=== PATIENT | female | born 1985 | race Caucasian/White ===

== ENCOUNTER 2016-11-14 14:45 | Emergency (ER) | payer BC, OTHER ==
--- NOTE | 2016-11-14 16:36 | RAD ---
HISTORY: Flank pain, right CVA tenderness COMPARISONS: December 05, 2014 TECHNIQUE: Multiple transverse and longitudinal ultrasound images were obtained of the kidneys using grayscale and color Doppler imaging. FINDINGS: RIGHT KIDNEY: The right kidney is normal in shape, size, contour, and echogenicity. There is no hydronephrosis or nephrolithiasis. The right kidney measures 10.1 x 4.3 x 4 cm. LEFT KIDNEY: The left kidney is normal in shape, size, contour, and echogenicity. There is no hydronephrosis or nephrolithiasis. The left kidney measures 10.5 x 5.2 x 4.3 cm. BLADDER: No images are submitted of the bladder. AORTA AND IVC: No images are submitted of the vasculature. RETROPERITONEUM: Unremarkable. OTHER: None. IMPRESSION: NO HYDRONEPHROSIS OR NEPHROLITHIASIS
--- NOTE | 2016-11-14 16:38 | RAD ---
HISTORY: Pelvic pain, history of cyst, left lower quadrant tenderness COMPARISONS: October 12, 2015 TECHNIQUE: Multiple transverse and longitudinal ultrasound images were obtained of the pelvis using grayscale, color Doppler, and spectral Doppler imaging using the endovaginal transducer. FINDINGS: UTERUS: The uterus measures 6.8 x 2.7 x 3.9 cm. The uterus is normal in shape, size, contour, and echotexture. ENDOMETRIUM: The endometrial stripe is smooth. The endometrium measures 0.5 cm in thickness. An IUD is noted within the endometrial cavity low lying from the lower uterine segment into the endocervical canal. CUL-DE-SAC: There is no free fluid within the cul-de-sac. RIGHT OVARY: The right ovary measures 3.1 x 1.8 x 1.9 cm. Multiple follicles are noted. Normal arterial and venous waveforms are identifiable within the ovary on spectral Doppler imaging. LEFT OVARY: The left ovary measures 3.1 x 1.4 x 1.5 cm. Multiple follicles are noted. Normal arterial and venous waveforms are identifiable within the ovary on spectral Doppler imaging. BLADDER: The bladder is not well visualized. IMPRESSION: THE IUD IS LOW LYING EXTENDING INTO THE ENDOCERVICAL CANAL.
[2016-11-14] MEDS ORDERED: NS 0.9% 1000 ML* 1,000 ML IV ONE (16:40)
[2016-11-14 16:45] LABS: Hematocrit 39 % (35-47); Hemoglobin 12.9 g/dl (12.0-16.0); Mean Corpuscular HGB Conc 33 g/dl (31-36); Mean Corpuscular Hemoglobin 29 pg (27-31); Mean Corpuscular Volume 88 fL (80-97); Mean Platelet Volume 9 um3 (7.4-10.4); Red Blood Count 4.44 10^6/ul (4.0-5.4); Red Cell Distribution Width 16 % (10.5-15); White Blood Count 9.3 10^3/ul (3.5-10.8)
[2016-11-14 17:03] LABS: ALT 14 U/L (7-52); AST 15 U/L (13-39); Albumin 4.4 g/dL (3.2-5.2); Alkaline Phosphatase 64 U/L (34-104); Anion Gap 7 mmol/L (2-11); BUN/Creatinine Ratio 15.6 (8-20); Blood Urea Nitrogen 12 mg/dL (6-24); C Reactive Protein 4.95 mg/L (< 5.00); CO2 Carbon Dioxide 26 mmol/L (22-32); Calcium 9.7 mg/dL (8.6-10.3); Chloride 105 mmol/L (101-111); EGFR Non-African American 88.6 (>60); Globulin 2.8 g/dL (2-4); Glucose 88 mg/dL (70-100); Lipase 22 U/L (11.0-82.0); Potassium 3.4 mmol/L (3.5-5.0); Sodium 138 mmol/L (133-145); Total Protein 7.2 g/dL (6.4-8.9)
[2016-11-14] MEDS ORDERED: Ketorolac INJ* 30 MG/ML 1 ML VIAL IV ONE (17:45)
[2016-11-14 17:55] LABS: Urine Bacteria Absent (Absent); Urine Bilirubin Negative (Negative); Urine Glucose Negative (Negative); Urine Nitrite Negative (Negative)
[2016-11-14] MEDS ORDERED: traMADol TAB* 50 MG PO ONE (17:55)
--- NOTE | 2016-11-14 20:16 | RAD ---
CLINICAL HISTORY: Right flank pain COMPARISON: October 12, 2015 TECHNIQUE: Multiple contiguous axial CT scans were obtained of the abdomen and pelvis, without intravenous contrast enhancement. Coronal and sagittal multiplanar reformations are submitted for review. Oral contrast was not administered. FINDINGS: The study is limited by the lack of intravenous contrast. This limits evaluation of the solid organs and vasculature. LUNG BASES: The lung bases are clear. LIVER: The liver is normal in shape, size, contour, and attenuation. BILE DUCTS: There is no intrahepatic or extrahepatic biliary dilatation. GALLBLADDER: The gallbladder is normal, without pericholecystic inflammatory change. PANCREAS: The pancreas is normal, without mass or ductal dilatation. SPLEEN: Normal in size and appearance. UPPER GI TRACT: Evaluation of the gastrointestinal tract is limited by incomplete gastric distention. The upper GI tract is unremarkable. SMALL BOWEL AND MESENTERY: The small bowel is normal in contour, course, and caliber. There is no obstruction or dilatation. COLON: The colon is normal in contour, course, caliber. There is no pericolonic inflammatory change. There is a tubular, vermiform, hollow viscus that is blind ending, and originates from the cecum, consistent with a normal appendix. There is no periappendiceal inflammatory change. This is best seen on images 1 through 2 through 145 ADRENALS: Normal bilaterally. KIDNEYS: The kidneys are normal in shape, size, contour, and axis. There is no hydronephrosis or nephrolithiasis. BLADDER: The bladder is incompletely distended but is grossly normal. PELVIC ORGANS: An IUD is noted AORTA: The aorta is normal. IVC: Unremarkable LYMPH NODES: There is no lymphadenopathy by size criteria. ABDOMINAL WALL: There is no evidence for abdominal wall hernia. BONES AND SOFT TISSUES: The bones and soft tissues are unremarkable. OTHER: None IMPRESSION: NO HYDRONEPHROSIS OR NEPHROLITHIASIS
[2016-11-14 21:08] VITALS: BP 132/68
--- NOTE | 2016-11-14 21:16 | ED ---
Rob Patterson Michael, scribed for Spencer Mcintosh MD on 11/14/16 at 1542 . Abdominal Pain/Female - HPI Summary HPI Summary: Old records reviewed, the pt had previous Urgent Care visit with abd pain and epigastric tenderness. She was dx with pancreatitis, and she has a hx of ovarian cyst and colitis. The pt had another Urgent Care visit in October 2015. She had hepatitis C and a hx of opioid abuse. The pt had a CT 2015 and dx with mild colitis . There were two other ER visits in Nov 2015 which were consistent with the Urgent Care visits, and she was dx with chronic abd pain. She was supposed to follow up with GI. The 30 y/o female was BIBA to the ED presenting with constant and sharp RLQ abd pain that started this morning. The pt was referred to the ED from her PCP. She states that the abd pain radiates to her right groin and her bilateral lower back. She also c/o vomiting, fever, chills, and decreased appetite. The pt denies hematuria, dysuria, and increased frequency of urination. The pt has a prior hx of UTI, and she is currently taking Flagyl and Cipro. She is sexual active with the same partner for 3 years. The pt also has a hx of upper and lower endoscopy which were all negative. - History of Current Complaint Chief Complaint: EDAbdPain Stated Complaint: ABD PAIN Time Seen by Provider: 11/14/16 15:12 Hx Obtained From: Patient, EMS, Medical Records Hx Last Menstrual Period: 11/06/14 Onset/Duration: Sudden Onset, Lasting Hours, Still Present Timing: Constant Severity Initially: Moderate Severity Currently: Moderate Pain Intensity: 7 Pain Scale Used: 0-10 Numeric Location: Discrete At: RLQ Radiates: Yes Radiates to: Back, Other - groin Character: Sharp Aggravating Factor(s): Nothing Alleviating Factor(s): Nothing Associated Signs and Symptoms: Positive: Fever, Back Pain, Decreased Appetite, Vomiting, Other: - chills. Negative: Urinary Symptoms Allergies/Adverse Reactions: Allergies Allergy/AdvReac Type Severity Reaction Status Date / Time Nitrofurantoin Allergy Intermediate Nausea And Verified 11/14/16 14:59 [From Macrobid] Vomiting Sulfa Drugs Allergy Intermediate Rash And Verified 11/14/16 14:59 Itching Sulfamethoxazole Allergy Unknown Verified 11/14/16 14:59 w/Trimethoprim Reaction [From Bactrim] Details Penicillins AdvReac Intermediate Vomiting Verified 11/14/16 14:59 Home Medications: Home Medications Albuterol HFA INHALER* [Ventolin HFA Inhaler*] 1 puff INH Q4H PRN 11/14/16 [ History Confirmed 11/14/16] Budesonide CAP(NF) 3 mg PO DAILY 11/14/16 [History Confirmed 11/14/16] Calcium 500 mg PO BID 11/14/16 [History Confirmed 11/14/16] Ciprofloxacin TAB* [Cipro Tab*] 500 mg PO BID 11/14/16 [History Confirmed ] metroNIDAZOLE TAB* [Flagyl 250 mg TAB*] 500 mg PO TID 11/14/16 [History Confirmed 11/14/16] PMH/Surg Hx/FS Hx/Imm Hx Previously Healthy: No - ovarian cyst Endocrine/Hematology History: Denies: Hx Diabetes Cardiovascular History: Denies: Hx Congestive Heart Failure, Hx Hypertension Respiratory History: Denies: Hx Asthma, Hx Chronic Obstructive Pulmonary Disease (COPD) GI History: Reports: Hx Ulcer - colitis, Other GI Disorders - Colitis History: Reports: Other Problems/Disorders - Frequent UTIs Denies: Hx Dialysis, Hx Renal Disease Psychiatric History: Reports: Hx Anxiety, Hx Depression, Hx Substance Abuse - HEROIN - Surgical History Surgery Procedure, Year, and Place: ovarian cyst Infectious Disease History: Yes Infectious Disease History: Reports: Hx Hepatitis - TESTS + FOR HEP C ANTIBODIES Denies: Hx Clostridium Difficile, Hx Human Immunodeficiency Virus (HIV), Hx of Known/Suspected MRSA, Hx Shingles, Hx Tuberculosis, Traveled Outside the [place] in Last 30 Days - Family History Known Family History: Positive: None Family History: pt denies FHx - Social History Occupation: Employed Full-time Lives: With Family Alcohol Use: Occasionally Alcohol Amount: 1/DAY Hx Substance Use: Yes Substance Use Type: Reports: Marijuana Substance Use Comment - Amount & Last Used: almost daily Hx Tobacco Use: Yes Smoking Status (MU): Heavy Every Day Tobacco Smoker Type: Cigarettes Amount Used/How Often: 3 PPD Length of Time of Smoking/Using Tobacco: 8 years Have You Smoked in the Last Year: Yes Review of Systems Positive: Fever, Chills Positive: Abdominal Pain, Vomiting, Other - decreased appetite Negative: dysuria, frequency, hematuria All Other Systems Reviewed And Are Negative: Yes Physical Exam Triage Information Reviewed: Yes Vital Signs On Initial Exam: Initial Vitals Temp Pulse Resp BP Pulse Ox 97.9 F 88 18 141/76 98 11/14/16 14:50 11/14/16 14:50 11/14/16 14:50 11/14/16 14:50 11/14/16 14:50 Vital Signs Reviewed: Yes Appearance: Positive: Well-Appearing, Pain Distress Head/Face: Positive: Normal Head/Face Inspection Eyes: Positive: ARACELY ENT: Positive: Other - dry oral mucosa Neck: Positive: Supple, Other: - no adenopathy. no edema. Respiratory/Lung Sounds: Positive: Clear to Auscultation, Other - breathing comfortable. Negative: Rales, Wheezes Cardiovascular: Positive: RRR, Other - negative gallops, S1, S2. Negative: Murmur, Rub Abdomen Description: Positive: Soft, CVA Tenderness (R), Other: - flat. Negative: Nontender - tender LLQ Musculoskeletal: Positive: Other - no calf tenderness. Negative: Edema Left, Edema Right Neurological: Positive: Alert, Oriented to Person Place, Time Psychiatric: Positive: Other - logical and coherent AVPU Assessment: Alert Diagnostics - Vital Signs Vital Signs Temp Pulse Resp BP Pulse Ox 11/14/16 14:50 97.9 F 88 18 141/76 98 - Laboratory Lab Results: Lab Results 11/14/16 11/14/16 11/14/16 Range/Units 16:30 16:30 17:36 WBC 9.3 (3.5-10.8) 10^3/ul RBC 4.44 (4.0-5.4) 10^6/ul Hgb 12.9 (12.0-16.0) g/dl Hct 39 (35-47) % MCV 88 (80-97) fL MCH 29 (27-31) pg MCHC 33 (31-36) g/dl RDW 16 H (10.5-15) % Plt Count 267 (150-450) 10^3/ul MPV 9 (7.4-10.4) um3 Neut % (Auto) 55.1 (38-83) % Lymph % (Auto) 35.8 (25-47) % Crowley % (Auto) 6.6 (1-9) % Eos % (Auto) 1.2 (0-6) % Baso % (Auto) 1.3 (0-2) % Absolute Neuts (auto) 5.1 (1.5-7.7) 10^3/ul Absolute Lymphs (auto) 3.3 (1.0-4.8) 10^3/ul Absolute Monos (auto) 0.6 (0-0.8) 10^3/ul Absolute Eos (auto) 0.1 (0-0.6) 10^3/ul Absolute Basos (auto) 0.1 (0-0.2) 10^3/ul Absolute Nucleated RBC 0.01 10^3/ul Nucleated RBC % 0.1 Sodium 138 (133-145) mmol/L Potassium 3.4 L (3.5-5.0) mmol/L Chloride 105 (101-111) mmol/L Carbon Dioxide 26 (22-32) mmol/L Anion Gap 7 (2-11) mmol/L BUN 12 (6-24) mg/dL Creatinine 0.77 (0.51-0.95) mg/dL Est GFR ( Amer) 114.0 (>60) Est GFR (Non-Af Amer) 88.6 (>60) BUN/Creatinine Ratio 15.6 (8-20) Glucose 88 (70-100) mg/dL Calcium 9.7 (8.6-10.3) mg/dL Total Bilirubin 0.40 (0.2-1.0) mg/dL AST 15 (13-39) U/L ALT 14 (7-52) U/L Alkaline Phosphatase 64 (34-104) U/L C-Reactive Protein 4.95 (< 5.00) mg/L Total Protein 7.2 (6.4-8.9) g/dL Albumin 4.4 (3.2-5.2) g/dL Globulin 2.8 (2-4) g/dL Albumin/Globulin Ratio 1.6 (1-3) Lipase 22 (11.0-82.0) U/L Beta HCG, Quant < 0.60 mIU/mL Urine Color Yellow Urine Appearance Cloudy Urine pH 6.0 (5-9) Ur Specific Elizabeth 1.027 (1.010-1.030) Urine Protein 1+(30 mg/dl) H (Negative) Urine Ketones 1+ H (Negative) Urine Blood Negative (Negative) Urine Nitrate Negative (Negative) Urine Bilirubin Negative (Negative) Urine Urobilinogen Negative (Negative) Ur Leukocyte Esterase Negative (Negative) Urine WBC (Auto) Trace(0-5/hpf) (Absent) Urine RBC (Auto) 1+(3-5/hpf) H (Absent) Ur Squamous Epith Cells Present H (Absent) Urine Bacteria Absent (Absent) Urine Glucose Negative (Negative) Result Diagrams: 11/14/16 16:30 11/14/16 16:30 Lab Statement: Any lab studies that have been ordered have been reviewed, and results considered in the medical decision making process. - CT CT ABD/PEL CT Interpretation: No Acute Changes CT Interpretation Completed By: Radiologist - Additional Comments Diagnostic Additional Comments: Renal US-Radiologist: No hydronephrosis or nephrolithiasis. Transvaginal US-Radiologist: The IUD is low lying extending into the endocervical canal. Abdominal Pain Fem Course/Dx - Course Course Of Treatment: she presents with abd pain and flank pain. On review of symptoms there is nothing more significant as she denies all sx besides pain and some anorexia. There was no diarrhea or vomiting. All of her exams were benign. Upon exam there was tenderness to the left lower abd although she says pain is on the right. She did have CVA tenderness. UA is pending. Pelvic US is completely nml with no signs of abscess, torsion, free fluid, enlarged follicles , or cysts. Despite pain medication of Toradol she did not feel any better so because of her not improving a CT was ordered to look for atypical appendicitis. CT scan was returned as nml as well. She agrees to follow up with GI doctor at [facility]. Before leaving, the patient was given her option for admission to consult with GI and Surgery. The patient denied and said she could follow up with her own GI doctor. She was disappointed she did not receive pain medication but we were not really sure what we would be treating. - Diagnoses Differential Diagnosis: Positive: Abdominal Aortic Aneurysm, Appendicitis, Bowel Obstruction, Constipation, Diverticulitis, Ectopic , Gall Bladder Disease, Irritable Bowel Syndrome, Ovarian Cyst, Pancreatitis, Pelvic Inflammatory Disease, Peptic Ulcer Disease, , Renal Colic, Urinary Tract Infection Provider Diagnoses: Abdominal pain, Flank pain Discharge - Discharge Plan Condition: Fair Disposition: HOME Prescriptions: Naproxen TAB* [Naprosyn TAB*] 500 mg PO Q8H PRN #12 tab PRN Reason: Pain traMADol TAB* [Ultram*] 50 mg PO Q6HR PRN #20 tab MDD 3 PRN Reason: Pain Patient Education Materials: Abdominal Pain (ED) Referrals: Adela Shultz MD [Primary Care Provider] - 1 Day The documentation as recorded by the Rob reich Michael accurately reflects the service I personally performed and the decisions made by Dayna hong Farzad, MD.
== END 2016-11-14 21:07 | disposition home or self-care (01) ==
LOC: ED 14:45
DX: R10.84 Generalized abdominal pain (principal); R11.0 Nausea; R11.10 Vomiting, unspecified; F17.210 Nicotine dependence, cigarettes, uncomplicated
CPT/HCPCS: 36415; 74176; 76775; 76830; 80053; 81003; 81015; 83690; 84702; 85025; 86140; 99283; A9270-GY; J1885

== ENCOUNTER 2016-11-22 07:46 | Emergency (ER) | payer BC ==
[2016-11-22 08:06] VITALS: BP 159/93
[2016-11-22] MEDS ORDERED: NS 0.9% 1000 ML* 1,000 ML IV ONE (08:17)
[2016-11-22] MEDS ORDERED: Ondansetron INJ* 2 MG/ML VIAL IV ONE (08:18)
[2016-11-22] MEDS ORDERED: Ketorolac INJ* 30 MG/ML 1 ML VIAL IV PUSH ONE (08:24)
--- NOTE | 2016-11-22 08:55 | UC ---
Makenzie Patterson Rebecca, scribed for Pura Melchor MD on 11/22/16 at 0815 . Abdominal Pain Female HPI - HPI Summary HPI Summary: Pt is a 30 y/o F who presents to [facility] unaccompanied c/o abd pain. Pain is acute on chronic, suddenly worsening this morning at 0400. Pain is in the epigastric region without radiation and characterized as cramping. Sx are severe , ranked 7/10. Sx aggravated and alleviated by nothing. 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. PMHx collagenous colitis. LNMP 3 weeks ago. - History of Current Complaint Chief Complaint: UCAbdominalPain Stated Complaint: VOMITING Time Seen by Provider: 11/22/16 08:08 Hx Obtained From: Patient Hx Last Menstrual Period: 3 WEEKS AGO Onset/Duration: Sudden Onset, Lasting Hours, Worse Since - this morning Severity Initially: Severe Severity Currently: Severe Pain Intensity: 7 Pain Scale Used: 0-10 Numeric Location: Discrete At: LLQ, Epigastric Radiates: No Character: Cramping Aggravating Factor(s): Nothing Alleviating Factor(s): Nothing Associated Signs and Symptoms: Positive: Diaphoresis, Vomiting Simlar Episode/Dx as:: collagenous colitis - Risk Factors Ectopic Risk Factor: Negative Ovarian Torsion Risk Factor: Ovarian Cysts/Tumors Allergies/Adverse Reactions: Allergies Allergy/AdvReac Type Severity Reaction Status Date / Time Nitrofurantoin Allergy Intermediate Nausea And Verified 11/22/16 07:58 [From Macrobid] Vomiting Sulfa Drugs Allergy Intermediate Rash And Verified 11/22/16 07:58 Itching Sulfamethoxazole Allergy Unknown Verified 11/22/16 07:58 w/Trimethoprim Reaction [From Bactrim] Details Penicillins AdvReac Intermediate Vomiting Verified 11/22/16 07:58 PMH/Surg Hx/FS Hx/Imm Hx GI/ History Of: Reports: Ulcer - colitis Denies: Renal Disease Psychological History Of: Reports: Anxiety, Depression - Surgical History Surgical History: Yes Surgery Procedure, Year, and Place: 2014 ovarian cyst REMOVAL - Family History Known Family History: Positive: Hypertension - mother - Social History Occupation: Employed Full-time Alcohol Use: Occasionally Alcohol Amount: 1/DAY Substance Use Type: Marijuana Substance Use Comment - Amount & Last Used: almost daily Smoking Status (MU): Heavy Every Day Tobacco Smoker Type: Cigarettes Amount Used/How Often: 3 PPD, 10+ YEARS Length of Time of Smoking/Using Tobacco: 8 years Have You Smoked in the Last Year: Yes Household Exposure Type: Cigarettes Review of Systems Constitutional: Negative Skin: Negative Eyes: Negative ENT: Negative Respiratory: Negative Cardiovascular: Negative Gastrointestinal: Abdominal Pain - epigastric 7/10, Vomiting Genitourinary: Negative Motor: Negative Neurovascular: Negative Musculoskeletal: Negative Neurological: Negative Psychological: Negative All Other Systems Reviewed And Are Negative: Yes Physical Exam Triage Information Reviewed: Yes Appearance: Well-Appearing, Well-Nourished, Pain Distress - Tearful with pain Vital Signs: Initial Vital Signs Temp 98.7 F 11/22/16 07:59 Pulse 90 11/22/16 07:59 Resp 24 11/22/16 07:59 BP 159/93 11/22/16 07:59 Pulse Ox 99 11/22/16 07:59 Vital Signs Reviewed: Yes Eyes: Positive: Conjunctiva Clear ENT: Positive: Normal ENT inspection Neck: Positive: Supple Respiratory: Positive: Lungs clear, Normal breath sounds, No respiratory distress Cardiovascular: Positive: RRR, No Murmur, Pulses Normal, Brisk Capillary Refill Abdomen Description: Positive: Soft. Negative: Nontender - LLQ tenderness Bowel Sounds: Positive: Hypoactive Musculoskeletal: Positive: Strength Intact, ROM Intact Neurological: Positive: Alert, Muscle Tone Normal Psychological Exam: Normal Skin: Positive: Other - Diaphoretic Abd Pain Female Course/Dx - Differential Dx/Diagnosis Differential Diagnosis: Diverticulitis, Ovarian Cyst, Other - colitis Provider Diagnoses: acute abdominal pain - Physician Notification/Consults Discussed Patient Care With: Dr. Johnson at [facility] ED. Accepts pt as transfer. Time Discussed With Above Provider: 08:19 Instructed by Provider To: MD Will See In ED - pt transferred by [facility] ambulance Discharge - Discharge Plan Condition: Stable Disposition: TRANS HIGHER LVL OF CARE FAC Discharge Disposition Comment: via [facility] to [facility] The documentation as recorded by the Makenzie reich Rebecca accurately reflects the service I personally performed and the decisions made by , Pura Melchor MD.
== END 2016-11-22 08:52 | disposition short-term general hospital (02) ==
LOC: UCEAST 07:46
DX: R10.13 Epigastric pain (principal); R10.32 Left lower quadrant pain; R11.10 Vomiting, unspecified; Z88.1 Allergy status to other antibiotic agents; Z88.0 Allergy status to penicillin; Z88.2 Allergy status to sulfonamides; F12.90 Cannabis use, unspecified, uncomplicated; F17.210 Nicotine dependence, cigarettes, uncomplicated
CPT/HCPCS: 99213; G0463; J2405

== ENCOUNTER 2016-11-22 08:53 | Emergency (ER) | payer BC ==
[2016-11-22] MEDS ORDERED: Ondansetron INJ* 2 MG/ML VIAL IV ONE ×2 (09:27→09:51)
[2016-11-22] MEDS ORDERED: Morphine INJ* 4 MG/ML 1 ML CARPUJECT IV ONE (09:51)
[2016-11-22] MEDS ORDERED: NS 0.9% 1000 ML* 1,000 ML IV ONE (09:53)
--- NOTE | 2016-11-22 10:11 | ED ---
Abdominal Pain/Female - HPI Summary HPI Summary: Pt here w/ acute on chronic ab pain - had colitis dx'd over the past year and follows w/ Dr. Ramos through [facility] - states pain feels like flair up up her condition. She has been taking entocort EC for "a while now" and recently tapering down. Still working on trying other meds to better control ab pain - hasn't tried anything other than entocort yet. She's also been able to eat whatever she wants although states some foods irritate her more than other. Has not been following any special diet to date. Has acute pain over the past week ( was seen in ED on 11/14/2016 - CT ab pelvis as well as TVUS then), nausea with vomiting today. Stools have been soft, small and frequent - denies diarrhea, watery stools, hematochezia, fever, URI sx, chest pain, SOB, cough, dysuria, flank pain, increased urination, vaginal d/c, general swelling or skin changes. LMP 2 weeks ago - typically normal - has an IUD. H/o ovarian cyst requiring surgical removal. Although she is sexually active, denies concern for STD as she 's had same partner for past 3 years. Here today for pain control. States toradol doesn't work for her. H/o heroine use and Hep C. When asked about narcotic abuse h/o, reports she hasn 't used in 3 years and feels comfortable receiving narcotic pain meds today as she can't take the pain anymore. - History of Current Complaint Chief Complaint: EDAbdPain Stated Complaint: ABD PAIN Time Seen by Provider: 11/22/16 09:01 Hx Obtained From: Patient Hx Last Menstrual Period: 3 WEEKS AGO Allergies/Adverse Reactions: Allergies Allergy/AdvReac Type Severity Reaction Status Date / Time Sulfa Drugs Allergy Intermediate Rash And Verified 11/22/16 07:58 Itching Sulfamethoxazole Allergy Unknown Verified 11/22/16 07:58 w/Trimethoprim Reaction [From Bactrim] Details Nitrofurantoin AdvReac Intermediate Nausea And Verified 11/22/16 11:22 [From Macrobid] Vomiting Penicillins AdvReac Intermediate Vomiting Verified 11/22/16 07:58 PMH/Surg Hx/FS Hx/Imm Hx Previously Healthy: Yes Endocrine/Hematology History: Reports: Autoimmune Disease - collagenous colitis Denies: Hx Anticoagulant Therapy, Hx Blood Disorders, Hx Diabetes, Hx Thyroid Disease Cardiovascular History: Denies: Hx Congestive Heart Failure, Hx Hypertension Respiratory History: Denies: Hx Asthma, Hx Chronic Obstructive Pulmonary Disease (COPD) GI History: Reports: Other GI Disorders - Collagenous colitis History: Reports: Other Problems/Disorders - Frequent UTIs Denies: Hx Dialysis, Hx Renal Disease Psychiatric History: Reports: Hx Anxiety, Hx Depression, Hx Substance Abuse - 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 - Surgical History Surgery Procedure, Year, and Place: 2014 ovarian cyst REMOVAL Infectious Disease History: No Infectious Disease History: Reports: Hx Hepatitis - TESTS + FOR HEP C ANTIBODIES Denies: Hx Clostridium Difficile, Hx Human Immunodeficiency Virus (HIV), Hx of Known/Suspected MRSA, Hx Shingles, Hx Tuberculosis, Hx Known/Suspected VRE, Hx Known/Suspected VRSA, History Other Infectious Disease, Traveled Outside the [place] in Last 30 Days - Family History Known Family History: Positive: None Family History: pt denies FHx - Social History Occupation: Employed Full-time Lives: With Family Alcohol Use: Occasionally Hx Substance Use: Yes Substance Use Type: Reports: Marijuana - helps ab pain Substance Use Comment - Amount & Last Used: almost daily Hx Tobacco Use: Yes Smoking Status (MU): Current Every Day Smoker Type: Cigarettes Amount Used/How Often: 3 PPD, 10+ YEARS Length of Time of Smoking/Using Tobacco: 8 years Have You Smoked in the Last Year: Yes Review of Systems Positive: Chills. Negative: Fever Eyes: Negative ENT: Negative Negative: Chest Pain Negative: Shortness Of Breath, Cough Gastrointestinal: Other - see HPI Positive: see HPI Musculoskeletal: Negative Skin: Negative Neurological: Negative Positive: Anxious All Other Systems Reviewed And Are Negative: Yes Physical Exam Triage Information Reviewed: Yes Vital Signs On Initial Exam: Initial Vitals Temp Pulse Resp BP Pulse Ox 97.6 F 84 16 129/74 100 11/22/16 09:00 11/22/16 09:00 11/22/16 09:00 11/22/16 09:00 11/22/16 09:00 Vital Signs Reviewed: Yes Appearance: Positive: Pain Distress - pt seated with legs bent underneath her - rocking and sweating - crying, Obese Skin: Positive: Warm - moist - sweat on face Head/Face: Positive: Normal Head/Face Inspection Eyes: Positive: Normal, EOMI, Conjunctiva Clear - anicteric ENT: Positive: Hearing grossly normal, Pharynx normal - mucosa moist Respiratory/Lung Sounds: Positive: Breath Sounds Present, Rhonchi - upper airways. Negative: Rales, Wheezes Cardiovascular: Positive: Normal, RRR, Pulses are Symmetrical in both Upper and Lower Extremities, S1, S2. Negative: Murmur, Rub, Leg Edema Left, Leg Edema Right Abdomen Description: Positive: Soft Bowel Sounds: Positive: Present Pelvic Exam: Positive: other - deferred to Dr. Redd (see notes) Musculoskeletal: Positive: Normal, Strength/ROM Intact Neurological: Positive: Normal, Sensory/Motor Intact, Alert, Oriented to Person Place, Time, CN Intact II-III Psychiatric: Positive: Anxious - discussed h/o narcotic abuse - pt reports she hasn't used in 3 years and feels she is capable of handling narcotic pain meds here today as she's in so much pain she can't take it anymore - appears to be more focused on conversation/better eye contact during discussions about pain control. - Maximiliaon Coma Scale Coma Scale Total: 15 Diagnostics - Vital Signs Vital Signs Temp Pulse Resp BP Pulse Ox 11/22/16 09:00 97.6 F 84 16 129/74 100 - Laboratory Result Diagrams: 11/22/16 09:35 11/22/16 11:45 Lab Statement: Any lab studies that have been ordered have been reviewed, and results considered in the medical decision making process. Re-Evaluation - Re-Evaluation First Eval Change: Unchanged - nausea still present s/p IV zofran 4mg - will repeat Second Eval Change: Unchanged - nausea + vomiting still present after another zofran 4mg ( 8mg total) - will try compazine Third Eval Change: Improved - s/p iv protonix, compazine Abdominal Pain Fem Course/Dx - Course Course Of Treatment: CT ab/pelvis from 11/14/2016 unremarkable for acute findings. Spoke w/ GI specialist at [facility] (Dr. Bauer) - states pt's pain does not correlate w/ her condition. Also reports she has a h/o gastritis upon endoscopy - he reports she takes PPI omeprazole at home - provided protonix IV today which pt reports helped. Upon review of TVUS from 11/14/2016, IUD appears to be lowered and into endocervical canal - Dr. Redd consulted w/ pt and removed IUD as she states this could be her source of pain. No other concerns on pelvic exam per Dr. Redd however cx's attained and pt aware. Provided pt w / short supply of protonix and advised f/u w/ gastro this week. Also advised f/ u w/ [employer]/PCP to follow her [employer] condition today. Explained she may have some vaginal bleeding but pain should improve - short course of low grade pain medications (tramadol) sent home w/ pt - she was upset she did not receive IV morphine before leaving but explained that after receiving 8mg of zofran, 10mg compazine and 4mg of morphine, her BP and pulse ox dropped and that it would not be safe to administer more medications through IV that would suppress her resp response. Reviewed danger s/sx of when to return to ED. Pt comments on appreciating her care here today despite her concerns about pain medication. - Diagnoses Provider Diagnoses: GERD, Malpositioned IUD - Provider Notifications Discussed Care Of Patient With: Dr. Redd - will perform pelvic exam and remove IUD - cx swabs to be taken - [facility] [employer] bed, ring forceps. Dr. August - states pt condition of collagenous colitis should not cause sx pt is having. Confirmed she is using entocort and no other meds have been tried yet. Suggested trying bentyl today - no steroids necessary. Also shared she has h/o gastritis upon upper endoscopy - provided protonix IV today which helped. Gave pt short course at d/c in place of omprazole w/ instructions to f/u w/ GI this week. He is aware there may be some element of drug seeking. Discharge - Discharge Plan Condition: Stable Disposition: HOME Prescriptions: Pantoprazole TAB (NF) [Protonix TAB (NF)] 40 mg PO BEDTIME #5 tab traMADol TAB* [Ultram*] 50 mg PO Q6HR PRN #20 tab MDD 4 PRN Reason: Pain Patient Education Materials: Gastroesophageal Reflux Disease (ED) Forms: *Work Release Referrals: Justin CORTÉS,Cullen Taveras [Medical Doctor] - Adela Shultz MD [Primary Care Provider] - Additional Instructions: Your abdominal pain today may be from multiple factors. You have a history of inflammation in your stomach (aka gastritis). You had some relief today with protonix. This medication will be continued for you to take at home for the next 5 days. Do not take your omeprazole with this. Make sure you follow-up with your luster repairer this week to further investigate this issue. You do not appear to have acute blood loss today. Continue your Entocort as directed. The following lifestyle tips may help with your symptoms and condition as well: 1. Keep a food and beverage journal. It can help you track and avoid triggers. Once identified, avoid these. Common items include: chocolate, mint, coffee, alcohol these relax the upper sphincter allowing acid to splash up and cause pain. Others include: acidic (ie citrus, etc), spicy foods, smoking and NSAIDs (advil, ibuprofen, aspirin, aleve, naproxyn) these directly irritate the lining of the stomach 2. Eat small, frequent meals. Overeating at one setting stretches your stomach and puts pressure on the upper sphincter and can push it open enough to allow acid to creep up and cause pain. 3. Wear loose clothing and maintain a healthy weight. Tight pants/shirt and/ or an enlarged abdomen push on your stomach, reducing the amount of space the stomach may stretch while eating. 4. Avoid lying down after eating 5. Stress can increase stomach acid as well as increase restriction of abdominal tension if youre always holding you muscles tight. Practice relaxation techniques such as breathing exercises, guided imagery, regular physical activity to burn off anxiety/stress. 6. Sip chamomile tea (with or without honey). It can help soothe inflamed tissue in the esophagus. 7. Try sleeping on your left side. This may help move acid away from the entrance of the esophagus. 8. Otis with DGL (deglycyrrhizinated licorice), latanya (eat it or drink it in tea form) - supplements which may help support digestive health 9. You may also try eating a yogurt a day or taking a probiotic supplement (ie , acidophilus, casei, bifidus, etc) if you have an overgrowth of bad bacteria from too many antibiotics over a lifetime - this may help replace good bacteria and reduce stomach dis-ease. Discuss with your luster repairer before starting. You also had a low sitting IUD. This was removed by Dr. Redd today. You may have some residual pelvic cramping as a result but this should improve over the next few days. You may experience some vaginal bleeding after this procedure - period-like flow is normal but if you are saturating a pad every hours for 12+ hours, return to the ED. Avoid using tampons and engaging in sexual intercourse until cleared by your provider. You may also discuss alternative control options with your PCP/insurance commissioner. Some vaginal cultures were taken today. The results will be back in a couple of days. If you have positive findings, an antibiotic will be called into your pharmacy for you. It is important that you have a follow-up pelvic exam with either your PCP or [facility]. Call Thursday to schedule. Some pain medication has been sent to your pharmacy. You may also benefit from warm bath soaks as well as castor oil packs with heat pack. Tichnor Oil Transdermal Packs 1. A wash cloth should be soaked in pure, cold-pressed castor oil that is obtained from a health food store. 2. The wash cloth should be placed on bare skin on the lower stomach. 3. Put a piece of plastic on top of the cloth, such as a plastic grocery bag. 4. Place a hot water bottle on top of that. The water should be made as hot as possible, so long as the patient can tolerate it. 5. Leave this in place for at least 30 minutes. The above procedure can also be done repeatedly over the course of many days to provide relief. However one treatment is usually enough to provide massive relief. Consuming Scott nuts is ideal, because they contain folate, selenium, and magnesium, which have all been shown to reduce menstrual cramps. *If you develop fever, chills, heavy vaginal bleeding, worsening abdominal pain , bloody diarrhea, vomiting, pain with urination, chest pain or shortness of breath, return to ED
[2016-11-22 10:19] LABS: Hematocrit 40 % (35-47); Mean Corpuscular HGB Conc 33 g/dl (31-36); Mean Corpuscular Hemoglobin 29 pg (27-31); Mean Corpuscular Volume 89 fL (80-97); Mean Platelet Volume 10 um3 (7.4-10.4); Red Cell Distribution Width 16 % (10.5-15); White Blood Count 10.9 10^3/ul (3.5-10.8)
[2016-11-22 10:32] LABS: ALT 16 U/L (7-52); Albumin 4.4 g/dL (3.2-5.2); Alkaline Phosphatase 72 U/L (34-104); Amylase 89 U/L (29-103); BUN/Creatinine Ratio 17.9 (8-20); Blood Urea Nitrogen 14 mg/dL (6-24); C Reactive Protein 6.35 mg/L (< 5.00); CO2 Carbon Dioxide 22 mmol/L (22-32); Calcium 9.5 mg/dL (8.6-10.3); Chloride 106 mmol/L (101-111); EGFR African American 112.3 (>60); EGFR Non-African American 87.3 (>60); Glucose 125 mg/dL (70-100); Lipase 91 U/L (11.0-82.0); Sodium 138 mmol/L (133-145); Total Protein 7.4 g/dL (6.4-8.9)
[2016-11-22] MEDS ORDERED: DICYCLOMINE HCL* 20 MG/2 ML VIAL IM ONE (10:32)
[2016-11-22 11:35] LABS: Erythrocyte Sed Rate 36 mm/Hr (0-14)
[2016-11-22] MEDS ORDERED: Pantoprazole IV* 40 MG IV ONE (11:55)
[2016-11-22] MEDS ORDERED: PROCHLORPERAZINE INJ 5 MG/ML 2 ML VIAL IV ONE (11:55)
[2016-11-22] MEDS ORDERED: Dicyclomine CAP* 10 MG PO ONE (11:56)
[2016-11-22] MEDS: NS 0.9% 1000 ML* 2,000 ML IV ONE (15:51)
[2016-11-22] MEDS ORDERED: HYDROcodone/ACETAMIN 5-325 MG* 1 TAB PO ONE (17:10)
[2016-11-22 17:25] VITALS: BP 116/63
== END 2016-11-22 17:37 | disposition home or self-care (01) ==
LOC: ED 08:53
DX: K21.9 Gastro-esophageal reflux disease without esophagitis (principal); T83.32XA Displacement of intrauterine contraceptive device, initial encounter; Y76.8 Miscellaneous obstetric and gynecological devices associated with adverse incidents, not elsewhere classified; Y92.9 Unspecified place or not applicable; F17.210 Nicotine dependence, cigarettes, uncomplicated; Z88.0 Allergy status to penicillin; Z88.2 Allergy status to sulfonamides
CPT/HCPCS: 36415; 80053; 82150; 83605; 83690; 84702; 85025; 85652; 86140; 87491; 87591; 99284; A9270-GY; J0500; J0780; J2270; J2405

== ENCOUNTER 2016-12-12 07:43 | Emergency (ER) | payer BC ==
[2016-12-12] MEDS ORDERED: NS 0.9% 1000 ML* 1,000 ML IV ONE (08:25)
[2016-12-12] MEDS ORDERED: Ondansetron INJ* 2 MG/ML VIAL IV ONE (08:25)
[2016-12-12] MEDS ORDERED: Pantoprazole IV* 40 MG IV ONE (08:25)
[2016-12-12] MEDS ORDERED: Ketorolac INJ* 30 MG/ML 1 ML VIAL IV ONE (08:25)
[2016-12-12] MEDS ORDERED: diPHENhydraMINE IV* 50 MG/ML 1 ml VIAL (BENADRYL) IV ONE (08:28)
[2016-12-12 09:26] LABS: Hematocrit 41 % (35-47); Hemoglobin 13.6 g/dl (12.0-16.0); Mean Corpuscular HGB Conc 33 g/dl (31-36); Mean Corpuscular Hemoglobin 29 pg (27-31); Mean Corpuscular Volume 88 fL (80-97); Mean Platelet Volume 9 um3 (7.4-10.4); Red Blood Count 4.69 10^6/ul (4.0-5.4); Red Cell Distribution Width 16 % (10.5-15); White Blood Count 10.1 10^3/ul (3.5-10.8)
[2016-12-12 09:41] LABS: Urine Bilirubin Negative (Negative); Urine Glucose Negative (Negative); Urine Nitrite Negative (Negative)
[2016-12-12 09:49] LABS: ALT 15 U/L (7-52); Albumin 4.4 g/dL (3.2-5.2); Alkaline Phosphatase 81 U/L (34-104); Amylase 72 U/L (29-103); BUN/Creatinine Ratio 16.9 (8-20); Blood Urea Nitrogen 13 mg/dL (6-24); C Reactive Protein 3.47 mg/L (< 5.00); CO2 Carbon Dioxide 23 mmol/L (22-32); Calcium 9.9 mg/dL (8.6-10.3); Chloride 106 mmol/L (101-111); EGFR African American 113.2 (>60); Glucose 96 mg/dL (70-100); Lipase 22 U/L (11.0-82.0); Sodium 137 mmol/L (133-145); Total Protein 7.4 g/dL (6.4-8.9)
[2016-12-12 09:55] LABS: AST 72 U/L (13-39); Anion Gap 8 mmol/L (2-11); Potassium 4.4 mmol/L (3.5-5.0)
[2016-12-12] MEDS ORDERED: Ketorolac INJ* 30 MG/ML 1 ML VIAL IV PUSH ONE (10:07)
--- NOTE | 2016-12-12 10:33 | RAD ---
HISTORY: Abdominal pain COMPARISONS: November 14, 2016 VIEWS: Frontal views of the abdomen. FINDINGS: BOWEL: There is a nonobstructive bowel gas pattern. There is a large amount of stool within the colon. CALCULI: There are no abnormal calculi. BONES AND SOFT TISSUES: There are no osseous abnormalities. OTHER FINDINGS: The lung bases are clear. There is no subphrenic gas. IMPRESSION: NONOBSTRUCTIVE BOWEL GAS PATTERN. LARGE AMOUNT OF STOOL WITHIN THE COLON
[2016-12-12] MEDS ORDERED: Morphine INJ* 4 MG/ML 1 ML CARPUJECT IV ONE (10:55)
[2016-12-12 11:20] VITALS: BP 113/67
--- NOTE | 2016-12-12 14:49 | ED ---
Carlos Patterson Billy, scribed for Rashad Funk MD on 12/12/16 at 0815 . Abdominal Pain/Female - HPI Summary HPI Summary: Patient is a 31 year-old female with a history of collagenous colitis coming to [facility] with [id number] LLQ abdominal pain. Patient reports non-radiating pain, severity 7/10. She states that hot showers will help her pain. She also reports N/V/D. Patient also reports chills and cold sweats. Patient has had numerous episodes of similar symptoms in the past. She sees Dr. Ramos ( gastroenterology) in [place]. [facility] 1 month ago. - History of Current Complaint Chief Complaint: EDAbdPain Stated Complaint: NAUSEA/VOMITING/DIARRHEA Time Seen by Provider: 12/12/16 08:07 Hx Obtained From: Patient Hx Last Menstrual Period: 3 WEEKS AGO Onset/Duration: Gradual Onset Timing: Constant Severity Initially: Moderate Severity Currently: Moderate Pain Intensity: 7 Pain Scale Used: 0-10 Numeric Location: Discrete At: LLQ Radiates: No Aggravating Factor(s): Nothing Alleviating Factor(s): Other: - hot showers Associated Signs and Symptoms: Positive: Nausea, Vomiting, Diarrhea, Other: - chills, sweats Allergies/Adverse Reactions: Allergies Allergy/AdvReac Type Severity Reaction Status Date / Time Sulfa Drugs Allergy Intermediate Rash And Verified 12/12/16 08:25 Itching Sulfamethoxazole Allergy Unknown Verified 12/12/16 08:25 w/Trimethoprim Reaction [From Bactrim] Details Nitrofurantoin AdvReac Intermediate Nausea And Verified 12/12/16 08:25 [From Macrobid] Vomiting Penicillins AdvReac Intermediate Vomiting Verified 12/12/16 08:25 PMH/Surg Hx/FS Hx/Imm Hx Endocrine/Hematology History: Denies: Hx Anticoagulant Therapy, Hx Blood Disorders, Hx Diabetes, Hx Thyroid Disease Cardiovascular History: Denies: Hx Congestive Heart Failure, Hx Hypertension Respiratory History: Denies: Hx Asthma, Hx Chronic Obstructive Pulmonary Disease (COPD) GI History: Reports: Hx Ulcer - colitis, Other GI Disorders - Collagenous colitis History: Reports: Other Problems/Disorders - Frequent UTIs Denies: Hx Dialysis, Hx Renal Disease Psychiatric History: Reports: Hx Anxiety, Hx Depression, Hx Substance Abuse - 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 - Surgical History Surgery Procedure, Year, and Place: 2014 ovarian cyst REMOVAL Infectious Disease History: No Infectious Disease History: Reports: Hx Hepatitis - TESTS + FOR HEP C ANTIBODIES Denies: Hx Clostridium Difficile, Hx Human Immunodeficiency Virus (HIV), Hx of Known/Suspected MRSA, Hx Shingles, Hx Tuberculosis, Hx Known/Suspected VRE, Hx Known/Suspected VRSA, History Other Infectious Disease, Traveled Outside the [place] in Last 30 Days - Family History Known Family History: Positive: Hypertension - mother - Social History Alcohol Use: Occasionally Alcohol Amount: 1/DAY Hx Substance Use: Yes Substance Use Type: Reports: Marijuana - helps ab pain Substance Use Comment - Amount & Last Used: almost daily Hx Tobacco Use: Yes Smoking Status (MU): Current Every Day Smoker Type: Cigarettes Amount Used/How Often: 3 PPD, 10+ YEARS Length of Time of Smoking/Using Tobacco: 8 years Have You Smoked in the Last Year: Yes Review of Systems Positive: Chills, Skin Diaphoresis Positive: Abdominal Pain, Vomiting, Diarrhea, Nausea All Other Systems Reviewed And Are Negative: Yes Physical Exam - Summary Physical Exam Summary: The patient is well-nourished in no acute distress and in no acute pain. The skin is warm and dry and skin color reflects adequate perfusion. HEENT: The head is normocephalic and atraumatic. The pupils are equal and reactive. The conjunctivae are clear and without drainage. Nares are patent and without drainage. Neck is supple with full range of motion and non-tender. There are no carotid bruits. There is no neck vein distension. Respiratory: Chest is non-tender. Lungs are clear to auscultation and breath sounds are symmetrical and equal. Cardiovascular: Heart is regular rate and rhythm. There is no murmur or rub auscultated. There is no peripheral edema and pulses are symmetrical and equal. Abdomen: The abdomen is soft. Mild tenderness to the epigastric and LLQ regions. There are normal bowel sounds heard in all four quadrants and there is no organomegaly palpated. Musculoskeletal: There is no back pain noted. Extremities are non-tender with full range of motion. There is good capillary refill. There is no peripheral edema or calf tenderness elicited. Neurological: Patient is alert and oriented to person, place and time. The patient has symmetrical motor strength in all four extremities. Psychiatric: The patient has an appropriate affect and does not exhibit any anxiety or depression. Triage Information Reviewed: Yes Vital Signs On Initial Exam: Initial Vitals Temp Pulse Resp BP Pulse Ox 97.3 F 78 20 138/99 98 12/12/16 07:44 12/12/16 07:44 12/12/16 07:44 12/12/16 07:44 12/12/16 07:44 Vital Signs Reviewed: Yes Diagnostics - Vital Signs Vital Signs Temp Pulse Resp BP Pulse Ox 12/12/16 07:44 97.3 F 78 20 138/99 98 - Laboratory Lab Results: Lab Results 12/12/16 12/12/16 12/12/16 Range/Units 09:10 09:10 09:10 WBC 10.1 (3.5-10.8) 10^3/ul RBC 4.69 (4.0-5.4) 10^6/ul Hgb 13.6 (12.0-16.0) g/dl Hct 41 (35-47) % MCV 88 (80-97) fL MCH 29 (27-31) pg MCHC 33 (31-36) g/dl RDW 16 H (10.5-15) % Plt Count 293 (150-450) 10^3/ul MPV 9 (7.4-10.4) um3 Neut % (Auto) 83.3 H (38-83) % Lymph % (Auto) 11.6 L (25-47) % [place] % (Auto) 4.0 (1-9) % Eos % (Auto) 0.5 (0-6) % Baso % (Auto) 0.6 (0-2) % Absolute Neuts (auto) 8.4 H (1.5-7.7) 10^3/ul Absolute Lymphs (auto) 1.2 (1.0-4.8) 10^3/ul Absolute Monos (auto) 0.4 (0-0.8) 10^3/ul Absolute Eos (auto) 0 (0-0.6) 10^3/ul Absolute Basos (auto) 0.1 (0-0.2) 10^3/ul Absolute Nucleated RBC 0 10^3/ul Nucleated RBC % 0 INR (Anticoag Therapy) (0.89-1.11) APTT (26.0-36.3) seconds Sodium 137 (133-145) mmol/L Potassium 4.4 (3.5-5.0) mmol/L Chloride 106 (101-111) mmol/L Carbon Dioxide 23 (22-32) mmol/L Anion Gap 8 (2-11) mmol/L BUN 13 (6-24) mg/dL Creatinine 0.77 (0.51-0.95) mg/dL Est GFR ( Amer) 113.2 (>60) Est GFR (Non-Af Amer) 88.0 (>60) BUN/Creatinine Ratio 16.9 (8-20) Glucose 96 (70-100) mg/dL Lactic Acid 1.1 (0.5-2.0) mmol/L Calcium 9.9 (8.6-10.3) mg/dL Total Bilirubin 0.40 (0.2-1.0) mg/dL AST 72 H (13-39) U/L ALT 15 (7-52) U/L Alkaline Phosphatase 81 (34-104) U/L C-Reactive Protein 3.47 (< 5.00) mg/L Total Protein 7.4 (6.4-8.9) g/dL Albumin 4.4 (3.2-5.2) g/dL Globulin 3.0 (2-4) g/dL Albumin/Globulin Ratio 1.5 (1-3) Amylase 72 (29-103) U/L Lipase 22 (11.0-82.0) U/L Beta HCG, Quant < 0.60 mIU/mL Urine Color Urine Appearance Urine pH (5-9) Ur Specific [place] (1.010-1.030) Urine Protein (Negative) Urine Ketones (Negative) Urine Blood (Negative) Urine Nitrate (Negative) Urine Bilirubin (Negative) Urine Urobilinogen (Negative) Ur Leukocyte Esterase (Negative) Urine Glucose (Negative) 12/12/16 12/12/16 Range/Units 09:10 09:26 WBC (3.5-10.8) 10^3/ul RBC (4.0-5.4) 10^6/ul Hgb (12.0-16.0) g/dl Hct (35-47) % MCV (80-97) fL MCH (27-31) pg MCHC (31-36) g/dl RDW (10.5-15) % Plt Count (150-450) 10^3/ul MPV (7.4-10.4) um3 Neut % (Auto) (38-83) % Lymph % (Auto) (25-47) % [place] % (Auto) (1-9) % Eos % (Auto) (0-6) % Baso % (Auto) (0-2) % Absolute Neuts (auto) (1.5-7.7) 10^3/ul Absolute Lymphs (auto) (1.0-4.8) 10^3/ul Absolute Monos (auto) (0-0.8) 10^3/ul Absolute Eos (auto) (0-0.6) 10^3/ul Absolute Basos (auto) (0-0.2) 10^3/ul Absolute Nucleated RBC 10^3/ul Nucleated RBC % INR (Anticoag Therapy) 0.96 (0.89-1.11) APTT 31.2 (26.0-36.3) seconds Sodium (133-145) mmol/L Potassium (3.5-5.0) mmol/L Chloride (101-111) mmol/L Carbon Dioxide (22-32) mmol/L Anion Gap (2-11) mmol/L BUN (6-24) mg/dL Creatinine (0.51-0.95) mg/dL Est GFR ( Amer) (>60) Est GFR (Non-Af Amer) (>60) BUN/Creatinine Ratio (8-20) Glucose (70-100) mg/dL Lactic Acid (0.5-2.0) mmol/L Calcium (8.6-10.3) mg/dL Total Bilirubin (0.2-1.0) mg/dL AST (13-39) U/L ALT (7-52) U/L Alkaline Phosphatase (34-104) U/L C-Reactive Protein (< 5.00) mg/L Total Protein (6.4-8.9) g/dL Albumin (3.2-5.2) g/dL Globulin (2-4) g/dL Albumin/Globulin Ratio (1-3) Amylase (29-103) U/L Lipase (11.0-82.0) U/L Beta HCG, Quant mIU/mL Urine Color Yellow Urine Appearance Cloudy Urine pH 5.0 (5-9) Ur Specific [place] 1.024 (1.010-1.030) Urine Protein Negative (Negative) Urine Ketones Negative (Negative) Urine Blood Negative (Negative) Urine Nitrate Negative (Negative) Urine Bilirubin Negative (Negative) Urine Urobilinogen Negative (Negative) Ur Leukocyte Esterase Negative (Negative) Urine Glucose Negative (Negative) Result Diagrams: 12/12/16 09:10 12/12/16 09:10 Lab Statement: Any lab studies that have been ordered have been reviewed, and results considered in the medical decision making process. - Radiology abd xray Radiology Interpretation Completed By: Radiologist - NONOBSTRUCTIVE BOWEL GAS PATTERN. LARGE AMOUNT OF STOOL WITHIN THE COLON Re-Evaluation - Re-Evaluation First Eval Re-Evaluation Time: 10:54 Comment: Labs and imaging reviewed. Plan for discharge reviewed. Abdominal Pain Fem Course/Dx - Course Course Of Treatment: Patient is a 31 year-old female with a history of collagenous colitis coming to [facility] with [id number] LLQ abdominal pain. Patient reports non-radiating pain, severity 7/10. She states that hot showers will help her pain. She also reports N/V/D. Patient also reports chills and cold sweats. Patient has had numerous episodes of similar symptoms in the past. She sees Dr. Ramos (gastroenterology) in [place]. LMP 1 month ago. Bloodwork WNL except for AST of 72. Beta HCG is negative. UA shows no UTI. Abdominal x-ray shows nonobstructive bowel gas pattern and a large amount of stool in the colon. In the ED course, pt was given IVF, protonix, Zofran, and one dose of morphine for pain. I believe that the patient has an exacerbation of the cyclic vomiting syndrome, therefore she will be discharged home to follow up with PCP and gastroenterology. Her symptoms have improved. She is hemodynamically stable , A&Ox3. I discussed all the findings and test results with the patient. Patient was instructed to return to the emergency room immediately if any of the symptoms return or worsens. Plan of care was discussed with the patient and understands and agrees. All questions were answered at patient satisfaction. There were no further complaints or concerns. Lung exam before discharge: CTA B /L. Good air exchange. No wheezing or crackles heard. CVS: S1 and S2 present. No murmurs appreciated. Patient is alert and oriented x 3. Patient is hemodynamically stable. Patient will be discharged home with follow up division chief in the next 2-3 days - Diagnoses Differential Diagnosis: Positive: Constipation, Irritable Bowel Syndrome, Pancreatitis Provider Diagnoses: Cyclic vomiting syndrome Discharge - Discharge Plan Condition: Stable Disposition: HOME Patient Education Materials: Acute Nausea and Vomiting (ED) Referrals: Adela Shultz MD [Primary Care Provider] - The documentation as recorded by the Carlos reich Billy accurately reflects the service I personally performed and the decisions made by Good hong Walter, MD.
== END 2016-12-12 11:19 | disposition home or self-care (01) ==
LOC: ED 07:43
DX: G43.A0 Cyclical vomiting, in migraine, not intractable (principal); R11.2 Nausea with vomiting, unspecified; R19.7 Diarrhea, unspecified; R10.32 Left lower quadrant pain; F17.210 Nicotine dependence, cigarettes, uncomplicated; R68.83 Chills (without fever)
CPT/HCPCS: 36415; 74020; 80053; 81003; 82150; 83605; 83690; 84702; 85025; 85610; 85730; 86140; 96374; 96375; 99284; J1200; J1885; J2270; J2405

== ENCOUNTER 2016-12-25 11:49 | Emergency (ER) | payer BC ==
[2016-12-25 12:14] VITALS: BP 127/73
--- NOTE | 2016-12-25 15:38 | UC ---
Leonardo, DoctorIdania, scribed for Pura Melchor MD on 12/25/16 at 1317 . Abdominal Pain Female HPI - HPI Summary HPI Summary: 31 year old female arrived to [facility] c/o increased abdominal pain beginning a few days ago. She reports diarrhea and bloody stools. She indicates that her pain is diffuse throughout the abdomen, but significantly worse on the left side (rated 7/10) than the right (4/10). She describes her pain as cramping, sharp, and constant since onset. She has a PMHx of Collagenous Colitis; her symptoms are significantly worse than usual today. She regularly sees Dr. Maldonado at [place]. - History of Current Complaint Chief Complaint: UCAbdominalPain Stated Complaint: ABD PAIN DIARRHEA BLOOD IN STOOL Time Seen by Provider: 12/25/16 12:52 Hx Obtained From: Patient Hx Last Menstrual Period: 5 days ago, ended yesterday ?: No Onset/Duration: Gradual Onset, Lasting Days, Still Present Severity Initially: Moderate Severity Currently: Moderate Pain Intensity: 7 Pain Scale Used: 0-10 Numeric Location: Diffuse - Pain throughout left side and RLQ Radiates: No Character: Cramping, Sharp Aggravating Factor(s): Nothing Alleviating Factor(s): Nothing Associated Signs and Symptoms: Positive: Blood in Stool, Nausea, Diarrhea. Negative: Fever Allergies/Adverse Reactions: Allergies Allergy/AdvReac Type Severity Reaction Status Date / Time Sulfa Drugs Allergy Intermediate Rash And Verified 12/12/16 08:25 Itching Sulfamethoxazole Allergy Unknown Verified 12/12/16 08:25 w/Trimethoprim Reaction [From Bactrim] Details Nitrofurantoin AdvReac Intermediate Nausea And Verified 12/12/16 08:25 [From Macrobid] Vomiting Penicillins AdvReac Intermediate Vomiting Verified 12/12/16 08:25 Home Medications: Home Medications Lorazepam [Ativan 1 MG TAB] 1 tab PO Q12HR 12/25/16 [History Confirmed 12/25/16] Metoclopramide HCl [Reglan] 1 tab PO DAILY 12/25/16 [History Confirmed 12/25/16] PMH/Surg Hx/FS Hx/Imm Hx Previously Healthy: No - Hep C Endocrine History Of: Denies: Diabetes, Thyroid Disease Cardiovascular History Of: Denies: Cardiac Disorders, Hypertension, Congestive Heart Failure Respiratory History Of: Denies: COPD, Asthma GI/ History Of: Reports: Ulcer - collagenous colitis Denies: Renal Disease Psychological History Of: Reports: Anxiety, Depression Other History Of: Negative For: Anticoagulant Therapy - Surgical History Surgical History: Yes Surgery Procedure, Year, and Place: 2015 ovarian cyst REMOVAL - Family History Known Family History: Positive: Hypertension - mother Family History: pt denies FHx - Social History Occupation: Employed Full-time Alcohol Use: Occasionally Alcohol Amount: 1/DAY Substance Use Type: None, Other - Recently stopped regular marijuana use ( within a week)of 12/25/16. Former Heroin user (clean for 3 years). Substance Use Comment - Amount & Last Used: almost daily Smoking Status (MU): Current Every Day Smoker Type: Cigarettes Amount Used/How Often: < 1 ppd Length of Time of Smoking/Using Tobacco: 8 years Have You Smoked in the Last Year: Yes Household Exposure Type: Cigarettes - Immunization History Most Recent Influenza Vaccination: season Review of Systems Constitutional: Other - no fever Gastrointestinal: Abdominal Pain, Diarrhea, Other - hematochezia All Other Systems Reviewed And Are Negative: Yes Physical Exam Triage Information Reviewed: Yes Appearance: Well-Nourished, Ill-Appearing, Pain Distress Vital Signs: Initial Vital Signs Temp 97.6 F 12/25/16 12:00 Pulse 81 12/25/16 12:00 Resp 18 12/25/16 12:00 BP 127/73 12/25/16 12:00 Pulse Ox 100 12/25/16 12:00 Vital Signs Reviewed: Yes Eyes: Positive: Conjunctiva Clear ENT: Positive: Normal ENT inspection Neck: Positive: Supple, Nontender Respiratory: Positive: Lungs clear, Normal breath sounds, No respiratory distress Cardiovascular: Positive: RRR, No Murmur, Pulses Normal, Brisk Capillary Refill Abdomen Description: Positive: Soft, Guarding - LLQ. Negative: Nontender - diffuse abdominal tenderness, CVA Tenderness (R), CVA Tenderness (L), Distended , Hepatomegaly, McBurney's Point Tenderness, Peritoneal Signs, Pulsatile Mass, Splenomegaly Bowel Sounds: Positive: Present Musculoskeletal: Positive: Strength Intact, ROM Intact Neurological: Positive: Alert, Muscle Tone Normal Psychological Exam: Normal Skin Exam: Normal Abd Pain Female Course/Dx - Course Course Of Treatment: Checked I-STOP. Pt has received 100 tramadol since . States she vomited her recent tramadol. Pt to go to ED by private car for further evaluation of her abdominal pain. - Differential Dx/Diagnosis Differential Diagnosis: Bowel Obstruction, Diverticulitis, Other - collagenous colitis Provider Diagnoses: 1) acute abdominal pain 2) Tobacco Abuse Disorder - Physician Notification/Consults Discussed Patient Care With: 13:40 - [facility] at [facility]; she is willing to accept her. Instructed by Provider To: Transfer Discharge - Discharge Plan Condition: Stable Disposition: AGAINST MEDICAL ADVICE Forms: *Work Release Referrals: Adela Shultz MD [Primary Care Provider] - Additional Instructions: Go to the ED now. The documentation as recorded by the Doctor reich Tahera accurately reflects the service I personally performed and the decisions made by , Pura Melchor MD.
== END 2016-12-25 13:48 | disposition left against medical advice (07) ==
LOC: UCEAST 11:49
DX: R10.9 Unspecified abdominal pain (principal); K51.80 Other ulcerative colitis without complications; F41.9 Anxiety disorder, unspecified; F32.9 Major depressive disorder, single episode, unspecified; F17.210 Nicotine dependence, cigarettes, uncomplicated; Z88.3 Allergy status to other anti-infective agents; Z88.2 Allergy status to sulfonamides; Z88.0 Allergy status to penicillin
CPT/HCPCS: 99212; G0463

== ENCOUNTER 2016-12-25 14:01 | Emergency (ER) | payer BC ==
[2016-12-25] MEDS ORDERED: Ondansetron INJ* 2 MG/ML VIAL IV ONE (15:12)
[2016-12-25] MEDS ORDERED: Morphine INJ* 4 MG/ML 1 ML SYRINGE IV ONE (15:12)
[2016-12-25] MEDS ORDERED: NS 0.9% 1000 ML* 1,000 ML IV ONE (15:12)
--- NOTE | 2016-12-25 15:28 | ED ---
Abdominal Pain/Female - HPI Summary HPI Summary: The patient is a 31 year old female presenting to ED with complaint of exacerbation of abdominal pain intermittent x3 years worse in past 2-3 days. Describes constant cramping with intermittent sharp pain non-radiating. Improved in position. Worse just prior to defecation. Admits to associated chills, diaphoresis, nausea, vomiting, diarrhea, and bloody stool with bright red blood. Reports mild occasional dry cough. Denies fever, nasal symptoms, sore throat, shortness of breath, chest pain, palpitations, lightheadedness, syncope, dysuria, hematuria, change in voiding, vaginal bleeding or discharge, spontaneous bruising. History of Collagenous Colitis treated with Entocort 3 mg QD, Omeprazole 40 mg BID, and tramadol for chronic abdominal pain. Reportedly ran out of tramadol for several days with refill due tomorrow. Additional history of asthma well controlled. FH father MS ; mother HTN. Under care of GI [facility]. SH: Current smoker 1 PPD x10 years. Quit marijuana 1 week ago. No additional recreational substance. Review of prior records indicate multiple CT images. 11/21 unremarkable 10/20 mild colitis descending and sigmoid colon 04/18 diffuse colitis transverse, descending, and sigmoid colon 12/17 fatty liver and right ovarian cyst - History of Current Complaint Chief Complaint: EDGIBleed Stated Complaint: ABD PAIN/ BLOOD STOOL Time Seen by Provider: 12/25/16 14:56 Hx Last Menstrual Period: 5 days ago, ended yesterday Allergies/Adverse Reactions: Allergies Allergy/AdvReac Type Severity Reaction Status Date / Time Sulfa Drugs Allergy Intermediate Rash And Verified 12/12/16 08:25 Itching Sulfamethoxazole Allergy Unknown Verified 12/12/16 08:25 w/Trimethoprim Reaction [From Bactrim] Details Nitrofurantoin AdvReac Intermediate Nausea And Verified 12/12/16 08:25 [From Macrobid] Vomiting Penicillins AdvReac Intermediate Vomiting Verified 12/12/16 08:25 Home Medications: Home Medications LORazepam TAB(*) [Ativan 1 MG TAB (*)] 1 mg PO Q12HR PRN 12/25/16 [History Confirmed 12/25/16] Metoclopramide TAB* [Reglan TAB*] 10 mg PO TID PRN 12/25/16 [History Confirmed 12/25/16] traMADol TAB* [Ultram*] 25 - 50 mg PO Q6HR PRN 12/25/16 [History Confirmed 12/25] PMH/Surg Hx/FS Hx/Imm Hx Endocrine/Hematology History: Denies: Hx Anticoagulant Therapy, Hx Blood Disorders, Hx Diabetes, Hx Thyroid Disease Cardiovascular History: Denies: Hx Congestive Heart Failure, Hx Hypertension Respiratory History: Denies: Hx Asthma, Hx Chronic Obstructive Pulmonary Disease (COPD) GI History: Reports: Hx Ulcer - colagenous colitis, Other GI Disorders - Collagenous colitis History: Reports: Other Problems/Disorders - Frequent UTIs Denies: Hx Dialysis, Hx Renal Disease Psychiatric History: Reports: Hx Anxiety, Hx Depression, Hx Substance Abuse - 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 - Surgical History Surgery Procedure, Year, and Place: 2014 ovarian cyst REMOVAL Infectious Disease History: No Infectious Disease History: Reports: Hx Clostridium Difficile, Hx Hepatitis - TESTS + FOR HEP C ANTIBODIES Denies: Hx Human Immunodeficiency Virus (HIV), Hx of Known/Suspected MRSA, Hx Shingles, Hx Tuberculosis, Hx Known/Suspected VRE, Hx Known/Suspected VRSA, History Other Infectious Disease, Traveled Outside the [place] in Last 30 Days - Family History Known Family History: Positive: None, Hypertension - mother Family History: pt denies FHx - Social History Alcohol Use: Occasionally Alcohol Amount: 1/DAY Hx Substance Use: Yes Substance Use Type: Reports: Marijuana Substance Use Comment - Amount & Last Used: quit 1 week ago Hx Tobacco Use: Yes Smoking Status (MU): Current Every Day Smoker Type: Cigarettes Amount Used/How Often: < 1 ppd Length of Time of Smoking/Using Tobacco: 8 years Have You Smoked in the Last Year: Yes Review of Systems Positive: Chills. Negative: Fever ENT: Negative Negative: Epistaxis, Sore Throat, Nasal Discharge Cardiovascular: Negative Positive: Cough. Negative: Shortness Of Breath Positive: Abdominal Pain, Vomiting, Diarrhea, Nausea, Other - bloody stool Genitourinary: Negative Negative: burning, dysuria, discharge, frequency, hematuria, pain, urgency Skin: Negative Negative: Bruising Neurological: Negative Negative: Headache Psychological: Normal All Other Systems Reviewed And Are Negative: Yes Physical Exam Triage Information Reviewed: Yes Vital Signs On Initial Exam: Initial Vitals Temp Pulse Resp BP Pulse Ox 97.6 F 90 18 147/76 100 12/25/16 14:02 12/25/16 14:02 12/25/16 14:02 12/25/16 14:02 12/25/16 14:02 Vital Signs Reviewed: Yes Appearance: Positive: Well-Appearing, Pain Distress - speaking calmly without grimace; mild pain, Obese Skin: Positive: Warm, Skin Color Reflects Adequate Perfusion, Dry. Negative: [place]pura Head/Face: Positive: Normal Head/Face Inspection Eyes: Positive: Normal - Anicteric ENT: Positive: Normal ENT inspection, Pharynx normal Neck: Positive: Supple Respiratory/Lung Sounds: Positive: Breath Sounds Present, Wheezes - mild expiratory bilaterally. Negative: Decreased Breath Sounds, Rales, Rhonchi, Unable to speak in full sentences, Fatigue Cardiovascular: Positive: Normal - radial pulse 2+, RRR, S1, S2. Negative: Murmur, Rub, Tachycardia, Leg Edema Left, Leg Edema Right Abdomen Description: Positive: No Organomegaly, Soft, Other: - mild tenderness LUQ/LLQ. Negative: CVA Tenderness (R), CVA Tenderness (L), Distended, Guarding , Hepatomegaly, Peritoneal Signs, Splenomegaly Bowel Sounds: Positive: Present, Other - EVANGELISTA: no fissure or fistula, anal sphincter tone intact, palpable hemorrhoid at 7 o'clock position, no gross blood Musculoskeletal: Positive: Normal - AROM all extremities Neurological: Positive: Normal - awake, alert Psychiatric: Positive: Normal AVPU Assessment: Alert - Maximiliano Coma Scale Coma Scale Total: 15 Diagnostics - Vital Signs Vital Signs Temp Pulse Resp BP Pulse Ox 12/25/16 14:02 97.6 F 90 18 147/76 100 - Laboratory Result Diagrams: 12/25/16 14:51 12/25/16 14:51 Lab Statement: Any lab studies that have been ordered have been reviewed, and results considered in the medical decision making process. Abdominal Pain Fem Course/Dx - Course Course Of Treatment: Patient presented for abdominal pain, vomiting, bright red blood per rectum. VS stable. Afebrile without leukocytosis no appearing septic. No acute abdomen on exam. Positive hemorroid. Remaining labs reviewed without gross abnormality not requiring any emergent intervention. UA without infectious process. Given history of multiple CT most recently Nov 2016, no fever, and no imflammatory marker elevation, abstained from repeat radiation exposure. No indication to initiate ABx. Rx tramadol x1 day, zofran, anusol. Discussed with patient need to follow-up with GI Dr. Ramos in 2-3 days. 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 Ramos, in the morning to schedule appointment within 2-3 days.
[2016-12-25 15:56] LABS: Hematocrit 38 % (35-47); Hemoglobin 12.7 g/dl (12.0-16.0); Mean Corpuscular HGB Conc 33 g/dl (31-36); Mean Corpuscular Hemoglobin 29 pg (27-31); Mean Corpuscular Volume 88 fL (80-97); Mean Platelet Volume 10 um3 (7.4-10.4); Red Blood Count 4.34 10^6/ul (4.0-5.4); Red Cell Distribution Width 16 % (10.5-15); White Blood Count 9.3 10^3/ul (3.5-10.8)
[2016-12-25 16:02] LABS: Urine Bacteria Absent (Absent); Urine Bilirubin Negative (Negative); Urine Glucose Negative (Negative); Urine Nitrite Negative (Negative)
[2016-12-25 16:14] LABS: ALT 17 U/L (7-52); AST 17 U/L (13-39); Albumin 4.5 g/dL (3.2-5.2); Alkaline Phosphatase 79 U/L (34-104); Anion Gap 8 mmol/L (2-11); BUN/Creatinine Ratio 20.8 (8-20); Blood Urea Nitrogen 16 mg/dL (6-24); CO2 Carbon Dioxide 24 mmol/L (22-32); Calcium 9.6 mg/dL (8.6-10.3); Chloride 107 mmol/L (101-111); EGFR African American 113.2 (>60); Globulin 2.9 g/dL (2-4); Glucose 83 mg/dL (70-100); Potassium 3.7 mmol/L (3.5-5.0); Sodium 139 mmol/L (133-145); Total Protein 7.4 g/dL (6.4-8.9)
[2016-12-25] MEDS ORDERED: traMADol TAB* 50 MG PO ONE (17:00)
[2016-12-25 17:19] VITALS: BP 110/68
== END 2016-12-25 17:17 | disposition home or self-care (01) ==
LOC: ED 14:01
DX: K64.9 Unspecified hemorrhoids (principal); R10.9 Unspecified abdominal pain; R11.2 Nausea with vomiting, unspecified; F17.210 Nicotine dependence, cigarettes, uncomplicated; R19.7 Diarrhea, unspecified
CPT/HCPCS: 36415; 80053; 81003; 81015; 82272; 84702; 85025; 96374; 96375; 99283; A9270-GY; J2270; J2405

== ENCOUNTER 2017-01-09 10:29 | Emergency (ER) | payer BC ==
[2017-01-09] MEDS ORDERED: Metoclopramide IV* 5 MG/ML 2 ML VIAL IV ONE (11:12)
[2017-01-09] MEDS ORDERED: Ketorolac INJ* 30 MG/ML 1 ML VIAL IV ONE (11:12)
[2017-01-09] MEDS ORDERED: Pantoprazole IV* 40 MG IV ONE (11:12)
[2017-01-09] MEDS ORDERED: diPHENhydraMINE IV* 50 MG in NS 0.9% 50 ML* 50 ML IVPB ONE (11:15)
[2017-01-09] MEDS ORDERED: diPHENhydraMINE IV* 50 MG/ML 1 ml VIAL (BENADRYL) ONE (11:47)
[2017-01-09] MEDS: NS 0.9% 1000 ML* 2,000 ML IV ONE ×2 (11:54→13:17)
--- NOTE | 2017-01-09 12:35 | RAD ---
INDICATION: Abdominal pain. COMPARISON: Comparison is made with a prior study from December 12, 2016. TECHNIQUE: Supine and upright views of the abdomen were obtained. FINDINGS: The small bowel and colon appear nondistended. There is a paucity of intra-abdominal gas. No free intraperitoneal air is seen. No abnormal calcifications are seen. IMPRESSION: NO EVIDENCE FOR ACUTE FINDING.
[2017-01-09 12:44] LABS: Hematocrit 38 % (35-47); Hemoglobin 12.8 g/dl (12.0-16.0); Mean Corpuscular HGB Conc 33 g/dl (31-36); Mean Corpuscular Hemoglobin 30 pg (27-31); Mean Corpuscular Volume 89 fL (80-97); Mean Platelet Volume 9 um3 (7.4-10.4); Red Blood Count 4.32 10^6/ul (4.0-5.4); Red Cell Distribution Width 16 % (10.5-15); White Blood Count 12.6 10^3/ul (3.5-10.8)
[2017-01-09] MEDS ORDERED: Ondansetron INJ* 2 MG/ML VIAL IV ONE (12:48)
[2017-01-09] MEDS ORDERED: Morphine INJ* 4 MG/ML 1 ML SYRINGE IV ONE (12:48)
[2017-01-09 12:57] LABS: ALT 16 U/L (7-52); AST 17 U/L (13-39); Albumin 4.5 g/dL (3.2-5.2); Alkaline Phosphatase 87 U/L (34-104); Amylase 103 U/L (29-103); Anion Gap 9 mmol/L (2-11); BUN/Creatinine Ratio 14.5 (8-20); Blood Urea Nitrogen 11 mg/dL (6-24); C Reactive Protein 3.75 mg/L (< 5.00); CO2 Carbon Dioxide 25 mmol/L (22-32); Calcium 9.4 mg/dL (8.6-10.3); Chloride 104 mmol/L (101-111); Creatine Kinase 59 U/L (10-223); EGFR African American 114.9 (>60); EGFR Non-African American 89.4 (>60); Globulin 2.8 g/dL (2-4); Glucose 103 mg/dL (70-100); Lipase 25 U/L (11.0-82.0); Potassium 3.5 mmol/L (3.5-5.0); Sodium 138 mmol/L (133-145); Total Protein 7.3 g/dL (6.4-8.9)
[2017-01-09] MEDS ORDERED: Morphine INJ* 2 MG/ML 1 ML SYRINGE IV ONE (13:45)
[2017-01-09 14:01] VITALS: BP 132/72
--- NOTE | 2017-01-11 21:42 | ED ---
Clementina Patterson Alok, scribed for Rashad Funk MD on 01/09/17 at 1115 . Abdominal Pain/Female - HPI Summary HPI Summary: 31 y/o female presents to the ED for epigastric pain for the past 3 days. Pt adds n/v and soft stool. Pt has been trying to quit smoking and has reduced amount. Pt last saw GI Dr. Ramos at [facility] who switched her medication from tramadol to ativan and ritalin. Her LMP was 2-3 weeks ago. - History of Current Complaint Chief Complaint: EDAbdPain Stated Complaint: ABD PAIN, NAUSEA, DIARRHEA,CHILLS Time Seen by Provider: 01/09/17 11:04 Hx Obtained From: Patient Hx Last Menstrual Period: 5 days ago, ended yesterday ?: No Onset/Duration: Gradual Onset, Lasting Days, Still Present Timing: Constant Severity Initially: Moderate Severity Currently: Moderate Pain Intensity: 8 Pain Scale Used: 0-10 Numeric Location: Epigastric Radiates: No Aggravating Factor(s): Nothing Alleviating Factor(s): Nothing Associated Signs and Symptoms: Positive: Nausea, Vomiting, Diarrhea - Soft stool Allergies/Adverse Reactions: Allergies Allergy/AdvReac Type Severity Reaction Status Date / Time Sulfa Drugs Allergy Intermediate Rash And Verified 12/12/16 08:25 Itching Sulfamethoxazole Allergy Unknown Verified 12/12/16 08:25 w/Trimethoprim Reaction [From Bactrim] Details Nitrofurantoin AdvReac Intermediate Nausea And Verified 12/12/16 08:25 [From Macrobid] Vomiting Penicillins AdvReac Intermediate Vomiting Verified 12/12/16 08:25 PMH/Surg Hx/FS Hx/Imm Hx Endocrine/Hematology History: Denies: Hx Anticoagulant Therapy, Hx Blood Disorders, Hx Diabetes, Hx Thyroid Disease Cardiovascular History: Denies: Hx Congestive Heart Failure, Hx Hypertension Respiratory History: Denies: Hx Asthma, Hx Chronic Obstructive Pulmonary Disease (COPD) GI History: Reports: Hx Ulcer - colagenous colitis, Other GI Disorders - Collagenous colitis History: Reports: Other Problems/Disorders - Frequent UTIs Denies: Hx Dialysis, Hx Renal Disease Psychiatric History: Reports: Hx Anxiety, Hx Depression, Hx Substance Abuse - 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 - Surgical History Surgery Procedure, Year, and Place: 2014 ovarian cyst REMOVAL Infectious Disease History: Reports: Hx Clostridium Difficile, Hx Hepatitis - TESTS + FOR HEP C ANTIBODIES Denies: Hx Human Immunodeficiency Virus (HIV), Hx of Known/Suspected MRSA, Hx Shingles, Hx Tuberculosis, Hx Known/Suspected VRE, Hx Known/Suspected VRSA, History Other Infectious Disease, Traveled Outside the [place] in Last 30 Days - Family History Known Family History: Positive: Hypertension - mother Family History: pt denies FHx - Social History Occupation: Employed Full-time Lives: With Family - Mother Alcohol Use: Occasionally Alcohol Amount: 1/DAY Hx Substance Use: Yes Substance Use Type: Reports: Marijuana Substance Use Comment - Amount & Last Used: quit 1 week ago Hx Tobacco Use: Yes Smoking Status (MU): Current Every Day Smoker Type: Cigarettes Amount Used/How Often: < 1 ppd Length of Time of Smoking/Using Tobacco: 8 years Have You Smoked in the Last Year: Yes Review of Systems Negative: Fever Positive: Abdominal Pain, Vomiting, Diarrhea, Nausea All Other Systems Reviewed And Are Negative: Yes Physical Exam - Summary Physical Exam Summary: VITAL SIGNS: Reviewed. GENERAL: ~Patient is a well developed and nourished female who is lying comfortable in the stretcher. ~Patient is not in any acute respiratory distress. HEAD AND FACE: Normocephalic EYES: PERRLA, EOMI x 2. EARS: Hearing grossly intact. MOUTH: Oropharynx within normal limits. NECK: Supple, trachea is midline, no adenopathy, no JVD, no carotid bruit. CHEST: Symmetric, no tenderness at palpation LUNGS: Clear to auscultation bilaterally. No wheezing or crackles. CVS: Regular rate and rhythm, S1 and S2 present, no murmurs or gallops appreciated. ABDOMEN: Soft. Epigastric tenderness. Bowel sounds are normal. No abdominal abnormal pulsations. EXTREMITIES: Full ROM in all major joints, no edema, no cyanosis or clubbing. NEURO: Alert and oriented x 3. No acute neurological deficits. Speech is normal and follows commands. SKIN: Dry and warm Triage Information Reviewed: Yes Vital Signs On Initial Exam: Initial Vitals Temp Pulse Resp BP Pulse Ox 95.8 F 106 20 148/81 100 01/09/17 10:35 01/09/17 10:35 01/09/17 10:35 01/09/17 10:35 01/09/17 10:35 Vital Signs Reviewed: Yes Diagnostics - Vital Signs Vital Signs Temp Pulse Resp BP Pulse Ox 04/07/17 10:35 95.8 F 106 20 148/81 100 - Laboratory Lab Results: Lab Results 01/09/17 01/09/17 01/09/17 Range/Units 12:25 12:25 12:25 WBC 12.6 H (3.5-10.8) 10^3/ul RBC 4.32 (4.0-5.4) 10^6/ul Hgb 12.8 (12.0-16.0) g/dl Hct 38 (35-47) % MCV 89 (80-97) fL MCH 30 (27-31) pg MCHC 33 (31-36) g/dl RDW 16 H (10.5-15) % Plt Count 301 (150-450) 10^3/ul MPV 9 (7.4-10.4) um3 Neut % (Auto) 89.8 H (38-83) % Lymph % (Auto) 7.7 L (25-47) % Lares % (Auto) 1.8 (1-9) % Eos % (Auto) 0.1 (0-6) % Baso % (Auto) 0.6 (0-2) % Absolute Neuts (auto) 11.3 H (1.5-7.7) 10^3/ul Absolute Lymphs (auto) 1.0 (1.0-4.8) 10^3/ul Absolute Monos (auto) 0.2 (0-0.8) 10^3/ul Absolute Eos (auto) 0 (0-0.6) 10^3/ul Absolute Basos (auto) 0.1 (0-0.2) 10^3/ul Absolute Nucleated RBC 0 10^3/ul Nucleated RBC % 0 Sodium 138 (133-145) mmol/L Potassium 3.5 (3.5-5.0) mmol/L Chloride 104 (101-111) mmol/L Carbon Dioxide 25 (22-32) mmol/L Anion Gap 9 (2-11) mmol/L BUN 11 (6-24) mg/dL Creatinine 0.76 (0.51-0.95) mg/dL Est GFR ( Amer) 114.9 (>60) Est GFR (Non-Af Amer) 89.4 (>60) BUN/Creatinine Ratio 14.5 (8-20) Glucose 103 H (70-100) mg/dL Lactic Acid 0.6 (0.5-2.0) mmol/L Calcium 9.4 (8.6-10.3) mg/dL Magnesium 2.0 (1.9-2.7) mg/dL Total Bilirubin 0.30 (0.2-1.0) mg/dL AST 17 (13-39) U/L ALT 16 (7-52) U/L Alkaline Phosphatase 87 (34-104) U/L Total Creatine Kinase 59 (10-223) U/L C-Reactive Protein 3.75 (< 5.00) mg/L Total Protein 7.3 (6.4-8.9) g/dL Albumin 4.5 (3.2-5.2) g/dL Globulin 2.8 (2-4) g/dL Albumin/Globulin Ratio 1.6 (1-3) Amylase 103 (29-103) U/L Lipase 25 (11.0-82.0) U/L Beta HCG, Quant < 0.60 mIU/mL Result Diagrams: 01/09/17 12:25 01/09/17 12:25 Lab Statement: Any lab studies that have been ordered have been reviewed, and results considered in the medical decision making process. Re-Evaluation - Re-Evaluation First Eval Re-Evaluation Time: 13:44 Abdominal Pain Fem Course/Dx - Course Course Of Treatment: 31 y/o female presents to the ED for epigastric pain for the past 3 days. Pt adds n/v and soft stool. Pt has been trying to quit smoking and has reduced amount. Pt last saw GI Dr. Ramos at [facility] who switched her medication from tramadol to ativan and ritalin. Her LMP was 2-3 weeks ago. Blood work wnl except for an slight increase in WBC. Abdominal X-ray shows no acute pathology. In the ED patient was given IVF, reglan, morphine, toradol, benadryl for what I think patient has cyclic vomiting syndrome. She did require an additional dose of Morphine and now she is feeling better. She is tolerating PO and she will f/u with her GI doctor. She reports she recently had an abdominal and pelvic CT at [place]. Therefore I will not repeat the CT. I discussed all the findings and test results with the patient. Patient was instructed to return to the emergency room immediately if any of the symptoms return or worsens. They were explained the possibility of an early abdominal pathology which was not detected at this time despite the physical exam and testing. They understand and agree. Abdominal exam before discharge: Soft, NT. No signs of distention. BS present. No rebound no guarding, and no masses palpated. Patient is alert and oriented and hemodynamically stable. Patient is to follow up with primary care physician in the next 2 to 3 days. Patient agree and understands. - Diagnoses Differential Diagnosis: Positive: Bowel Obstruction, Constipation, Other - Cyclic vomiting Syndrome Provider Diagnoses: Cyclic vomiting syndrome, Abdominal pain, Nausea and vomiting Discharge - Discharge Plan Condition: Stable Disposition: HOME Patient Education Materials: Abdominal Pain (ED), Acute Nausea and Vomiting (ED ) Referrals: Adela Shultz MD [Primary Care Provider] - The documentation as recorded by the Clementina reich Alok accurately reflects the service I personally performed and the decisions made by Good hong Walter, MD.
== END 2017-01-09 14:11 | disposition home or self-care (01) ==
LOC: ED 10:29
DX: R10.9 Unspecified abdominal pain (principal); R11.2 Nausea with vomiting, unspecified; R19.7 Diarrhea, unspecified; F17.210 Nicotine dependence, cigarettes, uncomplicated
CPT/HCPCS: 36415; 74020; 80053; 82150; 82550; 83605; 83690; 83735; 84702; 85025; 86140; 93005; 96374; 96375; 99285; J1200; J1885; J2270; J2405

== ENCOUNTER 2017-01-11 06:36 | Emergency (ER) | payer BC ==
[2017-01-11] MEDS ORDERED: NS 0.9% 1000 ML* 1,000 ML IV ONE (07:05)
[2017-01-11] MEDS ORDERED: Morphine INJ* 2 MG/ML 1 ML SYRINGE IV ONE (07:05)
[2017-01-11] MEDS ORDERED: diPHENhydraMINE IV* 50 MG/ML 1 ml VIAL (BENADRYL) IV ONE (07:05)
[2017-01-11] MEDS ORDERED: Metoclopramide IV* 5 MG/ML 2 ML VIAL IV ONE (07:05)
--- NOTE | 2017-01-11 07:13 | ED ---
GI/ HPI - HPI Summary HPI Summary: Patient has a history of cyclic vomiting and presents after 5 days of vomiting. She has tried ativan and protonix without relief. She sometimes uses marijuana, but is trying to stay away from it, "since she knows it can perpetuate the cycle ". She denies fever, chills, or new symptoms. No urinary discomfort, constipation or diarrhea. She has her typical mild, diffuse abdominal discomfort from vomiting. - History of Current Complaint Chief Complaint: EDNauseaVomitDiarrh Time Seen by Provider: 01/11/17 06:53 Stated Complaint: ABD PAIN/VOMITING/NAUSEA Hx Obtained From: Patient Onset/Duration: Started Days Ago, Atraumatic, Still Present Timing: Constant Severity: Severe Current Severity: Severe Location of Pain: Diffuse Pain Characteristics: Aching Associated Signs and Symptoms: Positive: Nausea, Vomiting Aggravating Factor(s): Nothing Alleviating Factor(s): Nothing - Allergy/Home Medications Allergies/Adverse Reactions: Allergies Allergy/AdvReac Type Severity Reaction Status Date / Time Sulfa Drugs Allergy Intermediate Rash And Verified 12/12/16 08:25 Itching Sulfamethoxazole Allergy Unknown Verified 12/12/16 08:25 w/Trimethoprim Reaction [From Bactrim] Details Nitrofurantoin AdvReac Intermediate Nausea And Verified 12/12/16 08:25 [From Macrobid] Vomiting Penicillins AdvReac Intermediate Vomiting Verified 12/12/16 08:25 PMH/Surg Hx/FS Hx/Imm Hx Endocrine/Hematology History: Denies: Hx Anticoagulant Therapy, Hx Blood Disorders, Hx Diabetes, Hx Thyroid Disease Cardiovascular History: Denies: Hx Congestive Heart Failure, Hx Hypertension Respiratory History: Denies: Hx Asthma, Hx Chronic Obstructive Pulmonary Disease (COPD) GI History: Reports: Hx Ulcer - colagenous colitis, Other GI Disorders - Collagenous colitis History: Reports: Other Problems/Disorders - Frequent UTIs Denies: Hx Dialysis, Hx Renal Disease Psychiatric History: Reports: Hx Anxiety, Hx Depression, Hx Substance Abuse - 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 - Surgical History Surgery Procedure, Year, and Place: 2014 ovarian cyst REMOVAL Infectious Disease History: Reports: Hx Clostridium Difficile, Hx Hepatitis - TESTS + FOR HEP C ANTIBODIES Denies: Hx Human Immunodeficiency Virus (HIV), Hx of Known/Suspected MRSA, Hx Shingles, Hx Tuberculosis, Hx Known/Suspected VRE, Hx Known/Suspected VRSA, History Other Infectious Disease, Traveled Outside the [place] in Last 30 Days - Family History Known Family History: Positive: None, Hypertension - mother Family History: pt denies FHx - Social History Occupation: Unemployed Lives: With Family Alcohol Use: Occasionally Alcohol Amount: 1/DAY Hx Substance Use: Yes Substance Use Type: Reports: Marijuana Substance Use Comment - Amount & Last Used: quit 1 week ago Hx Tobacco Use: Yes Smoking Status (MU): Current Every Day Smoker Type: Cigarettes Amount Used/How Often: < 1 ppd Length of Time of Smoking/Using Tobacco: 8 years Have You Smoked in the Last Year: Yes Cessation Counseling: Patient Advised to Stop Review of Systems Negative: Fever, Chills Negative: Chest Pain Negative: Shortness Of Breath Positive: Abdominal Pain, Vomiting, Nausea All Other Systems Reviewed And Are Negative: Yes Physical Exam - Summary Physical Exam Summary: Patient is unkempt, curled up on stretcher complaining of nausea. Triage Information Reviewed: Yes Vital Signs Reviewed: Yes Appearance: Positive: Well-Appearing, Pain Distress, Obese Skin: Positive: Warm, Skin Color Reflects Adequate Perfusion, Dry, Soft Head/Face: Positive: Normal Head/Face Inspection Eyes: Positive: EOMI, ARACELY, Conjunctiva Clear ENT: Positive: Hearing grossly normal, Pharynx normal Neck: Positive: Supple, Nontender, No Lymphadenopathy Respiratory/Lung Sounds: Positive: Clear to Auscultation, Breath Sounds Present Cardiovascular: Positive: RRR Abdomen Description: Positive: Soft. Negative: Nontender - diffuse TTP, CVA Tenderness (R), CVA Tenderness (L), Distended, Guarding Bowel Sounds: Positive: Present Musculoskeletal: Negative: Edema Left, Edema Right Neurological: Positive: Sensory/Motor Intact, Alert, Oriented to Person Place, Time, NV Bundle Intact Distally, Normal Gait Psychiatric: Positive: Affect/Mood Appropriate AVPU Assessment: Alert Diagnostics - Laboratory Result Diagrams: 01/11/17 07:10 01/11/17 07:10 Lab Statement: Any lab studies that have been ordered have been reviewed, and results considered in the medical decision making process. - Radiology No standard instances Xray Interpretation: No Acute Changes Radiology Interpretation Completed By: Radiologist Re-Evaluation - Re-Evaluation First Eval Change: Improved - patients symptoms have resolved GIGU Course/Dx - Diagnoses Differential Diagnoses - Female: Cystitis, Gastroenteritis (Viral), Gerd, Pyelonephritis, Sepsis, Urinary Tract Infection, Vomiting Provider Diagnoses: Cyclic vomiting syndrome Discharge - Discharge Plan Condition: Stable Disposition: HOME Referrals: Adela Shultz MD [Primary Care Provider] - Additional Instructions: It is imperative that you develop a plan for your known cyclic vomiting. Call your GI doctor for follow-up.
[2017-01-11 07:23] LABS: Hematocrit 37 % (35-47); Hemoglobin 12.4 g/dl (12.0-16.0); Mean Corpuscular HGB Conc 33 g/dl (31-36); Mean Corpuscular Hemoglobin 30 pg (27-31); Mean Corpuscular Volume 88 fL (80-97); Mean Platelet Volume 9 um3 (7.4-10.4); Red Blood Count 4.19 10^6/ul (4.0-5.4); Red Cell Distribution Width 16 % (10.5-15); White Blood Count 8.8 10^3/ul (3.5-10.8)
[2017-01-11 07:37] LABS: Albumin 4.4 g/dL (3.2-5.2); BUN/Creatinine Ratio 12.1 (8-20); C Reactive Protein 4.65 mg/L (< 5.00); Calcium 9.4 mg/dL (8.6-10.3); EGFR African American 93.3 (>60); EGFR Non-African American 72.6 (>60); Globulin 2.9 g/dL (2-4); Total Bilirubin 0.5 mg/dL (0.2-1.0); Total Protein 7.3 g/dL (6.4-8.9)
--- NOTE | 2017-01-11 08:03 | RAD ---
INDICATION: Abdominal pain COMPARISON: January 09, 2017 TECHNIQUE: Erect and supine views of the abdomen are submitted. FINDINGS: Bones: There are no acute bony findings. Soft tissues: The soft tissues appear normal. The psoas margins are sharp. Bowel gas pattern: Normal Calcifications: There are no abnormal calcifications. Other: None IMPRESSION: NORMAL STUDY.
[2017-01-11 09:01] VITALS: BP 134/82
== END 2017-01-11 08:43 | disposition home or self-care (01) ==
LOC: ED 06:36
DX: G43.A0 Cyclical vomiting, in migraine, not intractable (principal); R10.9 Unspecified abdominal pain; F17.210 Nicotine dependence, cigarettes, uncomplicated
CPT/HCPCS: 36415; 74000; 80053; 85025; 86140; 96374; 96375; 99283; J1200; J2270

== ENCOUNTER 2017-01-13 06:42 | Emergency (ER) | payer BC ==
[2017-01-13] MEDS ORDERED: Ondansetron INJ* 2 MG/ML VIAL IV ONE (07:42)
[2017-01-13] MEDS ORDERED: Metoclopramide IV* 5 MG/ML 2 ML VIAL IV ONE (07:42)
[2017-01-13] MEDS ORDERED: Ketorolac INJ* 30 MG/ML 1 ML VIAL IV ONE (07:42)
[2017-01-13] MEDS ORDERED: diPHENhydraMINE IV* 50 MG/ML 1 ml VIAL (BENADRYL) IV ONE (07:46)
[2017-01-13] MEDS: NS 0.9% 1000 ML* 2,000 ML IV ONE ×2 (08:23→08:24)
[2017-01-13 08:44] LABS: Hematocrit 36 % (35-47); Hemoglobin 12.1 g/dl (12.0-16.0); Mean Corpuscular HGB Conc 34 g/dl (31-36); Mean Corpuscular Hemoglobin 30 pg (27-31); Mean Corpuscular Volume 87 fL (80-97); Mean Platelet Volume 9 um3 (7.4-10.4); Red Blood Count 4.08 10^6/ul (4.0-5.4); Red Cell Distribution Width 16 % (10.5-15); White Blood Count 11.6 10^3/ul (3.5-10.8)
[2017-01-13 09:00] LABS: Albumin 4.2 g/dL (3.2-5.2); BUN/Creatinine Ratio 12.3 (8-20); C Reactive Protein 3.44 mg/L (< 5.00); Calcium 9.2 mg/dL (8.6-10.3); EGFR African American 120.4 (>60); EGFR Non-African American 93.6 (>60); Globulin 2.7 g/dL (2-4); Potassium 2.9 mmol/L (3.5-5.0); Total Bilirubin 0.3 mg/dL (0.2-1.0); Total Protein 6.9 g/dL (6.4-8.9)
--- NOTE | 2017-01-13 09:06 | RAD ---
HISTORY: Rule out obstruction, abdominal pain COMPARISONS: January 11, 2017 VIEWS: Frontal supine and upright views of the abdomen. FINDINGS: BOWEL: There is a nonobstructive bowel gas pattern. There is a moderate amount of stool within the colon. CALCULI: There are no abnormal calculi. BONES AND SOFT TISSUES: There are no osseous abnormalities. OTHER FINDINGS: The lung bases are clear. There is no subphrenic gas. IMPRESSION: NONOBSTRUCTIVE BOWEL GAS PATTERN.
[2017-01-13] MEDS ORDERED: Ketorolac INJ* 30 MG/ML 1 ML VIAL IV PUSH PRN (09:19)
[2017-01-13] MEDS ORDERED: Pantoprazole IV* 40 MG IV ONE (09:19)
[2017-01-13] MEDS ORDERED: KCL 10 MEQ/50 ML IVPREMIX* 10 MEQ/50 ML BAG IV ONE (09:21)
--- NOTE | 2017-01-13 09:24 | ED ---
Abdominal Pain/Female - HPI Summary HPI Summary: 31 female presents with complaints of nausea and profuse vomiting that has been ongoing for the past 6 days. She has been seen for the same symptoms in the ED twice thus far. She has a history of cyclic vomiting. She has tried zofran, reglan, and protonix without relief. She uses marijuana often, but is trying to stay away from it, "since she knows it can perpetuate the cycle". Last use was ~ 2 days ago. She denies fever, chills, or new symptoms. No urinary or genitalia symptoms, no constipation or diarrhea. She has her typical mild, diffuse abdominal discomfort from vomiting. Last she ate and drank was last night when she was feeling a little better. She denies any blood. - History of Current Complaint Chief Complaint: EDAbdDawit Stated Complaint: ABD PAIN X6 DAYS/N & V Time Seen by Provider: 01/13/17 06:51 Hx Obtained From: Patient Hx Last Menstrual Period: 5 days ago, ended yesterday ?: No Onset/Duration: Sudden Onset, Lasting Days, Still Present Timing: Intermittent Episode Lasting Severity Initially: Moderate Severity Currently: Moderate Pain Intensity: 8 Pain Scale Used: 0-10 Numeric Location: Diffuse, Epigastric Radiates: No Character: Cramping Aggravating Factor(s): Nothing Alleviating Factor(s): Nothing Associated Signs and Symptoms: Positive: Nausea, Vomiting Allergies/Adverse Reactions: Allergies Allergy/AdvReac Type Severity Reaction Status Date / Time Sulfa Drugs Allergy Intermediate Rash And Verified 12/12/16 08:25 Itching Sulfamethoxazole Allergy Unknown Verified 12/12/16 08:25 w/Trimethoprim Reaction [From Bactrim] Details Nitrofurantoin AdvReac Intermediate Nausea And Verified 12/12/16 08:25 [From Macrobid] Vomiting Penicillins AdvReac Intermediate Vomiting Verified 12/12/16 08:25 PMH/Surg Hx/FS Hx/Imm Hx Endocrine/Hematology History: Denies: Hx Anticoagulant Therapy, Hx Blood Disorders, Hx Diabetes, Hx Thyroid Disease Cardiovascular History: Denies: Hx Congestive Heart Failure, Hx Hypertension Respiratory History: Denies: Hx Asthma, Hx Chronic Obstructive Pulmonary Disease (COPD) GI History: Reports: Hx Ulcer - colagenous colitis, Other GI Disorders - Collagenous colitis, cyclic vomiting syndrome History: Reports: Other Problems/Disorders - Frequent UTIs Denies: Hx Dialysis, Hx Renal Disease Psychiatric History: Reports: Hx Anxiety, Hx Depression, Hx Substance Abuse - 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 - Surgical History Surgery Procedure, Year, and Place: 2014 ovarian cyst REMOVAL - Immunization History Immunizations Up to Date: Yes Infectious Disease History: No Infectious Disease History: Reports: Hx Clostridium Difficile, Hx Hepatitis - TESTS + FOR HEP C ANTIBODIES Denies: Hx Human Immunodeficiency Virus (HIV), Hx of Known/Suspected MRSA, Hx Shingles, Hx Tuberculosis, Hx Known/Suspected VRE, Hx Known/Suspected VRSA, History Other Infectious Disease, Traveled Outside the [place] in Last 30 Days - Family History Known Family History: Positive: None, Hypertension - mother Family History: pt denies FHx - Social History Alcohol Use: Occasionally Alcohol Amount: 1/DAY Hx Substance Use: Yes Substance Use Type: Reports: Marijuana Substance Use Comment - Amount & Last Used: quit 1 week ago Hx Tobacco Use: Yes Smoking Status (MU): Current Every Day Smoker Type: Cigarettes Amount Used/How Often: < 1 ppd Length of Time of Smoking/Using Tobacco: 8 years Have You Smoked in the Last Year: Yes Review of Systems Constitutional: Negative Eyes: Negative ENT: Negative Cardiovascular: Negative Respiratory: Negative Positive: Abdominal Pain, Vomiting, Nausea Genitourinary: Negative Musculoskeletal: Negative Skin: Negative Neurological: Negative Psychological: Normal All Other Systems Reviewed And Are Negative: Yes Physical Exam Triage Information Reviewed: Yes Vital Signs On Initial Exam: Initial Vitals Pulse Pulse Ox 43 96 01/13/17 06:50 01/13/17 06:50 BP 122/65 Resp 18 Temp 98.3 O2 08% Vital Signs Reviewed: Yes Appearance: Positive: Well-Nourished, Ill-Appearing - patient in position curled over on stretcher upon entry, crying with an emesis bag in hand, Pain Distress Skin: Positive: Warm, Skin Color Reflects Adequate Perfusion, Dry Head/Face: Positive: Normal Head/Face Inspection Eyes: Positive: Normal, EOMI, ARACELY, Conjunctiva Clear ENT: Positive: Normal ENT inspection, Hearing grossly normal, Pharynx normal Dental: Negative: Cervical Lymphadenopathy Neck: Positive: Supple, Nontender, No Lymphadenopathy Respiratory/Lung Sounds: Positive: Clear to Auscultation, Breath Sounds Present. Negative: Rales, Rhonchi, Wheezes Cardiovascular: Positive: Normal, RRR, Pulses are Symmetrical in both Upper and Lower Extremities Abdomen Description: Positive: No Organomegaly, Soft, Other: - diffuse tenderness throughout, patient uncooperative with exam. Negative: Bruit, CVA Tenderness (R), CVA Tenderness (L), Distended, Guarding Bowel Sounds: Positive: Present Musculoskeletal: Positive: Normal, Strength/ROM Intact Neurological: Positive: Normal, Sensory/Motor Intact, Alert, Oriented to Person Place, Time, Speech Normal Psychiatric: Positive: Normal, Affect/Mood Appropriate AVPU Assessment: Alert - [place] Coma Scale Best Eye Response: 4 - Spontaneous Best Motor Response: 6 - Obeys Commands Best Verbal Response: 5 - Oriented Coma Scale Total: 15 Diagnostics - Vital Signs Vital Signs Temp Pulse Resp BP Pulse Ox 01/13/17 08:00 50 34 112/77 98 01/13/17 07:30 84 20 98 01/13/17 07:00 85 95 01/13/17 06:53 96.7 F 80 20 149/104 98 01/13/17 06:51 96.7 F 80 20 149/104 98 01/13/17 06:50 43 96 - Laboratory Lab Results: Lab Results 01/13/17 01/13/17 01/13/17 Range/Units 08:17 08:17 08:17 WBC 11.6 H (3.5-10.8) 10^3/ul RBC 4.08 (4.0-5.4) 10^6/ul Hgb 12.1 (12.0-16.0) g/dl Hct 36 (35-47) % MCV 87 (80-97) fL MCH 30 (27-31) pg MCHC 34 (31-36) g/dl RDW 16 H (10.5-15) % Plt Count 356 (150-450) 10^3/ul MPV 9 (7.4-10.4) um3 Neut % (Auto) 79.3 (38-83) % Lymph % (Auto) 13.9 L (25-47) % Casey % (Auto) 5.7 (1-9) % Eos % (Auto) 0.6 (0-6) % Baso % (Auto) 0.5 (0-2) % Absolute Neuts (auto) 9.2 H (1.5-7.7) 10^3/ul Absolute Lymphs (auto) 1.6 (1.0-4.8) 10^3/ul Absolute Monos (auto) 0.7 (0-0.8) 10^3/ul Absolute Eos (auto) 0.1 (0-0.6) 10^3/ul Absolute Basos (auto) 0.1 (0-0.2) 10^3/ul Absolute Nucleated RBC 0 10^3/ul Nucleated RBC % 0 Sodium 139 (133-145) mmol/L Potassium 2.9 L (3.5-5.0) mmol/L Chloride 104 (101-111) mmol/L Carbon Dioxide 26 (22-32) mmol/L Anion Gap 9 (2-11) mmol/L BUN 9 (6-24) mg/dL Creatinine 0.73 (0.51-0.95) mg/dL Est GFR ( Amer) 120.4 (>60) Est GFR (Non-Af Amer) 93.6 (>60) BUN/Creatinine Ratio 12.3 (8-20) Glucose 108 H (70-100) mg/dL Lactic Acid 0.9 (0.5-2.0) mmol/L Calcium 9.2 (8.6-10.3) mg/dL Magnesium Pending Total Bilirubin 0.30 (0.2-1.0) mg/dL AST 18 (13-39) U/L ALT 20 (7-52) U/L Alkaline Phosphatase 76 (34-104) U/L C-Reactive Protein 3.44 (< 5.00) mg/L Total Protein 6.9 (6.4-8.9) g/dL Albumin 4.2 (3.2-5.2) g/dL Globulin 2.7 (2-4) g/dL Albumin/Globulin Ratio 1.6 (1-3) Lipase 28 (11.0-82.0) U/L Result Diagrams: 01/13/17 08:17 01/13/17 08:17 Lab Statement: Any lab studies that have been ordered have been reviewed, and results considered in the medical decision making process. - Radiology abdomen/kub Xray Interpretation: Positive (See Comments) - NONOBSTRUCTIVE BOWEL GAS PATTERN. Radiology Interpretation Completed By: Radiologist Re-Evaluation - Re-Evaluation First Eval Re-Evaluation Time: 09:30 Change: Unchanged - patient denies any relief Second Eval Re-Evaluation Time: 10:45 Change: Improved - patient had relief after administering medication and compazine, was sleeping upon entry Abdominal Pain Fem Course/Dx - Course Course Of Treatment: patient has known cyclic vomiting syndrome, however does not want to stop using marijuana which is posisbly the cause. she has a GI specialist she needs to make an appointment with to figure out a regimen to prevent her syndrome. Referred to an additional GI specialist. CT was not repeated due to PE, HPI, Labs and she has had several with her last being . Patient symptoms and PE findings are consistent with her chornic cyclic vomiting syndrome. Labs, X-ray and UA obtained. Given benedryl, zofran, protonix , toradol and reglan. Also give potassium to replish based on lab value. Spoke with Dr Cabrera at 9:30am due to patients frequent visits and no relief. Wsa told to try 10mg compazine. Administered and patient had relief, vomiting had stopped. Patient was feeling better and ready to be d/c. aware of worsening signs and symptoms and understands it is imperitive that she make an appointment with her GI doctor to figure out a plan for her syndrome. prescibred zofran and protonix to have at home. drink plenty of fluids rest and follow up. - Diagnoses Differential Diagnosis: Positive: Bowel Obstruction, Constipation, Urinary Tract Infection, Other Provider Diagnoses: Cyclic vomiting syndrome, Nausea and vomiting - Provider Notifications Discussed Care Of Patient With: Dr Cabrera Time Discussed With Above Provider: 09:30 Instructed by Provider To: Other - try compazine and if relief, discharge home for followup with GI speciaist Discharge - Discharge Plan Condition: Stable Disposition: HOME Prescriptions: Ondansetron ODT TAB* [Zofran 4 MG Odt TAB*] 4 mg PO Q6H PRN #25 tab.odt PRN Reason: Nausea Pantoprazole TAB (NF) [Protonix TAB (NF)] 20 mg PO DAILY #20 tab Patient Education Materials: Acute Nausea and Vomiting (ED) Forms: *Work Release Referrals: Tera Lopez MD [Medical Doctor] - Adela Shultz MD [Primary Care Provider] - Additional Instructions: Take prescribed zofran and protonix to help with nausea and vomiting. Stop using marijuana as this can be the cause of your symptoms. It is important to develop a plan for your known cyclic vomiting syndrome. Follow up with GI doctor.
[2017-01-13 09:26] LABS: Urine Bacteria Absent (Absent); Urine Bilirubin Negative (Negative); Urine Glucose Negative (Negative); Urine Nitrite Negative (Negative)
[2017-01-13] MEDS ORDERED: PROCHLORPERAZINE INJ 5 MG/ML 2 ML VIAL IV PRN ×2 (09:28→09:29)
[2017-01-13] MEDS ORDERED: PROCHLORPERAZINE INJ 5 MG/ML 2 ML VIAL ONE (09:58)
[2017-01-13 13:13] VITALS: BP 122/65
== END 2017-01-13 13:12 | disposition home or self-care (01) ==
LOC: ED 06:42
DX: G43.A0 Cyclical vomiting, in migraine, not intractable (principal); F17.210 Nicotine dependence, cigarettes, uncomplicated; Z88.0 Allergy status to penicillin; Z88.2 Allergy status to sulfonamides
CPT/HCPCS: 36415; 74000; 80053; 81003; 81015; 83605; 83690; 83735; 85025; 86140; 87086; 96360; 96374; 96375; 99283; J0780; J1200; J1885; J2405; J3480

== ENCOUNTER 2017-03-08 15:26 | Emergency (ER) | payer BC ==
[2017-03-08 16:34] VITALS: BP 124/71
[2017-03-08] MEDS ORDERED: Ibuprofen TAB* 600 MG PO ONE (16:48)
--- NOTE | 2017-03-08 16:48 | UC ---
Hand/Wrist HPI - HPI Summary HPI Summary: hit left hand on a metal rail 2 days ago pain swelling and bruising 4/5 finger and mc area - History Of Current Complaint Chief Complaint: UCUpperExtremity Stated Complaint: HAND INJURY Time Seen by Provider: 03/08/17 16:42 Hx Obtained From: Patient Hx Last Menstrual Period: 03/01/17 ?: No Mechanism Of Injury: hit hand on a metal railing Onset/Duration: Sudden Onset, Lasting Days - 2, Still Present Severity Initially: Moderate Severity Currently: Moderate Pain Intensity: 7 Pain Scale Used: 0-10 Numeric Character Of Pain: Aching, Throbbing Aggravating Factor(s): Movement Alleviating: Rest, Ice Associated Signs And Symptoms: Positive: Swelling, Bruising Related History: Dominant Hand Right - Allergies/Home Medications Allergies/Adverse Reactions: Allergies Allergy/AdvReac Type Severity Reaction Status Date / Time Sulfa Drugs Allergy Intermediate Rash And Verified 03/08/17 16:42 Itching Sulfamethoxazole Allergy Unknown Verified 03/08/17 16:42 w/Trimethoprim Reaction [From Bactrim] Details Nitrofurantoin AdvReac Intermediate Nausea And Verified 03/08/17 16:42 [From Macrobid] Vomiting Penicillins AdvReac Intermediate Vomiting Verified 03/08/17 16:42 Home Medications: Home Medications Ferrous Sulfate [Fe Tabs] 325 mg PO 03/08/17 [History] PMH/Surg Hx/FS Hx/Imm Hx Previously Healthy: No Respiratory History: Asthma GI/ History: Gastroesophageal Reflux Psychological History: Anxiety, Depression Other History Of: Negative For: Anticoagulant Therapy - Surgical History Surgical History: Yes Surgery Procedure, Year, and Place: 2014 ovarian cyst REMOVAL - Family History Known Family History: Positive: None, Hypertension - mother Family History: pt denies FHx - Social History Occupation: Employed Full-time Lives: With Family Alcohol Use: Occasionally Alcohol Amount: 1/DAY Substance Use Type: None Substance Use Comment - Amount & Last Used: quit 1 week ago Smoking Status (MU): Heavy Every Day Tobacco Smoker Type: Cigarettes Amount Used/How Often: 1 ppd Length of Time of Smoking/Using Tobacco: 8 years Have You Smoked in the Last Year: Yes Household Exposure Type: Cigarettes - Immunization History Most Recent Influenza Vaccination: 2015/2016 season Review of Systems Constitutional: Negative Skin: Bruising - left hand 4/5 mc and fingers Eyes: Negative ENT: Negative Respiratory: Negative Cardiovascular: Negative Gastrointestinal: Negative Genitourinary: Negative Motor: Negative Neurovascular: Negative Musculoskeletal: Arthralgia - left 4/5 fingers/mc Neurological: Negative Psychological: Negative All Other Systems Reviewed And Are Negative: Yes Physical Exam Triage Information Reviewed: Yes Appearance: Well-Appearing, No Pain Distress, Well-Nourished Vital Signs: Initial Vital Signs Temp 97.6 F 03/08/17 16:31 Pulse 85 03/08/17 16:31 Resp 18 03/08/17 16:31 BP 124/71 03/08/17 16:31 Pulse Ox 100 03/08/17 16:31 Vital Signs Reviewed: Yes Eye Exam: Normal Eyes: Positive: Conjunctiva Clear ENT Exam: Normal ENT: Positive: Normal ENT inspection, Hearing grossly normal. Negative: Nasal congestion, Nasal drainage, Trismus, Muffled/hoarse voice Dental Exam: Normal Neck exam: Normal Neck: Positive: Supple, Nontender, No Lymphadenopathy Respiratory Exam: Normal Respiratory: Positive: Chest non-tender, No respiratory distress, No accessory muscle use Cardiovascular Exam: Normal Cardiovascular: Positive: RRR, Pulses Normal, Brisk Capillary Refill Musculoskeletal Exam: Other Musculoskeletal: Positive: Strength Limited @ - left hand, ROM Limited @ - left hand, Edema @ - left hand Neurological Exam: Normal Neurological: Positive: Alert, Muscle Tone Normal Psychological Exam: Normal Skin Exam: Normal Diagnostics - Laboratory Diagnostic Studies Completed/Ordered: fracture left 5th finger Hand/Wrist Course/Dx - Course Course Of Treatment: rice, esther tape, pain med, follow with ortho - Differential Dx/Diagnosis Differential Diagnosis/HQI/PQRI: Contusion, Fracture, Sprain, Strain Provider Diagnoses: Fx 5th Finger left hand Discharge - Discharge Plan Condition: Stable Disposition: HOME Prescriptions: Ibuprofen TAB* [Motrin TAB* 600 MG] 600 mg PO Q6H PRN #30 tab PRN Reason: pain Patient Education Materials: Ibuprofen (By mouth), Finger Fracture (ED), RICE Therapy (ED) Forms: *Work Release Referrals: Mary Ellen Bucio MD [Medical Doctor] - 4 Days Adela Shultz MD [Primary Care Provider] -
[2017-03-08] MEDS ORDERED: HYDROcodone/ACETAMIN 5-325 MG* 1 TAB PO ONE (17:28)
--- NOTE | 2017-03-08 18:20 | RAD ---
Indication: Left hand injury. 4 views of the left hand demonstrates fracture of the proximal and of the radial aspect of the proximal phalanx of the fifth digit. No significant displacement is noted. The remainder of the hand bones are unremarkable. IMPRESSION: Fracture of the radial volar aspect of the proximal end of the proximal phalanx of the fifth digit. No significant displacement is noted.
== END 2017-03-08 17:47 | disposition home or self-care (01) ==
LOC: UCEAST 15:26
DX: S62.617A Displaced fracture of proximal phalanx of left little finger, initial encounter for closed fracture (principal); W22.8XXA Striking against or struck by other objects, initial encounter; Y93.9 Activity, unspecified; Y92.9 Unspecified place or not applicable; Y99.9 Unspecified external cause status; Z72.0 Tobacco use
CPT/HCPCS: 99212; A9270-GY; G0463

== ENCOUNTER 2017-03-23 00:43 | Emergency (ER) | payer BC ==
[2017-03-23] MEDS ORDERED: LORazepam INJ* 2 MG/ML 1 ML VIAL IV PUSH ONE (01:24)
[2017-03-23] MEDS ORDERED: Ondansetron INJ* 2 MG/ML VIAL IV ONE (01:24)
[2017-03-23 01:40] LABS: Hematocrit 41 % (35-47); Hemoglobin 13.5 g/dl (12.0-16.0); Mean Corpuscular HGB Conc 33 g/dl (31-36); Mean Corpuscular Hemoglobin 30 pg (27-31); Mean Corpuscular Volume 90 fL (80-97); Mean Platelet Volume 9 um3 (7.4-10.4); Red Blood Count 4.51 10^6/ul (4.0-5.4); Red Cell Distribution Width 18 % (10.5-15); White Blood Count 9.1 10^3/ul (3.5-10.8)
[2017-03-23] MEDS: NS 0.9% 1000 ML* 2,000 ML IV ONE ×2 (01:44→01:49)
[2017-03-23 01:56] LABS: Albumin 4.5 g/dL (3.2-5.2); BUN/Creatinine Ratio 17.4 (8-20); C Reactive Protein 8.08 mg/L (< 5.00); Calcium 9.5 mg/dL (8.6-10.3); EGFR African American 99.6 (>60); EGFR Non-African American 77.5 (>60); Globulin 2.9 g/dL (2-4); Total Bilirubin 0.5 mg/dL (0.2-1.0); Total Protein 7.4 g/dL (6.4-8.9)
[2017-03-23] MEDS ORDERED: Potassium Chlor TAB* 20 MEQ TAB.ER PO ONE (02:00)
[2017-03-23 02:21] LABS: Urine Bacteria Absent (Absent); Urine Bilirubin 1+ (Negative); Urine Glucose Negative (Negative); Urine Nitrite Negative (Negative)
[2017-03-23 02:35] LABS: Magnesium 2.1 mg/dL (1.9-2.7)
--- NOTE | 2017-03-23 02:42 | ED ---
Clementina Patterson Alok, scribed for Yaritza Han MD on 03/23/17 at 0125 . Abdominal Pain/Female - HPI Summary HPI Summary: 31F presents to the ED with diffuse abd pain accompanied by N/V since yesterday. Pt states that since yesterday she has vomited over 10 times. Pt denies h/o pregnancies. PMHx includes h/o ovarian cyst and cyclic vomiting syndrome. Pt LMP was 2.5-3 weeks ago. Pt smokes tobacco and marijuana. - History of Current Complaint Chief Complaint: EDNauseaVomitDiarrh Stated Complaint: NAUSEA/VOMITING/ABD PAIN Time Seen by Provider: 03/23/17 01:04 Hx Obtained From: Patient Hx Last Menstrual Period: 03/01/17 Onset/Duration: Lasting Days, Still Present Timing: Constant Severity Initially: Moderate Severity Currently: Moderate Pain Intensity: 7 Pain Scale Used: 0-10 Numeric Location: Diffuse Aggravating Factor(s): Nothing Alleviating Factor(s): Nothing Associated Signs and Symptoms: Positive: Nausea, Vomiting Allergies/Adverse Reactions: Allergies Allergy/AdvReac Type Severity Reaction Status Date / Time Sulfa Drugs Allergy Intermediate Rash And Verified 03/23/17 00:45 Itching Sulfamethoxazole Allergy Unknown Verified 03/23/17 00:45 w/Trimethoprim Reaction [From Bactrim] Details Nitrofurantoin AdvReac Intermediate Nausea And Verified 03/23/17 00:45 [From Macrobid] Vomiting Penicillins AdvReac Intermediate Vomiting Verified 03/23/17 00:45 PMH/Surg Hx/FS Hx/Imm Hx Endocrine/Hematology History: Denies: Hx Anticoagulant Therapy, Hx Blood Disorders, Hx Diabetes, Hx Thyroid Disease Cardiovascular History: Denies: Hx Congestive Heart Failure, Hx Hypertension Respiratory History: Denies: Hx Asthma, Hx Chronic Obstructive Pulmonary Disease (COPD) GI History: Reports: Hx Ulcer - colagenous colitis, cyclic vomiting syndrome, Other GI Disorders - Collagenous colitis, cyclic vomiting syndrome History: Reports: Other Problems/Disorders - Frequent UTIs Denies: Hx Dialysis, Hx Renal Disease Psychiatric History: Reports: Hx Anxiety, Hx Depression, Hx Substance Abuse - 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 - Surgical History Surgery Procedure, Year, and Place: 2014 ovarian cyst REMOVAL Infectious Disease History: Yes Infectious Disease History: Reports: Hx Clostridium Difficile, Hx Hepatitis - TESTS + FOR HEP C ANTIBODIES Denies: Hx Human Immunodeficiency Virus (HIV), Hx of Known/Suspected MRSA, Hx Shingles, Hx Tuberculosis, Hx Known/Suspected VRE, Hx Known/Suspected VRSA, History Other Infectious Disease, Traveled Outside the [place] in Last 30 Days - Family History Known Family History: Positive: Hypertension - mother - Social History Occupation: Employed Full-time Lives: With Family Alcohol Use: Occasionally Alcohol Amount: 1/DAY Hx Substance Use: Yes Substance Use Type: Reports: Marijuana Hx Tobacco Use: Yes Smoking Status (MU): Heavy Every Day Tobacco Smoker Type: Cigarettes Amount Used/How Often: 1 ppd Length of Time of Smoking/Using Tobacco: 8 years Have You Smoked in the Last Year: Yes Review of Systems Negative: Fever Positive: Abdominal Pain, Vomiting, Nausea All Other Systems Reviewed And Are Negative: Yes Physical Exam Triage Information Reviewed: Yes Vital Signs On Initial Exam: Initial Vitals Temp Pulse Resp BP Pulse Ox 97.2 F 104 18 132/71 97 03/23/17 00:45 03/23/17 00:45 03/23/17 00:45 03/23/17 00:45 03/23/17 00:45 Vital Signs Reviewed: Yes Appearance: Positive: Well-Appearing, No Pain Distress Skin: Positive: Warm, Skin Color Reflects Adequate Perfusion, Dry Eyes: Positive: EOMI, ARACELY ENT: Positive: Pharynx normal, TMs normal Neck: Positive: Supple, Nontender Respiratory/Lung Sounds: Positive: Clear to Auscultation, Breath Sounds Present , Wheezes. Negative: Rales, Rhonchi Cardiovascular: Positive: RRR, Other - no gallop. Negative: Murmur, Rub Abdomen Description: Positive: Soft, Other: - No rebound. Diffuse abd tenderness. Negative: Distended, Guarding Bowel Sounds: Positive: Present Musculoskeletal: Positive: Strength/ROM Intact. Negative: Edema Left, Edema Right Neurological: Positive: Sensory/Motor Intact, Alert, Oriented to Person Place, Time, CN Intact II-III Psychiatric: Positive: Affect/Mood Appropriate Diagnostics - Vital Signs Vital Signs Temp Pulse Resp BP Pulse Ox 03/23/17 00:45 97.2 F 104 18 132/71 97 - Laboratory Lab Results: Lab Results 03/23/17 03/23/17 03/23/17 Range/Units 01:30 01:30 01:30 WBC 9.1 (3.5-10.8) 10^3/ul RBC 4.51 (4.0-5.4) 10^6/ul Hgb 13.5 (12.0-16.0) g/dl Hct 41 (35-47) % MCV 90 (80-97) fL MCH 30 (27-31) pg MCHC 33 (31-36) g/dl RDW 18 H (10.5-15) % Plt Count 275 (150-450) 10^3/ul MPV 9 (7.4-10.4) um3 Neut % (Auto) 70.7 (38-83) % Lymph % (Auto) 18.8 L (25-47) % [place] % (Auto) 8.6 (1-9) % Eos % (Auto) 0.8 (0-6) % Baso % (Auto) 1.1 (0-2) % Absolute Neuts (auto) 6.5 (1.5-7.7) 10^3/ul Absolute Lymphs (auto) 1.7 (1.0-4.8) 10^3/ul Absolute Monos (auto) 0.8 (0-0.8) 10^3/ul Absolute Eos (auto) 0.1 (0-0.6) 10^3/ul Absolute Basos (auto) 0.1 (0-0.2) 10^3/ul Absolute Nucleated RBC 0 10^3/ul Nucleated RBC % 0 Sodium 134 (133-145) mmol/L Potassium 3.0 L (3.5-5.0) mmol/L Chloride 103 (101-111) mmol/L Carbon Dioxide 24 (22-32) mmol/L Anion Gap 7 (2-11) mmol/L BUN 15 (6-24) mg/dL Creatinine 0.86 (0.51-0.95) mg/dL Est GFR ( Amer) 99.6 (>60) Est GFR (Non-Af Amer) 77.5 (>60) BUN/Creatinine Ratio 17.4 (8-20) Glucose 120 H (70-100) mg/dL Calcium 9.5 (8.6-10.3) mg/dL Magnesium 2.1 (1.9-2.7) mg/dL Total Bilirubin 0.50 (0.2-1.0) mg/dL AST 18 (13-39) U/L ALT 13 (7-52) U/L Alkaline Phosphatase 86 (34-104) U/L C-Reactive Protein 8.08 H (< 5.00) mg/L Total Protein 7.4 (6.4-8.9) g/dL Albumin 4.5 (3.2-5.2) g/dL Globulin 2.9 (2-4) g/dL Albumin/Globulin Ratio 1.6 (1-3) Lipase 24 (11.0-82.0) U/L Urine Color Alize Urine Appearance Cloudy Urine pH 5.0 (5-9) Ur Specific [place] 1.033 H (1.010-1.030) Urine Protein 2+(100 mg/dl) H (Negative) Urine Ketones Trace H (Negative) Urine Blood 1+ H (Negative) Urine Nitrate Negative (Negative) Urine Bilirubin 1+ H (Negative) Urine Urobilinogen Negative (Negative) Ur Leukocyte Esterase Trace H (Negative) Urine WBC (Auto) Trace(0-5/hpf) (Absent) Urine RBC (Auto) Trace(0-2/hpf) (Absent) Ur Squamous Epith Cells Present H (Absent) Urine Bacteria Absent (Absent) Urine Glucose Negative (Negative) Result Diagrams: 03/23/17 01:30 03/23/17 01:30 Lab Statement: Any lab studies that have been ordered have been reviewed, and results considered in the medical decision making process. Abdominal Pain Fem Course/Dx - Course Course Of Treatment: 31 yo female with history of intractable vomiting here with same today, pt now sleeping comfortably after ativan, k was low repleted here ok to go home - Diagnoses Provider Diagnoses: Intractable vomiting Discharge - Discharge Plan Condition: Stable Disposition: HOME The documentation as recorded by the Clementina reich Alok accurately reflects the service I personally performed and the decisions made by me, Yaritza Han MD.
[2017-03-23 03:34] VITALS: BP 101/58
== END 2017-03-23 03:34 | disposition home or self-care (01) ==
LOC: ED 00:43
DX: R11.2 Nausea with vomiting, unspecified (principal); R10.9 Unspecified abdominal pain; F17.210 Nicotine dependence, cigarettes, uncomplicated
CPT/HCPCS: 36415; 80053; 81003; 81015; 83690; 83735; 84702; 85025; 86140; 87086; 96374; 96375; 99283; A9270-GY; J2060; J2405

== ENCOUNTER 2017-04-25 22:59 | Emergency (ER) | payer BC ==
[2017-04-26] MEDS ORDERED: PROCHLORPERAZINE INJ 5 MG/ML 2 ML VIAL IV ONE (01:24)
[2017-04-26] MEDS ORDERED: NS 0.9% 1000 ML* 2,000 ML IV ONE (01:24)
[2017-04-26] MEDS ORDERED: Ondansetron INJ* 2 MG/ML VIAL IV ONE (01:40)
[2017-04-26] MEDS ORDERED: LORazepam INJ* 2 MG/ML 1 ML VIAL IV PUSH ONE (01:40)
[2017-04-26] MEDS ORDERED: Morphine INJ* 4 MG/ML 1 ML SYRINGE IV ONE (01:40)
[2017-04-26] MEDS ORDERED: Pantoprazole IV* 40 MG IV ONE (01:48)
[2017-04-26 02:02] LABS: Hematocrit 44 % (35-47); Hemoglobin 14.3 g/dl (12.0-16.0); Mean Corpuscular HGB Conc 33 g/dl (31-36); Mean Corpuscular Hemoglobin 31 pg (27-31); Mean Corpuscular Volume 94 fL (80-97); Mean Platelet Volume 10 um3 (7.4-10.4); Red Blood Count 4.67 10^6/ul (4.0-5.4); Red Cell Distribution Width 17 % (10.5-15); White Blood Count 11.7 10^3/ul (3.5-10.8)
[2017-04-26 02:22] LABS: ALT 15 U/L (7-52); AST 15 U/L (13-39); Albumin 4.5 g/dL (3.2-5.2); Alkaline Phosphatase 80 U/L (34-104); Anion Gap 9 mmol/L (2-11); BUN/Creatinine Ratio 15.1 (8-20); Blood Urea Nitrogen 13 mg/dL (6-24); CO2 Carbon Dioxide 23 mmol/L (22-32); Calcium 9.7 mg/dL (8.6-10.3); Chloride 106 mmol/L (101-111); EGFR African American 99.6 (>60); EGFR Non-African American 77.5 (>60); Globulin 3.1 g/dL (2-4); Glucose 107 mg/dL (70-100); Potassium 3.3 mmol/L (3.5-5.0); Sodium 138 mmol/L (133-145); Total Protein 7.6 g/dL (6.4-8.9)
--- NOTE | 2017-04-26 02:52 | ED ---
GI/ HPI - HPI Summary HPI Summary: 31F presents with n/v. She states that is cyclic vomiting flare up. she states her symptoms started today. She is seeing a GI specialists on . She has tried zofran at home without relief. She denies any fever, d/c, dysuria, hematuria, vaginal discharge or flank pain. She states that morphine, zofran and ativan and protonix normal cure it. She states she has her chronic LLQ pain too that is unchanged. She has had multiple images in the past for this. She states she has a history of collagenous colitis. She denies any blood in her stool. - History of Current Complaint Chief Complaint: EDNauseaVomitDiarrh Time Seen by Provider: 04/26/17 01:24 Stated Complaint: GENERAL ILLNESS Pain Intensity: 5 - Allergy/Home Medications Allergies/Adverse Reactions: Allergies Allergy/AdvReac Type Severity Reaction Status Date / Time Sulfa Drugs Allergy Intermediate Rash And Verified 03/23/17 00:45 Itching Sulfamethoxazole Allergy Unknown Verified 03/23/17 00:45 w/Trimethoprim Reaction [From Bactrim] Details Nitrofurantoin AdvReac Intermediate Nausea And Verified 03/23/17 00:45 [From Macrobid] Vomiting Penicillins AdvReac Intermediate Vomiting Verified 03/23/17 00:45 PMH/Surg Hx/FS Hx/Imm Hx Endocrine/Hematology History: Denies: Hx Anticoagulant Therapy, Hx Blood Disorders, Hx Diabetes, Hx Thyroid Disease Cardiovascular History: Denies: Hx Congestive Heart Failure, Hx Hypertension Respiratory History: Denies: Hx Asthma, Hx Chronic Obstructive Pulmonary Disease (COPD) GI History: Reports: Hx Ulcer - colagenous colitis, cyclic vomiting syndrome, Other GI Disorders - Collagenous colitis, cyclic vomiting syndrome History: Reports: Other Problems/Disorders - Frequent UTIs Denies: Hx Dialysis, Hx Renal Disease Psychiatric History: Reports: Hx Anxiety, Hx Depression, Hx Substance Abuse - 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 - Surgical History Surgery Procedure, Year, and Place: 2014 ovarian cyst REMOVAL Infectious Disease History: No Infectious Disease History: Reports: Hx Clostridium Difficile, Hx Hepatitis - TESTS + FOR HEP C ANTIBODIES Denies: Hx Human Immunodeficiency Virus (HIV), Hx of Known/Suspected MRSA, Hx Shingles, Hx Tuberculosis, Hx Known/Suspected VRE, Hx Known/Suspected VRSA, History Other Infectious Disease, Traveled Outside the [place] in Last 30 Days - Family History Known Family History: Positive: None, Hypertension - mother Family History: pt denies FHx - Social History Alcohol Use: Occasionally Alcohol Amount: 1/DAY Hx Substance Use: Yes Substance Use Type: Reports: Marijuana Substance Use Comment - Amount & Last Used: quit 1 week ago Hx Tobacco Use: Yes Smoking Status (MU): Heavy Every Day Tobacco Smoker Type: Cigarettes Amount Used/How Often: 1 ppd Length of Time of Smoking/Using Tobacco: 8 years Have You Smoked in the Last Year: Yes Review of Systems Positive: Fever Negative: Chest Pain Negative: Shortness Of Breath Positive: Abdominal Pain, Vomiting, Nausea. Negative: Diarrhea All Other Systems Reviewed And Are Negative: Yes Physical Exam Triage Information Reviewed: Yes Vital Signs On Initial Exam: Initial Vitals Temp Pulse Resp BP Pulse Ox 96.7 F 90 22 132/82 97 04/25/17 23:01 04/25/17 23:01 04/25/17 23:01 04/25/17 23:01 04/25/17 23:01 Vital Signs Reviewed: Yes Appearance: Positive: Ill-Appearing Skin: Positive: Warm, Dry Head/Face: Positive: Normal Head/Face Inspection Eyes: Positive: Normal, Conjunctiva Clear ENT: Positive: Normal ENT inspection, Pharynx normal, TMs normal Respiratory/Lung Sounds: Positive: Clear to Auscultation, Breath Sounds Present Cardiovascular: Positive: Normal, RRR Abdomen Description: Positive: Soft, Other: - tender in LLQ Bowel Sounds: Positive: Present Diagnostics - Vital Signs Vital Signs Temp Pulse Resp BP Pulse Ox 04/26/17 02:07 97.9 F 75 16 107/56 98 04/26/17 01:56 22 04/26/17 01:55 22 04/25/17 23:01 96.7 F 90 22 132/82 97 - Laboratory Lab Results: Lab Results 04/26/17 04/26/17 04/26/17 Range/Units 01:40 01:40 01:40 WBC 11.7 H (3.5-10.8) 10^3/ul RBC 4.67 (4.0-5.4) 10^6/ul Hgb 14.3 (12.0-16.0) g/dl Hct 44 (35-47) % MCV 94 (80-97) fL MCH 31 (27-31) pg MCHC 33 (31-36) g/dl RDW 17 H (10.5-15) % Plt Count 274 (150-450) 10^3/ul MPV 10 (7.4-10.4) um3 Neut % (Auto) 72.6 (38-83) % Lymph % (Auto) 19.8 L (25-47) % [place] % (Auto) 6.2 (1-9) % Eos % (Auto) 0.6 (0-6) % Baso % (Auto) 0.8 (0-2) % Absolute Neuts (auto) 8.5 H (1.5-7.7) 10^3/ul Absolute Lymphs (auto) 2.3 (1.0-4.8) 10^3/ul Absolute Monos (auto) 0.7 (0-0.8) 10^3/ul Absolute Eos (auto) 0.1 (0-0.6) 10^3/ul Absolute Basos (auto) 0.1 (0-0.2) 10^3/ul Absolute Nucleated RBC 0.01 10^3/ul Nucleated RBC % 0.1 Sodium 138 (133-145) mmol/L Potassium 3.3 L (3.5-5.0) mmol/L Chloride 106 (101-111) mmol/L Carbon Dioxide 23 (22-32) mmol/L Anion Gap 9 (2-11) mmol/L BUN 13 (6-24) mg/dL Creatinine 0.86 (0.51-0.95) mg/dL Est GFR ( Amer) 99.6 (>60) Est GFR (Non-Af Amer) 77.5 (>60) BUN/Creatinine Ratio 15.1 (8-20) Glucose 107 H (70-100) mg/dL Lactic Acid 1.7 (0.5-2.0) mmol/L Calcium 9.7 (8.6-10.3) mg/dL Total Bilirubin 0.50 (0.2-1.0) mg/dL AST 15 (13-39) U/L ALT 15 (7-52) U/L Alkaline Phosphatase 80 (34-104) U/L C-React Prot High Sens 5.74 mg/L Total Protein 7.6 (6.4-8.9) g/dL Albumin 4.5 (3.2-5.2) g/dL Globulin 3.1 (2-4) g/dL Albumin/Globulin Ratio 1.5 (1-3) Beta HCG, Quant < 0.60 mIU/mL Result Diagrams: 04/26/17 01:40 04/26/17 01:40 Lab Statement: Any lab studies that have been ordered have been reviewed, and results considered in the medical decision making process. GIGU Course/Dx - Course Course Of Treatment: 31F presents with n/v. She states that is cyclic vomiting flare up. she states her symptoms started today. She is seeing a GI specialists on . She has tried zofran at home without relief. She denies any fever, d/c, dysuria, hematuria, vaginal discharge or flank pain. She states that morhpine, zofran and ativan and protonix normal cure it. She states she has her chronic LLQ pain too that is unchanged. She has had multiple images in the past for this. on exam tender in LLQ. labs same as previous times here. gave ativan, morphine, and zofran and fluids and feeling better. d/c home and told to follow up with GI. patient understands and agrees with plan - Diagnoses Differential Diagnoses - Female: Colitis, Gastroenteritis (Bacterial), Vomiting Provider Diagnoses: Cyclical vomiting Discharge - Discharge Plan Condition: Good Disposition: HOME Patient Education Materials: Acute Nausea and Vomiting (ED) Referrals: Adela Shultz MD [Primary Care Provider] - Additional Instructions: Take zofran every 6 hours as needed for nausea Keep follow up with GI this week Return to ED if develop any new or worsening symptoms
[2017-04-26 04:48] VITALS: BP 110/70
== END 2017-04-26 05:04 | disposition home or self-care (01) ==
LOC: ED 22:59
DX: G43.A0 Cyclical vomiting, in migraine, not intractable (principal); Z32.02 Encounter for pregnancy test, result negative; R10.32 Left lower quadrant pain; K52.831 Collagenous colitis; Z87.440 Personal history of urinary (tract) infections; F41.9 Anxiety disorder, unspecified; F32.9 Major depressive disorder, single episode, unspecified; Z88.1 Allergy status to other antibiotic agents; Z88.0 Allergy status to penicillin; Z88.2 Allergy status to sulfonamides; F17.210 Nicotine dependence, cigarettes, uncomplicated
CPT/HCPCS: 36415; 80053; 83605; 84702; 85025; 86141; 96361; 96374; 96375; 99282; J2060; J2270; J2405

== ENCOUNTER 2017-04-29 09:57 | Emergency (ER) | payer BC ==
[2017-04-29] MEDS ORDERED: NS 0.9% 1000 ML* 1,000 ML IV ONE (11:06)
[2017-04-29] MEDS ORDERED: Morphine INJ* 4 MG/ML 1 ML SYRINGE IV ONE (11:06)
[2017-04-29] MEDS ORDERED: Ondansetron INJ* 2 MG/ML VIAL IV ONE (11:06)
[2017-04-29] MEDS ORDERED: LORazepam INJ* 2 MG/ML 1 ML VIAL IV ONE (11:06)
[2017-04-29 12:15] LABS: Hematocrit 41 % (35-47); Hemoglobin 13.6 g/dl (12.0-16.0); Mean Corpuscular HGB Conc 33 g/dl (31-36); Mean Corpuscular Hemoglobin 31 pg (27-31); Mean Corpuscular Volume 94 fL (80-97); Mean Platelet Volume 9 um3 (7.4-10.4); Red Blood Count 4.33 10^6/ul (4.0-5.4); Red Cell Distribution Width 17 % (10.5-15); White Blood Count 10.1 10^3/ul (3.5-10.8)
[2017-04-29 12:30] LABS: C Reactive Protein 3.84 mg/L (< 5.00)
[2017-04-29 15:12] VITALS: BP 103/60
--- NOTE | 2017-04-29 16:09 | ED ---
Trung Patterson Benjamin, scribed for Ranjit Tee MD on 04/29/17 at 1101 . Abdominal Pain/Female - HPI Summary HPI Summary: 31yo female c/o LLQ abdominal pain with N/V for a week. Pt has hx of cyclic vomiting syndrome and gets abdominal pain in once a month frequency. Pt took Zofran for her symptoms without any relief. Pt has also followed up with Dr. Duncan and have done multiple scopes and imagings, but didnt get any clear diagnosis. Pt is scheduled to see a GI doctor in [place] tomorrow. Pt smokes marijuana and reported last use was yesterday. Also reports chills, diaphoresis , and occasional diarrhea. - History of Current Complaint Chief Complaint: EDHonorio Stated Complaint: VOMITING/ABD PAIN/DIARRHEA Time Seen by Provider: 04/29/17 10:26 Hx Obtained From: Patient Hx Last Menstrual Period: 03/01/17 ?: No Onset/Duration: Gradual Onset, Lasting Weeks, Still Present Timing: Frequency Of Episodes - x1/month Pain Intensity: 8 Pain Scale Used: 0-10 Numeric Location: Discrete At: LLQ Radiates: No Aggravating Factor(s): Nothing Alleviating Factor(s): Nothing Associated Signs and Symptoms: Positive: Nausea, Vomiting Allergies/Adverse Reactions: Allergies Allergy/AdvReac Type Severity Reaction Status Date / Time Sulfa Drugs Allergy Intermediate Rash And Verified 03/23/17 00:45 Itching Sulfamethoxazole Allergy Unknown Verified 03/23/17 00:45 w/Trimethoprim Reaction [From Bactrim] Details Nitrofurantoin AdvReac Intermediate Nausea And Verified 03/23/17 00:45 [From Macrobid] Vomiting Penicillins AdvReac Intermediate Vomiting Verified 03/23/17 00:45 PMH/Surg Hx/FS Hx/Imm Hx Endocrine/Hematology History: Denies: Hx Anticoagulant Therapy, Hx Blood Disorders, Hx Diabetes, Hx Thyroid Disease Cardiovascular History: Denies: Hx Congestive Heart Failure, Hx Hypertension Respiratory History: Denies: Hx Asthma, Hx Chronic Obstructive Pulmonary Disease (COPD) GI History: Reports: Hx Ulcer - colagenous colitis, cyclic vomiting syndrome, Other GI Disorders - Collagenous colitis, cyclic vomiting syndrome History: Reports: Other Problems/Disorders - Frequent UTIs Denies: Hx Dialysis, Hx Renal Disease Psychiatric History: Reports: Hx Anxiety, Hx Depression, Hx Substance Abuse - 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 - Surgical History Surgery Procedure, Year, and Place: 2014 ovarian cyst REMOVAL Infectious Disease History: Reports: Hx Clostridium Difficile, Hx Hepatitis - TESTS + FOR HEP C ANTIBODIES Denies: Hx Human Immunodeficiency Virus (HIV), Hx of Known/Suspected MRSA, Hx Shingles, Hx Tuberculosis, Hx Known/Suspected VRE, Hx Known/Suspected VRSA, History Other Infectious Disease, Traveled Outside the [place] in Last 30 Days - Family History Known Family History: Positive: Hypertension - mother Family History: pt denies FHx - Social History Occupation: Employed Full-time Lives: With Family Alcohol Use: Occasionally Alcohol Amount: 1/DAY Hx Substance Use: Yes Substance Use Type: Reports: Marijuana Substance Use Comment - Amount & Last Used: quit 1 week ago Hx Tobacco Use: Yes Smoking Status (MU): Heavy Every Day Tobacco Smoker Type: Cigarettes Amount Used/How Often: 1 ppd Length of Time of Smoking/Using Tobacco: 8 years Have You Smoked in the Last Year: Yes Review of Systems Positive: Chills, Skin Diaphoresis Eyes: Negative ENT: Negative Cardiovascular: Negative Respiratory: Negative Positive: Abdominal Pain - LLq, Vomiting, Diarrhea, Nausea Genitourinary: Negative Musculoskeletal: Negative Skin: Negative Neurological: Negative Psychological: Normal All Other Systems Reviewed And Are Negative: Yes Physical Exam Triage Information Reviewed: Yes Vital Signs On Initial Exam: Initial Vitals Temp Pulse Resp BP Pulse Ox 97.1 F 104 20 140/88 97 04/29/17 09:58 04/29/17 09:58 04/29/17 09:58 04/29/17 09:58 04/29/17 09:58 Vital Signs Reviewed: Yes Appearance: Positive: Well-Appearing, No Pain Distress, Well-Nourished Skin: Positive: Warm, Skin Color Reflects Adequate Perfusion, Dry Head/Face: Positive: Normal Head/Face Inspection Eyes: Positive: Normal ENT: Positive: Normal ENT inspection Neck: Positive: Supple, Nontender Respiratory/Lung Sounds: Positive: Clear to Auscultation, Breath Sounds Present Cardiovascular: Positive: RRR Abdomen Description: Positive: Nontender, Soft Bowel Sounds: Positive: Present Musculoskeletal: Positive: Normal, Strength/ROM Intact Neurological: Positive: Normal, Sensory/Motor Intact, Alert, Oriented to Person Place, Time Psychiatric: Positive: Affect/Mood Appropriate Diagnostics - Vital Signs Vital Signs Temp Pulse Resp BP Pulse Ox 04/29/17 09:58 97.1 F 104 20 140/88 97 - Laboratory Lab Results: Lab Results 04/29/17 04/29/17 Range/Units 12:09 12:09 WBC 10.1 (3.5-10.8) 10^3/ul RBC 4.33 (4.0-5.4) 10^6/ul Hgb 13.6 (12.0-16.0) g/dl Hct 41 (35-47) % MCV 94 (80-97) fL MCH 31 (27-31) pg MCHC 33 (31-36) g/dl RDW 17 H (10.5-15) % Plt Count 236 (150-450) 10^3/ul MPV 9 (7.4-10.4) um3 Neut % (Auto) 79.2 (38-83) % Lymph % (Auto) 15.0 L (25-47) % [place] % (Auto) 4.6 (1-9) % Eos % (Auto) 0.5 (0-6) % Baso % (Auto) 0.7 (0-2) % Absolute Neuts (auto) 8.0 H (1.5-7.7) 10^3/ul Absolute Lymphs (auto) 1.5 (1.0-4.8) 10^3/ul Absolute Monos (auto) 0.5 (0-0.8) 10^3/ul Absolute Eos (auto) 0 (0-0.6) 10^3/ul Absolute Basos (auto) 0.1 (0-0.2) 10^3/ul Absolute Nucleated RBC 0.01 10^3/ul Nucleated RBC % 0.1 C-Reactive Protein 3.84 (< 5.00) mg/L Beta HCG, Quant < 0.60 mIU/mL Result Diagrams: 04/29/17 12:09 Lab Statement: Any lab studies that have been ordered have been reviewed, and results considered in the medical decision making process. Abdominal Pain Fem Course/Dx - Course Course Of Treatment: Ms. Miranda presented C/O cyclic vomiting syndrome for which she has an appointment with a GI doc tomorrow. She was given medication with relief and her labs were normal. - Diagnoses Provider Diagnoses: Cyclic vomiting syndrome Discharge - Discharge Plan Condition: Stable Disposition: HOME Patient Education Materials: Acute Nausea and Vomiting (ED) Forms: *Work Release Referrals: Adela Shultz MD [Primary Care Provider] - The documentation as recorded by the Trung reich Benjamin accurately reflects the service I personally performed and the decisions made by me, Ranjit Tee MD.
== END 2017-04-29 15:18 | disposition home or self-care (01) ==
LOC: ED 09:57
DX: G43.A0 Cyclical vomiting, in migraine, not intractable (principal); F17.210 Nicotine dependence, cigarettes, uncomplicated; Z88.0 Allergy status to penicillin; Z88.2 Allergy status to sulfonamides
CPT/HCPCS: 36415; 84702; 85025; 86140; 96360; 96374; 96375; 99284; J2060; J2270; J2405

== ENCOUNTER 2017-06-03 08:33 | Emergency (ER) | payer BC ==
[2017-06-03] MEDS ORDERED: Ondansetron INJ* 2 MG/ML VIAL IV ONE (09:03)
[2017-06-03] MEDS ORDERED: NS 0.9% 1000 ML* 2,000 ML IV ONE (09:03)
[2017-06-03] MEDS ORDERED: Morphine INJ* 4 MG/ML 1 ML SYRINGE IV ONE (09:03)
[2017-06-03] MEDS ORDERED: LORazepam INJ* 2 MG/ML 1 ML VIAL IV PUSH ONE (09:04)
[2017-06-03 10:28] LABS: Hematocrit 39 % (35-47); Hemoglobin 13.4 g/dl (12.0-16.0); Mean Corpuscular HGB Conc 34 g/dl (31-36); Mean Corpuscular Hemoglobin 32 pg (27-31); Mean Corpuscular Volume 93 fL (80-97); Mean Platelet Volume 9 um3 (7.4-10.4); Red Blood Count 4.23 10^6/ul (4.0-5.4); Red Cell Distribution Width 15 % (10.5-15); White Blood Count 12.1 10^3/ul (3.5-10.8)
[2017-06-03 10:40] LABS: ALT 15 U/L (7-52); AST 16 U/L (13-39); Alkaline Phosphatase 72 U/L (34-104); Anion Gap 6 mmol/L (2-11); BUN/Creatinine Ratio 11.4 (8-20); Blood Urea Nitrogen 8 mg/dL (6-24); C Reactive Protein 4.82 mg/L (< 5.00); CO2 Carbon Dioxide 26 mmol/L (22-32); Chloride 103 mmol/L (101-111); EGFR African American 126.4 (>60); EGFR Non-African American 98.3 (>60); Globulin 2.5 g/dL (2-4); Glucose 92 mg/dL (70-100); Lipase 11 U/L (11.0-82.0); Potassium 3.6 mmol/L (3.5-5.0); Sodium 135 mmol/L (133-145); Total Protein 6.5 g/dL (6.4-8.9)
[2017-06-03 11:01] VITALS: BP 97/60
--- NOTE | 2017-06-03 18:16 | ED ---
Donaovn Patterson Angela, scribed for Sky Laboy MD on 06/03/17 at 0907 . Abdominal Pain/Female - HPI Summary HPI Summary: This pt is a 31 y/o female presenting to [facility] c/o abd pain and vomiting x3 years (cyclic vomiting syndrome), this cycle started 3 days ago. Pt reports a history of collagenous colitis and cyclic vomiting syndrome. Pt states her pain is constant in the lower left side of the abd, which is usual in every cyclic vomiting syndrome episode. She endorses chills and vomiting every 1 hour. Pt has taken Zofran with no relief, Ativan with minimal relief. She states this is a typical representation of her cyclic vomiting syndrome. Pt denies fever, diarrhea, pain over kidneys, back pain, bloody stools. She notes that some of the triggers for her symptoms are menstruation, spanish food, and stress. Pt is a current smoker. She was last seen in April for cyclic vomiting. - History of Current Complaint Chief Complaint: EDAbdPain Stated Complaint: VOMITING/3DAYS Time Seen by Provider: 06/03/17 08:46 Hx Obtained From: Patient Hx Last Menstrual Period: 03/01/17 Onset/Duration: Lasting Days Timing: Constant Pain Intensity: 7 Pain Scale Used: 0-10 Numeric Location: Discrete At: LLQ Radiates: No Character: Sharp, Cramping Aggravating Factor(s): Nothing Alleviating Factor(s): Nothing Associated Signs and Symptoms: Positive: Nausea, Vomiting. Negative: Fever, Chest Pain, Back Pain, Constipation, Blood in Stool, Urinary Symptoms, Diarrhea Allergies/Adverse Reactions: Allergies Allergy/AdvReac Type Severity Reaction Status Date / Time Sulfa Drugs Allergy Intermediate Rash And Verified 06/03/17 08:38 Itching Sulfamethoxazole Allergy Unknown Verified 06/03/17 08:38 w/Trimethoprim Reaction [From Bactrim] Details Nitrofurantoin AdvReac Intermediate Nausea And Verified 06/03/17 08:38 [From Macrobid] Vomiting Penicillins AdvReac Intermediate Vomiting Verified 06/03/17 08:38 PMH/Surg Hx/FS Hx/Imm Hx Endocrine/Hematology History: Denies: Hx Anticoagulant Therapy, Hx Blood Disorders, Hx Diabetes, Hx Thyroid Disease Cardiovascular History: Denies: Hx Congestive Heart Failure, Hx Hypertension Respiratory History: Denies: Hx Asthma, Hx Chronic Obstructive Pulmonary Disease (COPD) GI History: Reports: Hx Ulcer - colagenous colitis, cyclic vomiting syndrome, Other GI Disorders - Collagenous colitis, cyclic vomiting syndrome History: Reports: Other Problems/Disorders - Frequent UTIs Denies: Hx Dialysis, Hx Renal Disease Psychiatric History: Reports: Hx Anxiety, Hx Depression, Hx Substance Abuse - 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 - Surgical History Surgery Procedure, Year, and Place: 2014 ovarian cyst REMOVAL Infectious Disease History: Reports: Hx Clostridium Difficile, Hx Hepatitis - TESTS + FOR HEP C ANTIBODIES Denies: Hx Human Immunodeficiency Virus (HIV), Hx of Known/Suspected MRSA, Hx Shingles, Hx Tuberculosis, Hx Known/Suspected VRE, Hx Known/Suspected VRSA, History Other Infectious Disease, Traveled Outside the [place] in Last 30 Days - Family History Known Family History: Positive: None, Hypertension - mother Family History: pt denies FHx - Social History Alcohol Use: Occasionally Alcohol Amount: 1/DAY Hx Substance Use: Yes Substance Use Type: Reports: Marijuana Substance Use Comment - Amount & Last Used: quit 1 week ago Hx Tobacco Use: Yes Smoking Status (MU): Heavy Every Day Tobacco Smoker Type: Cigarettes Amount Used/How Often: 1 ppd Length of Time of Smoking/Using Tobacco: 8 years Have You Smoked in the Last Year: Yes Review of Systems Negative: Fever, Chills Negative: Drainage, Erythema Negative: Sore Throat Negative: Chest Pain Negative: Shortness Of Breath Positive: Abdominal Pain, Vomiting, Nausea. Negative: Diarrhea Negative: dysuria, flank pain, hematuria Negative: Myalgia, Edema Skin: Negative Neurological: Negative Negative: Anxious All Other Systems Reviewed And Are Negative: Yes Physical Exam - Summary Physical Exam Summary: The patient is well-nourished in mild distress. The skin is warm and dry and skin color reflects adequate perfusion. There is good skin turgor. HEENT: The head is normocephalic and atraumatic. The pupils are equal and reactive. The conjunctivae are clear and without drainage. Nares are patent and without drainage. Mouth reveals dry mucous membranes and the throat is without erythema and exudate. The external ears are intact. The ear canals are patent and without drainage. The tympanic membranes are intact. Neck is supple with full range of motion and non-tender. Respiratory: Chest is non-tender. Lungs are clear to auscultation and breath sounds are symmetrical and equal. Cardiovascular: Hear is regular rate and rhythm. There is no murmur or rub auscultated. There is no peripheral edema and pulses are symmetrical and equal. Abdomen: The abdomen is soft and tender in the left lower quadrant. There is no guarding or rebound. There are normal bowel sounds heard in all four quadrants and there is no organomegaly palpated. Musculoskeletal: There is no back pain noted. Extremities are non-tender with full range of motion. There is good capillary refill. There is no peripheral edema or calf tenderness elicited. There is no CVA tenderness. Neurological: Patient is alert and oriented to person, place and time. The patient has symmetrical motor strength in all four extremities. Psychiatric: The patient has an appropriate affect and does not exhibit any anxiety or depression. Triage Information Reviewed: Yes Vital Signs On Initial Exam: Initial Vitals Temp Pulse Resp BP Pulse Ox 98 F 112 20 134/71 100 06/03/17 08:38 06/03/17 08:38 06/03/17 08:38 06/03/17 08:38 06/03/17 08:38 Vital Signs Reviewed: Yes Diagnostics - Vital Signs Vital Signs Temp Pulse Resp BP Pulse Ox 06/03/17 08:38 98 F 112 20 134/71 100 - Laboratory Lab Results: Lab Results 06/03/17 06/03/17 06/03/17 Range/Units 10:00 10:00 10:00 WBC 12.1 H (3.5-10.8) 10^3/ul RBC 4.23 (4.0-5.4) 10^6/ul Hgb 13.4 (12.0-16.0) g/dl Hct 39 (35-47) % MCV 93 (80-97) fL MCH 32 H (27-31) pg MCHC 34 (31-36) g/dl RDW 15 (10.5-15) % Plt Count 263 (150-450) 10^3/ul MPV 9 (7.4-10.4) um3 Neut % (Auto) 75.8 (38-83) % Lymph % (Auto) 17.5 L (25-47) % [place] % (Auto) 5.7 (1-9) % Eos % (Auto) 0.5 (0-6) % Baso % (Auto) 0.5 (0-2) % Absolute Neuts (auto) 9.2 H (1.5-7.7) 10^3/ul Absolute Lymphs (auto) 2.1 (1.0-4.8) 10^3/ul Absolute Monos (auto) 0.7 (0-0.8) 10^3/ul Absolute Eos (auto) 0.1 (0-0.6) 10^3/ul Absolute Basos (auto) 0.1 (0-0.2) 10^3/ul Absolute Nucleated RBC 0 10^3/ul Nucleated RBC % 0 Sodium 135 (133-145) mmol/L Potassium 3.6 (3.5-5.0) mmol/L Chloride 103 (101-111) mmol/L Carbon Dioxide 26 (22-32) mmol/L Anion Gap 6 (2-11) mmol/L BUN 8 (6-24) mg/dL Creatinine 0.70 (0.51-0.95) mg/dL Est GFR ( Amer) 126.4 (>60) Est GFR (Non-Af Amer) 98.3 (>60) BUN/Creatinine Ratio 11.4 (8-20) Glucose 92 (70-100) mg/dL Lactic Acid 0.9 (0.5-2.0) mmol/L Calcium 9.0 (8.6-10.3) mg/dL Total Bilirubin 0.50 (0.2-1.0) mg/dL AST 16 (13-39) U/L ALT 15 (7-52) U/L Alkaline Phosphatase 72 (34-104) U/L C-Reactive Protein 4.82 (< 5.00) mg/L Total Protein 6.5 (6.4-8.9) g/dL Albumin 4.0 (3.2-5.2) g/dL Globulin 2.5 (2-4) g/dL Albumin/Globulin Ratio 1.6 (1-3) Lipase 11 (11.0-82.0) U/L Beta HCG, Quant < 0.60 mIU/mL Result Diagrams: 06/03/17 10:00 06/03/17 10:00 Lab Statement: Any lab studies that have been ordered have been reviewed, and results considered in the medical decision making process. Re-Evaluation - Re-Evaluation First Eval Re-Evaluation Time: 11:01 Comment: Pt is feeling better and is ready to be discharged. Abdominal Pain Fem Course/Dx - Course Course Of Treatment: This pt is a 31 y/o female with PMHx: cyclic vomiting syndrome x3 years presenting to [facility] c/o abd pain and vomiting that began 3 days ago. In ED course, pt was given IV fluids, morphine, Ativan, and Zofran. Pt reports feeling better and will be discharged. She will follow up with Dr. Duncan and continue to take her medications. - Diagnoses Differential Diagnosis: Positive: Bowel Obstruction, Peptic Ulcer Disease, Other - cyclic vomiting syndrome Provider Diagnoses: Abdominal pain, Cyclic vomiting syndrome Discharge - Discharge Plan Condition: Stable Disposition: HOME Patient Education Materials: Abdominal Pain (ED) Forms: *Work Release Referrals: Adela Shultz MD [Primary Care Provider] - Additional Instructions: Please follow up with Dr. Duncan to assure your symptoms are improving. Continue to take your usual medications. The documentation as recorded by the Donavon reich Angela accurately reflects the service I personally performed and the decisions made by me, Sky Laboy MD.
== END 2017-06-03 11:32 | disposition home or self-care (01) ==
LOC: ED 08:33
DX: R10.9 Unspecified abdominal pain (principal); G43.A0 Cyclical vomiting, in migraine, not intractable; Z88.2 Allergy status to sulfonamides; F17.210 Nicotine dependence, cigarettes, uncomplicated
CPT/HCPCS: 36415; 80053; 83605; 83690; 84702; 85025; 86140; 96360; 96374; 96375; 99284; J2060; J2270; J2405

== ENCOUNTER 2017-06-04 09:11 | Emergency (ER) | payer BC ==
[2017-06-04] MEDS ORDERED: Ondansetron INJ* 2 MG/ML VIAL IV ONE (11:09)
[2017-06-04] MEDS ORDERED: NS 0.9% 1000 ML* 1,000 ML IV ONE (11:09)
[2017-06-04] MEDS ORDERED: Pantoprazole IV* 40 MG IV ONE (11:09)
[2017-06-04] MEDS ORDERED: LORazepam INJ* 2 MG/ML 1 ML VIAL IV PUSH ONE (11:12)
--- NOTE | 2017-06-04 11:13 | ED ---
Abdominal Pain/Female - HPI Summary HPI Summary: Pt here w/ repeat episode of cyclical vomiting and LLQ pain. She has been seen multiple times over the past 6 years for N/V/D and/or ab pain. 2011 - 4x; 2012 - 1; 2014 - 3x; 2015 - 14x; 2016 - 6x; 2017 - 16x. She has been dx'd by PCP and GI with cyclical vomiting and collagenous collitis. She currently does not have any diarrhea sx and does not feel her collagenous collitis is acting up at this time. She reports N/V and LLQ for days now - was seen yesterday and provided with "what always works for me" - IV zofran, morphine, protonix and ativan. She' s tried PO zofran at home but states this doesn't work. She routinely takes omeprazole but has not been able to take this lately d/t vomiting. She also admits to anxiety/depression and is not on medications. In counseling. Still smoking -reports she was not aware this can exacerbate her collagenous collitis - not ready to quit but willing to talk to counselor about this with new awareness. Other triggers for pain she's having now are Maltese food and stress. Spoke w/ Dr. Duncan who agrees w/ both diagnoses as well as delayed gastric emptying. He did not feel comfortable placing her on senior living reglan d/t tardive dyskinesia SE. He also felt erythromycin was not a good choice. He did suggest domperidone however it can only be purchased in [place]. He states she's a difficult case because there is no clear known cause of cyclical vomiting and no definitive treatment. He reports he spoke with pt for an hour or longer about lifestyle change re: collagenous collitis (pt reports he "told me nothing "). She also admits she went to [place] and GI provider up there "did nothing " however in fact did suggest starting amitriptyline however he wasn't comfortable starting it d/t mental health issues. Pt discussed trying this with psychiatrist who has started her on a dose - she's been taking it for 1 month now w/o improvement of GI sx. Dr. Duncan felt that if she was going to have improvement of sx she should have had them by now re: GI issues. Other difficult piece of pt's case is she has a h/o opioid dependence in her chart. Last time I saw pt, her IUD was malpositioned. This was removed by [employer] that day. Pt reports no improvement in sx since removal. This was ID'd on [facility] - no other abnormal findings that day and no change in sx. - History of Current Complaint Chief Complaint: EDAbdPain Stated Complaint: VOMITING/ABD PAIN Time Seen by Provider: 06/04/17 10:34 Hx Obtained From: Patient Hx Last Menstrual Period: 03/01/17 Pain Intensity: 8 Allergies/Adverse Reactions: Allergies Allergy/AdvReac Type Severity Reaction Status Date / Time Sulfa Drugs Allergy Intermediate Rash And Verified 06/04/17 09:15 Itching Sulfamethoxazole Allergy Unknown Verified 06/04/17 09:15 w/Trimethoprim Reaction [From Bactrim] Details Nitrofurantoin AdvReac Intermediate Nausea And Verified 06/04/17 09:15 [From Macrobid] Vomiting Penicillins AdvReac Intermediate Vomiting Verified 06/04/17 09:15 Home Medications: Home Medications Amitriptyline TAB* [Elavil TAB*] 25 mg PO BEDTIME 06/04/17 [History Confirmed ] BuPROPion XL* [Bupropion XL*] 300 mg PO DAILY 06/04/17 [History Confirmed ] Ferrous Sulfate TAB* 325 mg PO DAILY 06/04/17 [History Confirmed 06/04/17] PMH/Surg Hx/FS Hx/Imm Hx Previously Healthy: No - cyclical vomiting, delayed gastric emptying Endocrine/Hematology History: Denies: Hx Anticoagulant Therapy, Hx Blood Disorders, Hx Diabetes, Hx Thyroid Disease Cardiovascular History: Denies: Hx Congestive Heart Failure, Hx Hypertension Respiratory History: Denies: Hx Asthma, Hx Chronic Obstructive Pulmonary Disease (COPD) GI History: Reports: Hx Ulcer - colagenous colitis, cyclic vomiting syndrome, Other GI Disorders - Collagenous colitis, cyclic vomiting syndrome, delayed gastric emptying History: Reports: Other Problems/Disorders - Frequent UTIs Denies: Hx Dialysis, Hx Renal Disease Psychiatric History: Reports: Hx Anxiety, Hx Depression, Hx Substance Abuse - 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 - Surgical History Surgery Procedure, Year, and Place: 2014 ovarian cyst REMOVAL Infectious Disease History: Reports: Hx Clostridium Difficile, Hx Hepatitis - TESTS + FOR HEP C ANTIBODIES Denies: Hx Human Immunodeficiency Virus (HIV), Hx of Known/Suspected MRSA, Hx Shingles, Hx Tuberculosis, Hx Known/Suspected VRE, Hx Known/Suspected VRSA, History Other Infectious Disease, Traveled Outside the [place] in Last 30 Days - Family History Known Family History: Positive: Hypertension - mother - Social History Occupation: Unemployed Lives: With Family Alcohol Use: Occasionally Alcohol Amount: 1/DAY Hx Substance Use: Yes Substance Use Type: Reports: Marijuana Substance Use Comment - Amount & Last Used: large quantities Hx Tobacco Use: Yes Smoking Status (MU): Heavy Every Day Tobacco Smoker Type: Cigarettes Amount Used/How Often: 1 ppd Length of Time of Smoking/Using Tobacco: 8 years Have You Smoked in the Last Year: Yes Review of Systems Constitutional: Negative Positive: Fatigue. Negative: Fever, Chills Cardiovascular: Negative Negative: Chest Pain Respiratory: Negative Negative: Shortness Of Breath Gastrointestinal: Other - see HPI Positive: no symptoms reported Musculoskeletal: Negative Skin: Negative Positive: Headache Positive: Anxious All Other Systems Reviewed And Are Negative: Yes Physical Exam Triage Information Reviewed: Yes Vital Signs On Initial Exam: Initial Vitals Temp Pulse Resp BP Pulse Ox 96.9 F 88 17 146/82 100 06/04/17 09:12 06/04/17 09:12 06/04/17 09:12 06/04/17 09:12 06/04/17 09:12 Vital Signs Reviewed: Yes Appearance: Positive: Pain Distress - pt sitting in bed on her knees, tearful at times Skin: Positive: Warm, Dry - purpuric ecchymosis over UE's - pt reports these are from previous IV attempts yesterday - states she's a tough stick Head/Face: Positive: Normal Head/Face Inspection Eyes: Positive: Normal, EOMI, Conjunctiva Clear - anicteric sclera ENT: Positive: Other - dry oral mucousa membranes Respiratory/Lung Sounds: Positive: Breath Sounds Present Cardiovascular: Positive: Normal Abdomen Description: Positive: No Organomegaly, Soft, Other: - LLQ TTP (mild) - no rebounding Bowel Sounds: Positive: Present Pelvic Exam: Positive: other - deferred d/t previous investigation fo same sx Musculoskeletal: Positive: Normal, Strength/ROM Intact Neurological: Positive: Normal, Sensory/Motor Intact, Alert, Oriented to Person Place, Time, CN Intact II-III Psychiatric: Positive: Anxious Diagnostics - Vital Signs Vital Signs Temp Pulse Resp BP Pulse Ox 06/04/17 11:00 99 121/64 97 06/04/17 10:30 110 122/85 97 06/04/17 10:00 87 133/76 96 06/04/17 09:55 95 97 06/04/17 09:54 136/94 06/04/17 09:25 96.9 F 88 17 146/82 100 06/04/17 09:12 96.9 F 88 17 146/82 100 - Laboratory Result Diagrams: 06/04/17 11:50 06/04/17 11:50 Lab Statement: Any lab studies that have been ordered have been reviewed, and results considered in the medical decision making process. Re-Evaluation - Re-Evaluation First Eval Change: Improved Abdominal Pain Fem Course/Dx - Course Course Of Treatment: Pt here for 16th time this month and 2nd time in 2 days for cyclical vomiting w/ LLQ pain. She does have confirmed diagnoses per Dr. Duncan who reports she's a difficult case. Recommended smoking cessation, avoiding Maltese food and stress reduction to reduce flairs of collagenous collitis - explained she could discuss w/ her MH for support. For cyclical vomiting, offered trying domperidone if she can find it as it may greatly reduce her need for continued visits to ED. Furthermore, suggested a better plan through PCP's office to avoid ED visits. Pt voices understanding. NOTE: to avoid araujo of medications producing potential euphoria, injected pt w/ ativan and morphine IM. Also hoping this provides a longer release of medication to reduce need to return. This or subcutaneous injections may be better options for future visits as she's also damaged her vessels over time. Discussed initiating a formal treatment plan for her future visits w/ Dr. Conner. - Diagnoses Provider Diagnoses: Cyclical vomiting syndrome, Delayed gastric emptying Discharge - Discharge Plan Condition: Stable Disposition: HOME Referrals: Adela Shultz MD [Primary Care Provider] - Additional Instructions: You appear to have cyclical vomiting syndrome. After speaking with your plc controls engineer Dr. Duncan, we would like to put a treatment plan in place for you. Since your effective treatments involve injection medications and your vessels are difficult to access, it is suggested that you discuss port placement with your PCP. If this is not conducive to therapy, perhaps an intramuscular injectable medication regimen for zofran to reduce your nausea enough to orally take the remaining medications that reduce your acute symptoms during an attack. Furthermore, if this plan is not feasible either, a prokinetic medication that may be helpful to reduce nausea is domperidone. Unfortunately this is not prescribed in the [place] but can be purchased in [place]. We also discussed avoiding triggers such as eating Maltese food and stress. For your collagenous colitis, avoiding NSAID's (ie. ibuprofen, advi, naproxen, aleve , aspirin, etc) and avoiding smoking may greatly reduce risk of occurrence. Please work with your mental health counseling team to reduce engagement with these triggers. Trying exercises such as associating your symptoms of illness that bring you to the ED (nausea, vomiting, ab pain) with the act of smoking, eating Maltese food, and not addressing stress may be beneficial in behavior change. *If you develop fever, chills, inability to urinate, vomiting blood, hematochezia, shortness of breath or chest pain, return to ED.
[2017-06-04] MEDS ORDERED: Morphine INJ* 4 MG/ML 1 ML SYRINGE IM ONE (11:36)
[2017-06-04] MEDS ORDERED: LORazepam INJ* 2 MG/ML 1 ML VIAL IM ONE (11:37)
[2017-06-04 11:55] LABS: Urine Bilirubin Negative (Negative); Urine Glucose Negative (Negative); Urine Nitrite Negative (Negative)
[2017-06-04 12:05] LABS: Hematocrit 42 % (35-47); Hemoglobin 14.2 g/dl (12.0-16.0); Mean Corpuscular HGB Conc 34 g/dl (31-36); Mean Corpuscular Hemoglobin 32 pg (27-31); Mean Corpuscular Volume 93 fL (80-97); Mean Platelet Volume 9 um3 (7.4-10.4); Red Blood Count 4.51 10^6/ul (4.0-5.4); Red Cell Distribution Width 15 % (10.5-15); White Blood Count 11.3 10^3/ul (3.5-10.8)
[2017-06-04 12:21] LABS: Albumin 4.4 g/dL (3.2-5.2); BUN/Creatinine Ratio 8.6 (8-20); C Reactive Protein 7.66 mg/L (< 5.00); Calcium 9.6 mg/dL (8.6-10.3); EGFR African American 126.4 (>60); EGFR Non-African American 98.3 (>60); Globulin 2.9 g/dL (2-4); Potassium 3.8 mmol/L (3.5-5.0); Total Bilirubin 0.4 mg/dL (0.2-1.0); Total Protein 7.3 g/dL (6.4-8.9)
[2017-06-04 12:46] LABS: TSH (Thyroid Stimulating Horm) 0.69 mcIU/mL (0.34-5.60)
[2017-06-04 13:33] VITALS: BP 103/56
== END 2017-06-04 13:33 | disposition home or self-care (01) ==
LOC: ED 09:11
DX: G43.A0 Cyclical vomiting, in migraine, not intractable (principal); K30 Functional dyspepsia; F17.210 Nicotine dependence, cigarettes, uncomplicated
CPT/HCPCS: 36415; 80053; 81003; 82150; 83605; 83690; 83735; 84443; 85025; 86140; 96360; 96372; 96374; 96375; 99283; J2060; J2270; J2405

== ENCOUNTER 2017-06-06 07:10 | Emergency (ER) | payer BC ==
[2017-06-06] MEDS ORDERED: Morphine INJ* 4 MG/ML 1 ML SYRINGE IV ONE ×2 (07:33→10:28)
[2017-06-06] MEDS ORDERED: Ondansetron INJ* 2 MG/ML VIAL IV ONE ×2 (07:33→09:27)
[2017-06-06] MEDS ORDERED: NS 0.9% 1000 ML* 2,000 ML IV ONE (07:33)
[2017-06-06] MEDS ORDERED: Pantoprazole IV* 40 MG IV ONE (07:33)
[2017-06-06] MEDS ORDERED: LORazepam INJ* 2 MG/ML 1 ML VIAL IV PUSH ONE (07:35)
[2017-06-06 09:09] LABS: Albumin 4.8 g/dL (3.2-5.2); BUN/Creatinine Ratio 15.9 (8-20); C Reactive Protein 9.58 mg/L (< 5.00); EGFR African American 105.3 (>60); EGFR Non-African American 81.9 (>60); Globulin 2.9 g/dL (2-4); Potassium 3.8 mmol/L (3.5-5.0); Total Bilirubin 0.4 mg/dL (0.2-1.0); Total Protein 7.7 g/dL (6.4-8.9)
[2017-06-06] MEDS ORDERED: Metoclopramide IV* 5 MG/ML 2 ML VIAL IV ONE (09:27)
[2017-06-06 10:23] LABS: Hematocrit 40 % (35-47); Hemoglobin 13.5 g/dl (12.0-16.0); Mean Corpuscular HGB Conc 33 g/dl (31-36); Mean Corpuscular Hemoglobin 31 pg (27-31); Mean Corpuscular Volume 93 fL (80-97); Mean Platelet Volume 10 um3 (7.4-10.4); Red Blood Count 4.33 10^6/ul (4.0-5.4); Red Cell Distribution Width 15 % (10.5-15); White Blood Count 11.8 10^3/ul (3.5-10.8)
[2017-06-06 11:30] VITALS: BP 101/60
--- NOTE | 2017-06-06 14:53 | ED ---
Joan Patterson Edward, scribed for Sky Laboy MD on 06/06/17 at 0713 . Complex/Multi-Sys Presentation - HPI Summary HPI Summary: 31 y/o female presents to the ED c/o another episode of L side and upper middle ABD pain. Pt was seen in the ED 2 days ago for the same symptoms. The pain is not aggravated or alleviated by anything. The pain woke up at 01:00 this morning and has been vomiting since then. Her last bowel movement was last night. Associated sx: chills. SHx laproscopic ovarian cyst removal, ulcer. Occasional EtOH, smoker, marijuana use. Pt states these symptoms come in waves. - History Of Current Complaint Hx Obtained From: Patient Onset/Duration: Lasting Days, Still Present Location: Pain At: - L side and upper middle ABD Associated Signs And Symptoms: Positive: Nausea, Vomiting, Other - Chills - Allergies/Home Medications Allergies/Adverse Reactions: Allergies Allergy/AdvReac Type Severity Reaction Status Date / Time Sulfa Drugs Allergy Intermediate Rash And Verified 06/04/17 09:15 Itching Sulfamethoxazole Allergy Unknown Verified 06/04/17 09:15 w/Trimethoprim Reaction [From Bactrim] Details Nitrofurantoin AdvReac Intermediate Nausea And Verified 06/04/17 09:15 [From Macrobid] Vomiting Penicillins AdvReac Intermediate Vomiting Verified 06/04/17 09:15 PMH/Surg Hx/FS Hx/Imm Hx Previously Healthy: No Endocrine/Hematology History: Denies: Hx Anticoagulant Therapy, Hx Blood Disorders, Hx Diabetes, Hx Thyroid Disease Cardiovascular History: Denies: Hx Congestive Heart Failure, Hx Hypertension Respiratory History: Denies: Hx Asthma, Hx Chronic Obstructive Pulmonary Disease (COPD) GI History: Reports: Hx Ulcer - colagenous colitis, cyclic vomiting syndrome, Other GI Disorders - Collagenous colitis, cyclic vomiting syndrome History: Reports: Other Problems/Disorders - Frequent UTIs Denies: Hx Dialysis, Hx Renal Disease Psychiatric History: Reports: Hx Anxiety, Hx Depression, Hx Substance Abuse - 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 - Surgical History Surgery Procedure, Year, and Place: 2014 ovarian cyst REMOVAL Infectious Disease History: Reports: Hx Clostridium Difficile, Hx Hepatitis - TESTS + FOR HEP C ANTIBODIES Denies: Hx Human Immunodeficiency Virus (HIV), Hx of Known/Suspected MRSA, Hx Shingles, Hx Tuberculosis, Hx Known/Suspected VRE, Hx Known/Suspected VRSA, History Other Infectious Disease - Family History Known Family History: Positive: Hypertension - mother Family History: pt denies FHx - Social History Alcohol Use: Occasionally Alcohol Amount: 1/DAY Hx Substance Use: Yes Substance Use Type: Reports: Marijuana Substance Use Comment - Amount & Last Used: Pt smokes frequently. Hx Tobacco Use: Yes Smoking Status (MU): Heavy Every Day Tobacco Smoker Type: Cigarettes Amount Used/How Often: 1 ppd Length of Time of Smoking/Using Tobacco: 8 years Have You Smoked in the Last Year: Yes Review of Systems Positive: Chills Eyes: Negative ENT: Negative Cardiovascular: Negative Respiratory: Negative Positive: Abdominal Pain, Vomiting, Nausea Genitourinary: Negative Musculoskeletal: Negative Skin: Negative Neurological: Negative Psychological: Normal All Other Systems Reviewed And Are Negative: Yes Physical Exam - Summary Physical Exam Summary: The patient is well-nourished in mild distress and in no acute pain. The skin is warm and dry and skin color reflects adequate perfusion. The patient is diaphoretic. HEENT: The head is normocephalic and atraumatic. The pupils are equal and reactive. The conjunctivae are clear and without drainage. Nares are patent and without drainage. The throat is without erythema and exudate. The external ears are intact. The ear canals are patent and without drainage. The tympanic membranes are intact. Her oral mucosa is dry. Neck is supple with full range of motion and non-tender. There are no carotid bruits. There is no neck vein distension. Respiratory: Chest is non-tender. Lungs are clear to auscultation and breath sounds are symmetrical and equal. Cardiovascular: Hear is regular rate and rhythm. There is no murmur or rub auscultated. There is no peripheral edema and pulses are symmetrical and equal. Capillary refill 2 seconds. Abdomen: The abdomen is soft and non-tender. There are normal bowel sounds heard in all four quadrants and there is no organomegaly palpated. There is no CVA tenderness. There is no guarding or rebound. There is minimal LLQ pain. Musculoskeletal: There is no back pain noted. Extremities are non-tender with full range of motion. There is good capillary refill. There is no peripheral edema or calf tenderness elicited. Neurological: Patient is alert and oriented to person, place and time. The patient has symmetrical motor strength in all four extremities. Cranial nerves are grossly intact. Deep tendon reflexes are symmetrical and equal in all four extremities. Psychiatric: The patient has an appropriate affect and does not exhibit any anxiety or depression. Triage Information Reviewed: Yes Vital Signs On Initial Exam: Initial Vitals Temp Pulse Resp BP Pulse Ox 98.6 F 90 20 145/96 99 06/06/17 07:12 06/06/17 07:12 06/06/17 07:12 06/06/17 07:12 06/06/17 07:12 Vital Signs Reviewed: Yes Diagnostics - Vital Signs Vital Signs Temp Pulse Resp BP Pulse Ox 06/06/17 11:00 95 101/60 89 06/06/17 10:32 20 06/06/17 10:30 95 109/68 93 06/06/17 10:00 91 138/82 98 06/06/17 09:30 83 124/73 99 06/06/17 09:00 92 132/75 97 06/06/17 08:34 20 06/06/17 08:32 22 06/06/17 08:30 74 132/89 99 06/06/17 08:00 68 142/93 96 06/06/17 07:30 98 122/95 100 06/06/17 07:26 92 89 06/06/17 07:19 96.0 F 119 18 141/101 100 06/06/17 07:12 98.6 F 90 20 145/96 99 - Laboratory Lab Results: Lab Results 06/06/17 06/06/17 06/06/17 Range/Units 08:15 08:15 09:34 WBC 11.8 H (3.5-10.8) 10^3/ul RBC 4.33 (4.0-5.4) 10^6/ul Hgb 13.5 (12.0-16.0) g/dl Hct 40 (35-47) % MCV 93 (80-97) fL MCH 31 (27-31) pg MCHC 33 (31-36) g/dl RDW 15 (10.5-15) % Plt Count 235 (150-450) 10^3/ul MPV 10 (7.4-10.4) um3 Neut % (Auto) 83.7 H (38-83) % Lymph % (Auto) 10.0 L (25-47) % [place] % (Auto) 5.0 (1-9) % Eos % (Auto) 0.6 (0-6) % Baso % (Auto) 0.7 (0-2) % Absolute Neuts (auto) 9.9 H (1.5-7.7) 10^3/ul Absolute Lymphs (auto) 1.2 (1.0-4.8) 10^3/ul Absolute Monos (auto) 0.6 (0-0.8) 10^3/ul Absolute Eos (auto) 0.1 (0-0.6) 10^3/ul Absolute Basos (auto) 0.1 (0-0.2) 10^3/ul Absolute Nucleated RBC 0 10^3/ul Nucleated RBC % 0 Sodium 138 (133-145) mmol/L Potassium 3.8 (3.5-5.0) mmol/L Chloride 103 (101-111) mmol/L Carbon Dioxide 29 (22-32) mmol/L Anion Gap 6 (2-11) mmol/L BUN 13 (6-24) mg/dL Creatinine 0.82 (0.51-0.95) mg/dL Est GFR ( Amer) 105.3 (>60) Est GFR (Non-Af Amer) 81.9 (>60) BUN/Creatinine Ratio 15.9 (8-20) Glucose 108 H (70-100) mg/dL Lactic Acid 1.1 (0.5-2.0) mmol/L Calcium 10.0 (8.6-10.3) mg/dL Total Bilirubin 0.40 (0.2-1.0) mg/dL AST 30 (13-39) U/L ALT 31 (7-52) U/L Alkaline Phosphatase 77 (34-104) U/L C-Reactive Protein 9.58 H (< 5.00) mg/L Total Protein 7.7 (6.4-8.9) g/dL Albumin 4.8 (3.2-5.2) g/dL Globulin 2.9 (2-4) g/dL Albumin/Globulin Ratio 1.7 (1-3) Lipase 19 (11.0-82.0) U/L Beta HCG, Quant 0.78 mIU/mL Result Diagrams: 06/06/17 09:34 06/06/17 08:15 Lab Statement: Any lab studies that have been ordered have been reviewed, and results considered in the medical decision making process. Re-Evaluation - Re-Evaluation 1 Re-Evaluation Time: 10:23 Change: Improved - Pain and nausea slightly improved, not 100% 2 Re-Evaluation Time: 11:58 Comment: Pt will be d/c home Complex Multi-Symp Course/Dx Assessment/Plan: 31 y/o female presents to the ED c/o another episode of L side and upper middle ABD pain. Pt was seen in the ED 2 days ago for the same symptoms. The pain is not aggravated or alleviated by anything. The pain woke up at 01:00 this morning and has been vomiting since then. Her last bowel movement was last night. Associated sx: chills. SHx laproscopic ovarian cyst removal, ulcer. Occasional EtOH, smoker, marijuana use. Pt states these symptoms come in waves. Pt given Zofran, Protonix, Ativan and Morphine in the ED course. Pt will be d/c home. - Diagnoses Provider Diagnoses: Cyclical vomiting, Abdominal pain Discharge - Discharge Plan Condition: Stable Disposition: HOME Prescriptions: oxyCODONE/Acetamin 5/325 MG* [Percocet 5/325 TAB*] 1 tab PO Q6H PRN #20 tab MDD 4 PRN Reason: pain Patient Education Materials: Abdominal Pain (ED), Acute Nausea and Vomiting (ED ) Referrals: Adela Shultz MD [Primary Care Provider] - 3 Days (PLEASE F/U IN 2-3 DAYS ) The documentation as recorded by the Joan reich Edward accurately reflects the service I personally performed and the decisions made by me, Sky Laboy MD.
== END 2017-06-06 13:04 | disposition home or self-care (01) ==
LOC: ED 07:10
DX: R10.9 Unspecified abdominal pain (principal); R11.2 Nausea with vomiting, unspecified; F17.210 Nicotine dependence, cigarettes, uncomplicated
CPT/HCPCS: 36415; 80053; 83605; 83690; 84702; 85025; 86140; 96374; 96375; 99284; J2060; J2270; J2405; J2765

== ENCOUNTER → 2017-06-19 06:22 | Emergency (ER) | payer BC ==
[~2017-06-19 06:22] MED LIST: LORazepam INJ* 2 MG/ML 1 ML VIAL IV ONE; Metoclopramide IV* 5 MG/ML 2 ML VIAL IV ONE; Morphine INJ* 4 MG/ML 1 ML CARPUJECT IV ONE; NS 0.9% 1000 ML* 1,000 ML IV ONE; Ondansetron INJ* 2 MG/ML VIAL IV ONE
[2017-06-19 09:48] VITALS: BP 142/120
--- NOTE | 2017-06-19 13:25 | ED ---
Donavon Patterson Angela, scribed for Ranjit Tee MD on 06/19/17 at 0647 . Abdominal Pain/Female - HPI Summary HPI Summary: This pt is a 31 y/o female presenting to [facility] c/o LLQ and mid abd pain x2 days , associated with nausea and vomiting. Pt has a cyclic vomiting syndrome and gets these symptoms often. She has been seen in the ED multiple times for this complaint. She notes she saw Dr. Duncan 2 days ago and states "he didn't say much." Pt still smokes marijuana and is aware it makes her symptoms worse, but doesn't know what to do to make her feel better. She denies a chance of . - History of Current Complaint Chief Complaint: EDNauseaVomitDiarrh Stated Complaint: VOMITING X24 HRS/N & D Time Seen by Provider: 06/19/17 06:38 Hx Obtained From: Patient Hx Last Menstrual Period: 03/01/17 ?: No Onset/Duration: Lasting Days Timing: Days Pain Intensity: 7 Pain Scale Used: 0-10 Numeric Location: Discrete At: LLQ - and mid abdomen Radiates: No Associated Signs and Symptoms: Positive: Nausea, Vomiting. Negative: Cough, Chest Pain, Constipation, Blood in Stool, Urinary Symptoms, Decreased Appetite Allergies/Adverse Reactions: Allergies Allergy/AdvReac Type Severity Reaction Status Date / Time Sulfa Drugs Allergy Intermediate Rash And Verified 06/19/17 06:45 Itching Sulfamethoxazole Allergy Unknown Verified 06/19/17 06:45 w/Trimethoprim Reaction [From Bactrim] Details Nitrofurantoin AdvReac Intermediate Nausea And Verified 06/19/17 06:45 [From Macrobid] Vomiting Penicillins AdvReac Intermediate Vomiting Verified 06/19/17 06:45 PMH/Surg Hx/FS Hx/Imm Hx Endocrine/Hematology History: Denies: Hx Anticoagulant Therapy, Hx Blood Disorders, Hx Diabetes, Hx Thyroid Disease Cardiovascular History: Denies: Hx Congestive Heart Failure, Hx Hypertension Respiratory History: Denies: Hx Asthma, Hx Chronic Obstructive Pulmonary Disease (COPD) GI History: Reports: Hx Ulcer - colagenous colitis, cyclic vomiting syndrome, Other GI Disorders - Collagenous colitis, cyclic vomiting syndrome History: Reports: Other Problems/Disorders - Frequent UTIs Denies: Hx Dialysis, Hx Renal Disease Psychiatric History: Reports: Hx Anxiety, Hx Depression, Hx Substance Abuse - 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 - Surgical History Surgery Procedure, Year, and Place: 2014 ovarian cyst REMOVAL Infectious Disease History: Reports: Hx Clostridium Difficile, Hx Hepatitis - TESTS + FOR HEP C ANTIBODIES Denies: Hx Human Immunodeficiency Virus (HIV), Hx of Known/Suspected MRSA, Hx Shingles, Hx Tuberculosis, Hx Known/Suspected VRE, Hx Known/Suspected VRSA, History Other Infectious Disease, Traveled Outside the [place] in Last 30 Days - Family History Known Family History: Positive: Hypertension - mother Family History: pt denies FHx - Social History Alcohol Use: Occasionally Alcohol Amount: 1/DAY Hx Substance Use: Yes Substance Use Type: Reports: Marijuana Substance Use Comment - Amount & Last Used: Pt smokes frequently. Hx Tobacco Use: Yes Smoking Status (MU): Heavy Every Day Tobacco Smoker Type: Cigarettes Amount Used/How Often: 1 ppd Length of Time of Smoking/Using Tobacco: 8 years Have You Smoked in the Last Year: Yes Review of Systems Negative: Fever, Chills Eyes: Negative ENT: Negative Negative: Palpitations, Chest Pain Negative: Shortness Of Breath, Cough Positive: Abdominal Pain, Vomiting, Nausea Genitourinary: Negative Musculoskeletal: Negative Skin: Negative Negative: Headache, Weakness All Other Systems Reviewed And Are Negative: Yes Physical Exam Triage Information Reviewed: Yes Vital Signs On Initial Exam: Initial Vitals Temp Pulse Resp BP Pulse Ox 96.3 F 103 18 124/79 99 06/19/17 06:26 06/19/17 06:26 06/19/17 06:26 06/19/17 06:26 06/19/17 06:26 Vital Signs Reviewed: Yes Appearance: Positive: Well-Appearing, No Pain Distress Skin: Positive: Warm, Skin Color Reflects Adequate Perfusion, Dry Head/Face: Positive: Normal Head/Face Inspection Eyes: Positive: Normal ENT: Positive: Normal ENT inspection Neck: Positive: Supple, Nontender Respiratory/Lung Sounds: Positive: Clear to Auscultation, Breath Sounds Present Cardiovascular: Positive: RRR Abdomen Description: Positive: Nontender, Soft Bowel Sounds: Positive: Present Musculoskeletal: Positive: Normal Neurological: Positive: Normal Psychiatric: Positive: Normal, Affect/Mood Appropriate Diagnostics - Vital Signs Vital Signs Temp Pulse Resp BP Pulse Ox 06/19/17 06:26 96.3 F 103 18 124/79 99 - Laboratory Lab Statement: Any lab studies that have been ordered have been reviewed, and results considered in the medical decision making process. Abdominal Pain Fem Course/Dx - Course Course Of Treatment: Ms. Miranda presented with another episode of CVS. She has an appt. coming up with Dr. Duncan. She was given medications here and fell asleep. She was improved on awakening. - Diagnoses Provider Diagnoses: Cyclic vomiting syndrome Discharge - Discharge Plan Condition: Stable Disposition: HOME Patient Education Materials: Acute Nausea and Vomiting (ED) Forms: *Work Release Referrals: Jason Duncan MD [Medical Doctor] - 3 Days Adela Shultz MD [Primary Care Provider] - If Needed Additional Instructions: Follow up with Dr. Duncan in 3-4 days. Return to the emergency department for any new or worsening symptoms. The documentation as recorded by the Donavon reich Angela accurately reflects the service I personally performed and the decisions made by , Ranjit Tee MD.
== END | disposition home or self-care (01) ==
LOC: ED 06:22
DX: G43.A0 Cyclical vomiting, in migraine, not intractable (principal); F17.210 Nicotine dependence, cigarettes, uncomplicated
CPT/HCPCS: 96360; 96374; 96375; 96376; 99282; J2060; J2270; J2405; J2765

== ENCOUNTER 2017-08-29 06:03 | Emergency (ER) | payer BC ==
[2017-08-29] MEDS ORDERED: NS 0.9% 1000 ML* 1,000 ML IV ONE (06:16)
[2017-08-29] MEDS ORDERED: Ondansetron INJ* 2 MG/ML VIAL IV ONE (06:16)
[2017-08-29] MEDS ORDERED: Pantoprazole IV* 40 MG IV ONE (06:16)
[2017-08-29] MEDS ORDERED: Morphine INJ* 4 MG/ML 1 ML CARPUJECT IV ONE (06:16)
[2017-08-29] MEDS ORDERED: LORazepam INJ* 2 MG/ML 1 ML VIAL IV PUSH ONE (06:18)
[2017-08-29 07:16] LABS: Hematocrit 41 % (35-47); Hemoglobin 13.9 g/dl (12.0-16.0); Mean Corpuscular HGB Conc 34 g/dl (31-36); Mean Corpuscular Hemoglobin 33 pg (27-31); Mean Corpuscular Volume 97 fL (80-97); Mean Platelet Volume 9 um3 (7.4-10.4); Red Cell Distribution Width 14 % (10.5-15); White Blood Count 11.1 10^3/ul (3.5-10.8)
[2017-08-29 07:33] LABS: ALT 11 U/L (7-52); AST 13 U/L (13-39); Albumin 4.4 g/dL (3.2-5.2); Alkaline Phosphatase 80 U/L (34-104); Amylase 44 U/L (29-103); Anion Gap 8 mmol/L (2-11); BUN/Creatinine Ratio 14.9 (8-20); Blood Urea Nitrogen 14 mg/dL (6-24); CO2 Carbon Dioxide 26 mmol/L (22-32); Chloride 103 mmol/L (101-111); EGFR African American 89.9 (>60); EGFR Non-African American 69.9 (>60); Globulin 2.9 g/dL (2-4); Glucose 106 mg/dL (70-100); Lipase 21 U/L (11.0-82.0); Potassium 3.8 mmol/L (3.5-5.0); Sodium 137 mmol/L (133-145); Total Protein 7.3 g/dL (6.4-8.9)
[2017-08-29 08:42] VITALS: BP 139/69
--- NOTE | 2017-08-30 14:58 | ED ---
Yesy Patterson Nilda, scribed for Rashad Funk MD on 08/29/17 at 0710 . Progress - Progress Note Progress Note: This patient was signed out from Dr. Giron, pending disposition, awaiting re- evaluation. [0807] Re-eval: Pt feels better. Discussed lab results and course of treatment options as well as plan to D/C. Pt is agreeable with this plan. Physical: VITAL SIGNS: Reviewed. GENERAL: Patient is a well-developed, mildly obese female who is lying comfortable in the stretcher. Patient is not in any acute respiratory distress. HEAD AND FACE: Normocephalic and atraumatic. EYES: PERRLA, EOMI x 2, No injected conjunctiva. EARS: Hearing grossly intact. Ear canals and tympanic membranes are WNL. MOUTH: Oropharynx within normal limits. NECK: Supple, trachea is midline, no adenopathy, no JVD. CHEST: Symmetric, no tenderness at palpation LUNGS: Clear to auscultation bilaterally. No wheezing or crackles. CVS: RRR, S1 and S2 present, no murmurs or gallops appreciated. ABDOMEN: Soft, non-tender. No signs of distention. Positive bowel sounds. No rebound no guarding, and no masses palpated. No abdominal bruit or pulsations. EXTREMITIES: FROM in all major joints, no edema, no cyanosis or clubbing. NEURO: Alert and oriented x 3. No acute neurological deficits. Speech is normal. SKIN: Dry and warm The patients condition is stable and will be discharged to home with prescription for compazine and Dx of Nausea, Vomiting, and Abdominal Pain. A/P: This is a pt signed out by Dr. Giron. He requested that I follow up the lab tests and re-assessment of the nausea and vomiting. The pt was hydrated. She was given Ativan, morphine, Zofran, and protonix. After these medications, pt reports that she's feeling better. She's no longer nauseous or has abd pain. Since the pt is feeling better and has no complaints, I dont believe pt will benefit from Abd/Pel CT. I discussed findings and test results with patient and she will be D/C home with a prescription for rectal Compazine as requested by the pt. She is hemodynamically stable and Alert and Oriented 3x. Course/Dx - Diagnoses Provider Diagnoses: Cyclical vomiting The documentation as recorded by the Yesy reich Nilda accurately reflects the service I personally performed and the decisions made by , Rashad Funk MD.
== END 2017-08-29 08:40 | disposition home or self-care (01) ==
LOC: ED 06:03
DX: G43.A0 Cyclical vomiting, in migraine, not intractable (principal); E66.9 Obesity, unspecified
CPT/HCPCS: 36415; 80053; 82150; 83690; 84702; 85025; 86140; 96374; 96375; 96376; 99285; J2060; J2270; J2405

== ENCOUNTER 2017-09-02 00:46 | Emergency (ER) | payer BC ==
[2017-09-02] MEDS ORDERED: Ondansetron INJ* 2 MG/ML VIAL IV ONE (02:28)
[2017-09-02] MEDS ORDERED: NS 0.9% 1000 ML* 2,000 ML IV ONE (02:28)
[2017-09-02] MEDS ORDERED: Metoclopramide IV* 5 MG/ML 2 ML VIAL IV ONE (02:46)
[2017-09-02 03:52] LABS: Hematocrit 41 % (35-47); Hemoglobin 13.9 g/dl (12.0-16.0); Mean Corpuscular HGB Conc 34 g/dl (31-36); Mean Corpuscular Hemoglobin 33 pg (27-31); Mean Corpuscular Volume 97 fL (80-97); Mean Platelet Volume 9 um3 (7.4-10.4); Red Blood Count 4.19 10^6/ul (4.0-5.4); Red Cell Distribution Width 13 % (10.5-15)
[2017-09-02 04:07] LABS: ALT 13 U/L (7-52); AST 13 U/L (13-39); Albumin 4.1 g/dL (3.2-5.2); Alkaline Phosphatase 74 U/L (34-104); Anion Gap 9 mmol/L (2-11); BUN/Creatinine Ratio 12.2 (8-20); Blood Urea Nitrogen 10 mg/dL (6-24); CO2 Carbon Dioxide 24 mmol/L (22-32); Calcium 9.7 mg/dL (8.6-10.3); Chloride 105 mmol/L (101-111); EGFR African American 105.3 (>60); EGFR Non-African American 81.9 (>60); Globulin 2.9 g/dL (2-4); Glucose 113 mg/dL (70-100); Lipase 21 U/L (11.0-82.0); Potassium 3.4 mmol/L (3.5-5.0); Sodium 138 mmol/L (133-145)
[2017-09-02] MEDS ORDERED: Iohexol 300* (CONTRAST) 10 ML SDV IV ONE (04:11)
--- NOTE | 2017-09-02 06:38 | ED ---
Madeline Patterson Gabriel, scribed for Ramone Hall on 09/02/17 at 0246 . Abdominal Pain/Female - HPI Summary HPI Summary: This patient is a 31 year old F presenting to [facility] with a chief complaint of ABD pain since 5 days. Patient has history of cyclical vomiting and colitis that she states are acting up. The patient rates the pain 9/10 in severity. Patient reports vomiting and diarrhea. Patient is insisting on receiving narcotics, specifically morphine. - History of Current Complaint Chief Complaint: EDNauseaVomitDiarrh Stated Complaint: VOMITING/ ABD PAIN Time Seen by Provider: 09/02/17 02:15 Hx Obtained From: Patient Hx Last Menstrual Period: 03/01/17 Onset/Duration: Lasting Days - 5, Still Present Timing: Constant Severity Currently: Severe Pain Intensity: 9 Pain Scale Used: 0-10 Numeric Associated Signs and Symptoms: Positive: Vomiting, Diarrhea Allergies/Adverse Reactions: Allergies Allergy/AdvReac Type Severity Reaction Status Date / Time Sulfa Drugs Allergy Intermediate Rash And Verified 09/02/17 01:10 Itching Sulfamethoxazole Allergy Unknown Verified 09/02/17 01:10 w/Trimethoprim Reaction [From Bactrim] Details Nitrofurantoin AdvReac Intermediate Nausea And Verified 09/02/17 01:10 [From Macrobid] Vomiting Penicillins AdvReac Intermediate Vomiting Verified 09/02/17 01:10 PMH/Surg Hx/FS Hx/Imm Hx Previously Healthy: No Endocrine/Hematology History: Denies: Hx Anticoagulant Therapy, Hx Blood Disorders, Hx Diabetes, Hx Thyroid Disease Cardiovascular History: Denies: Hx Congestive Heart Failure, Hx Hypertension Respiratory History: Denies: Hx Asthma, Hx Chronic Obstructive Pulmonary Disease (COPD) GI History: Reports: Hx Ulcer - colagenous colitis, cyclic vomiting syndrome, Other GI Disorders - Collagenous colitis, cyclic vomiting syndrome History: Reports: Other Problems/Disorders - Frequent UTIs Denies: Hx Dialysis, Hx Renal Disease Psychiatric History: Reports: Hx Anxiety, Hx Depression, Hx Substance Abuse - 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 - Surgical History Surgery Procedure, Year, and Place: 2014 ovarian cyst REMOVAL - Immunization History Date of Influenza Vaccine: 06/2017 Infectious Disease History: No Infectious Disease History: Reports: Hx Clostridium Difficile, Hx Hepatitis - TESTS + FOR HEP C ANTIBODIES Denies: Hx Human Immunodeficiency Virus (HIV), Hx of Known/Suspected MRSA, Hx Shingles, Hx Tuberculosis, Hx Known/Suspected VRE, Hx Known/Suspected VRSA, History Other Infectious Disease, Traveled Outside the US in Last 30 Days - Family History Known Family History: Positive: Hypertension - mother Family History: pt denies FHx - Social History Alcohol Use: Weekly Alcohol Amount: 1/DAY Hx Substance Use: Yes Substance Use Type: Reports: Marijuana Substance Use Comment - Amount & Last Used: Pt smokes frequently. Hx Tobacco Use: Yes Smoking Status (MU): Heavy Every Day Tobacco Smoker Type: Cigarettes Amount Used/How Often: 1 ppd Length of Time of Smoking/Using Tobacco: 8 years Have You Smoked in the Last Year: Yes Review of Systems Negative: Fever Positive: Abdominal Pain, Vomiting, Diarrhea All Other Systems Reviewed And Are Negative: Yes Physical Exam - Summary Physical Exam Summary: Appearance: Well appearing, no pain distress Skin: warm, dry, reflects adequate perfusion Head/face: normal Eyes: EOMI, ARACELY ENT: normal Neck: supple, non-tender Respiratory: CTA, breath sounds present Cardiovascular: RRR, pulses symmetrical Abdomen: soft, Tenderness in LLQ Bowel: present Musculoskeletal: normal, strength/ROM intact Neuro: normal, sensory motor intact, A&Ox3 Triage Information Reviewed: Yes Vital Signs On Initial Exam: Initial Vitals Temp Pulse Resp BP Pulse Ox 96.8 F 102 16 126/88 98 09/02/17 01:05 09/02/17 01:05 09/02/17 01:05 09/02/17 01:05 09/02/17 01:05 Vital Signs Reviewed: Yes Diagnostics - Vital Signs Vital Signs Temp Pulse Resp BP Pulse Ox 09/02/17 01:05 96.8 F 102 16 126/88 98 - Laboratory Lab Results: Lab Results 09/02/17 09/02/17 09/02/17 Range/Units 03:47 03:47 03:47 WBC 10.0 (3.5-10.8) 10^3/ul RBC 4.19 (4.0-5.4) 10^6/ul Hgb 13.9 (12.0-16.0) g/dl Hct 41 (35-47) % MCV 97 (80-97) fL MCH 33 H (27-31) pg MCHC 34 (31-36) g/dl RDW 13 (10.5-15) % Plt Count 258 (150-450) 10^3/ul MPV 9 (7.4-10.4) um3 Neut % (Auto) 71.3 (38-83) % Lymph % (Auto) 22.3 L (25-47) % Pickett % (Auto) 4.9 (1-9) % Eos % (Auto) 0.8 (0-6) % Baso % (Auto) 0.7 (0-2) % Absolute Neuts (auto) 7.1 (1.5-7.7) 10^3/ul Absolute Lymphs (auto) 2.2 (1.0-4.8) 10^3/ul Absolute Monos (auto) 0.5 (0-0.8) 10^3/ul Absolute Eos (auto) 0.1 (0-0.6) 10^3/ul Absolute Basos (auto) 0.1 (0-0.2) 10^3/ul Absolute Nucleated RBC 0.01 10^3/ul Nucleated RBC % 0.1 INR (Anticoag Therapy) 0.92 (0.89-1.11) APTT 32.1 (26.0-36.3) seconds Sodium 138 (133-145) mmol/L Potassium 3.4 L (3.5-5.0) mmol/L Chloride 105 (101-111) mmol/L Carbon Dioxide 24 (22-32) mmol/L Anion Gap 9 (2-11) mmol/L BUN 10 (6-24) mg/dL Creatinine 0.82 (0.51-0.95) mg/dL Est GFR ( Amer) 105.3 (>60) Est GFR (Non-Af Amer) 81.9 (>60) BUN/Creatinine Ratio 12.2 (8-20) Glucose 113 H (70-100) mg/dL Lactic Acid (0.5-2.0) mmol/L Calcium 9.7 (8.6-10.3) mg/dL Total Bilirubin 0.30 (0.2-1.0) mg/dL AST 13 (13-39) U/L ALT 13 (7-52) U/L Alkaline Phosphatase 74 (34-104) U/L Total Protein 7.0 (6.4-8.9) g/dL Albumin 4.1 (3.2-5.2) g/dL Globulin 2.9 (2-4) g/dL Albumin/Globulin Ratio 1.4 (1-3) Lipase 21 (11.0-82.0) U/L Beta HCG, Quant < 0.60 mIU/mL 09/02/17 Range/Units 03:47 WBC (3.5-10.8) 10^3/ul RBC (4.0-5.4) 10^6/ul Hgb (12.0-16.0) g/dl Hct (35-47) % MCV (80-97) fL MCH (27-31) pg MCHC (31-36) g/dl RDW (10.5-15) % Plt Count (150-450) 10^3/ul MPV (7.4-10.4) um3 Neut % (Auto) (38-83) % Lymph % (Auto) (25-47) % Pickett % (Auto) (1-9) % Eos % (Auto) (0-6) % Baso % (Auto) (0-2) % Absolute Neuts (auto) (1.5-7.7) 10^3/ul Absolute Lymphs (auto) (1.0-4.8) 10^3/ul Absolute Monos (auto) (0-0.8) 10^3/ul Absolute Eos (auto) (0-0.6) 10^3/ul Absolute Basos (auto) (0-0.2) 10^3/ul Absolute Nucleated RBC 10^3/ul Nucleated RBC % INR (Anticoag Therapy) (0.89-1.11) APTT (26.0-36.3) seconds Sodium (133-145) mmol/L Potassium (3.5-5.0) mmol/L Chloride (101-111) mmol/L Carbon Dioxide (22-32) mmol/L Anion Gap (2-11) mmol/L BUN (6-24) mg/dL Creatinine (0.51-0.95) mg/dL Est GFR ( Amer) (>60) Est GFR (Non-Af Amer) (>60) BUN/Creatinine Ratio (8-20) Glucose (70-100) mg/dL Lactic Acid 1.5 (0.5-2.0) mmol/L Calcium (8.6-10.3) mg/dL Total Bilirubin (0.2-1.0) mg/dL AST (13-39) U/L ALT (7-52) U/L Alkaline Phosphatase (34-104) U/L Total Protein (6.4-8.9) g/dL Albumin (3.2-5.2) g/dL Globulin (2-4) g/dL Albumin/Globulin Ratio (1-3) Lipase (11.0-82.0) U/L Beta HCG, Quant mIU/mL Result Diagrams: 09/02/17 03:47 09/02/17 03:47 Lab Statement: Any lab studies that have been ordered have been reviewed, and results considered in the medical decision making process. - CT CT ABD/Pelvis CT Interpretation Completed By: Radiologist - no evidence for acute disease. ED physician has reviewed this radiology report and agrees. Abdominal Pain Fem Course/Dx - Course Course Of Treatment: This patient is a 31 year old F presenting to [facility] with a chief complaint of ABD pain since 5 days. Patient is insisting on receiving narcotics, specifically morphine. CT ABD/Pelvis reveals, per radiologist, no evidence for acute disease. Blood was drawn with no significant abnormalities. In the ED course the patient was given Iohexol and Ondansetron. Patient will be discharged with prescription for Ondansetron and will follow up from Dr. Shultz in 3 days. The patient is agreeable with this plan. - Diagnoses Differential Diagnosis: Positive: Appendicitis, Diverticulitis, Renal Colic Provider Diagnoses: Cyclical vomiting, Nonspecific abdominal pain, Nausea Discharge - Discharge Plan Condition: Stable Disposition: HOME Prescriptions: Ondansetron ODT TAB* [Zofran 4 MG Odt TAB*] 4 mg PO Q8H PRN #20 tab.odt MDD 3 PRN Reason: Vomiting Patient Education Materials: Ondansetron (By mouth), Abdominal Pain (ED) Referrals: Adela Shultz MD [Primary Care Provider] - 3 Days Additional Instructions: RETURN TO THE EMERGENCY DEPARTMENT FOR CHANGING OR WORSENING SYMPTOMS. The documentation as recorded by the Madeline reich Gabriel accurately reflects the service I personally performed and the decisions made by , Ramone Hall.
[2017-09-02 06:51] VITALS: BP 126/62
--- NOTE | 2017-09-02 08:17 | RAD ---
INDICATION: Abdominal pain. COMPARISON: Comparison is made with a prior study from October 12, 2015. TECHNIQUE: A CT scan of the abdomen and pelvis was performed with intravenous and without oral contrast following intravenous injection of 117 ml of Omnipaque 300 nonionic contrast. Contiguous axial sections were obtained from the lung bases through the symphysis pubis. Images were reconstructed in the coronal and sagittal planes. FINDINGS: There is a small groundglass infiltrate present dependently in the left lower lobe possibly representing atelectasis. No pleural effusion is present. The liver and spleen are normal in size without significant focal abnormality. The liver is decreased in attenuation consistent with fatty infiltration. No calcific gallstones are seen. The pancreas appears to be within normal limits. The kidneys and adrenal glands are normal in size. No hydronephrosis is seen. There is a small subcentimeter hypodense area in the midportion of the left kidney too small to characterize by CT although likely representing a cyst. The aorta is normal in caliber and demonstrates homogeneous contrast opacification. No significant enlarged retroperitoneal lymph nodes are seen. The stomach, small and large bowel appear nondistended. The appendix is within normal limits. There are a few scattered diverticuli within the colon. There is no evidence for diverticulitis or colitis. The uterus is anteverted and normal in size. No free intraperitoneal air or fluid is seen. No significant focal osseous abnormality is seen. IMPRESSION: 1. NO EVIDENCE FOR ACUTE FINDING OR CAUSE FOR THE PATIENT'S ABDOMINAL PAIN IS SEEN. 2. HEPATIC STEATOSIS. 3. SMALL GROUNDGLASS LEFT LOWER LOBE INFILTRATE SUGGESTIVE OF ATELECTASIS.
== END 2017-09-02 06:49 | disposition home or self-care (01) ==
LOC: ED 00:46
DX: G43.A0 Cyclical vomiting, in migraine, not intractable (principal); R10.9 Unspecified abdominal pain; F17.210 Nicotine dependence, cigarettes, uncomplicated
CPT/HCPCS: 36415; 74177; 80053; 83605; 83690; 84702; 85025; 85610; 85730; 96374; 96375; 99283; J2765; Q9967

== ENCOUNTER 2017-09-17 07:52 | Emergency (ER) | payer BC ==
[2017-09-17] MEDS ORDERED: Ondansetron INJ* 2 MG/ML VIAL IV ONE (09:35)
[2017-09-17] MEDS ORDERED: NS 0.9% 1000 ML* 1,000 ML IV SCH (09:45)
[2017-09-17 10:12] LABS: ABS Basophils 0 10^3/ul (0-0.2); ABS Eosinophils 0 10^3/ul (0-0.6); ABS Lymphocytes 0.8 10^3/ul (1.0-4.8); ABS Monocytes 0.2 10^3/ul (0-0.8); ABS Neutrophils 8.1 10^3/ul (1.5-7.7); ABS Nucleated RBC 0.01 10^3/ul; Eosinophil % 0 % (0-6); Hematocrit 42 % (35-47); Hemoglobin 14.4 g/dl (12.0-16.0); Lymphocyte % 8.9 % (25-47); Mean Corpuscular HGB Conc 34 g/dl (31-36); Mean Corpuscular Hemoglobin 33 pg (27-31); Mean Corpuscular Volume 97 fL (80-97); Mean Platelet Volume 10 um3 (7.4-10.4); Nucleated Red Blood Cells % 0.1; Platelet Count 289 10^3/ul (150-450); Red Blood Count 4.37 10^6/ul (4.0-5.4); Red Cell Distribution Width 13 % (10.5-15); White Blood Count 9.2 10^3/ul (3.5-10.8)
[2017-09-17 10:29] LABS: EGFR Non-African American 79.6 (>60)
[2017-09-17 12:12] VITALS: BP 129/60
--- NOTE | 2017-10-08 19:12 | ED ---
Joan Patterson Edward, scribed for Tee Dickens MD on 09/17/17 at 0935 . Complex/Multi-Sys Presentation - HPI Summary HPI Summary: 31 y/o female presents to the ED c/o intermittent N/V for 2 days. PT noticed small amount of blood in vomit earlier today. Associated sx: ABD pain associated with vomiting. Pt also states her bowel movements have been soft these past two days. PMHx cyclic vomiting. Sx ovarian cyst removal ( laparoscopically). - History Of Current Complaint Chief Complaint: EDNauseaVomitDiarrh Hx Obtained From: Patient Onset/Duration: Lasting Days Timing: Intermittent, Lasting: Associated Signs And Symptoms: Positive: Nausea, Vomiting, Abdominal Pain, Other - blood in vomit - Allergies/Home Medications Allergies/Adverse Reactions: Allergies Allergy/AdvReac Type Severity Reaction Status Date / Time Sulfa Drugs Allergy Intermediate Rash And Verified 09/02/17 01:10 Itching Sulfamethoxazole Allergy Unknown Verified 09/02/17 01:10 w/Trimethoprim Reaction [From Bactrim] Details Nitrofurantoin AdvReac Intermediate Nausea And Verified 09/02/17 01:10 [From Macrobid] Vomiting Penicillins AdvReac Intermediate Vomiting Verified 09/02/17 01:10 PMH/Surg Hx/FS Hx/Imm Hx Previously Healthy: No Endocrine/Hematology History: Denies: Hx Anticoagulant Therapy, Hx Blood Disorders, Hx Diabetes, Hx Thyroid Disease Cardiovascular History: Denies: Hx Congestive Heart Failure, Hx Hypertension Respiratory History: Denies: Hx Asthma, Hx Chronic Obstructive Pulmonary Disease (COPD) GI History: Reports: Hx Ulcer - colagenous colitis, cyclic vomiting syndrome, Other GI Disorders - Collagenous colitis, cyclic vomiting syndrome History: Reports: Other Problems/Disorders - Frequent UTIs Denies: Hx Dialysis, Hx Renal Disease Psychiatric History: Reports: Hx Anxiety, Hx Depression, Hx Substance Abuse - 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 - Surgical History Surgery Procedure, Year, and Place: 2014 ovarian cyst REMOVAL - Immunization History Date of Tetanus Vaccine: UTD Date of Influenza Vaccine: 07/2017 Infectious Disease History: No Infectious Disease History: Reports: Hx Clostridium Difficile, Hx Hepatitis - TESTS + FOR HEP C ANTIBODIES Denies: Hx Human Immunodeficiency Virus (HIV), Hx of Known/Suspected MRSA, Hx Shingles, Hx Tuberculosis, Hx Known/Suspected VRE, Hx Known/Suspected VRSA, History Other Infectious Disease, Traveled Outside the [place] in Last 30 Days - Family History Known Family History: Positive: Hypertension - mother Family History: pt denies FHx - Social History Alcohol Use: Occasionally Alcohol Amount: 1/DAY Hx Substance Use: Yes Substance Use Type: Reports: Marijuana Substance Use Comment - Amount & Last Used: states quit 09/04/17 Hx Tobacco Use: Yes Smoking Status (MU): Heavy Every Day Tobacco Smoker Type: Cigarettes Amount Used/How Often: 1 ppd Length of Time of Smoking/Using Tobacco: 8 years Have You Smoked in the Last Year: Yes Review of Systems Constitutional: Negative Eyes: Negative ENT: Negative Cardiovascular: Negative Respiratory: Negative Positive: Abdominal Pain, Vomiting, Nausea, Other - blood in vomit Genitourinary: Negative Musculoskeletal: Negative Skin: Negative Neurological: Negative Psychological: Normal All Other Systems Reviewed And Are Negative: Yes Physical Exam - Summary Physical Exam Summary: Appearance: Well-appearing, Well-nourished Skin: Warm, Dry, No rash Eyes: Normal, PERRL, EOMI, sclera anicteric ENT: Normal Neck: Supple, nontender Respiratory: Clear to auscultation Cardiovascular: S1, S2, no murmur, no rub, no gallop Abdomen: Soft, nontender, no organomegaly Bowel sounds: Present Musculoskeletal: Normal, Strength/ROM Intact, no edema, pulses symmetrical Neurological: Normal, A&Ox3, cranial nerves II-XII WNL, follows commands, gait not tested, sensation intact to pin and light touch Psychiatric: affect normal, behavior appropriate, dressed appropriately, judgment intact Triage Information Reviewed: Yes Vital Signs On Initial Exam: Initial Vitals Temp Pulse Resp BP Pulse Ox 97.9 F 86 20 147/105 97 09/17/17 07:57 09/17/17 07:57 09/17/17 07:57 09/17/17 07:57 09/17/17 07:57 Vital Signs Reviewed: Yes - [place] Coma Scale Coma Scale Total: 15 Diagnostics - Vital Signs Vital Signs Temp Pulse Resp BP Pulse Ox 09/17/17 07:57 97.9 F 86 20 147/105 97 - Laboratory Result Diagrams: 09/17/17 08:50 09/17/17 08:50 Lab Statement: Any lab studies that have been ordered have been reviewed, and results considered in the medical decision making process. Re-Evaluation - Re-Evaluation 1 Re-Evaluation Time: 11:26 Change: Improved Comment: Reassess pt, discuss lab results. Pt is feeling better Complex Multi-Symp Course/Dx Assessment/Plan: INFLUENZA A & B are negative. Pt feeling better on re-eval. Pt will be d/c home. Pt is understandable. - Diagnoses Provider Diagnoses: Cyclic vomiting syndrome Discharge - Discharge Plan Condition: Good Disposition: HOME Referrals: [facility] [Outside] Additional Instructions: discharge to home, stop iron as worsens nausea The documentation as recorded by the Joan reich Edward accurately reflects the service I personally performed and the decisions made by me, Tee Dickens MD.
== END 2017-09-17 12:11 | disposition home or self-care (01) ==
LOC: ED 07:52
DX: G43.A0 Cyclical vomiting, in migraine, not intractable (principal); R11.2 Nausea with vomiting, unspecified; R10.9 Unspecified abdominal pain; F17.210 Nicotine dependence, cigarettes, uncomplicated
CPT/HCPCS: 36415; 80053; 83690; 85025; 96361; 96374; 99282; J2405

== ENCOUNTER 2017-11-01 05:42 | Emergency (ER) | payer BC ==
[2017-11-01] MEDS ORDERED: Famotidine IV* 10 MG/ML 2 ML (20 mg) IV SLOW PU ONE (06:30)
[2017-11-01] MEDS ORDERED: diPHENhydraMINE IV* 50 MG/ML 1 ml VIAL (BENADRYL) IV ONE (06:30)
[2017-11-01] MEDS ORDERED: NS 0.9% 1000 ML* 1,000 ML IV ONE (06:30)
[2017-11-01] MEDS ORDERED: Haloperidol INJ IV/IM* 5 MG/ML AMP IV SLOW PU ONE (06:30)
--- OUTSIDE RECORDS SUMMARY | 2017-11-01 06:43 | XMS REPORT ---
:1985 External Reference #:[id number] Author Organization [facility] Address [address] [place] [address] Phone [phone] Care Team Providers Name Role Phone HCP given Primary Care Physician Unavailable Payers Type Date Identification Numbers Payment Provider Subscriber Commercial Effective: Policy Number: Mariann Miranda 2016 [id number] Ind/Ppo/Hmo/Pos PayID: [id number] [address] [address] [place] [address] Problems Date Description Provider Status Onset: 10/07/2017 Tobacco user Minal Drake PA Active Onset: 10/07/2017 Adjustment disorder with mixed emotional Minal Drake PA Active features Onset: 10/07/2017 Collagenous colitis Minal Drake PA Active Onset: 10/07/2017 Cyclical vomiting syndrome Minal Drake PA Active Family History Date Family Member(s) Problem(s) Comments Mother Hypertension Mother Hypercholesterolemia Children None Siblings 1 Social History Type Date Description Comments Education Highest Level Completed Some College Education Highest Level Completed Trade School Marital Status Single 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 @[employer] Work Status Currently Working Abuse No history of abuse Cigarette Use 10/07/2017 Heavy tobacco smoker 1 ppd smoked for 11 years (more than 10 (as of 10/07/17) cigarettes/day) ETOH Use Occassional Alcohol Recreational Drug Use Marijuana "quitting" as of 10/07/17 Smoking Heavy tobacco smoker (more than 10 cigarettes/day) Daily Caffeine Consumes Caffeine occasionally Exercise Type/Frequency Exercises rarely Sun Exposure Uses sunscreen Seat Belt/Car Seat Seat Belt Use - Yes Guns in Home No Smoke Alarms Yes smoke alarm Currently Active Patient is currently sexually active Contraceptive Methods BCP Age 1st [place] 17 Years Old Additional Info Sexual preference is men and women Allergies, Adverse Reactions, Alerts Date Description Reaction Status Severity Comments 10/07/2017 Penicillins active nausea/vomiting 10/07/2017 Sulfa active hives 10/07/2017 Nitrofurantoin active nausea/vomiting Medications Medication Date Status Form Strength Qnty SIG Indications Ordering Provider Co Q-10 10/07/ Active Capsules 100mg 1 cap po G43.A0 José, 2017 daily Amada Ulrich Bupropion HCL / Active Tablets ER 300mg 1 tab po F43.23 Unknown ER (XL) 0000 24HR daily Mirtazapine / Active Tablets 15mg 1 tab po F43.23 Unknown 0000 daily Aripiprazole / Active Tablets 5mg 1 tab po F43.23 Lopez, 0000 daily MD Madelyn Berks-Linyah / Active Tablets 0.25-35mg- 1 tab po Mittie, 0000 mcg daily MD Ramakrishna Omeprazole / Active Capsules 40mg 1 cap po G43.A0 Lemberg, 0000 DR willie Gomez MD Oxycodone-Aceta / Active Tablets 7.5-325mg 60tabs take 2 G43.A0 José, minophen 0000 tablets Serg by mouth M.DJoseph daily if needed for pain K52.831 Lorazepam Active Tablets 0.5mg 1 tab po 3 times a day as F43.23 Unknown needed Vital Signs Date Vital Result Comment 10/07/2017 BP Systolic 120 mmHg BP Diastolic 82 mmHg Height 67 inches 5'7" Weight 216.00 lb BMI (Body Mass Index) 33.8 kg/m2 Results Description No Information Procedures Date CPT Code Description Status 11/05/2015 Colonoscopy Completed Encounters Type Date Location Provider CPT E/M Dx Office Visit 10/07/2017 8:00a [place] [address] G43.A0 K52.831 F43.23 F17.210 Plan of Care Future Appointment(s):11/18/2017 9:00 am - Minal Drake PA at [facility] [place]0112/2017 - Minal Drake PAG43.A0 Cyclical vomiting, not intractableNew Medication:Co Q-10 100 mgComments:cyclic vomiting syndrome and collagenous colitis (x4 years). Pt sees Dr. Duncan and was recently referred to neurology ( Dr. Milligan) and [facility] pain clinic. Initial neuro appt re cyclic vomiting syndromeis scheduled for November. Pt still waiting for appt with pain clinic. Discussed covering percocet prescription only until she gets in to pain clinic. Also discussed possibility of referral to [facility] if neuro does not have any other treatment options.Follow up:f/u 1 [id number] Collagenous colitisComments :Seeing Dr. Duncan.F43.23 Adjustment disorder with mixed anxiety and depressed moodComments:Seeing mental health, sx well controlled w current meds per patient.F17.210 Nicotine dependence, cigarettes, uncomplicatedComments:Smoking cessation counseling <10 minutes done today.
--- NOTE | 2017-11-01 07:01 | ED ---
Yan Patterson Tecjoon, scribed for Ronen Corea MD on 11/01/17 at 0633 . GI/ HPI - HPI Summary HPI Summary: This patient is a 31 year old female presenting to [facility] with a chief complaint of nausea and vomiting since 3 days ago. The pain is rated 8/10 in severity. Symptoms aggravated by nothing. Symptoms alleviated by nothing. The patient treated the pain with morphine, Ativan, and zofran. Patient states that she has heard this pain may be a result of marijuana use and has recently quit smoking. Patient additionally reports abd pain. Patient states these symptoms are common and usually occurs once a month or so. - History of Current Complaint Chief Complaint: EDNauseaVomitDiarrh Time Seen by Provider: 11/01/17 06:00 Stated Complaint: VOMITING Hx Obtained From: Patient Hx Last Menstrual Period: 03/01/17 Onset/Duration: Started Days Ago - 3, Still Present Timing: Constant Severity: Severe Current Severity: Severe Pain Intensity: 8 - /10 Associated Signs and Symptoms: Positive: Other: - abd pain - Allergy/Home Medications Allergies/Adverse Reactions: Allergies Allergy/AdvReac Type Severity Reaction Status Date / Time Sulfa Drugs Allergy Intermediate Rash And Verified 11/01/17 07:00 Itching Sulfamethoxazole Allergy Unknown Verified 11/01/17 07:00 w/Trimethoprim Reaction [From Bactrim] Details Nitrofurantoin AdvReac Intermediate Nausea And Verified 11/01/17 07:00 [From Macrobid] Vomiting Penicillins AdvReac Intermediate Vomiting Verified 11/01/17 07:00 PMH/Surg Hx/FS Hx/Imm Hx Previously Healthy: No Endocrine/Hematology History: Denies: Hx Anticoagulant Therapy, Hx Blood Disorders, Hx Diabetes, Hx Thyroid Disease Cardiovascular History: Denies: Hx Congestive Heart Failure, Hx Hypertension Respiratory History: Denies: Hx Asthma, Hx Chronic Obstructive Pulmonary Disease (COPD) GI History: Reports: Hx Ulcer - colagenous colitis, cyclic vomiting syndrome, Other GI Disorders - Collagenous colitis, cyclic vomiting syndrome History: Reports: Other Problems/Disorders - Frequent UTIs Denies: Hx Dialysis, Hx Renal Disease Psychiatric History: Reports: Hx Anxiety, Hx Depression, Hx Substance Abuse - 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 - Surgical History Surgery Procedure, Year, and Place: 2014 ovarian cyst REMOVAL - Immunization History Date of Tetanus Vaccine: UTD Date of Influenza Vaccine: 07/2017 Infectious Disease History: No Infectious Disease History: Reports: Hx Clostridium Difficile, Hx Hepatitis - TESTS + FOR HEP C ANTIBODIES Denies: Hx Human Immunodeficiency Virus (HIV), Hx of Known/Suspected MRSA, Hx Shingles, Hx Tuberculosis, Hx Known/Suspected VRE, Hx Known/Suspected VRSA, History Other Infectious Disease, Traveled Outside the [place] in Last 30 Days - Family History Known Family History: Positive: Hypertension - mother Family History: pt denies FHx - Social History Alcohol Use: Occasionally Alcohol Amount: 1/DAY Hx Substance Use: Yes Substance Use Type: Reports: Marijuana Substance Use Comment - Amount & Last Used: states quit 09/04/17 Hx Tobacco Use: Yes Smoking Status (MU): Heavy Every Day Tobacco Smoker Type: Cigarettes Amount Used/How Often: 1 ppd Length of Time of Smoking/Using Tobacco: 8 years Have You Smoked in the Last Year: Yes Review of Systems Negative: Fever Positive: Abdominal Pain, Vomiting, Nausea All Other Systems Reviewed And Are Negative: Yes Physical Exam - Summary Physical Exam Summary: Appearance: Well appearing, distressed Skin: warm, dry, reflects adequate perfusion Head/face: normal Eyes: EOMI, ARACELY ENT: normal Neck: supple, non-tender Respiratory: CTA, breath sounds present Cardiovascular: tachycardic but regular, pulses symmetrical Abdomen: non-tender, soft Bowel: mildly tender on left abd Musculoskeletal: normal, strength/ROM intact Neuro: normal, sensory motor intact, A&Ox3 Triage Information Reviewed: Yes Vital Signs On Initial Exam: Initial Vitals Temp Pulse Resp BP Pulse Ox 97.0 F 90 16 141/93 99 11/01/17 05:44 11/01/17 05:44 11/01/17 05:44 11/01/17 05:44 11/01/17 05:44 Vital Signs Reviewed: Yes Diagnostics - Vital Signs Vital Signs Temp Pulse Resp BP Pulse Ox 11/01/17 05:44 97.0 F 90 16 141/93 99 - Laboratory Lab Statement: Any lab studies that have been ordered have been reviewed, and results considered in the medical decision making process. GIGU Course/Dx - Course Course Of Treatment: Pt with CVS associated with cannabis use. Recently discontinued. Tx here. Signed over to oncoming physician Dr Fnuk at 7am. - Diagnoses Provider Diagnoses: Cyclic vomiting syndrome Discharge - Discharge Plan Condition: Fair Disposition: OTHER Discharge Disposition Comment: signed over to Dr Cm Funk Referrals: No Primary Care Phys,NOPCP [Primary Care Provider] - The documentation as recorded by the Yan reich Tecjoon accurately reflects the service I personally performed and the decisions made by me, Ronen Corea MD.
[2017-11-01 07:26] LABS: ABS Basophils 0.1 10^3/ul (0-0.2); ABS Eosinophils 0.1 10^3/ul (0-0.6); ABS Lymphocytes 1.8 10^3/ul (1.0-4.8); ABS Monocytes 0.5 10^3/ul (0-0.8); ABS Neutrophils 9.4 10^3/ul (1.5-7.7); ABS Nucleated RBC 0 10^3/ul; Eosinophil % 0.4 % (0-6); Hematocrit 41 % (35-47); Hemoglobin 13.9 g/dl (12.0-16.0); Lymphocyte % 14.9 % (25-47); Mean Corpuscular HGB Conc 34 g/dl (31-36); Mean Corpuscular Hemoglobin 32 pg (27-31); Mean Corpuscular Volume 94 fL (80-97); Mean Platelet Volume 9 um3 (7.4-10.4); Nucleated Red Blood Cells % 0.1; Platelet Count 292 10^3/ul (150-450); Red Blood Count 4.29 10^6/ul (4.0-5.4); Red Cell Distribution Width 13 % (10.5-15); White Blood Count 11.9 10^3/ul (3.5-10.8)
[2017-11-01 07:44] LABS: EGFR Non-African American 73.5 (>60)
[2017-11-01] MEDS ORDERED: Al Hydrox/Mg Hydrox/Simet LIQ* 30 ML UDC PO ONE (08:01)
[2017-11-01] MEDS ORDERED: Lidocaine 2% VISCOUS* 15 ML UDC PO ONE (08:01)
[2017-11-01] MEDS ORDERED: Ondansetron INJ* 2 MG/ML VIAL IV ONE (08:01)
--- NOTE | 2017-11-01 08:37 | RAD ---
INDICATION: Abdominal pain COMPARISON: January 13, 2017 TECHNIQUE: Erect and supine views of the abdomen are submitted. FINDINGS: Bones: There are no acute bony findings. Soft tissues: The soft tissues appear normal. The psoas margins are sharp. Bowel gas pattern: Normal Calcifications: There are no abnormal calcifications. Other: None IMPRESSION: NO ACUTE DIAGNOSTIC FINDINGS.
[2017-11-01] MEDS ORDERED: Ketorolac INJ* 30 MG/ML 1 ML VIAL IV PUSH ONE (08:45)
[2017-11-01 09:34] VITALS: BP 106/52
--- NOTE | 2017-11-02 09:26 | PN ---
Joan Patterson Edward, scribed for Rashad Funk MD on 11/01/17 at 0709 . Progress Note - Progress Note Date of Service: 11/01/17 Note: 31 y/o presents to the ED c/o N/V for 3 days. Denies recent travel. Associated sx: diarrhea, ABD pain in the LLQ. The pain is rated 7/10 in severity currently. Pt states the pain and the nausea arose at about the same time. GENERAL NORMAL EXAM: VITAL SIGNS: Reviewed. GENERAL: Patient is a well-developed and nourished female who is lying comfortable in the stretcher. Patient is not in any acute respiratory distress. Patient looks ill. HEAD AND FACE: No signs of trauma. No ecchymosis, hematomas or skull depressions. No sinus tenderness. EYES: PERRLA, EOMI x 2, No injected conjunctiva, no nystagmus. EARS: Hearing grossly intact. Ear canals and tympanic membranes are within normal limits. MOUTH: Oropharynx within normal limits. NECK: Supple, trachea is midline, no adenopathy, no JVD, no carotid bruit, no c- spine tenderness, neck with full ROM. CHEST: Symmetric, no tenderness at palpation LUNGS: Clear to auscultation bilaterally. No wheezing or crackles. CVS: Regular rate and rhythm, S1 and S2 present, no murmurs or gallops appreciated. ABDOMEN: Soft, tenderness @ LUQ and LLQ. No signs of distention. No rebound no guarding, and no masses palpated. Bowel sounds are normal. EXTREMITIES: FROM in all major joints, no edema, no cyanosis or clubbing. NEURO: Alert and oriented x 3. No acute neurological deficits. Speech is normal and follows commands. SKIN: Dry and warm ABD XR SHOWS NO ACUTE FINDINGS. 09:00 - Re-eval 1. Review ABD XR results, discuss plan of care. Dx - Cyclic vomiting syndrome Assessment - Sign out by Dr. Corea, who reports the epigastric pain and N/V is typical to her cyclic vomiting syndrome. Blood work WNL. In ED course, the pt was given IV fluids, Maalox, benadryl , pepcid, lidocaine, Zofran and fluids. The pt was given Toradol and Haldol by Dr. corea. After the meds the pts sx improved, with no n/v any longer. The pt had an abd/pel ct 1.5 month ago with no abnormatlies. Therefore I decided not to do a ct since the sx same. Since the pt is feeling better she will be d/c home with f/u with pcp. The pt is hemodynamically stable, A&Ox3. Disposition: Discharged home with f/u of PCP The documentation as recorded by the Joan reich Edward accurately reflects the service I personally performed and the decisions made by me, Rashad Funk MD.
== END 2017-11-01 09:37 ==
LOC: ED 05:42
DX: K31.89 Other diseases of stomach and duodenum (principal); R11.2 Nausea with vomiting, unspecified; F41.9 Anxiety disorder, unspecified; F32.9 Major depressive disorder, single episode, unspecified; Z88.1 Allergy status to other antibiotic agents; Z88.0 Allergy status to penicillin; Z88.2 Allergy status to sulfonamides; F17.210 Nicotine dependence, cigarettes, uncomplicated
CPT/HCPCS: 36415; 74019; 80053; 83690; 85025; 86140; 99283; A9270-GY; J1200; J1630; J1885; J2405

== ENCOUNTER 2018-03-15 00:29 | Observation (INO) | payer BC ==
[2018-03-15] MEDS ORDERED: Ondansetron INJ* 2 MG/ML VIAL IV ONE (00:56)
[2018-03-15] MEDS ORDERED: NS 0.9% 1000 ML* 1,000 ML IV ONE ×2 (00:56→05:08)
[2018-03-15] MEDS ORDERED: diPHENhydraMINE IV* 50 MG/ML 1 ml VIAL (BENADRYL) IV ONE (00:58)
[2018-03-15] MEDS ORDERED: Metoclopramide IV* 5 MG/ML 2 ML VIAL IV SLOW PU ONE (01:11)
[2018-03-15] MEDS ORDERED: Metoclopramide IV* 5 MG/ML 2 ML VIAL ONE (01:12)
[2018-03-15] MEDS ORDERED: Ketorolac INJ* 30 MG/ML 1 ML VIAL IV PUSH ONE (01:13)
--- NOTE | 2018-03-15 01:13 | ED ---
GI/ HPI - HPI Summary HPI Summary: 32-year-old female presents with vomiting since . She states that her cyclic vomiting is acting up. She smoked marijuana over the weekend. This is nothing different about this episode. She admits to upper abdominal pain. She states this is typical of her cyclic vomiting pain. She tried Zofran at home without relief. She states she has an episode couple months because she has not been smoking marijuana. - History of Current Complaint Chief Complaint: EDNauseaVomitDiarrh Time Seen by Provider: 03/15/18 00:56 Stated Complaint: VOMITING/NAUSEA Hx Last Menstrual Period: 03/01/17 Pain Intensity: 7 - Allergy/Home Medications Allergies/Adverse Reactions: Allergies Allergy/AdvReac Type Severity Reaction Status Date / Time nitrofurantoin AdvReac Vomiting Verified 03/15/18 00:39 [From Macrobid] Penicillins AdvReac Vomiting Verified 03/15/18 00:39 Sulfa (Sulfonamide AdvReac Rash And Verified 03/15/18 00:39 Antibiotics) Itching sulfamethoxazole AdvReac Nausea And Verified 03/15/18 00:39 [From Bactrim] Vomiting trimethoprim [From Bactrim] AdvReac Nausea And Verified 03/15/18 00:39 Vomiting PMH/Surg Hx/FS Hx/Imm Hx Endocrine/Hematology History: Denies: Hx Anticoagulant Therapy, Hx Blood Disorders, Hx Diabetes, Hx Thyroid Disease Cardiovascular History: Denies: Hx Congestive Heart Failure, Hx Hypertension Respiratory History: Denies: Hx Asthma, Hx Chronic Obstructive Pulmonary Disease (COPD) GI History: Reports: Hx Ulcer - colagenous colitis, cyclic vomiting syndrome, Other GI Disorders - Collagenous colitis, cyclic vomiting syndrome History: Reports: Other Problems/Disorders - Frequent UTIs Denies: Hx Dialysis, Hx Renal Disease Psychiatric History: Reports: Hx Anxiety, Hx Depression, Hx Substance Abuse - 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 - Surgical History Surgery Procedure, Year, and Place: 2014 ovarian cyst REMOVAL - Immunization History Date of Tetanus Vaccine: UTD Date of Influenza Vaccine: 07/2017 Infectious Disease History: No Infectious Disease History: Reports: Hx Clostridium Difficile, Hx Hepatitis - TESTS + FOR HEP C ANTIBODIES Denies: Hx Human Immunodeficiency Virus (HIV), Hx of Known/Suspected MRSA, Hx Shingles, Hx Tuberculosis, Hx Known/Suspected VRE, Hx Known/Suspected VRSA, History Other Infectious Disease, Traveled Outside the [place] in Last 30 Days - Family History Known Family History: Positive: None, Hypertension - mother Family History: pt denies FHx - Social History Alcohol Use: Occasionally Alcohol Amount: 1/DAY Hx Substance Use: Yes Substance Use Type: Reports: Marijuana Substance Use Comment - Amount & Last Used: states quit 09/04/17 Hx Tobacco Use: Yes Smoking Status (MU): Heavy Every Day Tobacco Smoker Type: Cigarettes Amount Used/How Often: 1 ppd Length of Time of Smoking/Using Tobacco: 8 years Have You Smoked in the Last Year: Yes Review of Systems Negative: Fever Negative: Chest Pain Negative: Shortness Of Breath Positive: Abdominal Pain, Vomiting, Diarrhea, Nausea All Other Systems Reviewed And Are Negative: Yes Physical Exam Triage Information Reviewed: Yes Vital Signs On Initial Exam: Initial Vitals Temp Pulse Resp BP Pulse Ox 98.3 F 102 20 150/90 97 03/15/18 00:34 03/15/18 00:34 03/15/18 00:34 03/15/18 00:34 03/15/18 00:34 Vital Signs Reviewed: Yes Appearance: Positive: Well-Appearing Skin: Positive: Warm, Dry Head/Face: Positive: Normal Head/Face Inspection Eyes: Positive: Normal, Conjunctiva Clear ENT: Positive: Pharynx normal Respiratory/Lung Sounds: Positive: Clear to Auscultation, Breath Sounds Present Cardiovascular: Positive: Normal, RRR Abdomen Description: Positive: Soft, Other: - mild tenderness LUQ and RUQ Bowel Sounds: Positive: Present Musculoskeletal: Positive: Normal Neurological: Positive: Normal Psychiatric: Positive: Normal Diagnostics - Vital Signs Vital Signs Temp Pulse Resp BP Pulse Ox 03/15/18 01:00 91 97 03/15/18 00:54 99 144/94 97 03/15/18 00:34 98.3 F 102 20 150/90 97 - Laboratory Result Diagrams: 03/15/18 01:08 03/15/18 01:08 Lab Statement: Any lab studies that have been ordered have been reviewed, and results considered in the medical decision making process. Re-Evaluation - Re-Evaluation First Eval Re-Evaluation Time: 02:01 Change: Unchanged - no improvement with reglan, benadryl GIGU Course/Dx - Course Course Of Treatment: 32-year-old female presents with vomiting since . She states that her cyclic vomiting is acting up. She smoked marijuana over the weekend. This is nothing different about this episode. She admits to upper abdominal pain. She states this is typical of her cyclic vomiting pain. She tried Zofran at home without relief. She states she has an episode couple months because she has not been smoking marijuana. On exam is mild tenderness upper quadrant. wbc normal. gave reglan, fluids, benadryl, famotidine and patient states that no improvement. states ativan and morphine only things that work. will try ativan. signed out to dr giron pending Gi cocktail and ativan. - Diagnoses Differential Diagnoses - Female: Gastroenteritis (Viral), Gastroenteritis ( Bacterial), Vomiting Provider Diagnoses: Cyclic vomiting syndrome Discharge - Sign-Out/Discharge Documenting (check all that apply): Sign-Out Patient Signing out patient TO: Robert Giron - Discharge Plan Patient Education Materials: Cyclic Vomiting Syndrome (ED) Referrals: Noelle RODARTE,Minal Chavez [Primary Care Provider] - Additional Instructions: stop smoking marijuana take hot showers take zofran every 6 hours as need for nausea Follow up with primary within 5 days Return to ED if develop any new or worsening symptoms
[2018-03-15] MEDS ORDERED: Famotidine IV* 10 MG/ML 2 ML (20 mg) IV SLOW PU ONE (01:16)
[2018-03-15 01:23] LABS: ABS Basophils 0 10^3/ul (0-0.2); ABS Eosinophils 0.1 10^3/ul (0-0.6); ABS Lymphocytes 1.2 10^3/ul (1.0-4.8); ABS Monocytes 0.9 10^3/ul (0-0.8); ABS Neutrophils 8.4 10^3/ul (1.5-7.7); ABS Nucleated RBC 0 10^3/ul; Eosinophil % 0.6 % (0-6); Hematocrit 41 % (35-47); Hemoglobin 13.6 g/dl (12.0-16.0); Lymphocyte % 11.5 % (25-47); Mean Corpuscular HGB Conc 34 g/dl (31-36); Mean Corpuscular Hemoglobin 32 pg (27-31); Mean Corpuscular Volume 95 fL (80-97); Mean Platelet Volume 9.1 um3 (7.4-10.4); Nucleated Red Blood Cells % 0.1; Platelet Count 238 10^3/ul (150-450); Red Blood Count 4.25 10^6/ul (4.0-5.4); Red Cell Distribution Width 14 % (10.5-15); White Blood Count 10.6 10^3/ul (3.5-10.8)
[2018-03-15 01:34] LABS: EGFR Non-African American 79.1 (>60)
[2018-03-15] MEDS ORDERED: LORazepam INJ* 2 MG/ML 1 ML VIAL IV PUSH ONE (02:01)
[2018-03-15] MEDS ORDERED: Al Hydrox/Mg Hydrox/Simet LIQ* 30 ML UDC PO ONE (02:14)
[2018-03-15] MEDS ORDERED: Lidocaine 2% VISCOUS* 15 ML UDC PO ONE (02:14)
[2018-03-15] MEDS ORDERED: Potassium Chloride LIQUID* 20 MEQ PACKET PO ONE (04:42)
[2018-03-15] MEDS ORDERED: PROCHLORPERAZINE INJ 5 MG/ML 2 ML VIAL IV ONE (05:06)
[2018-03-15] MEDS ORDERED: Morphine VIAL* 4 MG/ML VIAL (1 ml vial) IV ONE (05:07)
[2018-03-15] MEDS ORDERED: Ondansetron ODT TAB* 4 MG SL PRN (05:07)
[2018-03-15] MEDS ORDERED: Iohexol 300* (CONTRAST) 10 ML SDV IV ONE (05:16)
[2018-03-15 05:50] LABS: Urine Appearance Cloudy; Urine Blood Negative (Negative); Urine Color Yellow; Urine Ketones Negative (Negative); Urine Protein Negative (Negative); Urine Specific Gravity 1.017 (1.010-1.030); Urine Urobilinogen Negative (Negative)
[2018-03-15] MEDS ORDERED: KCL 10 MEQ/50 ML IVPREMIX* 10 MEQ/50 ML BAG IV ONE (06:33)
[2018-03-15] MEDS ORDERED: Diazepam SYRINGE* 5 MG/ML 2 ML SYRINGE (10 MG total) IV ONE (06:34)
--- NOTE | 2018-03-15 06:40 | ED ---
Makenzie Patterson Rebecca, scribed for oRbert Giron MD on 03/15/18 at 0444 . Progress - Progress Note Progress Note: Pt was signed out by AMBER Mistry, awaiting reevaluation after GI cocktail and Ativan. Initially, pt was going to be discharged. When the nurse when in to discharge her and wake her up, the pt began complaining of abdominal pain and vomiting. On reevaluation, she has LLQ tenderness. Will order a CT Abd/Pel. - Results/Orders Results/Orders: CT Abd/Pel: As read by radiologist: No acute findings. ED physician reviewed this report. Pending official report. Re-Evaluation - Re-Evaluation First Eval Re-Evaluation Time: 05:00 Comment: Reevaluated the pt, she has LLQ tenderness. Explained that she will be admitted without improvement of symptoms and will order a CT Abd/Pel. Second Eval Re-Evaluation Time: 06:17 Comment: Discussed CT Abd/Pel results with the pt and discussed option of admission, of which she has not decided on her preference. Third Eval Re-Evaluation Time: 06:30 Comment: Pt agrees to admission. Course/Dx - Course Course Of Treatment: Pt was signed out by AMBER Mistry, awaiting reevaluation after GI cocktail and Ativan. Initially, pt was going to be discharged. When the nurse when in to discharge her and wake her up, the pt began complaining of abdominal pain and vomiting. On reevaluation, she has LLQ tenderness. Will order a CT Abd/Pel. In the ED course since receiving sign out, pt received Valium, Morphine, Zofran, Compazine, fluids, and potassium chloride. UA is negative for UTI. CT Abd/Pel reveals no acute findings. Discussed care of pt with Dr. Howard who accepts pt for admission. Pt will be admitted with Dx of cyclic vomiting. She understands and agrees. - Diagnoses Provider Diagnoses: Cyclic vomiting syndrome - Provider Notifications Discussed Care Of Patient With: Gilma Howard Time Discussed With Above Provider: 06:31 Instructed by Provider To: Other - Accepts pt for admission. Discharge - Sign-Out/Discharge Documenting (check all that apply): Discharge/Admit/Transfer - Admit, Receiving Sign-Out Receiving patient FROM: Valery Leonard - Discharge Plan Condition: Stable Disposition: ADMITTED TO [facility] Patient Education Materials: Cyclic Vomiting Syndrome (ED) Referrals: Noelle RODARTE,Minal Chavez [Primary Care Provider] - Additional Instructions: stop smoking marijuana take hot showers take zofran every 6 hours as need for nausea Follow up with primary within 5 days Return to ED if develop any new or worsening symptoms The documentation as recorded by the Makenzie reich Rebecca accurately reflects the service I personally performed and the decisions made by , Robert Giron MD.
[2018-03-15] MEDS ORDERED: Al Hydrox/Mg Hydrox/Simet LIQ* 30 ML UDC PO PRN (07:29)
[2018-03-15] MEDS ORDERED: Prochlorperazine SUPP* 25 MG SUPP PR PRN (07:31)
[2018-03-15] MEDS ORDERED: LORazepam TAB(*) 1 MG PO PRN (07:31)
[2018-03-15] MEDS ORDERED: Albuterol HFA INHALER* 8 gm MDI INH PRN (07:31)
[2018-03-15] MEDS ORDERED: Diazepam SYRINGE* 5 MG/ML 2 ML SYRINGE (10 MG total) IV PRN (07:34)
[2018-03-15] MEDS ORDERED: Diazepam INJ (NF) 5 MG/ML 10 ML VIAL (50 MG TOTAL) IV ONE (07:40)
--- NOTE | 2018-03-15 08:25 | RAD ---
CLINICAL HISTORY: Vomiting and nausea COMPARISON: Multiple prior CTs of the abdomen and pelvis, most recently dated September 02, 2017 TECHNIQUE: Contrast enhanced CT examination of the abdomen and pelvis from the lung bases through the initial tuberosities. The patient received 136 mL Omnipaque 300 intravenously prior to imaging.The patient received oral contrast as well prior to imaging. FINDINGS: VISUALIZED LUNG BASES: At the left lower lobe there is a cluster of ground glass nodules measuring up to 1.8 cm in greatest axial dimension (image 9). The lung bases are otherwise clear. ABDOMEN AND PELVIS: The liver, spleen, pancreas and adrenal glands are grossly normal in appearance. The gallbladder is normal. At the right kidney there is a stable 8 mm hypoattenuating focus that is too small to characterize further. Otherwise the kidneys are normal in appearance without focal mass, calcification or signs of hydronephrosis. Evaluation of the gastrointestinal tract is limited without oral contrast. The small and large bowel are not distended. The patient's normal appendix is identified in the right lower quadrant measuring 6 mm in diameter (axial image 67).. There is no gross retroperitoneal or mesenteric lymphadenopathy. The pelvic viscera is normal in appearance. The abdominal aorta and iliac arteries are normal in course and diameter. A hemangioma is incidentally noted at the L1 vertebral body.There are no sinister bone lesions. IMPRESSION: 1. There is a cluster of subcentimeter groundglass nodules of the left lower lobe measuring up to 1.8 cm in greatest axial dimension. Considering the patient's age, an infectious or inflammatory etiology is favored. 2. Otherwise no acute abnormalities.
[2018-03-15] MEDS: Omeprazole CAP* 20 MG PO SCH ×2 (08:29→16:16)
[2018-03-15] MEDS: Famotidine TAB* 20 MG PO SCH ×2 (09:32→20:04)
[2018-03-15] MEDS: Morphine VIAL* 4 MG/ML VIAL (1 ml vial) IV PRN ×3 (09:46→18:19)
[2018-03-15] MEDS: Ondansetron 40 MG VIAL* 2 MG/ML 20 ML VIAL IV PRN ×3 (09:49→18:20)
[2018-03-15] MEDS: BuPROPion XL* 300 MG TAB.XL PO SCH (09:49)
[2018-03-15] MEDS ORDERED: LORazepam INJ* 2 MG/ML 1 ML VIAL IV PUSH PRN (09:50)
--- NOTE | 2018-03-15 10:16 | HP ---
HISTORY AND PHYSICAL: DATE OF ADMISSION: 03/15/18 TIME OF ADMISSION: 7:30 a.m. PRIMARY CARE PHYSICIAN: AMBER Wu CUTTING MACHINE FIXER: Dr. Duncan. ENERGY CONSERVATION SPECIALIST: Dr. Coffey. CHIEF COMPLAINT: Nausea and vomiting. HISTORY OF PRESENT ILLNESS: This is a 32-year-old female with diagnosis of cyclic vomiting syndrome, who presents with nausea, vomiting, and abdominal pain for 3 days. She has been decreasing her marijuana intake; however, she smoked on and Thursday and on Thursday she developed nausea, vomiting, and epigastric pain. She last had a cyclic vomiting syndrome flare a few months ago but has continued to smoke marijuana every few days without any trouble. She states she cannot even count the number of times she has been vomiting the past few days. The pain is localized to the epigastric area in the left lower quadrant. She has been unable to keep any food down except for a little bit of rice yesterday. She has noticed a scant amount of diarrhea. No constipation. No fevers. She has p.o. Zofran, Reglan, and Phenergan at home, which she tried but nothing relieved her symptoms. The only thing that has helped is hot showers and morphine that she received in the emergency department. She has had an extensive workup for cyclic vomiting syndrome including a gastric emptying study, upper and lower endoscopies, and multiple CT scans. She follows with Dr. Duncan and has also been evaluated by Dr. Milligan of Neurology. PAST MEDICAL HISTORY: Chronic pain syndrome, depression, anxiety, cyclic vomiting syndrome, pancreatitis, collagenous colitis, sleep disorder. PAST SURGICAL HISTORY: Laparoscopic ovarian cystectomy in 2014. HOME MEDICATIONS: 1. Oxycodone 10 mg t.i.d. 2. Abilify 5 mg daily. 3. Wellbutrin 300 mg daily. 4. Omeprazole 40 mg b.i.d. 5. Seroquel unspecified dose. 6. Oral contraceptive pills, of which she does not know the brand name. 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 She smokes a pack of cigarettes per day. She smokes marijuana every few days. She denies alcohol use. REVIEW OF SYSTEMS: Positive for chills and weight gain since starting mirtazapine several months ago, which she has since discontinued. She denies fevers, headache, blurry vision, weakness, constipation, dysuria. PHYSICAL EXAMINATION GENERAL: Alert, well-nourished female who is uncomfortable appearing but in no distress. VITAL SIGNS: Blood pressure 121/82, pulse ox 95% on room air, heart rate 85, respiratory rate 18, temperature 98.3. HEENT: Pupils are 3 mm bilaterally and reactive to light. She has no nystagmus. Oral mucosa is dry. No pharyngeal exudates or erythema. NECK: No cervical or supraclavicular lymphadenopathy. No JVP. LUNGS: Clear bilaterally with some upper airway wheezing. CHEST: Regular rate and rhythm. No murmurs. PMI is nondisplaced. ABDOMEN: Obese, soft. Mildly tender to deep palpation in the epigastric area with no guarding or rebound. Negative CVA tenderness. Negative Oliveros sign. EXTREMITIES: Tattoos noted. No edema. No ulcers. No rashes. ASSESSMENT AND PLAN: This is a 32-year-old female with history of cyclic vomiting syndrome, who presents to the emergency department with 3 days of nausea, vomiting, and abdominal pain which are consistent with her flares of cyclic vomiting syndrome. 1. Cyclic vomiting syndrome flare. This was closely related to smoking marijuana, which it has always been in the past for her so I suspect that is the etiology of this episode. I am treating her with supportive care with IV morphine, sublingual Zofran, and IV Valium. She will start on full liquid and then attempt to advance as able. She had a CT in the emergency department, which the [facility] read reports as unremarkable. She has had an extensive workup as an outpatient including a gastric emptying study and endoscopies, which have otherwise been unrevealing. If she does not improve with supportive care, I will consult Dr. Duncan. Ultimately, she needs to abstain from marijuana use. 2. Depression. Continue Wellbutrin. She also says that Abilify is for depressive syndrome. 3. Sleep disorder syndrome. Continue Seroquel. 4. Chronic pain syndrome. Continue oxycodone 10 mg t.i.d. as prescribed by her pain specialist. 5. DVT prophylaxis. Lovenox subcutaneously. 6. Full code. [id number]/CPS #: [id number] MTDD
[2018-03-15] MEDS: Enoxaparin(*) 40 MG/0.4 ML SYR SUBCUT SCH (10:27)
[2018-03-15] MEDS: NORGESTIMATE ETHINYL ESTRADIOL PO SCH (10:28)
[2018-03-15] MEDS: ARIPiprazole TAB* 5 MG PO SCH (10:46)
[2018-03-15] MEDS: Nicotine PATCH 14 MG/24 HR* PATCH TRANSDERM SCH (12:09)
[2018-03-15] MEDS: NS 0.9% 1000 ML* 1,000 ML IV SCH ×2 (14:11→20:04)
[2018-03-15] MEDS ORDERED: Amitriptyline TAB* 25 MG PO SCH (21:00)
[2018-03-16] MEDS: NS 0.9% 1000 ML* 1,000 ML IV SCH ×3 (00:58→13:21)
[2018-03-16] MEDS: Ondansetron 40 MG VIAL* 2 MG/ML 20 ML VIAL IV PRN ×3 (02:36→11:50)
[2018-03-16] MEDS: Morphine VIAL* 4 MG/ML VIAL (1 ml vial) IV PRN ×3 (02:36→11:53)
[2018-03-16 06:19] LABS: ABS Basophils 0.1 10^3/ul (0-0.2); ABS Eosinophils 0.1 10^3/ul (0-0.6); ABS Lymphocytes 1.7 10^3/ul (1.0-4.8); ABS Monocytes 0.6 10^3/ul (0-0.8); ABS Neutrophils 4.1 10^3/ul (1.5-7.7); ABS Nucleated RBC 0 10^3/ul; Eosinophil % 0.8 % (0-6); Hematocrit 38 % (35-47); Hemoglobin 12.8 g/dl (12.0-16.0); Lymphocyte % 25.6 % (25-47); Mean Corpuscular HGB Conc 34 g/dl (31-36); Mean Corpuscular Hemoglobin 32 pg (27-31); Mean Corpuscular Volume 94 fL (80-97); Nucleated Red Blood Cells % 0; Platelet Count 215 10^3/ul (150-450); Red Blood Count 4.05 10^6/ul (4.00-5.40); Red Cell Distribution Width 14 % (10.5-15); White Blood Count 6.5 10^3/ul (3.5-10.8)
[2018-03-16 06:32] LABS: EGFR Non-African American 97.6 (>60)
[2018-03-16] MEDS: Omeprazole CAP* 20 MG PO SCH (07:40)
[2018-03-16] MEDS: NORGESTIMATE ETHINYL ESTRADIOL PO SCH (08:54)
[2018-03-16] MEDS: Enoxaparin(*) 40 MG/0.4 ML SYR SUBCUT SCH (09:15)
[2018-03-16] MEDS: Famotidine TAB* 20 MG PO SCH (09:51)
[2018-03-16] MEDS: ARIPiprazole TAB* 5 MG PO SCH (09:51)
[2018-03-16] MEDS: Nicotine PATCH 14 MG/24 HR* PATCH TRANSDERM SCH (09:51)
[2018-03-16] MEDS: BuPROPion XL* 300 MG TAB.XL PO SCH (09:51)
[2018-03-16 12:23] VITALS: BP 154/93
--- NOTE | 2018-03-16 14:09 | PN ---
Subjective Date of Service: 03/16/18 Interval History: Ms. Miranda reports that she is feeling much better today and is eager for discharge to home. Objective Active Medications: Al Hydrox/Mg Hydrox/Simethicone (Maalox Plus*) 30 ml PO Q6H PRN Albuterol (Ventolin Hfa Inhaler*) 1 puff INH Q4H PRN Aripiprazole (Abilify Tab*) 5 mg PO DAILY GARRY Bupropion HCl (Bupropion Xl*) 300 mg PO DAILY GARRY Enoxaparin Sodium (Lovenox(*)) 40 mg SUBCUT Q24H GARRY Famotidine (Pepcid Tab*) 20 mg PO BID GARRY Sodium Chloride (Ns 0.9% 1000 Ml*) 1,000 mls @ 175 mls/hr IV PER RATE GARRY Lorazepam (Ativan Tab(*)) 1 mg PO BEDTIME PRN Lorazepam (Ativan Inj*) 1 mg IV PUSH Q6H PRN Morphine Sulfate (Morphine Vial*) 2 mg IV Q4H PRN Nicotine (Nicotine Patch 14 Mg/24 Hr*) 1 patch TRANSDERM DAILY GARRY Norgestimate-Ethinyl Estradiol [ Estarylla 0.25-0.035 Mg Tablet] 1 Tab 1 tab PO DAILY GARRY Omeprazole (Prilosec Cap*) 40 mg PO BID AC GARRY Ondansetron HCl (Zofran Odt Tab*) 8 mg SL Q6H PRN Ondansetron HCl (Zofran 40 Mg Vial*) 4 mg IV Q4H PRN Prochlorperazine (Compazine Supp*) 25 mg OR Q12H PRN Vital Signs: Temp Pulse Resp BP Pulse Ox 97.9 F 89 18 154/93 100 03/16/18 11:17 03/16/18 11:17 03/16/18 13:19 03/16/18 11:17 03/16/18 11:17 Oxygen Devices in Use Now: None Appearance: Female sitting up in chair in NAD Eyes: No Scleral Icterus Ears/Nose/Mouth/Throat: Mucous Membranes Moist Neck: Trachea Midline Respiratory: Symmetrical Chest Expansion and Respiratory Effort, Clear to Auscultation Cardiovascular: NL Sounds; No Murmurs; No JVD, No Edema Abdominal: NL Sounds; No Tenderness; No Distention Extremities: No Edema Skin: No Rash or Ulcers Neurological: Alert and Oriented x 3, NL Muscle Strength and Tone Nutrition: Taking PO's Result Diagrams: 03/16/18 05:53 03/16/18 05:53 Assess/Plan/Problems-Billing Assessment: Ms. Miranda is a 32 yo F with a PMH of cyclical vomiting syndrome related to marijuana usage who was admitted on 03/15/18 with cyclical vomiting thought to be related to marijuana usage. - Patient Problems (1) Cyclical vomiting Comment: - Resolved. - Patient counseled to avoid marijuana. (2) Depression Comment: - Continue bupropion and abilify. (3) DVT prophylaxis Comment: - Lovenox. (4) Full code status Status and Disposition: OBV. Discharge to home.
--- NOTE | 2018-03-17 09:09 | DS ---
AMENDED REPORT NOW INCLUDES COSIGNER DESIGNATION - ESIGNED BEFORE ADJUSTMENT CC: AMBER Wu * HOSPITAL MEDICINE DISCHARGE SUMMARY: DATE OF ADMISSION: 03/15/18 DATE OF DISCHARGE: 03/16/18 PRIMARY CARE PROVIDER: AMBER Wu ATTENDING PHYSICIAN: Dr. Merlyn Rodriguez * (dictation provided by Jenn Chambers NP ) PRIMARY DIAGNOSIS: Cyclic vomiting syndrome secondary to marijuana use. SECONDARY DIAGNOSES: 1. Depression. 2. Chronic pain syndrome. 3. Anxiety. 4. History of cyclic vomiting syndrome. 5. History of pancreatitis. 6. Collagenous colitis. 7. Sleep disorder. PAST SURGICAL HISTORY: Laparoscopic ovarian cystectomy in 2015. MEDICATIONS: As outpatient are: 1. Oxycodone 10 mg as needed for pain. 2. Abilify 5 mg daily. 3. Bupropion XL 300 mg p.o. daily. 4. Ondansetron p.r.n. 5. Amitriptyline 25 mg p.o. at bedtime. 6. Famotidine 20 mg p.o. b.i.d. 7. Lorazepam 1 mg p.r.n. 8. control pill daily. 9. Omeprazole 40 mg p.o. b.i.d. 10. Compazine p.r.n. HOSPITAL COURSE: Ms. Miranda is a 32-year-old female with a past medical history of anxiety, depression, and episode of cyclic vomiting syndrome related to marijuana, who presented to the hospital on 03/15/18 with concern for uncontrolled vomiting. Please see the dictated H and P from Sofiya Avendaño DO, for complete details. In brief, the patient stated that she had continued to smoke marijuana with no problem. However, the days leading up to this admission , she had increased frequency of marijuana intake and with this, she developed uncontrolled nausea and vomiting. In the past, she has had extensive workup including gastric emptying study, upper and lower endoscopies, and multiple CT scans. She follows outpatient with Dr. Duncan and Dr. Milligan. In the emergency room, she had a repeat abdomen and pelvis CT, which showed the following: "There is a cluster of subcentimeter ground glass nodules of the left lower lobe measuring up to 1.8 cm in the greatest axial dimension. Considering the patient's age, an infectious or inflammatory etiology is favored ; otherwise, no acute abnormalities." The patient's labs were unremarkable. Ms. Miranda was treated with morphine, Valium, and Zofran intravenously as well as IV fluids. With this, she has had good resolution of her symptoms and is eager for discharge to home. I have spoken at length with Ms. Miranda about her use of marijuana and suggested that the risks of using this likely outweigh the benefits at this point and that she consider using alternate agents for control of anxiety. Ms. Miranda is medically stable for discharge to home. DISPOSITION: To home. DIET: Regular. ACTIVITY: As tolerated. FOLLOWUP PLANS: Please follow up with your primary care provider, AMBER Wu, for continued management of your chronic medical condition. TIME SPENT: Approximately 60 minutes was spent on the discharge of this patient , more than half the time was spent with the patient at the bedside reviewing the events leading up to and during this hospitalization, performing the physical examination, and reviewing my plan of care. JENN CHAMBERS NP [id number]/CPS #: [id number] DIDI
== END 2018-03-16 15:00 | disposition home or self-care (01) ==
LOC: ED 00:29 → MED 07:29
PROVIDERS: ADMIT Internal Medicine; ATTEND Hospitalist
DX: G43.A0 Cyclical vomiting, in migraine, not intractable (principal); F32.9 Major depressive disorder, single episode, unspecified; G47.9 Sleep disorder, unspecified; G89.4 Chronic pain syndrome; E66.9 Obesity, unspecified; F17.210 Nicotine dependence, cigarettes, uncomplicated
CPT/HCPCS: 36415; 74177; 80053; 81003; 83690; 84702; 85025; 86140; 93005; 99284; A9270-GY; G0378; J0780; J1200; J1650; J1885; J2060; J2270; J2765; J3360; J3480; Q9967

== ENCOUNTER 2018-03-18 04:08 | Emergency (ER) | payer BC ==
[2018-03-18] MEDS ORDERED: Ondansetron INJ* 2 MG/ML VIAL IV ONE (04:30)
[2018-03-18] MEDS ORDERED: NS 0.9% 1000 ML* 2,000 ML IV ONE (04:30)
[2018-03-18] MEDS ORDERED: Ketorolac INJ* 30 MG/ML 1 ML VIAL IV ONE (04:30)
[2018-03-18] MEDS ORDERED: Morphine INJ* 4 MG/ML 1 ML CARPUJECT IV ONE (04:30)
[2018-03-18] MEDS ORDERED: diPHENhydraMINE IV* 50 MG/ML 1 ml VIAL (BENADRYL) IV ONE (04:32)
[2018-03-18] MEDS ORDERED: Morphine VIAL* 4 MG/ML VIAL (1 ml vial) IV ONE (04:40)
[2018-03-18 05:28] LABS: ABS Basophils 0 10^3/ul (0-0.2); ABS Eosinophils 0.1 10^3/ul (0-0.6); ABS Lymphocytes 1.3 10^3/ul (1.0-4.8); ABS Monocytes 0.5 10^3/ul (0-0.8); ABS Neutrophils 7.8 10^3/ul (1.5-7.7); ABS Nucleated RBC 0 10^3/ul; Eosinophil % 0.6 % (0-6); Hematocrit 40 % (35-47); Hemoglobin 13.5 g/dl (12.0-16.0); Lymphocyte % 13.4 % (25-47); Mean Corpuscular HGB Conc 34 g/dl (31-36); Mean Corpuscular Hemoglobin 32 pg (27-31); Mean Corpuscular Volume 94 fL (80-97); Mean Platelet Volume 8.8 um3 (7.4-10.4); Nucleated Red Blood Cells % 0; Platelet Count 239 10^3/ul (150-450); Red Blood Count 4.22 10^6/ul (4.00-5.40); Red Cell Distribution Width 14 % (10.5-15); White Blood Count 9.7 10^3/ul (3.5-10.8)
[2018-03-18] MEDS ORDERED: Potassium Chloride LIQUID* 20 MEQ PACKET PO ONE (05:49)
--- NOTE | 2018-03-18 06:27 | ED ---
Koko Patterson Elizabeth, scribed for Robert Giron MD on 03/18/18 at 0434 . Abdominal Pain/Female - HPI Summary HPI Summary: This patient is a 32 year old F presenting to [facility] with a chief complaint of abd pain since 21:00 last night. The patient was discharged from [facility] 2 days ago after being admitted for the same symptoms. The patient rates the pain 9/10 in severity. Symptoms aggravated by nothing. Symptoms alleviated by nothing. Patient reports N/V/D. The patient has been taking oral Zofran at home with no relief. Patient has hx of cyclic vomiting. - History of Current Complaint Chief Complaint: EDNauseaVomitDiarrh Stated Complaint: NAUSEA/VOMITNG Time Seen by Provider: 03/18/18 04:24 Hx Obtained From: Patient Hx Last Menstrual Period: 03/01/17 Onset/Duration: Gradual Onset, Lasting Hours, Still Present Timing: Constant Severity Initially: Moderate Severity Currently: Moderate Pain Intensity: 9 Pain Scale Used: 0-10 Numeric Location: Diffuse Aggravating Factor(s): Nothing Alleviating Factor(s): Nothing Associated Signs and Symptoms: Positive: Nausea, Vomiting, Diarrhea Allergies/Adverse Reactions: Allergies Allergy/AdvReac Type Severity Reaction Status Date / Time nitrofurantoin AdvReac Vomiting Verified 03/18/18 04:13 [From Macrobid] Penicillins AdvReac Vomiting Verified 03/18/18 04:13 Sulfa (Sulfonamide AdvReac Rash And Verified 03/18/18 04:13 Antibiotics) Itching sulfamethoxazole AdvReac Nausea And Verified 03/18/18 04:13 [From Bactrim] Vomiting trimethoprim [From Bactrim] AdvReac Nausea And Verified 03/18/18 04:13 Vomiting PMH/Surg Hx/FS Hx/Imm Hx Endocrine/Hematology History: Denies: Hx Anticoagulant Therapy, Hx Blood Disorders, Hx Diabetes, Hx Thyroid Disease Cardiovascular History: Denies: Hx Congestive Heart Failure, Hx Hypertension Respiratory History: Denies: Hx Asthma, Hx Chronic Obstructive Pulmonary Disease (COPD) GI History: Reports: Hx Ulcer - colagenous colitis, cyclic vomiting syndrome, Other GI Disorders - Collagenous colitis, cyclic vomiting syndrome History: Reports: Other Problems/Disorders - Frequent UTIs Denies: Hx Dialysis, Hx Renal Disease Sensory History: Reports: Hx Contacts or Glasses Denies: Hx Hearing Aid Opthamlomology History: Reports: Hx Contacts or Glasses Psychiatric History: Reports: Hx Anxiety, Hx Depression, Hx Substance Abuse - 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 - Surgical History Surgery Procedure, Year, and Place: 2014 ovarian cyst REMOVAL - Immunization History Date of Tetanus Vaccine: UTD Date of Influenza Vaccine: 07/2017 Infectious Disease History: No Infectious Disease History: Reports: Hx Clostridium Difficile, Hx Hepatitis - TESTS + FOR HEP C ANTIBODIES Denies: Hx Human Immunodeficiency Virus (HIV), Hx of Known/Suspected MRSA, Hx Shingles, Hx Tuberculosis, Hx Known/Suspected VRE, Hx Known/Suspected VRSA, History Other Infectious Disease, Traveled Outside the [place] in Last 30 Days - Family History Known Family History: Positive: None, Hypertension - mother Family History: pt denies FHx - Social History Alcohol Use: Occasionally Alcohol Amount: 1/DAY Hx Substance Use: Yes Substance Use Type: Reports: Marijuana Substance Use Comment - Amount & Last Used: states quit 09/04/17 Hx Tobacco Use: Yes Smoking Status (MU): Heavy Every Day Tobacco Smoker Type: Cigarettes Amount Used/How Often: 1 ppd Length of Time of Smoking/Using Tobacco: 8 years Have You Smoked in the Last Year: Yes Review of Systems Negative: Fever Negative: Epistaxis Positive: Abdominal Pain, Vomiting, Diarrhea, Nausea Negative: Headache All Other Systems Reviewed And Are Negative: Yes Physical Exam - Summary Physical Exam Summary: VITAL SIGNS: Reviewed. GENERAL: Patient is a well-developed and nourished FEMALE who is lying comfortable in the stretcher. Patient is not in any acute respiratory distress. HEAD AND FACE: No signs of trauma. No ecchymosis, hematomas or skull depressions. No sinus tenderness. EYES: PERRLA, EOMI x 2, No injected conjunctiva, no nystagmus. EARS: Hearing grossly intact. Ear canals and tympanic membranes are within normal limits. MOUTH: Oropharynx within normal limits. NECK: Supple, trachea is midline, no adenopathy, no JVD, no carotid bruit, no c- spine tenderness, neck with full ROM. CHEST: Symmetric, no tenderness at palpation LUNGS: Clear to auscultation bilaterally. No wheezing or crackles. CVS: Regular rate and rhythm, S1 and S2 present, no murmurs or gallops appreciated. ABDOMEN: Soft, epigastric tenderness. No signs of distention. No rebound no guarding, and no masses palpated. Bowel sounds are normal. EXTREMITIES: FROM in all major joints, no edema, no cyanosis or clubbing. NEURO: Alert and oriented x 3. No acute neurological deficits. Speech is normal and follows commands. SKIN: Dry and warm Triage Information Reviewed: Yes Vital Signs On Initial Exam: Initial Vitals Temp Pulse Resp BP Pulse Ox 96.8 F 108 18 136/99 96 03/18/18 04:10 03/18/18 04:10 03/18/18 04:10 03/18/18 04:10 03/18/18 04:10 Vital Signs Reviewed: Yes Diagnostics - Vital Signs Vital Signs Temp Pulse Resp BP Pulse Ox 03/18/18 04:10 96.8 F 108 18 136/99 96 - Laboratory Result Diagrams: 03/18/18 05:21 03/18/18 05:21 Lab Statement: Any lab studies that have been ordered have been reviewed, and results considered in the medical decision making process. Re-Evaluation - Re-Evaluation first re-eval Re-Evaluation Time: 05:50 Change: Improved Comment: The patient is feeling better. The patient will be given something to drink to see if she can keep it down Abdominal Pain Fem Course/Dx - Course Course Of Treatment: Patient is a 32 y/o F with hx of cyclic vomiting reporting abd pain and N/V/D since 21:00 last night. The patient was discharged from [facility] 2 days ago after being admitted for the same symptoms. The patient has been taking oral Zofran at home with no relief. Physical exam reveals epigastric tenderness. Lab results reviewed with patient. In the ED course the patient was given Zofran, Reglan, Benadryl, IV fluids, and Morphine. The patient reports feeling better after receiving medications. Patient will be discharged home with dx of cyclic vomiting and follow up from primary care physician. The patient is agreeable with this plan. - Diagnoses Provider Diagnoses: Cyclical vomiting Discharge - Sign-Out/Discharge Documenting (check all that apply): Discharge/Admit/Transfer - Discharge Plan Condition: Stable Disposition: HOME Discharge Disposition Comment: discharge home Patient Education Materials: Cyclic Vomiting Syndrome (ED) Forms: *Work Release Referrals: Noelle RODARTE,Minal Chavez [Primary Care Provider] - 2 Days Additional Instructions: follow up with primary care physician in 1-2 days. Return to the emergency department with any new or worsening symptoms. The documentation as recorded by the Kook reich Elizabeth accurately reflects the service I personally performed and the decisions made by , Robert Giron MD.
[2018-03-18 06:35] VITALS: BP 132/86
== END 2018-03-18 06:34 | disposition home or self-care (01) ==
LOC: ED 04:08
DX: G43.A0 Cyclical vomiting, in migraine, not intractable (principal); F17.210 Nicotine dependence, cigarettes, uncomplicated; Z87.19 Personal history of other diseases of the digestive system; Z88.0 Allergy status to penicillin; Z88.2 Allergy status to sulfonamides; Z88.8 Allergy status to other drugs, medicaments and biological substances
CPT/HCPCS: 36415; 80053; 82150; 83605; 83690; 83735; 84702; 85025; 86140; 96361; 96374; 96375; 99283; A9270-GY; J1200; J1885; J2270; J2405

== ENCOUNTER 2018-04-22 05:21 | Emergency (ER) | payer BC ==
[2018-04-22] MEDS ORDERED: NS 0.9% 1000 ML* 2,000 ML IV SCH (05:45)
[2018-04-22 06:18] LABS: ABS Basophils 0 10^3/ul (0-0.2); ABS Eosinophils 0.1 10^3/ul (0-0.6); ABS Lymphocytes 1.9 10^3/ul (1.0-4.8); ABS Monocytes 0.5 10^3/ul (0-0.8); ABS Neutrophils 9.1 10^3/ul (1.5-7.7); ABS Nucleated RBC 0 10^3/ul; Eosinophil % 0.6 % (0-6); Hematocrit 43 % (35-47); Hemoglobin 14.7 g/dl (12.0-16.0); Lymphocyte % 16.4 % (25-47); Mean Corpuscular HGB Conc 34 g/dl (31-36); Mean Corpuscular Hemoglobin 32 pg (27-31); Mean Corpuscular Volume 92 fL (80-97); Nucleated Red Blood Cells % 0; Platelet Count 285 10^3/ul (150-450); Red Blood Count 4.64 10^6/ul (4.00-5.40); Red Cell Distribution Width 14 % (10.5-15); White Blood Count 11.6 10^3/ul (3.5-10.8)
[2018-04-22 06:32] LABS: INR 0.89 (0.77-1.02)
[2018-04-22 06:37] LABS: EGFR Non-African American 80.2 (>60)
[2018-04-22] MEDS ORDERED: PROCHLORPERAZINE INJ 5 MG/ML 2 ML VIAL IV ONE (07:02)
[2018-04-22] MEDS ORDERED: Morphine VIAL* 10 MG/ML 1 ML VIAL IM ONE ×2 (07:09→07:26)
[2018-04-22] MEDS ORDERED: diPHENhydraMINE IV* 50 MG/ML 1 ml VIAL (BENADRYL) IV ONE (07:15)
--- NOTE | 2018-04-22 07:15 | ED ---
GI/ HPI - HPI Summary HPI Summary: Patient here with acute on chronic cyclical vomiting syndrome. She reports she' s had vomiting on and off over the past 3 days minutes at its worst today. Developed epigastric and left upper quadrant pain as result of her excessive vomiting. She is able to hold liquids down in between mostly Gatorade. Denies diarrhea. She's tried Zofran ODT at home without success - additionally she's tried a sumatriptan and that did not help and she is Pandya on control.. She has had Compazine in the past which has helped. She admits her symptoms are worse and she smokes marijuana and she has been smoking marijuana lately. In the past which she quit for a few week she still had some vomiting but it was much less intense and infrequent. Reports feeling chills at the moment, better with a warm blanket. She also admits sx are worse around her period - has not seen an marketing planner but is interested in consulting. - History of Current Complaint Chief Complaint: EDAbdPain Time Seen by Provider: 04/22/18 05:35 Stated Complaint: N/V, ABD PAIN Hx Obtained From: Patient Hx Last Menstrual Period: 03/01/17 Pain Intensity: 8 - Allergy/Home Medications Allergies/Adverse Reactions: Allergies Allergy/AdvReac Type Severity Reaction Status Date / Time nitrofurantoin AdvReac Vomiting Verified 04/22/18 07:59 [From Macrobid] Penicillins AdvReac Vomiting Verified 04/22/18 07:59 Sulfa (Sulfonamide AdvReac Rash And Verified 04/22/18 07:59 Antibiotics) Itching sulfamethoxazole AdvReac Nausea And Verified 04/22/18 07:59 [From Bactrim] Vomiting trimethoprim [From Bactrim] AdvReac Nausea And Verified 04/22/18 07:59 Vomiting PMH/Surg Hx/FS Hx/Imm Hx Previously Healthy: Yes Endocrine/Hematology History: Denies: Hx Anticoagulant Therapy, Hx Blood Disorders, Hx Diabetes, Hx Thyroid Disease Cardiovascular History: Denies: Hx Congestive Heart Failure, Hx Hypertension Respiratory History: Denies: Hx Asthma, Hx Chronic Obstructive Pulmonary Disease (COPD) GI History: Reports: Hx Ulcer - colagenous colitis, cyclic vomiting syndrome, Other GI Disorders - Collagenous colitis, cyclic vomiting syndrome History: Reports: Other Problems/Disorders - Frequent UTIs Denies: Hx Dialysis, Hx Renal Disease Sensory History: Reports: Hx Contacts or Glasses Denies: Hx Hearing Aid Opthamlomology History: Reports: Hx Contacts or Glasses Psychiatric History: Reports: Hx Anxiety, Hx Depression, Hx Substance Abuse - 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 - Surgical History Surgery Procedure, Year, and Place: 2014 ovarian cyst REMOVAL - Immunization History Date of Tetanus Vaccine: utd Date of Influenza Vaccine: utd Infectious Disease History: No Infectious Disease History: Reports: Hx Clostridium Difficile, Hx Hepatitis - TESTS + FOR HEP C ANTIBODIES Denies: Hx Human Immunodeficiency Virus (HIV), Hx of Known/Suspected MRSA, Hx Shingles, Hx Tuberculosis, Hx Known/Suspected VRE, Hx Known/Suspected VRSA, History Other Infectious Disease, Traveled Outside the [place] in Last 30 Days - Family History Known Family History: Positive: Hypertension - mother Family History: pt denies FHx - Social History Alcohol Use: Occasionally Alcohol Amount: 1/DAY Hx Substance Use: Yes Substance Use Type: Reports: Heroin - last used 2012 - currently takes norco PRN ab pain w/ cyclical vomiting syndrome, Marijuana - makes cyclical vomiting worse Substance Use Comment - Amount & Last Used: 04/21/18 unknown amount Hx Tobacco Use: Yes Smoking Status (MU): Current Every Day Smoker Type: Cigarettes Amount Used/How Often: 1 ppd Length of Time of Smoking/Using Tobacco: 8 years Have You Smoked in the Last Year: Yes Review of Systems Positive: Chills. Negative: Fever, Fatigue Eyes: Negative ENT: Negative Cardiovascular: Negative Respiratory: Negative Positive: Abdominal Pain, Vomiting, Nausea. Negative: Diarrhea Positive: no symptoms reported Musculoskeletal: Negative Skin: Negative Neurological: Negative Positive: Anxious All Other Systems Reviewed And Are Negative: Yes Physical Exam Triage Information Reviewed: Yes Vital Signs On Initial Exam: Initial Vitals Temp Pulse Resp BP Pulse Ox 96.5 F 90 24 133/93 99 04/22/18 05:24 04/22/18 05:24 04/22/18 05:24 04/22/18 05:24 04/22/18 05:24 Vital Signs Reviewed: Yes Appearance: Positive: Well-Appearing, Pain Distress - difficult to discern pain between anxiety but pt is sitting on knees and leaning forward on bed - tearful but consolable Skin: Positive: Warm - moist, Skin Color Reflects Adequate Perfusion Head/Face: Positive: Normal Head/Face Inspection Eyes: Positive: Normal, EOMI, Conjunctiva Clear ENT: Positive: Normal ENT inspection, Hearing grossly normal, Pharynx normal - mucosa moist Dental: Positive: Gross Decay/Caries @ Neck: Positive: Supple, Nontender Respiratory/Lung Sounds: Positive: Clear to Auscultation, Breath Sounds Present Cardiovascular: Positive: Normal, RRR Abdomen Description: Positive: Soft - TTP over epigastrum and LUQ Bowel Sounds: Positive: Present Musculoskeletal: Positive: Normal, Strength/ROM Intact Neurological: Positive: Normal, Sensory/Motor Intact, Alert, Oriented to Person Place, Time, CN Intact II-III Psychiatric: Positive: Anxious Diagnostics - Vital Signs Vital Signs Temp Pulse Resp BP Pulse Ox 04/22/18 06:00 88 97 04/22/18 05:35 72 97 04/22/18 05:24 96.5 F 90 24 133/93 99 - Laboratory Lab Results: Lab Results 04/22/18 04/22/18 04/22/18 Range/Units 06:07 06:07 06:07 WBC 11.6 H (3.5-10.8) 10^3/ul RBC 4.64 (4.00-5.40) 10^6/ul Hgb 14.7 (12.0-16.0) g/dl Hct 43 (35-47) % MCV 92 (80-97) fL MCH 32 H (27-31) pg MCHC 34 (31-36) g/dl RDW 14 (10.5-15) % Plt Count 285 (150-450) 10^3/ul MPV 9.0 (7.4-10.4) um3 Neut % (Auto) 78.3 (38-83) % Lymph % (Auto) 16.4 L (25-47) % Pitkin % (Auto) 4.3 (0-7) % Eos % (Auto) 0.6 (0-6) % Baso % (Auto) 0.4 (0-2) % Absolute Neuts (auto) 9.1 H (1.5-7.7) 10^3/ul Absolute Lymphs (auto) 1.9 (1.0-4.8) 10^3/ul Absolute Monos (auto) 0.5 (0-0.8) 10^3/ul Absolute Eos (auto) 0.1 (0-0.6) 10^3/ul Absolute Basos (auto) 0 (0-0.2) 10^3/ul Absolute Nucleated RBC 0 10^3/ul Nucleated RBC % 0 INR (Anticoag Therapy) (0.77-1.02) APTT (26.0-36.3) seconds Sodium 140 (135-145) mmol/L Potassium 3.8 (3.5-5.0) mmol/L Chloride 107 (101-111) mmol/L Carbon Dioxide 24 (22-32) mmol/L Anion Gap 9 (2-11) mmol/L BUN 14 (6-24) mg/dL Creatinine 0.83 (0.51-0.95) mg/dL Est GFR ( Amer) 97.0 (>60) Est GFR (Non-Af Amer) 80.2 (>60) BUN/Creatinine Ratio 16.9 (8-20) Glucose 106 H (70-100) mg/dL Lactic Acid 1.7 (0.5-2.0) mmol/L Calcium 9.6 (8.6-10.3) mg/dL Magnesium 2.0 (1.9-2.7) mg/dL Total Bilirubin 0.40 (0.2-1.0) mg/dL AST 15 (13-39) U/L ALT 14 (7-52) U/L Alkaline Phosphatase 104 (34-104) U/L Total Creatine Kinase 83 (10-223) U/L C-Reactive Protein 9.21 H (<8.01) mg/L Total Protein 7.5 (6.4-8.9) g/dL Albumin 4.3 (3.2-5.2) g/dL Globulin 3.2 (2-4) g/dL Albumin/Globulin Ratio 1.3 (1-3) Amylase 66 (29-103) U/L Lipase 30 (11.0-82.0) U/L Beta HCG, Quant < 0.60 mIU/mL 04/22/18 Range/Units 06:07 WBC (3.5-10.8) 10^3/ul RBC (4.00-5.40) 10^6/ul Hgb (12.0-16.0) g/dl Hct (35-47) % MCV (80-97) fL MCH (27-31) pg MCHC (31-36) g/dl RDW (10.5-15) % Plt Count (150-450) 10^3/ul MPV (7.4-10.4) um3 Neut % (Auto) (38-83) % Lymph % (Auto) (25-47) % Pitkin % (Auto) (0-7) % Eos % (Auto) (0-6) % Baso % (Auto) (0-2) % Absolute Neuts (auto) (1.5-7.7) 10^3/ul Absolute Lymphs (auto) (1.0-4.8) 10^3/ul Absolute Monos (auto) (0-0.8) 10^3/ul Absolute Eos (auto) (0-0.6) 10^3/ul Absolute Basos (auto) (0-0.2) 10^3/ul Absolute Nucleated RBC 10^3/ul Nucleated RBC % INR (Anticoag Therapy) 0.89 (0.77-1.02) APTT 30.9 (26.0-36.3) seconds Sodium (135-145) mmol/L Potassium (3.5-5.0) mmol/L Chloride (101-111) mmol/L Carbon Dioxide (22-32) mmol/L Anion Gap (2-11) mmol/L BUN (6-24) mg/dL Creatinine (0.51-0.95) mg/dL Est GFR ( Amer) (>60) Est GFR (Non-Af Amer) (>60) BUN/Creatinine Ratio (8-20) Glucose (70-100) mg/dL Lactic Acid (0.5-2.0) mmol/L Calcium (8.6-10.3) mg/dL Magnesium (1.9-2.7) mg/dL Total Bilirubin (0.2-1.0) mg/dL AST (13-39) U/L ALT (7-52) U/L Alkaline Phosphatase (34-104) U/L Total Creatine Kinase (10-223) U/L C-Reactive Protein (<8.01) mg/L Total Protein (6.4-8.9) g/dL Albumin (3.2-5.2) g/dL Globulin (2-4) g/dL Albumin/Globulin Ratio (1-3) Amylase (29-103) U/L Lipase (11.0-82.0) U/L Beta HCG, Quant mIU/mL Result Diagrams: 04/22/18 06:07 04/22/18 06:07 Lab Statement: Any lab studies that have been ordered have been reviewed, and results considered in the medical decision making process. Re-Evaluation - Re-Evaluation First Eval Change: Improved - pt resting comfortably - no sweating, no shaking, no vomiting and not curled in position - sx improved GIGU Course/Dx - Course Course Of Treatment: Discussed importance of marijuana cessation as she's had relief with this method in the past. Also discussed possibly consulting with an marketing planner. In the meantime, will provide her with compazine for home. She has all other medications she needs. Will f/u w/ PCP as well and return to ED for danger s/sx. - Diagnoses Provider Diagnoses: Cyclical vomiting syndrome Discharge - Sign-Out/Discharge Documenting (check all that apply): Patient Departure - Discharge Plan Condition: Stable Disposition: HOME Prescriptions: Prochlorperazine SUPP* [Compazine Supp*] 25 mg [place] Q12H PRN #12 supp PRN Reason: Vomiting Patient Education Materials: Cyclic Vomiting Syndrome (ED) Referrals: Noelle RODARTE,Minal Chavez [Primary Care Provider] - Additional Instructions: Stop smoking marijuana as this makes symptoms worse If you have return of vomiting, you have been given a trial of compazine suppositories to try in the event zofran ODT does not work in the future. Additionally you may also try liquid benadryl 50mg for nausea and liquid ibuprofen 800mg for abdominal pain in addition to your current regimen of medications at home. It was discussed that you may benefit from consult with an marketing planner - call today to schedule an appointment. *If you develop intractable vomiting (> 24 hours), return to ED for hydration - Billing Disposition and Condition Condition: STABLE Disposition: Home
[2018-04-22] MEDS ORDERED: Ketorolac INJ* 30 MG/ML 1 ML VIAL IV PUSH ONE (07:16)
[2018-04-22] MEDS ORDERED: Morphine VIAL* 4 MG/ML VIAL (1 ml vial) IV ONE (07:31)
[2018-04-22 09:06] VITALS: BP 110/69
== END 2018-04-22 09:07 | disposition home or self-care (01) ==
LOC: ED 05:21
DX: G43.A0 Cyclical vomiting, in migraine, not intractable (principal); F12.10 Cannabis abuse, uncomplicated; F17.210 Nicotine dependence, cigarettes, uncomplicated; Z88.2 Allergy status to sulfonamides; Z88.0 Allergy status to penicillin; Z88.8 Allergy status to other drugs, medicaments and biological substances
CPT/HCPCS: 36415; 80053; 82150; 82550; 83605; 83690; 83735; 84443; 84702; 85025; 85610; 85730; 86140; 96372; 96374; 96375; 99282; J0780; J1200; J1885; J2270

== ENCOUNTER 2018-04-23 06:55 | Emergency (ER) | payer BC ==
[2018-04-23] MEDS ORDERED: diPHENhydraMINE IV* 50 MG/ML 1 ml VIAL (BENADRYL) IV ONE (07:27)
[2018-04-23] MEDS ORDERED: PROCHLORPERAZINE INJ 5 MG/ML 2 ML VIAL IV ONE ×2 (07:27→13:19)
--- NOTE | 2018-04-23 07:31 | ED ---
Nausea/Vomiting/Diarrhea HPI - HPI Summary HPI Summary: Patient is a 32-year-old female presenting to the ED with nausea vomiting and epigastric tenderness. She has a history of cyclic vomiting syndrome and states this feels the same. She was seen here yesterday for the same thing. She was given Benadryl, Compazine, Toradol and morphine with good relief. She was discharged home with Compazin suppositories however she has not been able to use these as she has been having diarrhea. She states the diarrhea is common for her during cyclic vomitin. She does admit to smoking marijuana more frequently and endorses that she improves when she does not smoke as much. Labs obtained yesterday and was all WNL. She arrives today with a request just for medications at this time. - History of Current Complaint Chief Complaint: EDAbdPain Stated Complaint: VOMITTING/GENERAL ILLNESS Time Seen by Provider: 04/23/18 07:00 Hx Obtained From: Patient Hx Last Menstrual Period: 03/01/17 ?: No Onset/Duration: Sudden Onset Timing: Constant Severity Initially: Moderate Severity Currently: Moderate Pain Intensity: 8 Pain Scale Used: 0-10 Numeric Location: Epigastric Character: Burning, Cramping Aggravating Factor(s): Food, Deep Breaths Alleviating Factor(s): Nothing Vomiting Frequency: Every 1-2 hours Nausea/Vomiting Duration: 0-12 hours Diarrhea Presence: No Diarrhea Frequency: Every 3-4 hours Diarrhea Duration: 0-12 hours - Risk Factors Influenza Risk Factors: Negative - Allergies/Home Medications Allergies/Adverse Reactions: Allergies Allergy/AdvReac Type Severity Reaction Status Date / Time nitrofurantoin AdvReac Vomiting Verified 04/22/18 07:59 [From Macrobid] Penicillins AdvReac Vomiting Verified 04/22/18 07:59 Sulfa (Sulfonamide AdvReac Rash And Verified 04/22/18 07:59 Antibiotics) Itching sulfamethoxazole AdvReac Nausea And Verified 04/22/18 07:59 [From Bactrim] Vomiting trimethoprim [From Bactrim] AdvReac Nausea And Verified 04/22/18 07:59 Vomiting PMH/Surg Hx/FS Hx/Imm Hx Previously Healthy: Yes Endocrine/Hematology History: Denies: Hx Anticoagulant Therapy, Hx Blood Disorders, Hx Diabetes, Hx Thyroid Disease Cardiovascular History: Denies: Hx Congestive Heart Failure, Hx Hypertension Respiratory History: Denies: Hx Asthma, Hx Chronic Obstructive Pulmonary Disease (COPD) GI History: Reports: Hx Ulcer - colagenous colitis, cyclic vomiting syndrome, Other GI Disorders - Collagenous colitis, cyclic vomiting syndrome History: Reports: Other Problems/Disorders - Frequent UTIs Denies: Hx Dialysis, Hx Renal Disease Sensory History: Reports: Hx Contacts or Glasses Denies: Hx Hearing Aid Opthamlomology History: Reports: Hx Contacts or Glasses Psychiatric History: Reports: Hx Anxiety, Hx Depression, Hx Substance Abuse - 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 - Surgical History Surgery Procedure, Year, and Place: 2014 ovarian cyst REMOVAL - Immunization History Date of Tetanus Vaccine: utd Date of Influenza Vaccine: utd Hx Pertussis Vaccination: No Immunizations Up to Date: Unable to Obtain/Confirm Infectious Disease History: No Infectious Disease History: Reports: Hx Clostridium Difficile, Hx Hepatitis - TESTS + FOR HEP C ANTIBODIES Denies: Hx Human Immunodeficiency Virus (HIV), Hx of Known/Suspected MRSA, Hx Shingles, Hx Tuberculosis, Hx Known/Suspected VRE, Hx Known/Suspected VRSA, History Other Infectious Disease, Traveled Outside the [place] in Last 30 Days - Family History Known Family History: Positive: None, Hypertension - mother Family History: pt denies FHx - Social History Occupation: Employed Part-time Lives: With Family Alcohol Use: Occasionally Alcohol Amount: 1/DAY Hx Substance Use: Yes Substance Use Type: Reports: Heroin - last used 2012 - currently takes norco PRN ab pain w/ cyclical vomiting syndrome, Marijuana - makes cyclical vomiting worse Substance Use Comment - Amount & Last Used: 04/21/18 unknown amount Hx Tobacco Use: Yes Smoking Status (MU): Current Every Day Smoker Type: Cigarettes Amount Used/How Often: 1 ppd Length of Time of Smoking/Using Tobacco: 8 years Have You Smoked in the Last Year: Yes Review of Systems Constitutional: Negative Negative: Fever, Chills, Fatigue, Skin Diaphoresis Negative: Palpitations, Chest Pain Negative: Shortness Of Breath, Cough Positive: Abdominal Pain - epigastric tenderness, Vomiting, Diarrhea, Nausea Genitourinary: Negative Positive: no symptoms reported, see HPI Skin: Negative Neurological: Negative All Other Systems Reviewed And Are Negative: Yes Physical Exam Triage Information Reviewed: Yes Vital Signs On Initial Exam: Initial Vitals Temp Pulse Resp BP Pulse Ox 96.8 F 98 18 152/80 97 04/23/18 06:58 04/23/18 06:58 04/23/18 06:58 04/23/18 06:58 04/23/18 06:58 Vital Signs Reviewed: Yes Appearance: Positive: Well-Appearing, Well-Nourished Skin: Positive: Warm, Skin Color Reflects Adequate Perfusion Head/Face: Positive: Normal Head/Face Inspection Neck: Positive: Supple, No Lymphadenopathy Respiratory/Lung Sounds: Positive: Clear to Auscultation, Breath Sounds Present Cardiovascular: Positive: RRR, Pulses are Symmetrical in both Upper and Lower Extremities Abdomen Description: Positive: Other: - tenderness to the epigastric region Musculoskeletal: Positive: Normal, Strength/ROM Intact Neurological: Positive: Speech Normal Psychiatric: Positive: Normal, Affect/Mood Appropriate AVPU Assessment: Alert Diagnostics - Vital Signs Vital Signs Temp Pulse Resp BP Pulse Ox 04/23/18 06:58 96.8 F 98 18 152/80 97 - Laboratory Lab Statement: Any lab studies that have been ordered have been reviewed, and results considered in the medical decision making process. Naus/Vom/Diarrhea Course/Dx - Course Course Of Treatment: During the course of treatment, the patient's evaluated for cyclic vomiting syndrome. She has epigastric tenderness on physical exam, she is pale, however not diaphoretic. She is &O 3. Lungs CTA. RRR. She is given IV Compazine, IV Toradol and IV Benadryl with good relief. However upon recheck 1 hour later she begins to feel nauseated again and given 1 mg IV Ativan at this time. Again she begins to improve and just prior to discharge she begins to feel nauseous again. She is then given Tigan and tramadol due to worsening pain to the epigastric region. She is also given sucralfate and famotidine IV. Continues to not find relief and has another episode of emesis. Discussed with the patient trying another medication vs. admission into the hospital. Patient states she would like to try another medication in attempts to be discharged home. She is given Toradol and Compazine again with good effect. She is requesting discharge at this time. I have given her a prescription for Ativan as she has Compazine at home. She will return for any worsening symptoms and understands her return precautions. She understands marijuana cessation. - Differential Dx/Diagnosis Provider Diagnoses: Cyclic vomiting syndrome Condition At Discharge: Stable Discharge - Sign-Out/Discharge Documenting (check all that apply): Patient Departure - Discharge Plan Condition: Stable Disposition: HOME Prescriptions: LORazepam TAB(*) [Ativan 1 MG TAB (*)] 1 mg PO Q8H PRN #10 tab MDD 3 PRN Reason: Nausea Forms: *Work Release Referrals: Noelle RODARTE,Minal Chavez [Primary Care Provider] - Additional Instructions: Try ativan or compazine if not having any nausea If you are having nausea, always start with zofran Drink gingerale do not smoke Return if needed - Billing Disposition and Condition Condition: STABLE Disposition: Home
[2018-04-23] MEDS ORDERED: Ketorolac INJ* 30 MG/ML 1 ML VIAL IV PUSH ONE ×2 (07:59→13:19)
[2018-04-23] MEDS ORDERED: Sucralfate SUSP 1 GM/10 ml 10 ML UDC PO ONE ×2 (08:42→13:20)
[2018-04-23] MEDS ORDERED: Famotidine IV* 10 MG/ML 2 ML (20 mg) IV SLOW PU ONE (08:43)
[2018-04-23] MEDS ORDERED: LORazepam INJ* 2 MG/ML 1 ML VIAL IV PUSH ONE (10:47)
[2018-04-23] MEDS ORDERED: Trimethobenzamide CAP* 300 MG PO ONE (11:41)
[2018-04-23] MEDS ORDERED: traMADol TAB* 50 MG PO ONE (11:42)
[2018-04-23 15:06] VITALS: BP 125/93
== END 2018-04-23 15:08 | disposition home or self-care (01) ==
LOC: ED 06:55
DX: K31.89 Other diseases of stomach and duodenum (principal); R11.2 Nausea with vomiting, unspecified; R10.816 Epigastric abdominal tenderness; Z87.440 Personal history of urinary (tract) infections; Z88.1 Allergy status to other antibiotic agents; Z88.0 Allergy status to penicillin; Z88.2 Allergy status to sulfonamides; Z82.49 Family history of ischemic heart disease and other diseases of the circulatory system; F17.210 Nicotine dependence, cigarettes, uncomplicated
CPT/HCPCS: 96374; 96375; 96376; 99284; A9270-GY; J0780; J1200; J1885; J2060

== ENCOUNTER 2018-04-24 16:57 | Emergency (ER) | payer BC ==
[2018-04-24] MEDS ORDERED: NS 0.9% 1000 ML* 1,000 ML IV ONE (18:24)
[2018-04-24] MEDS ORDERED: Metoclopramide IV* 5 MG/ML 2 ML VIAL IV ONE (18:25)
[2018-04-24] MEDS ORDERED: PROCHLORPERAZINE INJ 5 MG/ML 2 ML VIAL IV ONE (18:49)
[2018-04-24] MEDS ORDERED: Ketorolac INJ* 30 MG/ML 1 ML VIAL IV PUSH ONE (18:50)
[2018-04-24] MEDS ORDERED: LORazepam INJ* 2 MG/ML 1 ML VIAL IV ONE (18:51)
[2018-04-24 19:04] LABS: ABS Basophils 0 10^3/ul (0-0.2); ABS Eosinophils 0 10^3/ul (0-0.6); ABS Lymphocytes 1.5 10^3/ul (1.0-4.8); ABS Monocytes 0.7 10^3/ul (0-0.8); ABS Neutrophils 8.6 10^3/ul (1.5-7.7); ABS Nucleated RBC 0 10^3/ul; Eosinophil % 0.2 % (0-6); Hematocrit 43 % (35-47); Hemoglobin 14.5 g/dl (12.0-16.0); Lymphocyte % 13.5 % (25-47); Mean Corpuscular HGB Conc 34 g/dl (31-36); Mean Corpuscular Hemoglobin 32 pg (27-31); Mean Corpuscular Volume 94 fL (80-97); Mean Platelet Volume 8.4 um3 (7.4-10.4); Nucleated Red Blood Cells % 0; Platelet Count 278 10^3/ul (150-450); Red Blood Count 4.55 10^6/ul (4.00-5.40); Red Cell Distribution Width 14 % (10.5-15); White Blood Count 10.9 10^3/ul (3.5-10.8)
[2018-04-24 19:20] LABS: EGFR Non-African American 64.7 (>60)
[2018-04-24] MEDS ORDERED: KCL 10 MEQ/50 ML IVPREMIX* 10 MEQ/50 ML BAG IV ONE (20:47)
--- NOTE | 2018-04-24 22:04 | ED ---
Nausea/Vomiting/Diarrhea HPI - HPI Summary HPI Summary: Patient complains of persistent N/V, intermittent bilateral lower abdominal cramping 1 week. History of multiple evaluations for same at this ED. Has been seen here twice already for same on 04/22, 04/23. Patient states Rx for Zofran not working. States Compazine's suppositories not working because she has diarrhea. States Rx for Ativan not working. Denies fever, cough, sore throat, CP, SOB, change in urine, vaginal symptoms. Medical history is cyclical nausea and vomiting. - History of Current Complaint Chief Complaint: EDNauseaVomitDiarrh Stated Complaint: VOMITING/ABD PAIN Time Seen by Provider: 04/24/18 18:15 Hx Obtained From: Patient Hx Last Menstrual Period: 03/01/17 Onset/Duration: Gradual Onset Severity Initially: Moderate Severity Currently: Moderate Pain Intensity: 5 Pain Scale Used: 0-10 Numeric Location: Diffuse Character: Cramping Aggravating Factor(s): Nothing Alleviating Factor(s): Nothing Vomiting Characteristics: Nonbilious - Allergies/Home Medications Allergies/Adverse Reactions: Allergies Allergy/AdvReac Type Severity Reaction Status Date / Time nitrofurantoin AdvReac Vomiting Verified 04/24/18 19:00 [From Macrobid] Penicillins AdvReac Vomiting Verified 04/24/18 19:00 Sulfa (Sulfonamide AdvReac Rash And Verified 04/24/18 19:00 Antibiotics) Itching sulfamethoxazole AdvReac Nausea And Verified 04/24/18 19:00 [From Bactrim] Vomiting trimethoprim [From Bactrim] AdvReac Nausea And Verified 04/24/18 19:00 Vomiting PMH/Surg Hx/FS Hx/Imm Hx Endocrine/Hematology History: Denies: Hx Anticoagulant Therapy, Hx Blood Disorders, Hx Diabetes, Hx Thyroid Disease Cardiovascular History: Denies: Hx Congestive Heart Failure, Hx Hypertension Respiratory History: Denies: Hx Asthma, Hx Chronic Obstructive Pulmonary Disease (COPD) GI History: Reports: Hx Ulcer - colagenous colitis, cyclic vomiting syndrome, Other GI Disorders - Collagenous colitis, cyclic vomiting syndrome History: Reports: Other Problems/Disorders - Frequent UTIs Denies: Hx Dialysis, Hx Renal Disease Sensory History: Reports: Hx Contacts or Glasses Denies: Hx Hearing Aid Opthamlomology History: Reports: Hx Contacts or Glasses Psychiatric History: Reports: Hx Anxiety, Hx Depression, Hx Substance Abuse - 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 - Surgical History Surgery Procedure, Year, and Place: 2014 ovarian cyst REMOVAL - Immunization History Date of Tetanus Vaccine: utd Date of Influenza Vaccine: utd Infectious Disease History: No Infectious Disease History: Reports: Hx Clostridium Difficile, Hx Hepatitis - TESTS + FOR HEP C ANTIBODIES Denies: Hx Human Immunodeficiency Virus (HIV), Hx of Known/Suspected MRSA, Hx Shingles, Hx Tuberculosis, Hx Known/Suspected VRE, Hx Known/Suspected VRSA, History Other Infectious Disease, Traveled Outside the [place] in Last 30 Days - Family History Known Family History: Positive: None, Hypertension - mother Family History: pt denies FHx - Social History Alcohol Use: Occasionally Alcohol Amount: 1/DAY Hx Substance Use: Yes Substance Use Type: Reports: Marijuana Substance Use Comment - Amount & Last Used: 04/21/18 unknown amount Hx Tobacco Use: Yes Smoking Status (MU): Heavy Every Day Tobacco Smoker Type: Cigarettes Amount Used/How Often: 1 ppd Length of Time of Smoking/Using Tobacco: 8 years Have You Smoked in the Last Year: Yes Review of Systems Constitutional: Negative Eyes: Negative ENT: Negative Cardiovascular: Negative Respiratory: Negative Positive: Abdominal Pain, Vomiting, Nausea Genitourinary: Negative Musculoskeletal: Negative Skin: Negative Neurological: Negative Psychological: Normal All Other Systems Reviewed And Are Negative: Yes Physical Exam - Summary Physical Exam Summary: Abdomen mildly tender diffusely Triage Information Reviewed: Yes Vital Signs On Initial Exam: Initial Vitals Temp Pulse Resp BP Pulse Ox 98.9 F 95 16 137/100 99 04/24/18 17:04 04/24/18 17:04 04/24/18 17:04 04/24/18 17:04 04/24/18 17:04 Vital Signs Reviewed: Yes Appearance: Positive: Well-Appearing Skin: Positive: Warm Head/Face: Positive: Normal Head/Face Inspection Eyes: Positive: Normal Neck: Positive: Supple Respiratory/Lung Sounds: Positive: Clear to Auscultation Cardiovascular: Positive: Normal Abdomen Description: Positive: Other: Musculoskeletal: Positive: Normal Neurological: Positive: Normal Psychiatric: Positive: Normal AVPU Assessment: Alert - Maximiliano Coma Scale Best Eye Response: 4 - Spontaneous Best Motor Response: 6 - Obeys Commands Best Verbal Response: 5 - Oriented Coma Scale Total: 15 Diagnostics - Vital Signs Vital Signs Temp Pulse Resp BP Pulse Ox 07/21/18 19:34 121/96 04/24/18 19:31 20 04/24/18 19:00 100 95 04/24/18 18:14 100 129/97 97 04/24/18 17:04 98.9 F 95 16 137/100 99 - Laboratory Lab Results: Lab Results 04/24/18 04/24/18 Range/Units 18:42 18:42 WBC 10.9 H (3.5-10.8) 10^3/ul RBC 4.55 (4.00-5.40) 10^6/ul Hgb 14.5 (12.0-16.0) g/dl Hct 43 (35-47) % MCV 94 (80-97) fL MCH 32 H (27-31) pg MCHC 34 (31-36) g/dl RDW 14 (10.5-15) % Plt Count 278 (150-450) 10^3/ul MPV 8.4 (7.4-10.4) um3 Neut % (Auto) 79.2 (38-83) % Lymph % (Auto) 13.5 L (25-47) % [place] % (Auto) 6.7 (0-7) % Eos % (Auto) 0.2 (0-6) % Baso % (Auto) 0.4 (0-2) % Absolute Neuts (auto) 8.6 H (1.5-7.7) 10^3/ul Absolute Lymphs (auto) 1.5 (1.0-4.8) 10^3/ul Absolute Monos (auto) 0.7 (0-0.8) 10^3/ul Absolute Eos (auto) 0 (0-0.6) 10^3/ul Absolute Basos (auto) 0 (0-0.2) 10^3/ul Absolute Nucleated RBC 0 10^3/ul Nucleated RBC % 0 Sodium 140 (135-145) mmol/L Potassium 3.1 L (3.5-5.0) mmol/L Chloride 106 (101-111) mmol/L Carbon Dioxide 21 L (22-32) mmol/L Anion Gap 13 H (2-11) mmol/L BUN 11 (6-24) mg/dL Creatinine 1.00 H (0.51-0.95) mg/dL Est GFR ( Amer) 78.2 (>60) Est GFR (Non-Af Amer) 64.7 (>60) BUN/Creatinine Ratio 11.0 (8-20) Glucose 107 H (70-100) mg/dL Calcium 9.6 (8.6-10.3) mg/dL Total Bilirubin 0.50 (0.2-1.0) mg/dL AST 16 (13-39) U/L ALT 18 (7-52) U/L Alkaline Phosphatase 79 (34-104) U/L C-Reactive Protein 11.64 H (<8.01) mg/L Total Protein 7.3 (6.4-8.9) g/dL Albumin 4.4 (3.2-5.2) g/dL Globulin 2.9 (2-4) g/dL Albumin/Globulin Ratio 1.5 (1-3) Lipase 23 (11.0-82.0) U/L Beta HCG, Quant < 0.60 mIU/mL Result Diagrams: 04/24/18 18:42 04/24/18 18:42 Lab Statement: Any lab studies that have been ordered have been reviewed, and results considered in the medical decision making process. Naus/Vom/Diarrhea Course/Dx - Course Course Of Treatment: Patient complains of persistent N/V, intermittent bilateral lower abdominal cramping 1 week. History of multiple evaluations for same at this ED. Has been seen here twice already for same on 04/22, 04/23. Patient states Rx for Zofran not working. States Compazine's suppositories not working because she has diarrhea. States Rx for Ativan not working. Denies fever, cough, sore throat, CP, SOB, change in urine, vaginal symptoms. Medical history is cyclical nausea and vomiting.History of recurrent cyclical nausea and vomiting. Abdomen mildly tender diffusely. Potassium 3.1. Patient refused potassium supplementation here in ED. N/V 1 early during stay in exam room.. Triage states patient was in waiting room for 1 hour without any observed N/V. Vital signs within normal limits and stable. N/V appears controlled with Ativan, Compazine. Discussed patient with Dr. Lopez hospitalist who recommended by mouth challenge 4 ounces of water. If patient could keep water down for an hour she could be safely discharged home. Patient has not vomited since by mouth challenge 1 hour ago. Rx for Compazine. Follow- up with primary care. Patient understands and approves plan. - Differential Dx/Diagnosis Provider Diagnoses: Nausea vomiting Condition At Discharge: Stable Discharge - Sign-Out/Discharge Documenting (check all that apply): Patient Departure - Discharge Plan Condition: Stable Disposition: HOME Prescriptions: Prochlorperazine TAB* [Compazine Tab*] 10 mg PO Q8H PRN #20 tab PRN Reason: Nausea Patient Education Materials: Acute Nausea and Vomiting (ED), Medicinal Use of Cannabis (ED) Referrals: Minal Lafleur [Primary Care Provider] - Additional Instructions: Follow-up with primary care. Return to the ED for any new or worsening symptoms - Billing Disposition and Condition Condition: STABLE Disposition: Home
[2018-04-24 22:28] VITALS: BP 142/82
== END 2018-04-24 22:30 | disposition home or self-care (01) ==
LOC: ED 16:57
DX: R11.2 Nausea with vomiting, unspecified (principal); R10.30 Lower abdominal pain, unspecified; Z88.1 Allergy status to other antibiotic agents; Z88.0 Allergy status to penicillin; Z88.2 Allergy status to sulfonamides; F17.210 Nicotine dependence, cigarettes, uncomplicated
CPT/HCPCS: 36415; 80053; 83690; 84702; 85025; 86140; 96374; 96375; 99283; J0780; J1885; J2060

== ENCOUNTER 2018-04-25 09:54 | Observation (INO) | payer BC ==
[2018-04-25] MEDS ORDERED: Ketorolac INJ* 30 MG/ML 1 ML VIAL IV ONE (10:46)
[2018-04-25] MEDS ORDERED: diPHENhydraMINE IV* 50 MG/ML 1 ml VIAL (BENADRYL) IV ONE (10:47)
[2018-04-25] MEDS ORDERED: Pantoprazole IV* 40 MG IV ONE (10:48)
[2018-04-25 11:05] LABS: ABS Basophils 0.1 10^3/ul (0-0.2); ABS Eosinophils 0 10^3/ul (0-0.6); ABS Lymphocytes 1.9 10^3/ul (1.0-4.8); ABS Monocytes 0.6 10^3/ul (0-0.8); ABS Neutrophils 6.6 10^3/ul (1.5-7.7); ABS Nucleated RBC 0 10^3/ul; Eosinophil % 0.4 % (0-6); Hematocrit 41 % (35-47); Hemoglobin 14.2 g/dl (12.0-16.0); Lymphocyte % 20.6 % (25-47); Mean Corpuscular HGB Conc 35 g/dl (31-36); Mean Corpuscular Hemoglobin 32 pg (27-31); Mean Corpuscular Volume 93 fL (80-97); Mean Platelet Volume 8.5 um3 (7.4-10.4); Nucleated Red Blood Cells % 0; Platelet Count 266 10^3/ul (150-450); Red Blood Count 4.44 10^6/ul (4.00-5.40); Red Cell Distribution Width 14 % (10.5-15); White Blood Count 9.1 10^3/ul (3.5-10.8)
[2018-04-25] MEDS: NS 0.9% 1000 ML* 2,000 ML IV ONE (11:12)
[2018-04-25 11:22] LABS: EGFR Non-African American 64.7 (>60)
[2018-04-25] MEDS ORDERED: Potassium Chlor TAB* 20 MEQ TAB.ER PO ONE ×3 (11:28→18:00)
[2018-04-25] MEDS: PROCHLORPERAZINE INJ 5 MG/ML 2 ML VIAL IV PRN (11:38)
--- NOTE | 2018-04-25 11:51 | ED ---
Complex/Multi-Sys Presentation - HPI Summary HPI Summary: Pt is a 32 y/o F who presents to ED c/o cyclic vomiting. 5 days ago she woke up with abdominal pain and had to immediately go to bathroom and vomit. Has felt this nausea on/off since then. In the last 8 hours she has vomited at least 10 times. Rates her pain as an 8/10 in severity. Notes diarrhea and chills. Denies fever, constipation, and chest pain. Has been seen by doctors multiple times this week for same problem. Visited a GI doctor who put her on medication for heart burn. Smokes marijuana and is in the process of cutting back. - History Of Current Complaint Chief Complaint: EDNauseaVomitDiarrh Time Seen by Provider: 04/25/18 10:44 Hx Obtained From: Patient Onset/Duration: Lasting Days, Still Present Timing: Intermittent, Lasting: Severity Currently: Severe - 8/10 Associated Signs And Symptoms: Positive: Nausea, Vomiting, Diarrhea, Abdominal Pain - Allergies/Home Medications Allergies/Adverse Reactions: Allergies Allergy/AdvReac Type Severity Reaction Status Date / Time nitrofurantoin AdvReac Vomiting Verified 04/24/18 19:00 [From Macrobid] Penicillins AdvReac Vomiting Verified 04/24/18 19:00 Sulfa (Sulfonamide AdvReac Rash And Verified 04/24/18 19:00 Antibiotics) Itching sulfamethoxazole AdvReac Nausea And Verified 04/24/18 19:00 [From Bactrim] Vomiting trimethoprim [From Bactrim] AdvReac Nausea And Verified 04/24/18 19:00 Vomiting PMH/Surg Hx/FS Hx/Imm Hx Endocrine/Hematology History: Denies: Hx Anticoagulant Therapy, Hx Blood Disorders, Hx Diabetes, Hx Thyroid Disease Cardiovascular History: Denies: Hx Congestive Heart Failure, Hx Hypertension Respiratory History: Denies: Hx Asthma, Hx Chronic Obstructive Pulmonary Disease (COPD) GI History: Reports: Hx Ulcer - colagenous colitis, cyclic vomiting syndrome, Other GI Disorders - Collagenous colitis, cyclic vomiting syndrome History: Reports: Other Problems/Disorders - Frequent UTIs Denies: Hx Dialysis, Hx Renal Disease Sensory History: Reports: Hx Contacts or Glasses Denies: Hx Hearing Aid Opthamlomology History: Reports: Hx Contacts or Glasses Psychiatric History: Reports: Hx Anxiety, Hx Depression, Hx Substance Abuse - 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 - Surgical History Surgery Procedure, Year, and Place: 2014 ovarian cyst REMOVAL - Immunization History Date of Tetanus Vaccine: utd Date of Influenza Vaccine: utd Infectious Disease History: No Infectious Disease History: Reports: Hx Clostridium Difficile, Hx Hepatitis - TESTS + FOR HEP C ANTIBODIES Denies: Hx Human Immunodeficiency Virus (HIV), Hx of Known/Suspected MRSA, Hx Shingles, Hx Tuberculosis, Hx Known/Suspected VRE, Hx Known/Suspected VRSA, History Other Infectious Disease, Traveled Outside the [place] in Last 30 Days - Family History Known Family History: Positive: None, Hypertension - mother Family History: pt denies FHx - Social History Alcohol Use: Occasionally Alcohol Amount: 1/DAY Hx Substance Use: Yes Substance Use Type: Reports: Marijuana Substance Use Comment - Amount & Last Used: 04/21/18 unknown amount Hx Tobacco Use: Yes Smoking Status (MU): Heavy Every Day Tobacco Smoker Type: Cigarettes Amount Used/How Often: 1 ppd Length of Time of Smoking/Using Tobacco: 8 years Have You Smoked in the Last Year: Yes Review of Systems Positive: Chills. Negative: Fever Negative: Chest Pain Positive: Abdominal Pain, Vomiting, Diarrhea, Nausea, Other - DENIES: constipation All Other Systems Reviewed And Are Negative: Yes Physical Exam - Summary Physical Exam Summary: VITAL SIGNS: Reviewed. GENERAL: Patient is a well-developed and nourished female who is lying comfortable in the stretcher. Patient is not in any acute respiratory distress. HEAD AND FACE: Normocephalic and atraumatic. EYES: PERRLA, EOMI x 2, No injected conjunctiva. EARS: Hearing grossly intact. Ear canals and tympanic membranes are WNL. MOUTH: Oropharynx within normal limits. NECK: Supple, trachea is midline, no adenopathy, no JVD. CHEST: Symmetric, no tenderness at palpation LUNGS: Clear to auscultation bilaterally. No wheezing or crackles. CVS: RRR, S1 and S2 present, no murmurs or gallops appreciated. ABDOMEN: Soft, epigastric tenderness. No signs of distention. Positive bowel sounds. No rebound no guarding, and no masses palpated. No abdominal bruit or pulsations. EXTREMITIES: FROM in all major joints, no edema, no cyanosis or clubbing. NEURO: Alert and oriented x 3. No acute neurological deficits. Speech is normal. SKIN: Dry and warm Triage Information Reviewed: Yes Vital Signs On Initial Exam: Initial Vitals Temp Pulse Resp BP Pulse Ox 98.1 F 103 18 154/85 100 04/25/18 10:14 04/25/18 10:14 04/25/18 10:14 04/25/18 10:14 04/25/18 10:14 Vital Signs Reviewed: Yes Diagnostics - Vital Signs Vital Signs Temp Pulse Resp BP Pulse Ox 04/25/18 11:01 94 98 04/25/18 10:34 102 98 04/25/18 10:33 98 146/100 97 04/25/18 10:14 98.1 F 103 18 154/85 100 - Laboratory Lab Results: Lab Results 04/25/18 04/25/18 Range/Units 10:59 10:59 WBC 9.1 (3.5-10.8) 10^3/ul RBC 4.44 (4.00-5.40) 10^6/ul Hgb 14.2 (12.0-16.0) g/dl Hct 41 (35-47) % MCV 93 (80-97) fL MCH 32 H (27-31) pg MCHC 35 (31-36) g/dl RDW 14 (10.5-15) % Plt Count 266 (150-450) 10^3/ul MPV 8.5 (7.4-10.4) um3 Neut % (Auto) 72.0 (38-83) % Lymph % (Auto) 20.6 L (25-47) % Mcdonough % (Auto) 6.2 (0-7) % Eos % (Auto) 0.4 (0-6) % Baso % (Auto) 0.8 (0-2) % Absolute Neuts (auto) 6.6 (1.5-7.7) 10^3/ul Absolute Lymphs (auto) 1.9 (1.0-4.8) 10^3/ul Absolute Monos (auto) 0.6 (0-0.8) 10^3/ul Absolute Eos (auto) 0 (0-0.6) 10^3/ul Absolute Basos (auto) 0.1 (0-0.2) 10^3/ul Absolute Nucleated RBC 0 10^3/ul Nucleated RBC % 0 Sodium 141 (135-145) mmol/L Potassium 3.2 L (3.5-5.0) mmol/L Chloride 107 (101-111) mmol/L Carbon Dioxide 24 (22-32) mmol/L Anion Gap 10 (2-11) mmol/L BUN 13 (6-24) mg/dL Creatinine 1.00 H (0.51-0.95) mg/dL Est GFR ( Amer) 78.2 (>60) Est GFR (Non-Af Amer) 64.7 (>60) BUN/Creatinine Ratio 13.0 (8-20) Glucose 102 H (70-100) mg/dL Calcium 9.2 (8.6-10.3) mg/dL Magnesium 2.0 (1.9-2.7) mg/dL Total Bilirubin 0.50 (0.2-1.0) mg/dL AST 20 (13-39) U/L ALT 21 (7-52) U/L Alkaline Phosphatase 90 (34-104) U/L C-Reactive Protein 11.99 H (<8.01) mg/L Total Protein 7.2 (6.4-8.9) g/dL Albumin 4.3 (3.2-5.2) g/dL Globulin 2.9 (2-4) g/dL Albumin/Globulin Ratio 1.5 (1-3) Lipase 20 (11.0-82.0) U/L Result Diagrams: 04/25/18 10:59 04/25/18 10:59 Lab Statement: Any lab studies that have been ordered have been reviewed, and results considered in the medical decision making process. Re-Evaluation - Re-Evaluation First Eval Re-Evaluation Time: 12:22 Change: Worse - Pt was vomiting and doesn't feel good Complex Multi-Symp Course/Dx Assessment/Plan: This patient is a 32-year-old female who presents to the emergency department with a chief complaint of having epigastric pain, nausea and vomiting similar to her cyclic vomiting syndrome. She has been present in the last 5 days with same symptoms she was given multiple medications, she was offered to be admitted however the patient declined sheet want to get some medications to go home. Today she continues to have more pain with nausea vomiting and she reports that she has vomited for a times in the last 8 hours. She reports the pain is similar as her cyclic vomiting syndrome. She denies any chest pain or shortness of breath. And physical exam she has mild epigastric pain but no rebound or guarding. The rest of the physical exam is normal. In the ED course the patient was given IV fluids for rehydration, she was given Benadryl, Compazine, Toradol for the pain and Protonix. The patient continues to have nausea and vomiting therefore she was given Ativan, IV fluids for hydration, and Zofran for the nausea and vomiting. This is half forfeited presented to the emergency department for the same symptoms therefore at this point I discussed the findings and test results with Dr. Hawk from the hospitalist services was accepted the patient for admission. The patient is hemodynamically stable alert and oriented 3. - Diagnoses Provider Diagnoses: Intractable vomiting, Cyclic vomiting syndrome - Physician Notifications Discussed Care Of Patient With: Miguel Hawk Time Discussed With Above Provider: 12:30 Instructed by Provider To: Admit As Inpatient Discharge - Sign-Out/Discharge Documenting (check all that apply): Patient Departure - Admit - Discharge Plan Condition: Fair Disposition: ADMITTED TO [facility] - Billing Disposition and Condition Condition: FAIR Disposition: Admitted to [facility]
[2018-04-25] MEDS ORDERED: Ondansetron INJ* 2 MG/ML VIAL IV ONE (12:25)
[2018-04-25] MEDS ORDERED: LORazepam INJ* 2 MG/ML 1 ML VIAL IV PUSH ONE (12:25)
[2018-04-25] MEDS ORDERED: NS 0.9% 1000 ML* 1,000 ML IV ONE (12:25)
[2018-04-25] MEDS ORDERED: Albuterol 2.5 MG/3 ML NEB.SOL* (0.083%) INH PRN (13:00)
[2018-04-25] MEDS ORDERED: oxyCODONE/Acetamin 5/325 MG* TAB PO PRN (13:00)
[2018-04-25] MEDS ORDERED: Acetaminophen TAB* 325 MG PO PRN (13:00)
[2018-04-25] MEDS ORDERED: Al Hydrox/Mg Hydrox/Simet LIQ* 30 ML UDC PO PRN (13:00)
[2018-04-25] MEDS ORDERED: Albuterol HFA INHALER* 8 gm MDI INH PRN (13:04)
[2018-04-25] MEDS ORDERED: Prochlorperazine SUPP* 25 MG SUPP PR PRN (13:04)
[2018-04-25] MEDS ORDERED: LORazepam TAB(*) 1 MG PO PRN (13:04)
[2018-04-25] MEDS ORDERED: traMADol TAB* 50 MG PO PRN (13:07)
[2018-04-25] MEDS ORDERED: Metoclopramide IV* 5 MG/ML 2 ML VIAL IV PRN ×2 (13:07→15:26)
[2018-04-25] MEDS ORDERED: Mouth Piece, Nicotine* 1 EACH CARTRIDGE INH PRN (13:08)
[2018-04-25] MEDS: NS 0.9% 1000 ML* 1,000 ML IV SCH ×2 (14:59→22:01)
[2018-04-25] MEDS: Morphine VIAL* 10 MG/ML 1 ML VIAL IV PRN ×2 (14:59→20:00)
[2018-04-25] MEDS: Ondansetron INJ* 2 MG/ML VIAL IV PRN ×2 (14:59→20:00)
[2018-04-25] MEDS: Nicotine Inhaler* 10 MG AMP INH PRN (15:14)
--- NOTE | 2018-04-25 17:20 | HP ---
CC: Dr. Duncan; Dr. Coffey; AMBER Wu * ADMISSION HISTORY AND PHYSICAL: DATE OF ADMISSION: 04/25/18 PATIENT OF: Miguel Hawk MD as attending hospitalist. PRIMARY CARE PHYSICIAN: AMBER Wu DELTA SYSTEM FREIGHT CAR CLEANER: Jason Duncan MD SKIDDER: Dr. Coffey in [place]. ATTENDING HOSPITALIST WHILE THE PATIENT IS IN THE HOSPITAL: Miguel Hawk MD * ( DICTATED BY AMBER GARCIA) CHIEF COMPLAINT: Nausea and vomiting. HISTORY OF PRESENT ILLNESS: Mrs. Miranda is a 32-year-old female with a known history of cyclic vomiting syndrome who presented to the emergency room for the fourth time today over the past four days with complaints of intractable nausea and vomiting. The patient has been seen by Dr. Duncan, but notes that she has not seen him in quite a while. She has been using medicinal marijuana to decrease her chronic pain syndrome and she thinks that may have aggravated her cyclic vomiting syndrome as well. She presented to the emergency room for the past three days with similar symptoms; however, used to be managed with taking Zofran or Compazine and tolerated p.o. challenge and was discharged home on every single occasion. The patient reports going home every time and trying to eat and drink and was unable to keep any p.o. intake down for which she returned to the ED today for further evaluation. She denies any associated fever or chills, but notes worsening epigastric pain on occasion, especially when she vomits. She does have chronic pain syndrome for which she sees Dr. Coffey in the pain clinic for management of the issue. Her last EGD was over a year ago and she denies any history of PUD or GI bleed. She also had a colonoscopy about two years ago due to her history of colitis as well. Given her ongoing symptoms for the past few days and decreased her p.o. intake and concern for dehydration, the ED provider asked the hospitalists services to evaluate the patient for possible admission. PAST MEDICAL HISTORY: Significant for: 1. Chronic pain syndrome. 2. Anxiety and depression. 3. Cyclic vomiting syndrome. 4. History of pancreatitis. 5. History of collagenous colitis. 6. Sleep disorder. PAST SURGICAL HISTORY: Significant for laparoscopic ovarian cystectomy in 2015. HOME MEDICATIONS: Her home medications at this time include: 1. Albuterol 1 puff inhaled I q.4 hours needed for shortness of breath. 2. Abilify 5 mg p.o. daily. 3. Bupropion XL 300 mg p.o. daily. 4. control pills 1 tablet p.o. daily. 5. Omeprazole 40 mg p.o. b.i.d. 6. Ativan 1 mg p.o. q.8 hours as needed for an anxiety. 7. Zofran 4 mg p.o. q.6 hours as needed for nausea. 8. Compazine 25 mg suppositories every 12 hours as needed for nausea as well as 10 mg p.o. q.8 hours as needed for nausea. ALLERGIES: Multiple include NITROFURANTOIN, PENICILLIN, SULFA ANTIBIOTICS. SOCIAL HISTORY: The patient lives with a boyfriend. She does not have any kids. She is a smoker of half a pack to 1 pack of cigarettes a day. She Smokes marijuana occasionally for her chronic pain syndrome. She denies alcohol use and her mother, Sada, is the healthcare proxy carrier. FAMILY HISTORY: Reviewed and noncontributory. REVIEW OF SYSTEMS: See HPI, otherwise 14 points of review of systems were examined and were essentially negative. PHYSICAL EXAMINATION GENERAL: She is a young, healthy-appearing female, obese, appears at a little anxious, but in no acute distress or discomfort at the time of admission. VITAL SIGNS: Most recent set of vitals, temperature of 98.1, pulse of 98, blood pressure of 146/100, respirations of 18 with O2 sat of 98% on room air. HEENT: Head is normocephalic, atraumatic. Sclerae are anicteric. PERRLA. EOMs intact. Oropharynx is dry. NECK: Supple. Trachea midline. No cervical adenopathy or thyromegaly. LUNGS: Clear to auscultation bilaterally. HEART: Regular rate and rhythm. Normal S1 and S2 without rubs, murmurs, or gallops. BACK: With normal curvature. No CVA tenderness. BREASTS: Exam deferred at this time. ABDOMEN: Soft and nondistended. There are moderate epigastric tenderness noted on deep palpation. There is no guarding, rigidity, or rebound tenderness. No hernias, masses, or hepatosplenomegaly. RECTAL: Exam deferred at this time. EXTREMITIES: Without cyanosis, clubbing or edema. NEUROLOGIC: She is awake, alert, and oriented. Sensory and motor exam grossly normal. LABORATORY WORKUP: Multiple blood draws were done over the past four days. CBC today showed white count of 9000, hemoglobin 14.2, hematocrit 41, and platelets of 266. Her chemistry panel with sodium of 141, potassium is low at 3.2, chloride 107, CO2 of 24, BUN of 13, and creatinine of 1. Her glucose 102. LFTs and lipase within normal limits. C-reactive protein slightly elevated at 11.9. ACCESSORY DIAGNOSTIC DATA: None taken today; however, CT scan has been done in the prior week and showed no acute disease process. IMPRESSION: A 32-year-old female with known history of cyclic vomiting syndrome in addition to chronic pain syndrome and morbid obesity who presented to the emergency room multiple times in the past week with complaints of recurrent nausea and vomiting, intractable at times with inability to keep any p.o. intake. ASSESSMENT AND PLAN: 1. Cyclic vomiting syndrome flare-ups. The patient reports that she has been trying to cut down on smoking marijuana, which she thinks has been aggravating her flare-ups. She has failed conservative management as an outpatient and will be admitted for IV hydration and symptomatic management of her nausea and vomiting as well. We will provide Zofran, Ativan, and Reglan as needed for control of her nausea. I will keep her clear liquid diet for the time being and if she tolerated, I will advance this slowly as tolerated. She does not have any suggestion of acute abdomen for repeat any diagnostic imaging. I will contact Dr. Duncan tomorrow to see if he needs to follow up with her or he would like to see her as an outpatient instead. 2. Chronic pain syndrome. We will continue her Percocet and morphine as needed and I will add to it Ultram due to less risk for tolerance. 3. Depression and anxiety. We will continue her Wellbutrin and Seroquel as well as Abilify. 4. DVT prophylaxis. The patient is low risk and we will encourage early ambulation. 5. Code status. She is a full code. 6. Disposition. Admit to medical floor for IV fluid hydration and symptomatic management of cyclic vomiting syndrome. TIME SPENT: Approximately 60 minutes were spent admitting this patient, with greater than 50% in taking history and performing physical exam. I have discussed the plan of care with my attending, Dr. Hawk, who agreed and will follow up accordingly. AMBER GARCIA [id number]/[facility] #: [id number] DIDI
[2018-04-25] MEDS: ARIPiprazole TAB* 5 MG PO SCH (17:31)
[2018-04-25] MEDS: BuPROPion XL* 300 MG TAB.XL PO SCH (17:31)
[2018-04-25 20:09] LABS: Urine Appearance Clear; Urine Blood Negative (Negative); Urine Color Straw; Urine Ketones Negative (Negative); Urine Protein Negative (Negative); Urine Specific Gravity 1.008 (1.010-1.030); Urine Urobilinogen Negative (Negative)
[2018-04-25] MEDS: Omeprazole CAP* 20 MG PO SCH (21:23)
[2018-04-26] MEDS: Nicotine Inhaler* 10 MG AMP INH PRN (02:12)
[2018-04-26] MEDS: Morphine VIAL* 10 MG/ML 1 ML VIAL IV PRN ×2 (02:36→06:37)
[2018-04-26] MEDS: Ondansetron INJ* 2 MG/ML VIAL IV PRN ×2 (02:36→06:37)
[2018-04-26] MEDS: NS 0.9% 1000 ML* 1,000 ML IV SCH (05:01)
[2018-04-26] MEDS: PROCHLORPERAZINE INJ 5 MG/ML 2 ML VIAL IV PRN (05:13)
[2018-04-26] MEDS ORDERED: Nicotine PATCH 21 MG/24 HR* PATCH TRANSDERM SCH (08:00)
[2018-04-26 08:29] LABS: ABS Basophils 0 10^3/ul (0-0.2); ABS Eosinophils 0.1 10^3/ul (0-0.6); ABS Lymphocytes 1.5 10^3/ul (1.0-4.8); ABS Monocytes 0.5 10^3/ul (0-0.8); ABS Neutrophils 5.8 10^3/ul (1.5-7.7); ABS Nucleated RBC 0 10^3/ul; Eosinophil % 0.8 % (0-6); Hematocrit 40 % (35-47); Lymphocyte % 18.7 % (25-47); Mean Corpuscular HGB Conc 35 g/dl (31-36); Mean Corpuscular Hemoglobin 32 pg (27-31); Mean Corpuscular Volume 93 fL (80-97); Mean Platelet Volume 8.9 um3 (7.4-10.4); Nucleated Red Blood Cells % 0.1; Platelet Count 252 10^3/ul (150-450); Red Blood Count 4.34 10^6/ul (4.00-5.40); Red Cell Distribution Width 13 % (10.5-15); White Blood Count 7.8 10^3/ul (3.5-10.8)
[2018-04-26 08:39] LABS: EGFR Non-African American 99.2 (>60)
[2018-04-26] MEDS: BuPROPion XL* 300 MG TAB.XL PO SCH (08:45)
[2018-04-26] MEDS: Omeprazole CAP* 20 MG PO SCH (08:45)
[2018-04-26] MEDS: ARIPiprazole TAB* 5 MG PO SCH (08:45)
[2018-04-26 11:44] VITALS: BP 124/79
--- NOTE | 2018-04-26 15:22 | DS ---
AMENDED REPORT NOW INCLUDES COSIGNER DESIGNATION - ESIGNED BEFORE ADJUSTMENT CC: AMBER Wu; Dr. Isra Coffey from Pain Management * DISCHARGE SUMMARY: DATE OF ADMISSION: 04/25/18 DATE OF DISCHARGE: 04/26/18 ATTENDING FOR THIS ADMISSION: Dr. Miguel Hawk. MY ATTENDING FOR TODAY: Dr. Mayur Cabrera.* (DICTATED BY OCTAVIANO LOTT, BEULAH) PRIMARY CARE PHYSICIAN: AMBER Wu. HOSPITAL COURSE: The patient is a pleasant 32-year-old female patient who has had longstanding history of cyclic vomiting syndrome, who presented to emergency department 4 days in a row and had been discharged each day with intractable nausea and vomiting. Her medications that she normally takes at home that she was prescribed for by Dr. Duncan from GI was not working. She had been using some marijuana to decrease her chronic pain that she has; however , it is increased to cyclic vomiting and she was just stuck in the cycle of not being able to tolerate anything p.o. She was not able to hold down water or have anything to eat for almost 4 days. The patient returned to the emergency department for further evaluation, had IV fluids and antiemetics, to which she responded favorably. This morning, the patient is feeling much better. She had a small bout of vomiting this morning; however, she states that it is resolved. She is no longer feeling as nauseous and she is feeling ready to go home. We discussed at length her pain management regimen, the patient had been taking herself off oxycodone, tapering herself off in anticipation of seeing Dr. Coffey on Thursday. So, the patient last time she had oxycodone was Thursday of this past week. I do feel that she may have had maybe some withdrawal symptoms as well, which could have been contributing to her vomiting ; however, the patient states that it is her intention to come off oxycodone completely and that was the discussion that she wanted to have with Dr. Coffey this week. Overall, the patient did well overnight. She has no complaints this morning. Denies any fever, fatigue, or chills. No headache. No chest pain. No shortness of breath. Vomiting this morning. No nausea at this time. No further GI complaints. No complaints. No arthralgias or myalgias and no further constitutional issues. PHYSICAL EXAMINATION: Today, she is alert, well-appearing, no acute distress. Vital signs for today are blood pressure 121/78, heart rate 81, respiratory rate 16, O2 saturation 98% on room air with the temperature of 98.3. HEENT: The patient is atraumatic, normocephalic. PERRLA with nonicteric sclerae. Oral mucosa is moist. Tongue is midline. Neck is supple, nontender. No JVD noted. No thyromegaly noted. Cardiovascular: S1, S2 present. Rate and rhythm are regular. No murmurs, gallops, or rubs. She does have a bilateral expiratory wheeze, however no rhonchi or rales noted. Abdomen is soft, nontender, nondistended. Positive bowel sounds in all 4 quadrants. No hepatomegaly noted. is deferred. Musculoskeletal: There is no clubbing, no cyanosis, and no edema. She has +2 distal pulses palpable. She has full range of motion and a steady gait. Neurologic: She is grossly intact with no focal deficits. Psychiatric: She is cooperative and appropriate. LABORATORY DATA: This morning, WBC is 7.8, RBC is 4.34, hemoglobin 14, hematocrit 40, platelets 252. Sodium 138, potassium 3.5 up from 3.2 at admission, chloride 107, CO2 of 22, BUN 3, creatinine 0.69 down from 1.00, GFR is 99.2, glucose 110, calcium 9.0, magnesium 2.0. Bilirubin 0.50, AST 20, ALT 21, alk phos 90. CRP 11.99, total protein 7.2, albumin 4.3, globulin 2.9, and lipase is 20. Urinalysis is negative for any acute infective process. DISCHARGE DIAGNOSES: 1. Cyclic vomiting, acute on chronic, likely secondary to marijuana use. 2. Acute dehydration, now resolved. 3. Chronic pain, which is well controlled. 4. History of depression and anxiety, on Wellbutrin, Abilify, and Seroquel. 5. History of marijuana use, for which she was counseled. MEDICATIONS AT DISCHARGE: 1. Albuterol 1 puff q.4 hours as needed for shortness of breath. 2. Abilify 5 mg p.o. daily. 3. Bupropion XL 300 mg daily. 4. control pills 1 tablet daily. 5. Omeprazole 40 mg 2 times a day. 6. Ativan 1 mg q.8 hours as needed. 7. Zofran 4 mg q.6 hours as needed. 8. Compazine 25 mg suppositories q.12 hours as needed and 10 mg p.o. q.8 hours as needed for nausea and vomiting. 9. Oxycodone 5 mg, which she takes 3 times a day 10 mg, 5 mg, and 5 mg; however , she states she currently has not taken that since last Thursday. DIET: She is currently tolerating clears. She was instructed to advance to bland diet at home. She has been given printed out instructions for bland GI diet. DISPOSITION: The patient will be discharged to home. She is stable. Her electrolytes have been corrected and as is her dehydration. The patient already has a followup appointment with Dr. Coffey on Thursday at 9:30 to discuss her pain management going forward. The only new medication that is being added to her regimen right now is 2 days worth of tramadol as the patient is currently not taking and does not have any Percocet at home, so she has a 2-day prescription for tramadol 50 mg q.6 hours as needed. She was also instructed to follow up with Dr. Drake who is her primary care provider in the next 1 to 2 weeks to follow up on any further lab work or if she needs referral back to GI. She was also counseled very extensively on the use of marijuana and cyclic vomiting syndrome. I explained to the patient in detail that for some people with marijuana does help with nausea and vomiting and helps to meet with appetite, however in her case she does seem to have the opposite effect, which increases abdominal symptoms and causes vomiting. She was counseled extensively on stopping the use of marijuana. I suggested CBD oil as an alternative and this is something again she can explore either with Dr. Coffey or her primary care provider, but again, she will be followed up with us as an outpatient. The patient was discharged in stable condition. All questions were answered. The patient states her understanding of her followup. No medications at the time of discharge. OCTAVIANO LOTT, STRINGED INSTRUMENT REPAIRER [id number]/[facility] #: [id number] DIDI
== END 2018-04-26 12:15 | disposition home or self-care (01) ==
LOC: ED 09:54 → MED 13:00
PROVIDERS: ADMIT Internal Medicine; ATTEND Internal Medicine
DX: G43.A0 Cyclical vomiting, in migraine, not intractable (principal); E86.0 Dehydration; G89.29 Other chronic pain; F12.90 Cannabis use, unspecified, uncomplicated; F41.8 Other specified anxiety disorders; Z88.0 Allergy status to penicillin; F17.210 Nicotine dependence, cigarettes, uncomplicated
CPT/HCPCS: 36415; 80048; 80053; 81003; 83690; 83735; 85025; 86140; 96374; 96375; 99284; A9270-GY; G0378; J0780; J1200; J1885; J2060; J2270; J2405; J2765

== ENCOUNTER 2018-07-24 06:57 | Emergency (ER) | payer BC ==
[2018-07-24] MEDS ORDERED: Ondansetron INJ* 2 MG/ML VIAL IV ONE (07:37)
[2018-07-24] MEDS ORDERED: Pantoprazole IV* 40 MG IV ONE (07:49)
[2018-07-24] MEDS ORDERED: LORazepam INJ* 2 MG/ML 1 ML VIAL IV PUSH ONE (07:49)
[2018-07-24] MEDS ORDERED: NS 0.9% 1000 ML* 1,000 ML IV ONE (07:49)
--- NOTE | 2018-07-24 08:15 | ED ---
Abdominal Pain/Female - HPI Summary HPI Summary: Pt here w/ return of cyclical vomiting past 2-3 days. She's here as she is having difficulty holding down foods/liquids and has now developed ab pain/ cramping. Denies fever, chills, chest pain, back pain. H/o cyclical vomiting - continues to smoke marijuana for her anxiety as she reports her psychiatrist won 't give her the "good anxiety medications w/ a h/o heroine abuse". She uses marijuana as currently it's the "only thing that helps". She was recently started on gabapentin - does not feel it's helping anxiety or CVS. She does find some relief w/ warmth. She is aware that marijuana is most likely causing her CVS as she's been better in the past when she's stopped using it for a few weeks. Other dx of interest include: IBS - she admits her anxiety was better on paxil in the past and so it was stopped. She is not sure if she still had CVS during this tx or not. She is currently not on an SSRI Migraines collagenous colitis - follows w/ Dr. Duncan -no change in tx - has tried bentyl w/o relief - History of Current Complaint Chief Complaint: EDNauseaVomitDiarrh Stated Complaint: NAUSEA/VOMITNG Time Seen by Provider: 07/24/18 07:14 Hx Obtained From: Patient Hx Last Menstrual Period: 03/01/17 Pain Intensity: 4 Allergies/Adverse Reactions: Allergies Allergy/AdvReac Type Severity Reaction Status Date / Time nitrofurantoin AdvReac Vomiting Verified 04/24/18 19:00 [From Macrobid] Penicillins AdvReac Vomiting Verified 04/24/18 19:00 Sulfa (Sulfonamide AdvReac Rash And Verified 04/24/18 19:00 Antibiotics) Itching sulfamethoxazole AdvReac Nausea And Verified 04/24/18 19:00 [From Bactrim] Vomiting trimethoprim [From Bactrim] AdvReac Nausea And Verified 04/24/18 19:00 Vomiting PMH/Surg Hx/FS Hx/Imm Hx Previously Healthy: No - ongoing CVS - has not stopped using marijuana Endocrine/Hematology History: Denies: Hx Anticoagulant Therapy, Hx Blood Disorders, Hx Diabetes, Hx Thyroid Disease Cardiovascular History: Denies: Hx Congestive Heart Failure, Hx Hypertension Respiratory History: Denies: Hx Asthma, Hx Chronic Obstructive Pulmonary Disease (COPD) GI History: Reports: Hx Ulcer - colagenous colitis, cyclic vomiting syndrome, Other GI Disorders - Collagenous colitis, cyclic vomiting syndrome History: Reports: Other Problems/Disorders - Frequent UTIs Denies: Hx Dialysis, Hx Renal Disease Sensory History: Reports: Hx Contacts or Glasses Denies: Hx Hearing Aid Opthamlomology History: Reports: Hx Contacts or Glasses Psychiatric History: Reports: Hx Anxiety, Hx Depression, Hx Substance Abuse - 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; marijuana - triggers CVS (ongoing use) - Surgical History Surgery Procedure, Year, and Place: 2014 ovarian cyst REMOVAL - Immunization History Date of Tetanus Vaccine: utd Date of Influenza Vaccine: utd Infectious Disease History: No Infectious Disease History: Reports: Hx Clostridium Difficile, Hx Hepatitis - TESTS + FOR HEP C ANTIBODIES Denies: Hx Human Immunodeficiency Virus (HIV), Hx of Known/Suspected MRSA, Hx Shingles, Hx Tuberculosis, Hx Known/Suspected VRE, Hx Known/Suspected VRSA, History Other Infectious Disease, Traveled Outside the [place] in Last 30 Days - Family History Known Family History: Positive: Hypertension - mother - Social History Alcohol Use: Occasionally Alcohol Amount: 1/DAY Hx Substance Use: Yes Substance Use Type: Reports: Heroin - h/o - does not currently use, Marijuana - triggers CVS Substance Use Comment - Amount & Last Used: 04/21/18 unknown amount Hx Tobacco Use: Yes Smoking Status (MU): Current Every Day Smoker Type: Cigarettes Amount Used/How Often: 1 ppd Length of Time of Smoking/Using Tobacco: 8 years Have You Smoked in the Last Year: Yes Review of Systems Constitutional: Negative Negative: Fever, Chills, Fatigue Negative: Chest Pain Negative: Shortness Of Breath Positive: Abdominal Pain, Vomiting, Nausea. Negative: Diarrhea Genitourinary: Negative Musculoskeletal: Negative Skin: Negative Neurological: Negative Positive: Anxious All Other Systems Reviewed And Are Negative: Yes Physical Exam Triage Information Reviewed: Yes Vital Signs On Initial Exam: Initial Vitals Temp Pulse Resp BP Pulse Ox 97.1 F 105 18 152/103 97 07/24/18 07:17 07/24/18 07:17 07/24/18 07:17 07/24/18 07:17 07/24/18 07:17 Vital Signs Reviewed: Yes Appearance: Positive: Well-Appearing, Well-Nourished, Pain Distress - pt sitting on knees on stretcher, leaning forward - appears mildy fatigued but plesant, alert, good historian Skin: Positive: Warm, Skin Color Reflects Adequate Perfusion, Dry - no sweating Head/Face: Positive: Normal Head/Face Inspection Eyes: Positive: Normal, EOMI, Conjunctiva Clear - anicteric sclera ENT: Positive: Hearing grossly normal, Pharynx normal - mucosa moist Respiratory/Lung Sounds: Positive: Breath Sounds Present Cardiovascular: Positive: Tachycardia - mild Musculoskeletal: Positive: Normal, Strength/ROM Intact Neurological: Positive: Normal, Sensory/Motor Intact, Alert, Oriented to Person Place, Time, CN Intact II-III Psychiatric: Positive: Anxious - but cooperative and consolable Diagnostics - Vital Signs Vital Signs Temp Pulse Resp BP Pulse Ox 07/24/18 07:17 97.1 F 105 18 152/103 97 - Laboratory Result Diagrams: 07/24/18 08:32 Lab Statement: Any lab studies that have been ordered have been reviewed, and results considered in the medical decision making process. Re-Evaluation - Re-Evaluation First Eval Change: Improved - pt sleeping on stretcher s/p meds - no episodes of vomiting witnessed during course of stay here - appears comfortable. Upon waking, reports she still has some nausea and pain - ordered IV compazine and will provide PO tramadol as she has not been able to take this at home d/t vomiting. Abdominal Pain Fem Course/Dx - Course Course Of Treatment: CVS - continues to smoke marijuana for her anxiety. Discussed alternative for anxiety as marijuana continues to trigger her CVS. She is aware she can prevent her CVS by avoiding marijuana. She reports she just started gabapentin and it's not helping anxiety - explained this may need to be tapered up for effects to be noticable. She also reports improved anxiety while on paxil in the past - strongly urge her to have this conversation w/ her psychiatrist as this may not only help her anxiety but also her IBS. Her routine cocktail was given except IV morphine for pain as she appears to have great relief w/ IV ativan, zofran and NS. Explained yet again she has the power to break this cycle. Referred to [facility] for change in medical care given her hx. Also offered 2nd opinion for GI for her collangenous colitis as she feels she's getting no where w/ Dr. Duncan. She is aware of danger s/sx of when to return to ED. - Diagnoses Provider Diagnoses: Cyclical vomiting syndrome Discharge - Sign-Out/Discharge Documenting (check all that apply): Patient Departure - Discharge Plan Condition: Stable Disposition: HOME Patient Education Materials: Cyclic Vomiting Syndrome (ED) Referrals: Noelle RODARTE,Minal Chavez [Primary Care Provider] - Additional Instructions: Continue to work on alternative treatments for your anxiety instead of marijuana as marijuana continues to trigger your cyclical vomiting syndrome (CVS ). You can prevent your CVS by avoiding marijuana. You have shared that gabapentin was recently started for anxiety and hasn't been helping but it sometimes takes a course of time to increase the dose for effects to be noticed so try to stay the course with your prescriber but make sure you provide good communication so he/she may adjust medication as needed. You also mentioned that paxil has helped your anxiety in the past - I strongly urge you to share this information with your PCP and psychiatrist as getting your anxiety under better control should help you reduce/quit marijuana - it may also help your IBS. You may also check with your insurance to see if you qualify for a 2nd opinion for your collagenous colitis. Call Thursday to inquire. *If you develop bloody diarrhea, bloody emesis, intractable vomiting despite recommendations and medications at home, return to the ED - Billing Disposition and Condition Condition: STABLE Disposition: Home
[2018-07-24] MEDS ORDERED: PROCHLORPERAZINE INJ 5 MG/ML 2 ML VIAL IV ONE (10:08)
[2018-07-24] MEDS ORDERED: traMADol TAB* 50 MG PO ONE (10:09)
[2018-07-24 11:30] VITALS: BP 131/82
--- NOTE | 2018-07-24 17:54 | ED ---
Progress - Progress Note Progress Note: I supervised the care of the physician assistant warehouse manager and I performed a history and physical on this patient. I also performed procedure listed below. History: Repetitive nausea, vomiting with history of cyclic vomiting. Symptoms improved with hot shower. Daily marijuana smoker. Physical exam: No distress or active nausea. Abdomen soft. Plan: Hydrate, antiemetics, etc. Discontinue marijuana. IV placement I placed a 20-gauge right external jugular IV catheter given the lack of standard peripheral IV access. This was placed with the patient in Trendelenburg position. A single attempt was successful. She tolerated this well without complication. Re-Evaluation - Re-Evaluation First Eval Change: Improved - pt sleeping on stretcher s/p meds - no episodes of vomiting witnessed during course of stay here - appears comfortable. Upon waking, reports she still has some nausea and pain - ordered IV compazine and will provide PO tramadol as she has not been able to take this at home d/t vomiting. Course/Dx - Course Course Of Treatment: CVS - continues to smoke marijuana for her anxiety. Discussed alternative for anxiety as marijuana continues to trigger her CVS. She is aware she can prevent her CVS by avoiding marijuana. She reports she just started gabapentin and it's not helping anxiety - explained this may need to be tapered up for effects to be noticable. She also reports improved anxiety while on paxil in the past - strongly urge her to have this conversation w/ her psychiatrist as this may not only help her anxiety but also her IBS. Her routine cocktail was given except IV morphine for pain as she appears to have great relief w/ IV ativan, zofran and NS. Explained yet again she has the power to break this cycle. Referred to [facility] for change in medical care given her hx. Also offered 2nd opinion for GI for her collangenous colitis as she feels she's getting no where w/ Dr. Duncan. She is aware of danger s/sx of when to return to ED. - Diagnoses Provider Diagnoses: Cyclical vomiting syndrome, Cannabis abuse with other cannabis-induced disorder Discharge - Sign-Out/Discharge Documenting (check all that apply): Patient Departure - Discharge Plan Condition: Stable Disposition: HOME Patient Education Materials: Cyclic Vomiting Syndrome (ED) Referrals: Noelle RODARTE,Minal Chavez [Primary Care Provider] - Additional Instructions: Continue to work on alternative treatments for your anxiety instead of marijuana as marijuana continues to trigger your cyclical vomiting syndrome (CVS ). You can prevent your CVS by avoiding marijuana. You have shared that gabapentin was recently started for anxiety and hasn't been helping but it sometimes takes a course of time to increase the dose for effects to be noticed so try to stay the course with your prescriber but make sure you provide good communication so he/she may adjust medication as needed. You also mentioned that paxil has helped your anxiety in the past - I strongly urge you to share this information with your PCP and psychiatrist as getting your anxiety under better control should help you reduce/quit marijuana - it may also help your IBS. You may also check with your insurance to see if you qualify for a 2nd opinion for your collagenous colitis. Call Thursday to inquire. *If you develop bloody diarrhea, bloody emesis, intractable vomiting despite recommendations and medications at home, return to the ED - Billing Disposition and Condition Condition: STABLE Disposition: Home - Attestation Statements Document Initiated by Everardo: No
== END 2018-07-24 11:48 | disposition home or self-care (01) ==
LOC: ED 06:57
DX: G43.A0 Cyclical vomiting, in migraine, not intractable (principal); Z88.1 Allergy status to other antibiotic agents; Z88.0 Allergy status to penicillin; Z88.2 Allergy status to sulfonamides; F17.210 Nicotine dependence, cigarettes, uncomplicated
CPT/HCPCS: 36415; 80053; 83690; 83735; 84443; 84702; 86140; 96374; 96375; 99284; A9270-GY; J0780; J2060; J2405

== ENCOUNTER → 2018-07-25 05:22 | Emergency (ER) | payer BC ==
[~2018-07-25 05:22] MED LIST changes: +Famotidine IV* 10 MG/ML 2 ML (20 mg) IV SLOW PU ONE; +Famotidine IV* 10 MG/ML 2 ML (20 mg) ONE; +Ketorolac INJ* 30 MG/ML 1 ML VIAL IV PUSH ONE; -LORazepam INJ* 2 MG/ML 1 ML VIAL IV ONE; +LORazepam INJ* 2 MG/ML 1 ML VIAL IV PUSH ONE; -Metoclopramide IV* 5 MG/ML 2 ML VIAL IV ONE; -Morphine INJ* 4 MG/ML 1 ML CARPUJECT IV ONE; +PROCHLORPERAZINE INJ 5 MG/ML 2 ML VIAL IV ONE
--- NOTE | 2018-07-25 06:24 | ED ---
Nausea/Vomiting/Diarrhea HPI - HPI Summary HPI Summary: Patient is a 32-year-old female presenting to the ED for the second time in 2 days with cyclical vomiting. She has been diagnosed with CVS in the past and has been seen here several times for such. She has at home Zofran which has not been helping her. She states after discharge yesterday, she began to vomit approximately one hour later and it has continued ever since. She states she feels dehydrated, she is also having pain to her epigastric region from vomiting. She does admit to marijuana use recently. Denies any fevers, sweats , chills. Denies any diarrhea, constipation. She states she has not eaten or had anything to drink since yesterday. Denies chance of . Labs were obtained yesterday and were WNL. - History of Current Complaint Chief Complaint: EDNauseaVomitDiarrh Stated Complaint: NAUSEA/VOMITING Time Seen by Provider: 07/25/18 05:59 Hx Obtained From: Patient Hx Last Menstrual Period: 03/01/17 ?: No Onset/Duration: Sudden Onset Timing: Constant Severity Initially: Moderate Severity Currently: Moderate Pain Intensity: 8 Pain Scale Used: 0-10 Numeric Aggravating Factor(s): Nothing Alleviating Factor(s): Nothing Vomiting Frequency: Every 15-60 minutes Nausea/Vomiting Duration: 24-36 hours Vomiting Characteristics: Retching Diarrhea Presence: No - Risk Factors Influenza Risk Factors: Negative Surgical Obstruction Risk Factor(s): Negative - Allergies/Home Medications Allergies/Adverse Reactions: Allergies Allergy/AdvReac Type Severity Reaction Status Date / Time nitrofurantoin AdvReac Vomiting Verified 07/25/18 05:27 [From Macrobid] Penicillins AdvReac Vomiting Verified 07/25/18 05:27 Sulfa (Sulfonamide AdvReac Rash And Verified 07/25/18 05:27 Antibiotics) Itching sulfamethoxazole AdvReac Nausea And Verified 07/25/18 05:27 [From Bactrim] Vomiting trimethoprim [From Bactrim] AdvReac Nausea And Verified 07/25/18 05:27 Vomiting Home Medications: Home Medications Mononessa 28 Tablet 1 tab PO DAILY 07/25/18 [History Confirmed 07/25/18] Quetiapine Fumarate 25 mg PO DAILY 07/25/18 [History Confirmed 07/25/18] PMH/Surg Hx/FS Hx/Imm Hx Previously Healthy: Yes Endocrine/Hematology History: Denies: Hx Anticoagulant Therapy, Hx Blood Disorders, Hx Diabetes, Hx Thyroid Disease Cardiovascular History: Denies: Hx Congestive Heart Failure, Hx Hypertension Respiratory History: Denies: Hx Asthma, Hx Chronic Obstructive Pulmonary Disease (COPD) GI History: Reports: Hx Ulcer - colagenous colitis, cyclic vomiting syndrome, Other GI Disorders - Collagenous colitis, cyclic vomiting syndrome History: Reports: Other Problems/Disorders - Frequent UTIs Denies: Hx Dialysis, Hx Renal Disease Sensory History: Reports: Hx Contacts or Glasses Denies: Hx Hearing Aid Opthamlomology History: Reports: Hx Contacts or Glasses Psychiatric History: Reports: Hx Anxiety, Hx Depression, Hx Substance Abuse - 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; marijuana - triggers CVS (ongoing use) - Surgical History Surgery Procedure, Year, and Place: 2014 ovarian cyst REMOVAL - Immunization History Date of Tetanus Vaccine: utd Date of Influenza Vaccine: utd Hx Pertussis Vaccination: No Immunizations Up to Date: Yes Infectious Disease History: No Infectious Disease History: Reports: Hx Clostridium Difficile, Hx Hepatitis - TESTS + FOR HEP C ANTIBODIES Denies: Hx Human Immunodeficiency Virus (HIV), Hx of Known/Suspected MRSA, Hx Shingles, Hx Tuberculosis, Hx Known/Suspected VRE, Hx Known/Suspected VRSA, History Other Infectious Disease, Traveled Outside the [place] in Last 30 Days - Family History Known Family History: Positive: None, Hypertension - mother Family History: pt denies FHx - Social History Occupation: Employed Part-time Lives: Alone Alcohol Use: Occasionally Alcohol Amount: 1/DAY Hx Substance Use: Yes Substance Use Type: Reports: Heroin, Marijuana Substance Use Comment - Amount & Last Used: 04/21/18 unknown amount Hx Tobacco Use: Yes Smoking Status (MU): Current Every Day Smoker Type: Cigarettes Amount Used/How Often: 1 ppd Length of Time of Smoking/Using Tobacco: 8 years Have You Smoked in the Last Year: Yes Review of Systems Positive: Skin Diaphoresis. Negative: Fever, Chills, Fatigue Negative: Palpitations, Chest Pain Negative: Shortness Of Breath, Cough Positive: Abdominal Pain, Vomiting, Nausea. Negative: Diarrhea Genitourinary: Negative Positive: no symptoms reported, see HPI Negative: Arthralgia, Myalgia Skin: Negative Neurological: Negative All Other Systems Reviewed And Are Negative: Yes Physical Exam Triage Information Reviewed: Yes Vital Signs On Initial Exam: Initial Vitals Temp Pulse Resp BP Pulse Ox 97.1 F 98 20 169/98 97 07/25/18 05:25 07/25/18 05:25 07/25/18 05:25 07/25/18 05:25 07/25/18 05:25 Vital Signs Reviewed: Yes Appearance: Positive: Well-Appearing, Well-Nourished Skin: Positive: Warm, Skin Color Reflects Adequate Perfusion Head/Face: Positive: Normal Head/Face Inspection Eyes: Positive: EOMI, ARACELY, Conjunctiva Clear Neck: Positive: Supple Respiratory/Lung Sounds: Positive: Clear to Auscultation Cardiovascular: Positive: RRR, Pulses are Symmetrical in both Upper and Lower Extremities Abdomen Description: Positive: Other: - tenderness to the epigastic region Musculoskeletal: Positive: Strength/ROM Intact Neurological: Positive: Sensory/Motor Intact, Alert, Oriented to Person Place, Time, Speech Normal Psychiatric: Positive: Normal, Affect/Mood Appropriate AVPU Assessment: Alert Diagnostics - Vital Signs Vital Signs Temp Pulse Resp BP Pulse Ox 07/25/18 05:25 97.1 F 98 20 169/98 97 - Laboratory Lab Statement: Any lab studies that have been ordered have been reviewed, and results considered in the medical decision making process. Naus/Vom/Diarrhea Course/Dx - Course Course Of Treatment: Labs obtained on this visit as labs were obtained yesterday while she was seen here for same, CVS symptoms. On arrival, IV is placed and she is given 8 mg Zofran, 40 mg famotidine and 1 L fluids. Lungs CTA , RRR. Patient appears diaphoretic and is actively wretching on arrival. Symptoms improved, however returned and compazine as well as ativan IV given. These with improvement. Patient states she is OK for discharge home at this time. Another 8mg IV zofran given and patient is discharged home. She continues to have antiemetics at home. - Differential Dx/Diagnosis Provider Diagnoses: cycylical vomiting syndrome Condition At Discharge: Stable Discharge - Sign-Out/Discharge Documenting (check all that apply): Patient Departure - Discharge Plan Condition: Stable Disposition: HOME Referrals: Noelle RODARTE,Minal Chavez [Primary Care Provider] - Additional Instructions: Zofran: 4mg every 6 hours regardless of nausea/vomiting x 24 hours You may also take your other medications at home intermittently for nausea - Billing Disposition and Condition Condition: STABLE Disposition: Home
[2018-07-25 09:27] VITALS: BP 110/73
--- NOTE | 2018-07-26 10:32 | ED ---
Nausea/Vomiting/Diarrhea HPI - HPI Summary HPI Summary: Patient is a 32-year-old female presenting to the ED for the third time in 3 days with nausea and vomiting. She's been diagnosed with cyclical vomiting. On discharge yesterday she states she continued to have nausea and vomiting presently every 30 minutes to 1 hour. She is also endorsing some epigastric tenderness. Denies any tenderness otherwise. She denies any fevers, sweats, chills. She states she was able to get some chicken broth in her yesterday, but denies eating anything else. She states every time she drinks fluids, she vomits. Denies any diarrhea or constipation. - History of Current Complaint Chief Complaint: EDNauseaVomitDiarrh Stated Complaint: NAUSEA/VOMITING Time Seen by Provider: 07/25/18 05:59 Hx Obtained From: Patient Hx Last Menstrual Period: 03/01/17 ?: No Onset/Duration: Sudden Onset Timing: Constant Severity Initially: Moderate Severity Currently: Moderate Pain Intensity: 8 Pain Scale Used: 0-10 Numeric Aggravating Factor(s): Nothing Alleviating Factor(s): Nothing Vomiting Frequency: Every 15-60 minutes Nausea/Vomiting Duration: 24-36 hours Vomiting Characteristics: Retching Diarrhea Presence: No - Risk Factors Influenza Risk Factors: Negative Surgical Obstruction Risk Factor(s): Negative - Allergies/Home Medications Allergies/Adverse Reactions: Allergies Allergy/AdvReac Type Severity Reaction Status Date / Time nitrofurantoin AdvReac Vomiting Verified 07/26/18 06:56 [From Macrobid] Penicillins AdvReac Vomiting Verified 07/26/18 06:56 Sulfa (Sulfonamide AdvReac Rash And Verified 07/26/18 06:56 Antibiotics) Itching sulfamethoxazole AdvReac Nausea And Verified 07/26/18 06:56 [From Bactrim] Vomiting trimethoprim [From Bactrim] AdvReac Nausea And Verified 07/26/18 06:56 Vomiting Home Medications: Home Medications Mononessa 28 Tablet 1 tab PO DAILY 07/25/18 [History Confirmed 07/25/18] Quetiapine Fumarate 25 mg PO DAILY 07/25/18 [History Confirmed 07/25/18] PMH/Surg Hx/FS Hx/Imm Hx Endocrine/Hematology History: Denies: Hx Anticoagulant Therapy, Hx Blood Disorders, Hx Diabetes, Hx Thyroid Disease Cardiovascular History: Denies: Hx Congestive Heart Failure, Hx Hypertension Respiratory History: Denies: Hx Asthma, Hx Chronic Obstructive Pulmonary Disease (COPD) GI History: Reports: Hx Ulcer - colagenous colitis, cyclic vomiting syndrome, Other GI Disorders - Collagenous colitis, cyclic vomiting syndrome History: Reports: Other Problems/Disorders - Frequent UTIs Denies: Hx Dialysis, Hx Renal Disease Sensory History: Reports: Hx Contacts or Glasses Denies: Hx Hearing Aid Opthamlomology History: Reports: Hx Contacts or Glasses Psychiatric History: Reports: Hx Anxiety, Hx Depression, Hx Substance Abuse - 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; marijuana - triggers CVS (ongoing use) - Surgical History Surgery Procedure, Year, and Place: 2014 ovarian cyst REMOVAL - Immunization History Date of Tetanus Vaccine: utd Date of Influenza Vaccine: utd Immunizations Up to Date: Yes Infectious Disease History: No Infectious Disease History: Reports: Hx Clostridium Difficile, Hx Hepatitis - TESTS + FOR HEP C ANTIBODIES Denies: Hx Human Immunodeficiency Virus (HIV), Hx of Known/Suspected MRSA, Hx Shingles, Hx Tuberculosis, Hx Known/Suspected VRE, Hx Known/Suspected VRSA, History Other Infectious Disease, Traveled Outside the [place] in Last 30 Days - Family History Known Family History: Positive: None, Hypertension - mother Family History: pt denies FHx - Social History Occupation: Employed Part-time Lives: Alone Alcohol Use: Occasionally Alcohol Amount: 1/DAY Hx Substance Use: Yes Substance Use Type: Reports: Heroin, Marijuana Substance Use Comment - Amount & Last Used: 04/21/18 unknown amount Hx Tobacco Use: Yes Smoking Status (MU): Current Every Day Smoker Type: Cigarettes Amount Used/How Often: 1 ppd Length of Time of Smoking/Using Tobacco: 8 years Have You Smoked in the Last Year: Yes Review of Systems Positive: Skin Diaphoresis. Negative: Fever, Chills, Fatigue Negative: Palpitations, Chest Pain Negative: Shortness Of Breath, Cough Positive: Abdominal Pain, Vomiting, Nausea. Negative: Diarrhea Genitourinary: Negative Positive: no symptoms reported, see HPI Negative: Arthralgia, Myalgia Skin: Negative Neurological: Negative All Other Systems Reviewed And Are Negative: Yes Physical Exam Triage Information Reviewed: Yes Vital Signs On Initial Exam: Initial Vitals Temp Pulse Resp BP Pulse Ox 97.1 F 98 20 169/98 97 07/25/18 05:25 07/25/18 05:25 07/25/18 05:25 07/25/18 05:25 07/25/18 05:25 Vital Signs Reviewed: Yes Appearance: Positive: Well-Appearing, Well-Nourished Skin: Positive: Warm, Skin Color Reflects Adequate Perfusion Head/Face: Positive: Normal Head/Face Inspection Eyes: Positive: EOMI, ARACELY, Conjunctiva Clear Neck: Positive: Supple Respiratory/Lung Sounds: Positive: Clear to Auscultation Cardiovascular: Positive: RRR, Pulses are Symmetrical in both Upper and Lower Extremities Abdomen Description: Positive: Other: - tenderness to the epigastic region Musculoskeletal: Positive: Strength/ROM Intact Neurological: Positive: Sensory/Motor Intact, Alert, Oriented to Person Place, Time, Speech Normal Psychiatric: Positive: Normal, Affect/Mood Appropriate AVPU Assessment: Alert Diagnostics - Vital Signs Vital Signs Temp Pulse Resp BP Pulse Ox 07/25/18 09:16 83 110/73 97 07/25/18 09:00 79 95 07/25/18 08:46 80 117/64 96 07/25/18 08:16 81 109/68 96 07/25/18 08:04 20 07/25/18 08:00 103 99 07/25/18 07:46 92 137/70 98 07/25/18 07:16 101 138/105 98 07/25/18 07:00 113 97 07/25/18 06:46 102 150/107 96 07/25/18 06:45 100 96 07/25/18 05:25 97.1 F 98 20 169/98 97 - Laboratory Lab Statement: Any lab studies that have been ordered have been reviewed, and results considered in the medical decision making process. Naus/Vom/Diarrhea Course/Dx - Course Course Of Treatment: Labs obtained on this visit as labs were obtained yesterday while she was seen here for same, CVS symptoms. On arrival, IV is placed and she is given 8 mg Zofran, 40 mg famotidine and 1 L fluids. She is also given ativan 1mg IV on arrival. Lungs CTA, RRR. Symptoms improved, however returned and compazine as well as ativan IV given. These with improvement. Patient states she does not feel comfortable being discharged at this time. Discussed case with hospitalist. - Differential Dx/Diagnosis Provider Diagnoses: Cyclical vomiting Condition At Discharge: Fair Discharge - Sign-Out/Discharge Documenting (check all that apply): Patient Departure - Discharge Plan Condition: Fair Disposition: ADMITTED TO [facility] Referrals: Noelle RODARTE,Minal Chavez [Primary Care Provider] - Additional Instructions: Zofran: 4mg every 6 hours regardless of nausea/vomiting x 24 hours You may also take your other medications at home intermittently for nausea - Billing Disposition and Condition Condition: FAIR Disposition: Admitted to [facility]
== END | disposition short-term general hospital (02) ==
LOC: ED 05:22
DX: G43.A0 Cyclical vomiting, in migraine, not intractable (principal); K52.831 Collagenous colitis; Z88.1 Allergy status to other antibiotic agents; Z88.0 Allergy status to penicillin; Z88.2 Allergy status to sulfonamides; F17.210 Nicotine dependence, cigarettes, uncomplicated
CPT/HCPCS: 96361; 96374; 96375; 96376; 99283; J0780; J1885; J2060; J2405

== ENCOUNTER 2018-07-26 06:52 | Observation (INO) | payer BC ==
[2018-07-26] MEDS ORDERED: Ondansetron INJ* 2 MG/ML VIAL IV ONE (07:16)
[2018-07-26] MEDS ORDERED: LORazepam INJ* 2 MG/ML 1 ML VIAL IV PUSH ONE (07:16)
[2018-07-26] MEDS ORDERED: NS 0.9% 1000 ML* 1,000 ML IV ONE (07:16)
[2018-07-26] MEDS ORDERED: Ketorolac INJ* 30 MG/ML 1 ML VIAL IV PUSH ONE (07:49)
[2018-07-26] MEDS ORDERED: Famotidine IV* 10 MG/ML 2 ML (20 mg) IV SLOW PU ONE (08:40)
[2018-07-26 09:26] LABS: ABS Basophils 0.1 10^3/ul (0-0.2); ABS Eosinophils 0 10^3/ul (0-0.6); ABS Lymphocytes 1.4 10^3/ul (1.0-4.8); ABS Monocytes 0.5 10^3/ul (0-0.8); ABS Nucleated RBC 0 10^3/ul; Eosinophil % 0.3 % (0-6); Hematocrit 38 % (35-47); Lymphocyte % 11.7 % (25-47); Mean Corpuscular HGB Conc 34 g/dl (31-36); Mean Corpuscular Hemoglobin 32 pg (27-31); Mean Corpuscular Volume 94 fL (80-97); Mean Platelet Volume 8.8 um3 (7.4-10.4); Nucleated Red Blood Cells % 0; Platelet Count 240 10^3/ul (150-450); Red Blood Count 4.06 10^6/ul (4.00-5.40); Red Cell Distribution Width 14 % (10.5-15); White Blood Count 12.1 10^3/ul (3.5-10.8)
[2018-07-26] MEDS ORDERED: PROCHLORPERAZINE INJ 5 MG/ML 2 ML VIAL IV ONE (09:43)
[2018-07-26] MEDS ORDERED: Al Hydrox/Mg Hydrox/Simet LIQ* 30 ML UDC PO PRN (10:25)
[2018-07-26] MEDS ORDERED: Acetaminophen TAB* 325 MG PO PRN (10:25)
[2018-07-26] MEDS ORDERED: PROCHLORPERAZINE INJ 5 MG/ML 2 ML VIAL IM PRN (10:30)
[2018-07-26] MEDS ORDERED: Albuterol HFA INHALER* 8 gm MDI INH PRN (10:31)
[2018-07-26] MEDS ORDERED: hydrOXYzine HCL TAB* 25 MG PO PRN (10:39)
[2018-07-26] MEDS: NS 0.9% 1000 ML* 1,000 ML IV SCH ×2 (11:45→20:46)
[2018-07-26] MEDS: Gabapentin CAP(*) 400 MG PO SCH ×2 (12:22→17:42)
[2018-07-26] MEDS: Ondansetron INJ* 2 MG/ML VIAL IV PRN ×3 (12:23→23:22)
[2018-07-26] MEDS: Nicotine PATCH 14 MG/24 HR* PATCH TRANSDERM SCH (12:23)
--- NOTE | 2018-07-26 15:11 | HP ---
HISTORY AND PHYSICAL: DATE OF ADMISSION: 07/26/18 PROVIDER: Mary Ellen Stinson NP. PRIMARY CARE PHYSICIAN: AMBER Wu. ATTENDING PHYSICIAN: Dr. Valle, (dictated by Mary Ellen Stinson NP). CHIEF COMPLAINT: Nausea and vomiting for 5 days. HISTORY OF PRESENT ILLNESS: This is a 32-year-old female with a past medical history of anxiety, depression, substance abuse, cyclic vomiting associated with marijuana smoking, collagenous colitis, hepatitis C; who presented to the ED after experiencing nausea and vomiting for the past 5 days. This is her third visit to the ED in the past few days, however she has had many previous ED visits and hospitalizations for cyclic vomiting associated with marijuana use over approximately 4 years. The episodes usually start in the morning with nausea followed by vomiting. She does endorse smoking marijuana on Thursday and she reports attempting to take oral medications for nausea relief at home, but they did not help. On exam today she was not vomiting, but does continued to endorse nausea and epigastric tenderness, as well as some left sided tenderness and diaphoresis. She does endorse some diarrhea, which is consistent with her history of colitis. I have reviewed her record in [facility] as well as [facility], and this episode is described similarly to her previous episodes. She does not appear clinically dehydrated: her vital signs have been stable, she is afebrile and she is not tachycardic or hypertensive. Her labs were within normal limits. In the ED she was given Zofran, famotidine, 1 L of fluids, Compazine, and Ativan. However, she continues to endorse nausea. The hospitalist team was asked to consider her for admission due to her repeated visits to the ED and she will be admitted for observation and given additional fluids and IV antinausea medications. PAST MEDICAL HISTORY: Collagenous colitis, frequent UTIs, hepatitis C, anxiety , depression, and substance abuse. PAST SURGICAL HISTORY: Ovarian cyst removal in 2014. MEDICATIONS: Home Medications: 1. Gabapentin 400 mg 4 times a day p.o. 2. Quetiapine 50 mg p.o. nightly. 3. Omeprazole 40 mg p.o. daily. 4. Mononessa 28 tablets 1 tab p.o. daily. 5. Bupropion XL 300 mg p.o. daily. 6. Albuterol 1 puff INH q.4 hours p.r.n. for shortness of breath and wheezing. 7. Abilify 5 mg p.o. daily. ALLERGIES: The patient has many allergies including: MACROBID, PENICILLINS, SULFA DRUGS. FAMILY HISTORY: Heart disease, hypertension in her mother. Family history of diabetes in her aunt and no history of cancer. SOCIAL HISTORY: The patient endorses smoking one-half to one pack of cigarettes a day for the past 12 years. She endorses smoking marijuana every few days. The patient endorses occasional alcohol use with 1 to 2 drinks per week. The patient does not endorse any current illicit drug use. She does admit to using heroin with her last use 5 years ago. The patient's medical decision maker will be her mother Sada Miranda. REVIEW OF SYSTEMS: I performed a 14-point review of systems. All pertinent positive and negatives are mentioned in the history of present illness. The remaining review of systems are negative. PHYSICAL EXAMINATION GENERAL APPEARANCE: The patient is sitting up in bed and appears nauseated. She is hovering next to the garbage can. VITAL SIGNS: Temperature 97, heart rate 87, blood pressure 143/81, respiratory rate 20, oxygen saturation 96% on room air. HEENT: Normocephalic, atraumatic. Pupils are equal, round, and reactive to light and accommodation. EOMs are intact. NECK: Supple. No lymphadenopathy noted. RESPIRATORY: No accessory muscle use. Lungs are clear to auscultation. Normal work of breathing. CARDIAC: Regular, rate, and rhythm. S1 and S2 present. No murmurs, rubs, or gallops. ABDOMEN: Soft, nondistended, diffusely tender particularly in the epigastric region and left side. There are bowel sounds x4. EXTREMITIES: No lower extremity edema. DP pulses were 2+ and symmetric. MUSCULOSKELETAL: No clubbing or cyanosis noted. The patient exhibited 5/5 strength in all 4 extremities. NEUROLOGIC: The patient is alert and oriented x3. SKIN: There are no rashes or abnormalities seen. PSYCH: The patient appears anxious. LABORATORY DATA: White blood cell count 12.1, hemoglobin 13, hematocrit 38, platelets 240. Sodium 140, potassium 3.4, chloride 110, carbon-dioxide 22, BUN 10, creatinine 0.90, glucose 98, lactic acid 0.8. ASSESSMENT: The patient is a 32-year-old female with a past medical history significant for cyclic vomiting related to marijuana use, anxiety, depression, substance abuse, who will be to observation for management of nausea and vomiting. PLAN/RECOMMENDATIONS: 1. Cyclic vomiting. The patient has been experiencing nausea and vomiting for the past 5 days. This is her third ED visit in the past few days. The etiology is likely due to marijuana use as the patient has had a history of similar episodes. The patient does endorse smoking marijuana as recently as Thursday. She was counselled that she should discontinue this practice as it is likely causing her symptoms and she does acknowledge this. However, she feels that it helps in the short-term. The patient has seen a GI doctor, Dr. Duncan in the past, but has not been for 1 year and she has been counselled to return. The patient's vital signs are stable. She is not tachycardic or hypertensive. Labs are within normal limits and do not reflect dehydration. LFTs and lipase from yesterday were within normal limits. We will continue her maintenance fluids and p.r.n. Zofran and Compazine. We will start her on a clear liquid diet and encouraged a hot shower as she said this improved her symptoms. Tylenol has been ordered for her epigastric pain. 2. Anxiety and depression. We will continue her home medications of gabapentin , Abilify, bupropion, and quetiapine. We have also ordered Atarax. 3. Fluids, electrolytes, and nutrition. The patient is on a clear diet. 4. DVT prophylaxis. The patient is low risk for DVT and will be able to ambulate freely. 5. Code status. Full. 6. Disposition. Observation. TIME SPENT: Time spent for this admission was 60 minutes and 35 minutes was spent with the patient discussing medication, past medical history, and the events leading up to their arrival today, and performing a physical exam. The case has been reviewed with the attending Dr. Valle who agrees with the plan of care. MARY ELLEN STINSON, BEULAH [id number]/[facility] #: [id number] [facility] CENTERLian
--- NOTE | 2018-07-26 15:57 | RAD ---
Indication: Abdominal pain. Flat and upright views of the abdomen demonstrates no free air. Bowel gas pattern is unremarkable. No dilated loops of bowel are noted. Psoas margins and orbits are unremarkable. IMPRESSION: Unremarkable abdominal series with no free air or obstruction. No significant change is noted since November 01, 2017.
[2018-07-26] MEDS: Omeprazole CAP* 20 MG PO SCH (16:49)
[2018-07-26] MEDS ORDERED: Morphine VIAL* 4 MG/ML VIAL (1 ml vial) IV ONE (17:16)
[2018-07-26] MEDS: LORazepam INJ* 2 MG/ML 1 ML VIAL IV PUSH PRN ×2 (17:42→23:40)
[2018-07-26] MEDS ORDERED: Nicotine Patch Removal NOTE PATCH OFF SCH (21:00)
[2018-07-26] MEDS ORDERED: PROCHLORPERAZINE INJ 5 MG/ML 2 ML VIAL INJ PRN (23:55)
[2018-07-27] MEDS: PROCHLORPERAZINE INJ 5 MG/ML 2 ML VIAL IV PRN ×3 (00:18→15:00)
[2018-07-27] MEDS ORDERED: HYDROmorphone INJ1* 1 MG/ML SYRINGE IV SLOW PU ONE (02:06)
[2018-07-27] MEDS: Gabapentin CAP(*) 400 MG PO SCH ×3 (02:17→13:59)
[2018-07-27] MEDS: Capsaicin 0.025% CREAM* 60 GM TOPICAL SCH ×2 (02:42→10:23)
[2018-07-27 02:54] LABS: ABS Basophils 0 10^3/ul (0-0.2); ABS Eosinophils 0.1 10^3/ul (0-0.6); ABS Lymphocytes 1.7 10^3/ul (1.0-4.8); ABS Monocytes 0.5 10^3/ul (0-0.8); ABS Neutrophils 10.1 10^3/ul (1.5-7.7); ABS Nucleated RBC 0 10^3/ul; Eosinophil % 0.5 % (0-6); Hematocrit 44 % (35-47); Hemoglobin 14.3 g/dl (12.0-16.0); Lymphocyte % 13.8 % (25-47); Mean Corpuscular HGB Conc 33 g/dl (31-36); Mean Corpuscular Hemoglobin 32 pg (27-31); Mean Corpuscular Volume 98 fL (80-97); Mean Platelet Volume 8.8 um3 (7.4-10.4); Nucleated Red Blood Cells % 0; Platelet Count 289 10^3/ul (150-450); Red Blood Count 4.48 10^6/ul (4.00-5.40); Red Cell Distribution Width 14 % (10.5-15); White Blood Count 12.4 10^3/ul (3.5-10.8)
[2018-07-27] MEDS: Ondansetron INJ* 2 MG/ML VIAL IV PRN (03:15)
--- NOTE | 2018-07-27 04:47 | RAD ---
EXAM: CT Abdomen and Pelvis Without Intravenous Contrast EXAM DATE/TIME: 07/27/2018 4:16 AM CLINICAL HISTORY: 32 years old, female; Pain; Abdominal pain; Generalized; Prior surgery; Surgery date: 6+ months; Surgery type: Ovarian cyst removed; Additional info: Abd pain vomiting TECHNIQUE: Axial computed tomography images of the abdomen and pelvis without intravenous contrast. All CT scans at this facility use at least one of these dose optimization techniques: automated exposure control; mA and/or kV adjustment per patient size (includes targeted exams where dose is matched to clinical indication); or iterative reconstruction. Coronal and sagittal reformatted images were created and reviewed. COMPARISON: A/P W CT ABD/PEL W 03/15/2018 5:48 AM FINDINGS: Lower thorax: There are dependent changes noted in lung bases. ABDOMEN: Liver: Normal. No mass. Gallbladder and bile ducts: Normal. No calcified stones. No ductal dilation. Pancreas: Normal. No ductal dilation. Spleen: Normal. No splenomegaly. Adrenals: Normal. No mass. Kidneys and ureters: Normal. No hydronephrosis. Stomach and bowel: Normal. No obstruction. No mucosal thickening. Appendix: The appendix is visualized and is unremarkable. PELVIS: Bladder: Unremarkable as visualized. Reproductive: Unremarkable as visualized. ABDOMEN and PELVIS: Intraperitoneal space: Normal. No free air. No significant fluid collection. Bones/joints: No acute fracture. No dislocation. Soft tissues: Unremarkable. Vasculature: Normal. No abdominal aortic aneurysm. Lymph nodes: Normal. No enlarged lymph nodes. IMPRESSION: No evidence of hydronephrosis or obstructing nephrolithiasis. To contact [facility] with a general question: [facility] - [phone] For direct physician to physician contact: Physician Hotline - [phone] [facility] ([facility] Facility ID #[id number])
[2018-07-27] MEDS: Omeprazole CAP* 20 MG PO SCH (07:12)
[2018-07-27] MEDS: LORazepam INJ* 2 MG/ML 1 ML VIAL IV PUSH PRN (07:23)
[2018-07-27] MEDS ORDERED: HYDROmorphone INJ* 1 MG/ML CARPUJECT SYRINGE IV SLOW PU ONE (08:30)
[2018-07-27] MEDS ORDERED: Ondansetron INJ* 2 MG/ML VIAL IV PRN (08:30)
[2018-07-27] MEDS ORDERED: LORazepam INJ* 2 MG/ML 1 ML VIAL IV PUSH PRN (08:31)
[2018-07-27] MEDS ORDERED: BuPROPion XL* 300 MG TAB.XL PO SCH (09:00)
[2018-07-27] MEDS ORDERED: MONONESSA PO SCH ×2 (09:00→21:00)
[2018-07-27] MEDS ORDERED: ARIPiprazole TAB* 5 MG PO SCH (09:00)
[2018-07-27] MEDS: Nicotine PATCH 14 MG/24 HR* PATCH TRANSDERM SCH (09:59)
[2018-07-27] MEDS ORDERED: HYDROmorphone INJ1* 1 MG/ML SYRINGE IV ONE (10:00)
--- NOTE | 2018-07-27 11:05 | PN ---
Subjective Date of Service: 07/27/18 Interval History: I was called by nursing staff 8:00 today at the start of the shift stating the patient is in severe abdominal pain, and persistent nausea and vomiting. Patient requesting some stronger for pain other than tylenol and asking for Dilaudid and Ativan as that is the combinations that helps. Patient was given one dose of Dilaudid and Ativan until to control her symptoms until I was able to assess her personally. Patient was seen in the room with the nurse in the room at bedside. patient was sound asleep, it took a few seconds to have her gather her thoughts. She expressed ongoing abdominal pain and during my exam of her abdomen she did exhibit facial grimace due to discomfort of my palpation of her stomach. there is no fever or chills. Her CBC show wbc 12,000 as her admissions labs. Objective Active Medications: Acetaminophen (Tylenol Tab*) 650 mg PO Q4H PRN PRN Reason: FEVER/PAIN Last Admin: 07/26/18 12:22 Dose: 650 mg Al Hydrox/Mg Hydrox/Simethicone (Maalox Plus*) 30 ml PO Q6H PRN PRN Reason: INDIGESTION Albuterol (Ventolin Hfa Inhaler*) 1 puff INH Q4H PRN PRN Reason: SHORTNESS OF BREATH Aripiprazole (Abilify Tab*) 5 mg PO DAILY [facility] Last Admin: 07/27/18 09:48 Dose: Not Given Bupropion HCl (Bupropion Xl*) 300 mg PO DAILY [facility] Last Admin: 07/27/18 09:48 Dose: Not Given Capsaicin (Zostrix 0.025% Cream*) 1 applic TOPICAL BID [facility] Last Admin: 07/27/18 10:23 Dose: Not Given Gabapentin (Neurontin Cap(*)) 400 mg PO QID [facility] Last Admin: 07/27/18 09:49 Dose: Not Given Hydroxyzine HCl (Atarax Tab*) 25 mg PO Q6H PRN PRN Reason: ANXIETY Last Admin: 07/26/18 15:15 Dose: 25 mg Sodium Chloride (Ns 0.9% 1000 Ml*) 1,000 mls @ 125 mls/hr IV PER RATE [facility] Last Admin: 07/26/18 20:46 Dose: 125 mls/hr Lorazepam (Ativan Inj*) 0.5 mg IV PUSH UC ONCE PRN PRN Reason: ANXIETY Nicotine (Nicotine Patch 14 Mg/24 Hr*) 1 patch TRANSDERM DAILY [facility] Last Admin: 07/27/18 09:59 Dose: 1 patch Pto: Mononessa 28 (Tablet 1 Tab) 1 tab PO 2100 [facility] Omeprazole (Prilosec Cap*) 40 mg PO BID@0730,1630 [facility] Last Admin: 07/27/18 07:12 Dose: Not Given Ondansetron HCl (Zofran Inj*) 8 mg IV Q6H PRN PRN Reason: NAUSEA/VOMITING Pharmacy Profile Note (Nicotine Patch Removal Note*) 1 note PATCH OFF 2099 [facility] Last Admin: 07/27/18 02:17 Dose: Not Given Prochlorperazine Edisylate (Compazine Inj*) 10 mg IV Q6H PRN PRN Reason: NAUSEA Last Admin: 07/27/18 07:22 Dose: 10 mg Vital Signs - 8 hr 07/27/18 07/27/18 07/27/18 03:15 03:38 04:15 Temperature 98.5 F Pulse Rate 67 Respiratory 22 16 16 Rate Blood Pressure 142/89 (mmHg) O2 Sat by Pulse 97 Oximetry 07/27/18 07/27/18 07/27/18 07:23 07:46 08:54 Temperature 98.3 F Pulse Rate 62 Respiratory 20 16 14 Rate Blood Pressure 142/74 (mmHg) O2 Sat by Pulse 100 Oximetry 07/27/18 09:59 Temperature Pulse Rate Respiratory 18 Rate Blood Pressure (mmHg) O2 Sat by Pulse Oximetry Oxygen Devices in Use Now: None Appearance: awake, alert. no apparent distress. She was resting confortably asleep upon entering the room Eyes: No Scleral Icterus, PERRLA Ears/Nose/Mouth/Throat: NL Teeth, Lips, Gums, Mucous Membranes Moist Neck: Trachea Midline Respiratory: Symmetrical Chest Expansion and Respiratory Effort Cardiovascular: NL Sounds; No Murmurs; No JVD, RRR, No Edema Abdominal: - - soft, good bowel sounds. She did exhibit facial grimacing during examinations out of proportion to examinations. Her abdomen is completly soft. there was no involuntary guarding. no rebound Extremities: No Edema Skin: No Rash or Ulcers Neurological: Alert and Oriented x 3 Result Diagrams: 07/27/18 02:33 07/27/18 02:33 Assess/Plan/Problems-Billing Assessment: 32 year old female admitted for cyclical abdominal vomiting with previous history of IVDA use (heroin); previous opiod dependency to prescription narcotic as documented in her available record. - Patient Problems (1) Cyclical vomiting Current Visit: No Status: Acute Comment: - Patient still complaining of nausea and vomiting. - I did explain to patient that will continue her Zofran and Compazine to control her nausea. - However, I will discontinue her dilaudid given her history of narcotic abuse and opoid dependancy! She was unhappy with that decision and I explained to her several times that for her cyclical vomiting will be addressed appropriatley with IVF, NPO except ICE; Zofran and Compazine. (2) Opioid dependence Current Visit: Yes Status: Acute Code(s): F11.20 - OPIOID DEPENDENCE, UNCOMPLICATED SNOMED Code(s): 27905001 Comment: - Patient was given the oppurtunity when she was interviewed this morning regarding her opoid dependancy but she denied using any drug for the past five years, and when asked again she admits for taking only when prescribed. - I have very stong suspision that her symptoms are due to withdrawal from opoids and not cyclical vomiting, as she is not forthcoming. - I will continue her zofran, compazine, Maloox, Atarax. Will add clonidine prn and for severe agitation ativan prn (3) Depression Current Visit: No Status: Acute Code(s): F32.9 - MAJOR DEPRESSIVE DISORDER, SINGLE EPISODE, UNSPECIFIED SNOMED Code(s): 62547837 Comment: - Continue bupropion, gabapentin and abilify. (4) DVT prophylaxis Current Visit: No Status: Acute Code(s): DJU5998 - SNOMED Code(s): 481862721 Comment: - Lovenox.
[2018-07-27] MEDS ORDERED: cloNIDine TAB* 0.1 MG PO PRN (11:21)
[2018-07-27] MEDS ORDERED: hydrOXYzine HCL TAB* 50 MG PO PRN (11:22)
[2018-07-27] MEDS ORDERED: D5W 1/2 NS KCl 20 Meq 1000 ML* 1,000 ML IV SCH (12:00)
[2018-07-27] MEDS ORDERED: LORazepam TAB(*) 0.5 MG PO PRN (15:12)
[2018-07-27 17:15] VITALS: BP 139/85
--- NOTE | 2018-07-28 09:36 | DS ---
CC: Primary care provider, none listed in her chart DISCHARGE SUMMARY: DATE OF ADMISSION: 07/26/18 DATE OF DISCHARGE: 07/27/18 FINAL DISCHARGE DIAGNOSES: 1. Intractable nausea and vomiting, etiology mixed possibly due to cyclic vomiting syndrome versus w ithdrawal from opioid. 2. History of opioid dependency. 3. Anxiety and depression. HOSPITAL COURSE: The patient was seen by me today on initial encounter on 07/27/18 as a routine foll owup and upon presentation this morning around 8 o'clock, the patient was calling the nursing staff r equesting pain medication and IV medication for her nausea and vomiting. Describing her pain with se bradford crushing 05/14 at best and worse /. She was requesting IV Dilaudid by name as this is the on ly combination with Ativan that controlled her cyclic vomiting syndrome. The patient was given one t katlyn only until I had the chance to assist the patient at the bedside. The patient was seen later by me around 11 a.m. She was resting comfortably, profusely diaphoretic. It took about several seconds to be able to arouse her for further assessment. Upon awakening, she started complaining right away with abdominal pain with facial grimacing on minimal palpation of her exam. Exam was performed in th e presence of the patient's nurse, Henrietta during the entire visit. On further questioning regarding her symptomatology, the patient said that she could not take anything by mouth. The only medication tameka t helps is only IV. I went into further discussion with the patient on the differential between the c yclic vomiting and possible withdrawal from opioid. She clearly declined being on any opioid therapy for the past 5 years. On reviewing her records, more recently about 2 months ago, the patient was i n the hospital and clearly stated that she was taking Percocet and other form of opioid therapy. Hen ce, I discontinued her Dilaudid and placed her on clonidine, and Atarax. The patient later on called declining taking anything p.o., demanding she will take either IV or will sign AMA. I went to the [facility] to explain to the patient again the harm of placing her on IV narcotic given her underlying pre vious history of opioid dependency can throw her back into addiction since she went through rehab 5 y ears ago. She clearly declined staying, she signed her AMA form and the patient was released in stab le condition, fully knowledgeable of the risk of leaving against medical advice, which will lead to e racquel possible withdrawal seizure and . DISCHARGE MEDICATIONS: None was provided. PHYSICAL EXAM: Please refer to my earlier from today. DISCHARGE MEDICATION: To resume her home medications as per listed on her admission. FOLLOWUP: Follow up with her primary care and to seek immediate medical attention and to further see k health care social worker for her opioid dependency and counseling. [id number]/CPS #: [id number]
== END 2018-07-27 16:40 | disposition left against medical advice (07) ==
LOC: ED 06:52 → MED 09:26
PROVIDERS: ADMIT Internal Medicine; ATTEND Internal Medicine
DX: F11.23 Opioid dependence with withdrawal (principal); F41.8 Other specified anxiety disorders; R11.2 Nausea with vomiting, unspecified; R10.9 Unspecified abdominal pain; F32.9 Major depressive disorder, single episode, unspecified
CPT/HCPCS: 36415; 74019; 74176; 80053; 83605; 83690; 84702; 85025; 96361; 96374; 96375; 99283; 99406; A9270-GY; G0378; J0780; J1170; J1885; J2060; J2270; J2405

== ENCOUNTER 2018-08-01 10:31 | Emergency (ER) | payer BC ==
[2018-08-01] MEDS ORDERED: NS 0.9% 1000 ML* 2,000 ML IV ONE (12:14)
[2018-08-01] MEDS ORDERED: Ondansetron INJ* 2 MG/ML VIAL IV ONE (12:19)
--- NOTE | 2018-08-01 12:19 | ED ---
GI/ HPI - HPI Summary HPI Summary: This patient is a 32 year old F presenting to [facility] with a chief complaint of vomiting (with clear vomitus) that began approximately one week ago. The patient rates the pain 8/10 in severity. Symptoms aggravated by nothing. Symptoms of anxiety alleviated by smoking marijuana per pt. Patient reports LLQ abd pain. Patient denies dysuria and hematuria. Patient says she believes her cyclic vomiting may be due to smoking marijuana and has been advised about this in prior ED visits. The last time she smoked marijuana was on 07/30/2018. Patient states she has not been able to keep any food or liquid down. She states that she had a few sips of Gatorade prior to arrival. Patient states she believes her menstrual period should be arriving approximately this week, but states she did have vaginal bleeding one week ago. States she does not think she is . Patient states she sees Maddie Dumont and Rajwinder London for medications and counseling. She has an appointment scheduled at the beginning of August. Patient states she has a history of an ulcer, and has been followed by GI for collagenous colitis. Pt has a prior hx of heroin abuse ( injected) but states she has not used heroin for 5 years. Pt states she has taken her usual medications. Pt was in the ED 07/24/18, 07/25/18, 07/26/18 and admitted on 07/26/18 and DC'd on 07/27/18. Home Medications Medication Instructions Recorded Confirmed Type Omeprazole CAP* [Prilosec CAP* 20 40 mg PO DAILY 09/11/14 07/26/18 History MG] ARIPiprazole TAB* [Abilify TAB*] 5 mg PO DAILY 05/10/15 07/26/18 History Albuterol HFA INHALER* [Ventolin 1 puff INH Q4H PRN 11/14/16 07/26/18 History HFA Inhaler*] BuPROPion XL* [Bupropion XL*] 300 mg PO DAILY 06/04/17 07/26/18 History Mononessa 28 Tablet 1 tab PO DAILY 07/25/18 07/26/18 History Quetiapine Fumarate 50 mg PO BEDTIME 07/25/18 07/26/18 History Gabapentin 400 mg PO QID 07/26/18 07/26/18 History - History of Current Complaint Chief Complaint: EDAbdPain Time Seen by Provider: 08/01/18 11:33 Stated Complaint: VOMITING Hx Obtained From: Patient, Medical Records - prior ED records reviewed Hx Last Menstrual Period: 07/26/18 Onset/Duration: Started Weeks Ago, Atraumatic, Still Present Timing: Constant Severity: Severe Current Severity: Severe Pain Intensity: 8 Location of Pain: LLQ Pain Characteristics: Sharp Associated Signs and Symptoms: Positive: Vomiting, Abdominal Pain. Negative: Fever, Hematuria, Flank Pain Additional Signs & Symptoms: Positive: Menses Irregular. Negative: Vaginal Bleeding, Vaginal Discharge Aggravating Factor(s): Nothing Alleviating Factor(s): Nothing - Additional Pertinent History Primary Care Physician: GEORGES - Allergy/Home Medications Allergies/Adverse Reactions: Allergies Allergy/AdvReac Type Severity Reaction Status Date / Time nitrofurantoin AdvReac Vomiting Verified 07/26/18 06:56 [From Macrobid] Penicillins AdvReac Vomiting Verified 07/26/18 06:56 Sulfa (Sulfonamide AdvReac Rash And Verified 07/26/18 06:56 Antibiotics) Itching sulfamethoxazole AdvReac Nausea And Verified 07/26/18 06:56 [From Bactrim] Vomiting trimethoprim [From Bactrim] AdvReac Nausea And Verified 07/26/18 06:56 Vomiting PMH/Surg Hx/FS Hx/Imm Hx Previously Healthy: No Endocrine/Hematology History: Denies: Hx Anticoagulant Therapy, Hx Blood Disorders, Hx Diabetes, Hx Thyroid Disease Cardiovascular History: Denies: Hx Congestive Heart Failure, Hx Hypertension Respiratory History: Denies: Hx Asthma, Hx Chronic Obstructive Pulmonary Disease (COPD) GI History: Reports: Hx Ulcer, Other GI Disorders - Collagenous colitis, cyclic vomiting syndrome History: Reports: Other Problems/Disorders - Frequent UTIs Denies: Hx Dialysis, Hx Renal Disease Sensory History: Reports: Hx Contacts or Glasses Denies: Hx Hearing Aid Opthamlomology History: Reports: Hx Contacts or Glasses Psychiatric History: Reports: Hx Anxiety, Hx Depression, Hx Substance Abuse - 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; 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) - Surgical History Surgery Procedure, Year, and Place: 2014 left ovarian cyst REMOVAL Hx Anesthesia Reactions: No - Immunization History Date of Tetanus Vaccine: utd Date of Influenza Vaccine: utd Infectious Disease History: Yes Infectious Disease History: Reports: Hx Clostridium Difficile, Hx Hepatitis - TESTS + FOR HEP C ANTIBODIES Denies: Hx Human Immunodeficiency Virus (HIV), Hx of Known/Suspected MRSA, Hx Shingles, Hx Tuberculosis, Hx Known/Suspected VRE, Hx Known/Suspected VRSA, History Other Infectious Disease, Traveled Outside the [place] in Last 30 Days - Family History Known Family History: Positive: Hypertension - mother, Other - Negative bowel CA - Social History Lives: With Family - boyfriend who also smokes marijuana Alcohol Use: Occasionally Alcohol Amount: 1/week Hx Substance Use: Yes Substance Use Type: Reports: Heroin, Marijuana Substance Use Comment - Amount & Last Used: no heroin use since 2013 per pt Hx Tobacco Use: Yes Smoking Status (MU): Current Every Day Smoker Type: Cigarettes Amount Used/How Often: pack per day Length of Time of Smoking/Using Tobacco: 8 years Have You Smoked in the Last Year: Yes Review of Systems Constitutional: Negative Cardiovascular: Negative Respiratory: Negative Positive: Abdominal Pain, Vomiting Negative: dysuria, hematuria Neurological: Negative Psychological: Normal All Other Systems Reviewed And Are Negative: Yes Physical Exam - Summary Physical Exam Summary: Appearance: Well-appearing, moderate pain distress, well-nourished Skin: Warm, color reflects adequate perfusion, dry Head: Normal Head/Face inspection, atraumatic Eyes: Conjunctiva clear ENT: Normal inspection Neck: Supple, no nodes, no JVD Respiratory: Lungs clear, normal breath sounds, no respiratory distress Cardio: RRR, No murmur, pulses normal, brisk capillary refill Abdomen: Soft, nontender, nondistended, no masses, no CVAT Rectal Exam: JOEL Hyde present as a injection operator for a rectal exam. No blood or stool present. Bowel sounds: Present Musculoskeletal: Strength Intact/ROM intact, no calf tenderness, no edema. Psychological: Normal Neuro: Alert, muscle tone normal, no focal deficit Triage Information Reviewed: Yes Vital Signs On Initial Exam: Initial Vitals Temp Pulse Resp BP Pulse Ox 97.0 F 90 18 154/100 98 08/01/18 11:04 08/01/18 11:04 08/01/18 11:04 08/01/18 11:04 08/01/18 11:04 Vital Signs Reviewed: Yes Diagnostics - Vital Signs Vital Signs Temp Pulse Resp BP Pulse Ox 08/01/18 11:04 97.0 F 90 18 154/100 98 - Laboratory Result Diagrams: 08/01/18 12:50 08/01/18 12:50 Lab Statement: Any lab studies that have been ordered have been reviewed, and results considered in the medical decision making process. Re-Evaluation - Re-Evaluation First Eval Re-Evaluation Time: 14:05 Change: Unchanged Comment: Still has pain, but is lying comfortably in the stretcher. She has not vomited. We will give Gabapentin for the pain, and the patient is agreeable with this plan. Second Eval Re-Evaluation Time: 16:22 Change: Improved Comment: Patient reports feeling much improved. She agrees to try and stop smoking marijuana. She is tolerating gingerale PO. GIGU Course/Dx - Course Course Of Treatment: This patient is a 32 year old F presenting to [facility] with a chief complaint of vomiting (with clear vomitus) that began approximately one week ago. Patient says she believes it may be due to smoking marijuana. The last time she smoked was on 07/30/2018. Physical Exam Findings: JOEL Hyde present as a injection operator for a rectal exam. No blood or stool present. Bloodwork and UA obtained. Pt had K+ 2.9 which was replaced with 3 runs of 10mEq IV KCl. In the ED course the patient was given Gabapentin, fluids, Toradol, Zofran, and KCl. Patient will be discharged with follow up from AMBER Montano. The patient is agreeable with this plan. She is prescribed KCl 40Meq po qd x 3 days and advised to DC marijuana. Pt is interested in developing care plan for her visits to the ED. Advised that this needs to be coordinated with her PCP. Also advised that if she can stop smoking marijuana that she may not need to return to the ED. Has been referred to [facility]. - Diagnoses Differential Diagnoses - Female: Bowel Obstruction, Constipation, Colitis, Dehydration, Diverticulitis, Enterocolitis, Gastritis, Ischemic Bowel, Metabolic , Pancreatitis, Vomiting - cyclical, Other - marijuana abuse Provider Diagnoses: Abdominal pain, Hypokalemia, Cyclical vomiting, Anxiety, Marijuana abuse, continuous Discharge - Sign-Out/Discharge Documenting (check all that apply): Patient Departure - Discharge Home - Discharge Plan Condition: Stable Disposition: HOME Prescriptions: Potassium Chlor TAB* [Potassium Chlor TAB 20 MEQ*] 40 meq PO DAILY #6 tab.er Patient Education Materials: Hypokalemia (ED), Cyclic Vomiting Syndrome (ED) Referrals: Noelle RODARTE,Minal Chavez [Primary Care Provider] - 1 Day Puneet Talley MD [Medical Doctor] - As Soon As Possible Additional Instructions: Your potassium was 2.9 and it was replaced with 3 "runs" of KCL IV. Dr. Melchor has prescribed 3 days more of oral potassium that you should take starting tomorrow. Dr. Melchor advises that you should never smoke or use marijuana or any of its derivatives again. Follow up with your caregivers as scheduled. Return to the ER if you have any new or worsening symptoms. You were given zofran 4mg IV, the potassium IV x 3 runs, gabapentin 400mg orally , and ketorolac 30mg IV while you were in the ER. You were able to drink gingerale without vomiting. - Billing Disposition and Condition Condition: STABLE Disposition: Home - Attestation Statements Document Initiated by Scribe: Yes Documenting Scribe: Yvonne Douglas Provider For Whom Everardo is Documenting (Include Credential): Dr. Pura Melchor MD Scribe Attestation: IYvonne, scribed for Dr. Pura Melchor MD on 08/01/18 at 2149. Scribe Documentation Reviewed: Yes Provider Attestation: The documentation as recorded by the Yvonne reich accurately reflects the service I personally performed and the decisions made by me, Dr. Pura Melchor MD
[2018-08-01] MEDS ORDERED: Ketorolac INJ* 30 MG/ML 1 ML VIAL IV PUSH ONE (12:30)
[2018-08-01 13:01] LABS: ABS Basophils 0.1 10^3/ul (0-0.2); ABS Eosinophils 0 10^3/ul (0-0.6); ABS Lymphocytes 0.9 10^3/ul (1.0-4.8); ABS Monocytes 0.4 10^3/ul (0-0.8); ABS Neutrophils 7.2 10^3/ul (1.5-7.7); ABS Nucleated RBC 0 10^3/ul; Eosinophil % 0.1 % (0-6); Hematocrit 38 % (35-47); Hemoglobin 12.9 g/dl (12.0-16.0); Mean Corpuscular HGB Conc 34 g/dl (31-36); Mean Corpuscular Hemoglobin 32 pg (27-31); Mean Corpuscular Volume 94 fL (80-97); Mean Platelet Volume 8.9 um3 (7.4-10.4); Nucleated Red Blood Cells % 0; Platelet Count 276 10^3/ul (150-450); Red Blood Count 4.04 10^6/ul (4.00-5.40); Red Cell Distribution Width 14 % (10.5-15); White Blood Count 8.6 10^3/ul (3.5-10.8)
[2018-08-01 13:09] LABS: INR 1.04 (0.77-1.02)
[2018-08-01 13:21] LABS: EGFR Non-African American 97.6 (>60)
[2018-08-01 13:54] LABS: Urine Appearance Cloudy; Urine Blood Negative (Negative); Urine Color Amber; Urine Ketones 1+ (Negative); Urine Protein 2+(100 mg/dL) (Negative); Urine Red Blood Cell Absent (Absent); Urine Specific Gravity 1.028 (1.010-1.030); Urine Urobilinogen Positive (Negative); Urine White Blood Cell Absent (Absent)
[2018-08-01] MEDS ORDERED: Gabapentin CAP(*) 400 MG PO ONE (14:08)
[2018-08-01] MEDS: KCL 10 MEQ/50 ML IVPREMIX* 10 MEQ/50 ML BAG IV SCH ×3 (14:11→16:33)
[2018-08-01 17:42] VITALS: BP 145/90
== END 2018-08-01 17:40 | disposition home or self-care (01) ==
LOC: ED 10:31
DX: R10.9 Unspecified abdominal pain (principal); E87.6 Hypokalemia; G43.A0 Cyclical vomiting, in migraine, not intractable; F41.9 Anxiety disorder, unspecified; F12.10 Cannabis abuse, uncomplicated
CPT/HCPCS: 36415; 80053; 81003; 81015; 82140; 82150; 82272; 82550; 83605; 83690; 83735; 83880; 84702; 85025; 85610; 85730; 86140; 96361; 96374; 96375; 99283; J1885; J2405; J3480

== ENCOUNTER 2018-08-02 06:08 | Emergency (ER) | payer BC ==
[2018-08-02] MEDS ORDERED: Haloperidol INJ IV/IM* 5 MG/ML AMP IV SLOW PU ONE (06:16)
[2018-08-02] MEDS ORDERED: DiMENhydriNATE IV* 50 MG/ML VIAL IV PUSH ONE (06:18)
--- NOTE | 2018-08-02 06:21 | ED ---
GI/ HPI - HPI Summary HPI Summary: A 32 y/o F presents to ED with n/v/d onset one week ago. Associated sx: LLQ and midline abd pain. PMHx: cyclic vomiting. Pt was last seen in [facility] on 07/24, and 08/01. She states seeing a GI doctor a while ago. She saw Dr. Duncan [facility] , once. Pt denies smoking marijuana. [facility]: one month ago. Abd surgeries: ovarian cyst. - History of Current Complaint Chief Complaint: EDNauseaVomitDiarrh Time Seen by Provider: 08/02/18 06:15 Stated Complaint: VOMITING Hx Obtained From: Patient Hx Last Menstrual Period: 07/26/18 Onset/Duration: Started Days Ago, Still Present Pain Intensity: 8 - out of 10 Location of Pain: LLQ, Other - midline Associated Signs and Symptoms: Positive: Nausea, Vomiting, Abdominal Pain - Additional Pertinent History Primary Care Physician: GEORGES - Allergy/Home Medications Allergies/Adverse Reactions: Allergies Allergy/AdvReac Type Severity Reaction Status Date / Time nitrofurantoin AdvReac Vomiting Verified 08/02/18 06:17 [From Macrobid] Penicillins AdvReac Vomiting Verified 08/02/18 06:17 Sulfa (Sulfonamide AdvReac Rash And Verified 08/02/18 06:17 Antibiotics) Itching sulfamethoxazole AdvReac Nausea And Verified 08/02/18 06:17 [From Bactrim] Vomiting trimethoprim [From Bactrim] AdvReac Nausea And Verified 08/02/18 06:17 Vomiting PMH/Surg Hx/FS Hx/Imm Hx Previously Healthy: No Endocrine/Hematology History: Denies: Hx Anticoagulant Therapy, Hx Blood Disorders, Hx Diabetes, Hx Thyroid Disease Cardiovascular History: Denies: Hx Congestive Heart Failure, Hx Hypertension Respiratory History: Denies: Hx Asthma, Hx Chronic Obstructive Pulmonary Disease (COPD) GI History: Reports: Hx Ulcer, Other GI Disorders - Collagenous colitis, cyclic vomiting syndrome History: Reports: Other Problems/Disorders - Frequent UTIs Denies: Hx Dialysis, Hx Renal Disease Sensory History: Reports: Hx Contacts or Glasses Denies: Hx Hearing Aid Opthamlomology History: Reports: Hx Contacts or Glasses Psychiatric History: Reports: Hx Anxiety, Hx Depression, Hx Substance Abuse - 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; 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) - Surgical History Surgery Procedure, Year, and Place: 2014 left ovarian cyst REMOVAL Hx Anesthesia Reactions: No - Immunization History Date of Tetanus Vaccine: utd Date of Influenza Vaccine: utd Infectious Disease History: Yes Infectious Disease History: Reports: Hx Clostridium Difficile, Hx Hepatitis - TESTS + FOR HEP C ANTIBODIES Denies: Hx Human Immunodeficiency Virus (HIV), Hx of Known/Suspected MRSA, Hx Shingles, Hx Tuberculosis, Hx Known/Suspected VRE, Hx Known/Suspected VRSA, History Other Infectious Disease, Traveled Outside the [place] in Last 30 Days - Family History Known Family History: Positive: Hypertension - mother, Other - Negative bowel CA - Social History Occupation: Employed Full-time Lives: With Family Alcohol Use: Occasionally Alcohol Amount: 1/week Hx Substance Use: Yes Substance Use Type: Reports: Heroin, Marijuana Substance Use Comment - Amount & Last Used: no heroin use since 2012 per pt Hx Tobacco Use: Yes Smoking Status (MU): Current Every Day Smoker Type: Cigarettes Amount Used/How Often: pack per day Length of Time of Smoking/Using Tobacco: 8 years Have You Smoked in the Last Year: Yes Review of Systems Positive: Abdominal Pain, Vomiting, Diarrhea, Nausea Negative: Slurred Speech All Other Systems Reviewed And Are Negative: Yes Physical Exam - Summary Physical Exam Summary: Appearance: Well appearing, no pain distress Skin: warm, light diaphoresis, reflects adequate perfusion Head/face: normal Eyes: EOMI, ARACELY ENT: mucous membranes are tacky Neck: supple, non-tender Respiratory: mild expiratory wheezes, breath sounds present Cardiovascular: RRR, pulses symmetrical Abdomen: non-tender, soft Bowel Sounds: present Musculoskeletal: normal, strength/ROM intact Neuro: normal, sensory motor intact, A&Ox3 Triage Information Reviewed: Yes Vital Signs On Initial Exam: Initial Vitals Temp Pulse Resp BP Pulse Ox 96.6 F 87 20 142/91 96 08/02/18 06:10 08/02/18 06:10 08/02/18 06:10 08/02/18 06:10 08/02/18 06:10 Vital Signs Reviewed: Yes Procedures - Procedure Summary Procedure Summary: IV placement: Due to poor peripheral IV access a left turn on jugular IV catheter was placed. The patient verbally consented and I placed her in Trendelenburg position. The area over the easily visible left external jugular vein was cleaned with ChloraPrep. A single attempt with a 20-gauge angiocatheter was successful. This was secured with a Tegaderm and flushed/mery easily. She tolerated this well without complication. Lab work was able to be obtained from this line. Diagnostics - Vital Signs Vital Signs Temp Pulse Resp BP Pulse Ox 08/02/18 06:10 96.6 F 87 20 142/91 96 - Laboratory Result Diagrams: 08/02/18 06:29 Lab Statement: Any lab studies that have been ordered have been reviewed, and results considered in the medical decision making process. GIGU Course/Dx - Course Course Of Treatment: Placed left external juglar IV line in due to poor peripheral access. Patient has been here several times this week and was admitted once where she left AMA. There is concern today given her diaphoresis and persistent symptoms that and the cycle she is probably experiencing some degree of opiate withdrawal. She has previously asked for Dilaudid and Ativan by name. She states that she quit smoking marijuana but there is definitely some degree of her syndrome that is related to cannabis hyperemesis syndrome. I will give her fluids, magnesium to help with potassium replacement, IV Haldol/ IV Dramamine given IV Benadryl is unavailable. Patient refutes any opiate withdrawal however this is likely at least in some part contributory. - Diagnoses Differential Diagnoses - Female: Other - Cyclic vomiting syndrome, cannabis hyperemesis syndrome, opiate dependent/opiate withdrawal syndrome, hypokalemia Provider Diagnoses: Opiate dependence, Cyclical vomiting, Cannabis abuse Discharge - Sign-Out/Discharge Documenting (check all that apply): Sign-Out Patient Signing out patient TO: Ramone Hall - pending labs, improvement, dispo - Discharge Plan Condition: Stable Referrals: Noelle RODARTE,Minal Chavez [Primary Care Provider] - - Billing Disposition and Condition Condition: STABLE - Attestation Statements Document Initiated by Scribe: Yes Documenting Scribe: Edd Guzman Provider For Whom Scribe is Documenting (Include Credential): Dr. Ronen Corea MD Scribe Attestation: Edd Patterson scribed for Dr. Ronen Corea MD on 08/02/18 at 0659. Scribe Documentation Reviewed: Yes Provider Attestation: The documentation as recorded by the scribadelina, Edd Guzman accurately reflects the service I personally performed and the decisions made by me, Dr. Ronen Corea MD
[2018-08-02 06:36] LABS: ABS Basophils 0.1 10^3/ul (0-0.2); ABS Eosinophils 0.1 10^3/ul (0-0.6); ABS Lymphocytes 1.4 10^3/ul (1.0-4.8); ABS Monocytes 0.6 10^3/ul (0-0.8); ABS Neutrophils 8.2 10^3/ul (1.5-7.7); ABS Nucleated RBC 0 10^3/ul; Eosinophil % 0.9 % (0-6); Hematocrit 39 % (35-47); Hemoglobin 13.5 g/dl (12.0-16.0); Lymphocyte % 13.4 % (25-47); Mean Corpuscular HGB Conc 35 g/dl (31-36); Mean Corpuscular Hemoglobin 32 pg (27-31); Mean Corpuscular Volume 94 fL (80-97); Mean Platelet Volume 8.6 um3 (7.4-10.4); Nucleated Red Blood Cells % 0; Platelet Count 298 10^3/ul (150-450); Red Blood Count 4.17 10^6/ul (4.00-5.40); Red Cell Distribution Width 14 % (10.5-15); White Blood Count 10.4 10^3/ul (3.5-10.8)
[2018-08-02] MEDS ORDERED: Magnesium Sulfate 1 GM IV* 1 GM/100 ML BAG IV ONE (06:39)
[2018-08-02] MEDS ORDERED: NS 0.9% 1000 ML* 1,000 ML IV ONE (06:52)
[2018-08-02 07:09] LABS: EGFR Non-African American 80.2 (>60)
[2018-08-02 07:14] VITALS: BP 131/91
--- NOTE | 2018-08-02 07:35 | ED ---
Progress - Progress Note Progress Note: This pt was signed out by Dr. Corea, pending disposition, awaiting re- evaluation. On re-evaluation pt reports feeling better after medications. She will be discharged home with follow up from her PCP in 3 days. She is instructed to return to the ED for any worsening or new symptoms. Re-Evaluation - Re-Evaluation First Eval Re-Evaluation Time: 08:01 Change: Improved Comment: Pt feels better. She will be discharged home. Course/Dx - Diagnoses Provider Diagnoses: Nausea and vomiting Discharge - Sign-Out/Discharge Documenting (check all that apply): Patient Departure - Discharge home, Receiving Sign-Out Receiving patient FROM: Ronen Corea - Discharge Plan Condition: Stable Disposition: HOME Patient Education Materials: Acute Nausea and Vomiting (ED) Referrals: Minal Lafleur [Primary Care Provider] - Additional Instructions: Please follow up with your primary care provider in 3 days. RETURN TO THE ED FOR ANY WORSENING SYMPTOMS. - Attestation Statements Document Initiated by Scribe: Yes Documenting Scribe: Sada Raphael Provider For Whom Floweribe is Documenting (Include Credential): Ramone Hall MD Scribe Attestation: Sada Patterson, scribed for Ramone Hall MD on 08/02/18 at 0801.
[2018-08-02] MEDS ORDERED: Potassium Chlor TAB* 20 MEQ TAB.ER PO ONE (07:44)
== END 2018-08-02 08:13 | disposition home or self-care (01) ==
LOC: ED 06:08
DX: F11.20 Opioid dependence, uncomplicated (principal); G43.A0 Cyclical vomiting, in migraine, not intractable; F12.10 Cannabis abuse, uncomplicated; F17.210 Nicotine dependence, cigarettes, uncomplicated; Z88.0 Allergy status to penicillin; Z88.2 Allergy status to sulfonamides
CPT/HCPCS: 36415; 80053; 83690; 85025; 96361; 96374; 96375; 99283; A9270-GY; J1240; J1630; J3475

== ENCOUNTER 2018-10-03 05:49 | Emergency (ER) | payer BC ==
[2018-10-03] MEDS ORDERED: Ondansetron INJ* 2 MG/ML VIAL IV ONE (06:20)
[2018-10-03] MEDS ORDERED: NS 0.9% 1000 ML* 1,000 ML IV ONE (06:21)
[2018-10-03] MEDS ORDERED: Ketorolac INJ* 30 MG/ML 1 ML VIAL IV PUSH ONE (06:21)
[2018-10-03] MEDS ORDERED: LORazepam INJ* 2 MG/ML 1 ML VIAL IV PUSH ONE ×2 (06:21→08:46)
[2018-10-03] MEDS ORDERED: Famotidine IV* 10 MG/ML 2 ML (20 mg) IV SLOW PU ONE (06:48)
[2018-10-03 06:54] LABS: Calcium 9.1 mg/dL (8.6-10.3); Potassium 3.4 mmol/L (3.5-5.0); Total Bilirubin 0.4 mg/dL (0.2-1.0)
[2018-10-03 06:59] LABS: Albumin/Globulin Ratio 1.8 (1-3); BUN/Creatinine Ratio 11.9 (8-20); EGFR Non-African American 79.1 (>60); Globulin 2.2 g/dL (2-4); Total Protein 6.2 g/dL (6.4-8.9)
--- NOTE | 2018-10-03 08:09 | ED ---
Nausea/Vomiting/Diarrhea HPI - HPI Summary HPI Summary: Patient is a 32-year-old female with a history of cyclic vomiting syndrome presenting to the ED with a 6 day history of intractable vomiting 10+ times per day. She also endorses left upper quadrant pain radiating into the epigastric region. She states this is normal for her after several days of vomiting. She states she has been unable to eat or drink 6 days. She denies any fevers, sweats, chills. Denies any diarrhea or constipation. She continues to smoke marijuana. She has been taking her home Zofran, Compazine and Reglan without good relief of her symptoms. On arrival she is requesting Dilaudid and Ativan for her symptoms. She has been admitted for this in the past to [facility] [place]. - History of Current Complaint Chief Complaint: EDNauseaVomitDiarrh Stated Complaint: VOMITING Time Seen by Provider: 10/03/18 05:50 Hx Obtained From: Patient Hx Last Menstrual Period: 07/26/18 ?: No Onset/Duration: Sudden Onset Timing: Constant Severity Initially: Moderate Severity Currently: Moderate Pain Intensity: 8 Pain Scale Used: 0-10 Numeric Aggravating Factor(s): Nothing Alleviating Factor(s): Nothing Vomiting Frequency: Every 15-60 minutes Nausea/Vomiting Duration: 3-7 days Diarrhea Presence: No - Risk Factors Influenza Risk Factors: Negative - Allergies/Home Medications Allergies/Adverse Reactions: Allergies Allergy/AdvReac Type Severity Reaction Status Date / Time nitrofurantoin AdvReac Vomiting Verified 08/02/18 06:17 [From Macrobid] Penicillins AdvReac Vomiting Verified 08/02/18 06:17 Sulfa (Sulfonamide AdvReac Rash And Verified 08/02/18 06:17 Antibiotics) Itching sulfamethoxazole AdvReac Nausea And Verified 08/02/18 06:17 [From Bactrim] Vomiting trimethoprim [From Bactrim] AdvReac Nausea And Verified 08/02/18 06:17 Vomiting PMH/Surg Hx/FS Hx/Imm Hx Previously Healthy: Yes Endocrine/Hematology History: Denies: Hx Anticoagulant Therapy, Hx Blood Disorders, Hx Diabetes, Hx Thyroid Disease Cardiovascular History: Denies: Hx Congestive Heart Failure, Hx Hypertension Respiratory History: Denies: Hx Asthma, Hx Chronic Obstructive Pulmonary Disease (COPD) GI History: Reports: Hx Ulcer, Other GI Disorders - Collagenous colitis, cyclic vomiting syndrome History: Reports: Other Problems/Disorders - Frequent UTIs Denies: Hx Dialysis, Hx Renal Disease Sensory History: Reports: Hx Contacts or Glasses Denies: Hx Hearing Aid Opthamlomology History: Reports: Hx Contacts or Glasses Psychiatric History: Reports: Hx Anxiety, Hx Depression, Hx Substance Abuse - 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; 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) - Surgical History Surgery Procedure, Year, and Place: 2014 left ovarian cyst REMOVAL Hx Anesthesia Reactions: No - Immunization History Date of Tetanus Vaccine: utd Date of Influenza Vaccine: utd Hx Pertussis Vaccination: No Immunizations Up to Date: Yes Infectious Disease History: No Infectious Disease History: Reports: Hx Clostridium Difficile, Hx Hepatitis - TESTS + FOR HEP C ANTIBODIES Denies: Hx Human Immunodeficiency Virus (HIV), Hx of Known/Suspected MRSA, Hx Shingles, Hx Tuberculosis, Hx Known/Suspected VRE, Hx Known/Suspected VRSA, History Other Infectious Disease, Traveled Outside the [place] in Last 30 Days - Family History Known Family History: Positive: None, Hypertension - mother, Other - Negative bowel CA Family History: pt denies FHx - Social History Occupation: Unemployed Lives: With Family Alcohol Amount: 1/week Hx Substance Use: Yes Substance Use Type: Reports: Marijuana Substance Use Comment - Amount & Last Used: no heroin use since 2012 per pt Hx Tobacco Use: Yes Smoking Status (MU): Current Every Day Smoker Type: Cigarettes Amount Used/How Often: pack per day Length of Time of Smoking/Using Tobacco: 8 years Have You Smoked in the Last Year: Yes Review of Systems Constitutional: Negative Negative: Fever, Chills, Fatigue, Skin Diaphoresis Negative: Palpitations, Chest Pain Negative: Shortness Of Breath, Cough Positive: Abdominal Pain - LLQ pain, Vomiting, Nausea. Negative: Diarrhea Genitourinary: Negative Positive: no symptoms reported, see HPI Negative: Arthralgia, Myalgia Skin: Negative Neurological: Negative Psychological: Normal All Other Systems Reviewed And Are Negative: Yes Physical Exam Triage Information Reviewed: Yes Vital Signs On Initial Exam: Initial Vitals Temp Pulse Resp BP Pulse Ox 98.6 F 87 17 137/103 98 10/03/18 05:51 10/03/18 05:51 10/03/18 05:51 10/03/18 05:51 10/03/18 05:51 Vital Signs Reviewed: Yes Appearance: Positive: Well-Appearing, Well-Nourished Skin: Positive: Warm, Skin Color Reflects Adequate Perfusion Head/Face: Positive: Normal Head/Face Inspection Eyes: Positive: EOMI, ARACELY, Conjunctiva Clear Neck: Positive: Supple, No Lymphadenopathy Respiratory/Lung Sounds: Positive: Clear to Auscultation, Breath Sounds Present Cardiovascular: Positive: RRR, Pulses are Symmetrical in both Upper and Lower Extremities Musculoskeletal: Positive: Strength/ROM Intact Neurological: Positive: Alert, Oriented to Person Place, Time, Speech Normal Psychiatric: Positive: Affect/Mood Appropriate AVPU Assessment: Alert Diagnostics - Vital Signs Vital Signs Temp Pulse Resp BP Pulse Ox 10/03/18 06:37 16 10/03/18 05:51 98.6 F 87 17 137/103 98 - Laboratory Lab Results: Lab Results 10/03/18 Range/Units 06:15 Sodium 140 (135-145) mmol/L Potassium 3.4 L (3.5-5.0) mmol/L Chloride 108 (101-111) mmol/L Carbon Dioxide 23 (22-32) mmol/L Anion Gap 9 (2-11) mmol/L BUN 10 (6-24) mg/dL Creatinine 0.84 (0.51-0.95) mg/dL Est GFR ( Amer) 95.7 (>60) Est GFR (Non-Af Amer) 79.1 (>60) BUN/Creatinine Ratio 11.9 (8-20) Glucose 109 H (70-100) mg/dL Calcium 9.1 (8.6-10.3) mg/dL Total Bilirubin 0.40 (0.2-1.0) mg/dL AST 15 (13-39) U/L ALT 16 (7-52) U/L Alkaline Phosphatase 84 (34-104) U/L Total Protein 6.2 L (6.4-8.9) g/dL Albumin 4.0 (3.2-5.2) g/dL Globulin 2.2 (2-4) g/dL Albumin/Globulin Ratio 1.8 (1-3) Result Diagrams: 10/03/18 06:15 Lab Statement: Any lab studies that have been ordered have been reviewed, and results considered in the medical decision making process. Naus/Vom/Diarrhea Course/Dx - Course Course Of Treatment: Patient is evaluated for intractable vomiting. She continues to smoke marijuana. She's been on potassium chloride in the past for low potassium, however today her potassium is 3.4. Will not start her on U potassium chloride tabs at this time. She is given Zofran, Ativan, famotidine and normal saline. On physical examination, she has diffuse tenderness to the left upper quadrant and epigastric region. Patient is given another Ativan with good relief. She is able to be discharged home at this time. She is given return precautions for worsening nausea and vomiting not well controlled with her at home Zofran and Ativan. She is agreeable to this plan. Today's potassium is 3.4, so will not at this point replete with potassium chloride tabs. - Differential Dx/Diagnosis Provider Diagnosis: Cyclical vomiting Condition At Discharge: Stable Discharge - Sign-Out/Discharge Documenting (check all that apply): Patient Departure - Discharge Plan Condition: Stable Disposition: HOME Prescriptions: LORazepam TAB(*) [Ativan 1 MG TAB (*)] 1 mg PO Q6H PRN #12 tab MDD 4 PRN Reason: Vomiting Referrals: Noelle RODARTE,Minal Chavez [Primary Care Provider] - Additional Instructions: To return if symptoms worsen Gatorade and latanya radha may help with symptoms Take your at home Zofran and Ativan up to every 6 hours as needed for nausea and vomiting - Billing Disposition and Condition Condition: STABLE Disposition: Home
[2018-10-03 09:11] VITALS: BP 140/94
== END 2018-10-03 09:10 | disposition home or self-care (01) ==
LOC: ED 05:49
DX: G43.A0 Cyclical vomiting, in migraine, not intractable (principal); F17.210 Nicotine dependence, cigarettes, uncomplicated; Z88.2 Allergy status to sulfonamides; Z88.0 Allergy status to penicillin
CPT/HCPCS: 36415; 80053; 96361; 96374; 96375; 96376; 99282; J1885; J2060; J2405

== ENCOUNTER 2018-10-04 15:45 | Emergency (ER) | payer BC ==
[2018-10-04] MEDS ORDERED: NS 0.9% 1000 ML* 1,000 ML IV ONE (19:13)
[2018-10-04] MEDS ORDERED: Haloperidol INJ IV/IM* 5 MG/ML AMP IV SLOW PU ONE (19:13)
[2018-10-04] MEDS ORDERED: DiMENhydriNATE IV* 50 MG/ML VIAL IV PUSH ONE (19:13)
[2018-10-04 19:29] LABS: ABS Basophils 0.1 10^3/ul (0-0.2); ABS Eosinophils 0 10^3/ul (0-0.6); ABS Lymphocytes 2.3 10^3/ul (1.0-4.8); ABS Monocytes 0.6 10^3/ul (0-0.8); ABS Neutrophils 8.2 10^3/ul (1.5-7.7); ABS Nucleated RBC 0 10^3/ul; Eosinophil % 0.2 %; Hematocrit 39 % (35-47); Hemoglobin 13.1 g/dl (12.0-16.0); Lymphocyte % 20.4 %; Mean Corpuscular HGB Conc 34 g/dl (31-36); Mean Corpuscular Hemoglobin 31 pg (27-31); Mean Corpuscular Volume 93 fL (80-97); Mean Platelet Volume 8.5 fL (7.4-10.4); Nucleated Red Blood Cells % 0.1; Platelet Count 307 10^3/ul (150-450); Red Cell Distribution Width 14 % (10.5-15); White Blood Count 11.3 10^3/ul (3.5-10.8)
--- NOTE | 2018-10-04 19:39 | ED ---
GI/ HPI - HPI Summary HPI Summary: Pt is a 32 y/o female who presents to the ED c/o N/V. She has cyclic vomiting syndrome, and has been having episodes for the past week. Pt was here yesterday for vomiting, but doesnt feel any better. She continues to smoke marijuana after being recommended not to. Pt took Zofran and Ativan at 5:00 this morning. She also c/o some diarrhea, abdominal pain, and cramping pain of her back and right side. Pt denies any fevers or urinary symptoms. She states she saw a GI specialist at [place] for her cyclic vomiting syndrome but was not given any recommendations for symptoms management. LNMP 1-2 months ago. - History of Current Complaint Chief Complaint: EDNauseaVomitDiarrh Time Seen by Provider: 10/04/18 19:17 Stated Complaint: VOMITING Hx Obtained From: Patient Hx Last Menstrual Period: 07/26/18 Onset/Duration: Started Days Ago - 1 week, Still Present Timing: Intermittent Current Severity: Severe Pain Intensity: 8 Location of Pain: Diffuse - abdomen, Other - back, right "side" Pain Characteristics: Cramping Associated Signs and Symptoms: Positive: Back Pain, Nausea, Vomiting, Diarrhea, Abdominal Pain. Negative: Fever Alleviating Factor(s): Nothing - Additional Pertinent History Primary Care Physician: GEORGES - Allergy/Home Medications Allergies/Adverse Reactions: Allergies Allergy/AdvReac Type Severity Reaction Status Date / Time nitrofurantoin AdvReac Vomiting Verified 10/04/18 15:54 [From Macrobid] Penicillins AdvReac Vomiting Verified 10/04/18 15:54 Sulfa (Sulfonamide AdvReac Rash And Verified 10/04/18 15:54 Antibiotics) Itching sulfamethoxazole AdvReac Nausea And Verified 10/04/18 15:54 [From Bactrim] Vomiting trimethoprim [From Bactrim] AdvReac Nausea And Verified 10/04/18 15:54 Vomiting PMH/Surg Hx/FS Hx/Imm Hx Endocrine/Hematology History: Denies: Hx Anticoagulant Therapy, Hx Blood Disorders, Hx Diabetes, Hx Thyroid Disease Cardiovascular History: Denies: Hx Congestive Heart Failure, Hx Hypertension Respiratory History: Denies: Hx Asthma, Hx Chronic Obstructive Pulmonary Disease (COPD) GI History: Reports: Hx Ulcer, Other GI Disorders - Collagenous colitis, cyclic vomiting syndrome History: Reports: Other Problems/Disorders - Frequent UTIs Denies: Hx Dialysis, Hx Renal Disease Sensory History: Reports: Hx Contacts or Glasses Denies: Hx Hearing Aid Opthamlomology History: Reports: Hx Contacts or Glasses Psychiatric History: Reports: Hx Anxiety, Hx Depression, Hx Substance Abuse - 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; 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) - Surgical History Surgery Procedure, Year, and Place: 2014 left ovarian cyst REMOVAL Hx Anesthesia Reactions: No - Immunization History Date of Tetanus Vaccine: utd Date of Influenza Vaccine: utd Infectious Disease History: No Infectious Disease History: Reports: Hx Clostridium Difficile, Hx Hepatitis - TESTS + FOR HEP C ANTIBODIES Denies: Hx Human Immunodeficiency Virus (HIV), Hx of Known/Suspected MRSA, Hx Shingles, Hx Tuberculosis, Hx Known/Suspected VRE, Hx Known/Suspected VRSA, History Other Infectious Disease, Traveled Outside the [place] in Last 30 Days - Family History Known Family History: Positive: Hypertension - mother, Other - Negative bowel CA - Social History Alcohol Use: Weekly Alcohol Amount: 1/week Hx Substance Use: Yes Substance Use Type: Reports: Marijuana Substance Use Comment - Amount & Last Used: no heroin use since 2012 per pt Hx Tobacco Use: Yes Smoking Status (MU): Current Every Day Smoker Type: Cigarettes Amount Used/How Often: pack per day Length of Time of Smoking/Using Tobacco: 8 years Have You Smoked in the Last Year: Yes Review of Systems Negative: Fever Positive: Abdominal Pain, Vomiting, Diarrhea, Nausea Genitourinary: Negative Positive: Myalgia - back pain All Other Systems Reviewed And Are Negative: Yes Physical Exam - Summary Physical Exam Summary: Appearance: Well appearing, no pain distress Skin: warm, dry, reflects adequate perfusion Head/face: normal Eyes: EOMI, ARACELY ENT: mucous membranes tacky Neck: supple, non-tender Respiratory: CTA, breath sounds present Cardiovascular: RRR, pulses symmetrical Abdomen: non-tender, soft Bowel Sounds: hypoactive Musculoskeletal: normal, strength/ROM intact Neuro: normal, sensory motor intact, A&Ox3 Triage Information Reviewed: Yes Vital Signs On Initial Exam: Initial Vitals Temp Pulse Resp BP Pulse Ox 98.5 F 94 18 133/111 98 10/04/18 15:54 10/04/18 15:54 10/04/18 15:54 10/04/18 15:54 10/04/18 15:54 Vital Signs Reviewed: Yes Procedures - Central Line Left Jugular Central Line Procedure: betadine prep Central Line Position: internal jugular (L) - 20 gauge IV catheter, placed due to poor peripheral access Diagnostics - Vital Signs Vital Signs Temp Pulse Resp BP Pulse Ox 10/04/18 18:50 98.7 F 102 16 124/83 97 10/04/18 15:54 98.5 F 94 18 133/111 98 - Laboratory Lab Results: Lab Results 10/04/18 Range/Units 19:15 WBC 11.3 H (3.5-10.8) 10^3/ul RBC 4.20 (4.00-5.40) 10^6/ul Hgb 13.1 (12.0-16.0) g/dl Hct 39 (35-47) % MCV 93 (80-97) fL MCH 31 (27-31) pg MCHC 34 (31-36) g/dl RDW 14 (10.5-15) % Plt Count 307 (150-450) 10^3/ul MPV 8.5 (7.4-10.4) fL Neut % (Auto) 73.0 % Lymph % (Auto) 20.4 % [place] % (Auto) 5.5 % Eos % (Auto) 0.2 % Baso % (Auto) 0.9 % Absolute Neuts (auto) 8.2 H (1.5-7.7) 10^3/ul Absolute Lymphs (auto) 2.3 (1.0-4.8) 10^3/ul Absolute Monos (auto) 0.6 (0-0.8) 10^3/ul Absolute Eos (auto) 0 (0-0.6) 10^3/ul Absolute Basos (auto) 0.1 (0-0.2) 10^3/ul Absolute Nucleated RBC 0 10^3/ul Nucleated RBC % 0.1 Result Diagrams: 10/04/18 19:15 10/04/18 19:15 Lab Statement: Any lab studies that have been ordered have been reviewed, and results considered in the medical decision making process. Re-Evaluation - Re-Evaluation First Eval Re-Evaluation Time: 21:00 Change: Improved Comment: Pt feels better and is ready to be discharged. GIGU Course/Dx - Course Course Of Treatment: Nurse's notes reviewed. This patient is well-known to me in the ER with a history of cyclic vomiting syndrome. She continues to smoke marijuana despite my urges for her not to. There may be some element of cannabis induced hyperemesis syndrome. She was treated here with significant relief with IV Haldol, Dramamine. I did put in a left external jugular IV line due to poor peripheral access. She was discharged to follow up with GI. - Diagnoses Differential Diagnoses - Female: Other - Cyclic vomiting, cannabis induced hyperemesis, dehydration Provider Diagnoses: Marijuana abuse, Cyclic vomiting syndrome Discharge - Sign-Out/Discharge Documenting (check all that apply): Patient Departure - Discharge - Discharge Plan Condition: Improved Disposition: HOME Patient Education Materials: Cyclic Vomiting Syndrome (ED) Referrals: Jason Duncan MD [Medical Doctor] - Minal Lafleur [Primary Care Provider] - Additional Instructions: Try to avoid marijuana. This may be exacerbating your symptoms. Hot Showers may help symptoms. Return with repetitive vomiting, worse or other concerns. Follow up with your GI doctor and primary care physician. - Billing Disposition and Condition Condition: IMPROVED Disposition: Home - Attestation Statements Document Initiated by Everardo: Yes Documenting Scribe: Laura Sears Provider For Whom Everardo is Documenting (Include Credential): Ronen Corea MD Scribe Attestation: Laura Patterson scribed for Ronen Corea MD on 10/04/18 at [id number]. Scribe Documentation Reviewed: Yes Provider Attestation: The documentation as recorded by the Laura reich accurately reflects the service I personally performed and the decisions made by , Ronen Corea MD Status of Scribe Document: Viewed
[2018-10-04 19:48] LABS: ALT 16 U/L (7-52); AST 14 U/L (13-39); Albumin 4.3 g/dL (3.2-5.2); Albumin/Globulin Ratio 1.7 (1-3); Alkaline Phosphatase 75 U/L (34-104); Anion Gap 9 mmol/L (2-11); BUN/Creatinine Ratio 13.4 (8-20); Blood Urea Nitrogen 11 mg/dL (6-24); C Reactive Protein 8.21 mg/L (<8.01); CO2 Carbon Dioxide 25 mmol/L (22-32); Calcium 9.1 mg/dL (8.6-10.3); Chloride 106 mmol/L (101-111); EGFR Non-African American 81.3 (>60); Globulin 2.6 g/dL (2-4); Glucose 105 mg/dL (70-100); Potassium 3.2 mmol/L (3.5-5.0); Sodium 140 mmol/L (135-145); Total Protein 6.9 g/dL (6.4-8.9)
[2018-10-04 19:52] LABS: HCG Pregnancy < 0.60 mIU/mL
[2018-10-04 21:39] VITALS: BP 111/69
== END 2018-10-04 21:43 | disposition home or self-care (01) ==
LOC: ED 15:45
DX: G43.A0 Cyclical vomiting, in migraine, not intractable (principal); T40.7X5A Adverse effect of cannabis (derivatives), initial encounter; Y92.9 Unspecified place or not applicable; Z88.1 Allergy status to other antibiotic agents; Z88.0 Allergy status to penicillin; Z88.2 Allergy status to sulfonamides; F17.210 Nicotine dependence, cigarettes, uncomplicated
CPT/HCPCS: 36415; 36555; 36569; 80053; 83605; 83690; 84702; 85025; 86140; 96374; 96375; 99284; J1240; J1630

== ENCOUNTER 2018-12-20 06:00 | Emergency (ER) | payer BC ==
--- OUTSIDE RECORDS SUMMARY | 2018-12-20 06:11 | XMS REPORT | Continuity of Care Document ---
:1985 External Reference #:[id number] Author Name Herman Mayberry D.O. Address [address] [place] [phone] Care Team Providers Name Role Phone HCP given Primary Care Physician Unavailable Payers Date Identification Numbers Payment Provider Subscriber Effective: Policy Number: [id number] Lethaus Octaviano Lemon 2016 Ind/Ppo/Hmo/Pos PayID: [id number] [address] [address] [place] [address] Advance Directives Description No Information Available Problems Date Description Provider Status Onset: 10/07/2017 Cyclical vomiting syndrome Minal Drake PA Active Onset: 10/07/2017 Collagenous colitis Minal Drake PA Active Onset: 10/07/2017 Adjustment disorder with mixed emotional Minal Drake PA Active features Onset: 10/07/2017 Tobacco user Minal Drake PA Active Family History Date Family Member(s) Observation Comments Mother Hypertension Mother Hypercholesterolemia Children None Siblings 1 Social History Type Date Description Comments Sex Unknown Education Highest Level Completed Some College Education Highest Level Completed Trade School Marital Status Single 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 Abuse No history of abuse Tobacco Use Reviewed: 10/07/17 Heavy tobacco smoker 1 ppd smoked for 11 (more than 10 years (as of cigarettes/day) 10/07/17) Smoking Status Reviewed: 10/08/17 Heavy tobacco smoker 1 ppd smoked for 11 (more than 10 years (as of cigarettes/day) 10/07/17) ETOH Use Occassional Alcohol Recreational Drug Use Marijuana former regular use, quit as of early 2017, one use on 03/14/18 Tobacco Use Start: Unknown Heavy tobacco smoker (more than 10 cigarettes/day) Exercise Type/Frequency Exercises rarely Sun Exposure Uses sunscreen Seat Belt/Car Seat Seat Belt Use - Yes Guns in Home No Smoke Alarms Yes smoke alarm Currently Active Patient is currently sexually active Contraceptive Methods BCP Age 1st [place] 17 Years Old Additional Info Sexual preference is men and women Allergies, Adverse Reactions, Alerts Date Description Reaction Status Severity Comments 10/07/2017 Penicillins Active nausea/vomiting 10/07/2017 Sulfa Active hives 10/07/2017 Nitrofurantoin, Macrocrystals / Active nausea/vomiting Nitrofurantoin, Monohydrate Medications Medication Date Status Form Strength Qnty SIG Indications Ordering Provider Zofran Odt 03/18/ Active Tablets 4mg 60tabs 1 tab by [email or web address] Dispers mouth three Serg, times a day M.D. as needed nausea Quetiapine 11/18/ Active Tablets 25mg 60tabs Take 1 Or 1 G47.00 José , 2018 Tablets by Serg, mouth at M.D. bedtime if needed for sleep Bupropion HCL / Active Tablets ER 300mg 1 tab po F43.23 Unknown ER (XL) 0000 24HR daily Aripiprazole / Active Tablets 5mg 1 tab po F43.23 Lopez, 0000 daily MD Madelyn [place] / Active Tablets 0.25-35mg- 1 tab po Ivania, 0000 mcg daily MD Ramakrishna Omeprazole / Active Capsules 40mg 60caps 1 cap by G43.A0 Aminahco, DR mouth twice Serg, a day M.D. Oxycodone HCL 04/30/ Hx Tablets 5mg 4tabs 1/2 tabs Jefe, 2018 - every 4 Herman, 05/04/ hours as D.O. 2018 needed withdrawl symptoms Oxycodone HCL 12/30/ Hx Tablets 5mg 2 tabs in Unknown 2018 - the am, 1 04/30/ in the 2018 afernoon and 1 ab in the evening. Co Q-10 10/07/ Hx Capsules 100mg 1 cap po G43.A0 José, 2017 - daily Serg, 11/17/ M.D. 2018 Mirtazapine / Hx Tablets 15mg 1 tab po F43.23 Unknown 0000 - daily 2017 Oxycodone-Acet 00/00/ Hx Tablets 7.5-325mg 60tabs take 2 G43.A0 Silcoff , aminophen 0000 - tablets by Serg, 01/05/ mouth daily M.D. 2017 if needed for pain K52.831 Lorazepam - 11/17/2017 Hx Tablets 0.5mg 1 tab po 3 times a F43.23 Unknown day as needed Immunizations CPT Code Status Date Vaccine Lot # [id number] Given 09/30/2018 Influenza Vaccine Quadrivalent Preser/Antibiotic [id number] Free Im Use Vital Signs Date Vital Result Comment 03/18/2018 12:57pm BP Systolic 134 mmHg BP Diastolic 84 mmHg Weight 227.00 lb 01/06/2018 3:43pm BP Systolic 132 mmHg BP Diastolic 88 mmHg Body Temperature 98.4 F Weight 230.00 lb with shoes 11/18/2017 9:23am BP Systolic 128 mmHg BP Diastolic 88 mmHg Weight 224.00 lb w/boots 10/07/2017 8:50am BP Systolic 120 mmHg BP Diastolic 82 mmHg Height 67 inches 5'7" Weight 216.00 lb BMI (Body Mass Index) 33.8 kg/m2 Results Test Date Facility Test Result H/L Range Note Comp Metabolic Panel 11/20/2018 [facility] Sodium 142 mmol/L N 135- 145 [phone] Potassium 3.7 mmol/L N 3.5-5.0 Chloride 107 mmol/L N 101-111 Co2 Carbon Dioxide 19 mmol/L Low 22-32 Anion Gap 16 mmol/L High 2-11 Glucose 155 mg/dL High 70-100 Blood Urea Nitrogen 22 mg/dL N 6-24 Creatinine 1.07 mg/dL High 0.51-0.95 BUN/Creatinine Ratio 20.6 High 8-20 Calcium 10.2 mg/dL N 8.6-10.3 Total Protein 8.1 g/dL N 6.4-8.9 Albumin 4.8 g/dL N 3.2-5.2 Globulin 3.3 g/dL N 2-4 Albumin/Globulin Ratio 1.5 N 1-3 Total Bilirubin 0.50 mg/dL N 0.2-1.0 Alkaline Phosphatase 103 U/L N 34-104 Alt 21 U/L N 7-52 Ast 20 U/L N 13-39 Egfr Non- 59.8 >60 Egfr 72.4 >60 1 Laboratory test finding 11/20/2018 [facility] Magnesium 1.9 mg/dL N 1.9-2.7 [phone] Lipase 15 U/L N 11.0-82.0 C Reactive Protein 10.76 mg/L High <8.01 HCG < 0.60 mIU/mL 2 Lactic Acid 3.0 mmol/L High 0.5-2.0 3 CBC Auto Diff 11/20/2018 [facility] White Blood 19.3 10^3/uL High 3.5 -10.8 [phone] Count Red Blood Count 4.71 10^6/uL N 4.00-5.40 Hemoglobin 14.9 g/dL N 12.0-16.0 Hematocrit 44 % N 35-47 Mean Corpuscular Volume 93 fL N 80-97 Mean Corpuscular Hemoglobin 32 pg High 27-31 Mean Corpuscular HGB Conc 34 g/dL N 31-36 Red Cell Distribution Width 14 % N 10.5-15 Platelet Count 396 10^3/uL N 150-450 Mean Platelet Volume 8.9 fL N 7.4-10.4 Abs Neutrophils 18.1 10^3/uL High 1.5-7.7 Abs Lymphocytes 0.8 10^3/uL Low 1.0-4.8 Abs Monocytes 0.3 10^3/uL N 0-0.8 Abs Eosinophils 0 10^3/uL N 0-0.6 Abs Basophils 0.1 10^3/uL N 0-0.2 Abs Nucleated RBC 0 10^3/uL Granulocyte % 93.6 % Lymphocyte % 4.2 % Monocyte % 1.8 % Eosinophil % 0 % Basophil % 0.4 % Nucleated Red Blood Cells % 0 CBC Auto Diff 10/04/2018 [facility] White Blood 11.3 10^3/uL High 3.5 -10.8 [phone] Count Red Blood Count 4.20 10^6/uL N 4.00-5.40 Hemoglobin 13.1 g/dL N 12.0-16.0 Hematocrit 39 % N 35-47 Mean Corpuscular Volume 93 fL N 80-97 Mean Corpuscular Hemoglobin 31 pg N 27-31 Mean Corpuscular HGB Conc 34 g/dL N 31-36 Red Cell Distribution Width 14 % N 10.5-15 Platelet Count 307 10^3/uL N 150-450 Mean Platelet Volume 8.5 fL N 7.4-10.4 Abs Neutrophils 8.2 10^3/uL High 1.5-7.7 Abs Lymphocytes 2.3 10^3/uL N 1.0-4.8 Abs Monocytes 0.6 10^3/uL N 0-0.8 Abs Eosinophils 0 10^3/uL N 0-0.6 Abs Basophils 0.1 10^3/uL N 0-0.2 Abs Nucleated RBC 0 10^3/uL Granulocyte % 73.0 % Lymphocyte % 20.4 % Monocyte % 5.5 % Eosinophil % 0.2 % Basophil % 0.9 % Nucleated Red Blood Cells % 0.1 Laboratory test finding 10/04/2018 [facility] Lactic Acid 0.8 mmol/L N 0.5-2.0 4 [phone] Comp Metabolic Panel 10/04/2018 [facility] Sodium 140 mmol/L N 135- 145 [phone] Potassium 3.2 mmol/L Low 3.5-5.0 Chloride 106 mmol/L N 101-111 Co2 Carbon Dioxide 25 mmol/L N 22-32 Anion Gap 9 mmol/L N 2-11 Glucose 105 mg/dL High 70-100 Blood Urea Nitrogen 11 mg/dL N 6-24 Creatinine 0.82 mg/dL N 0.51-0.95 BUN/Creatinine Ratio 13.4 N 8-20 Calcium 9.1 mg/dL N 8.6-10.3 Total Protein 6.9 g/dL N 6.4-8.9 Albumin 4.3 g/dL N 3.2-5.2 Globulin 2.6 g/dL N 2-4 Albumin/Globulin Ratio 1.7 N 1-3 Total Bilirubin 0.40 mg/dL N 0.2-1.0 Alkaline Phosphatase 75 U/L N 34-104 Alt 16 U/L N 7-52 Ast 14 U/L N 13-39 Egfr Non- 81.3 >60 Egfr 98.4 >60 5 Laboratory test finding 10/04/2018 [facility] Lipase 25 U/L N 11.0- 82.0 [phone] C Reactive Protein 8.21 mg/L High <8.01 HCG < 0.60 mIU/mL 6 Comp Metabolic Panel 10/03/2018 [facility] Sodium 140 mmol/L N 135- 145 [phone] Potassium 3.4 mmol/L Low 3.5-5.0 Chloride 108 mmol/L N 101-111 Co2 Carbon Dioxide 23 mmol/L N 22-32 Anion Gap 9 mmol/L N 2-11 Calcium 9.1 mg/dL N 8.6-10.3 Albumin 4.0 g/dL N 3.2-5.2 Total Bilirubin 0.40 mg/dL N 0.2-1.0 Glucose 109 mg/dL High 70-100 Blood Urea Nitrogen 10 mg/dL N 6-24 Creatinine 0.84 mg/dL N 0.51-0.95 BUN/Creatinine Ratio 11.9 N 8-20 Total Protein 6.2 g/dL Low 6.4-8.9 Globulin 2.2 g/dL N 2-4 Albumin/Globulin Ratio 1.8 N 1-3 Alkaline Phosphatase 84 U/L N 34-104 Alt 16 U/L N 7-52 Ast 15 U/L N 13-39 Egfr Non- 79.1 >60 Egfr 95.7 >60 7 CBC Auto Diff 08/02/2018 [facility] White Blood Count 10.4 10^3/uL N 3.5-10.8 [phone] Red Blood Count 4.17 10^6/uL N 4.00-5.40 Hemoglobin 13.5 g/dL N 12.0-16.0 Hematocrit 39 % N 35-47 Mean Corpuscular Volume 94 fL N 80-97 Mean Corpuscular Hemoglobin 32 pg High 27-31 Mean Corpuscular HGB Conc 35 g/dL N 31-36 Red Cell Distribution Width 14 % N 10.5-15 Platelet Count 298 10^3/uL N 150-450 Mean Platelet Volume 8.6 um3 N 7.4-10.4 Abs Neutrophils 8.2 10^3/uL High 1.5-7.7 Abs Lymphocytes 1.4 10^3/uL N 1.0-4.8 Abs Monocytes 0.6 10^3/uL N 0-0.8 Abs Eosinophils 0.1 10^3/uL N 0-0.6 Abs Basophils 0.1 10^3/uL N 0-0.2 Abs Nucleated RBC 0 10^3/uL Granulocyte % 78.7 % N 38-83 Lymphocyte % 13.4 % Low 25-47 Monocyte % 6.1 % N 0-7 Eosinophil % 0.9 % N 0-6 Basophil % 0.9 % N 0-2 Nucleated Red Blood Cells % 0 Comp Metabolic Panel 08/02/2018 [facility] Sodium 144 mmol/L N 135- 145 [phone] Potassium 3.1 mmol/L Low 3.5-5.0 Chloride 108 mmol/L N 101-111 Co2 Carbon Dioxide 24 mmol/L N 22-32 Anion Gap 12 mmol/L High 2-11 Glucose 136 mg/dL High 70-100 Blood Urea Nitrogen 7 mg/dL N 6-24 Creatinine 0.83 mg/dL N 0.51-0.95 BUN/Creatinine Ratio 8.4 N 8-20 Calcium 8.9 mg/dL N 8.6-10.3 Total Protein 6.8 g/dL N 6.4-8.9 Albumin 4.1 g/dL N 3.2-5.2 Globulin 2.7 g/dL N 2-4 Albumin/Globulin Ratio 1.5 N 1-3 Alkaline Phosphatase 79 U/L N 34-104 Alt 18 U/L N 7-52 Ast 16 U/L N 13-39 Egfr Non- 80.2 >60 Egfr 97.0 >60 8 Total Bilirubin 0.40 mg/dL N 0.2-1.0 Laboratory test 08/02/2018 [facility] Lipase 21 U/L N 11.0-82.0 finding [phone] Stool Occult Blood 08/01/2018 [facility] Stool Occult SEE RESULT 9 Diag [phone] Blood, Diag BELOW Urinalysis Profile 08/01/2018 [facility] Urine Color Alize [phone] Urine Appearance Cloudy Urine Specific Keller 1.028 N 1.010-1.030 Urine pH 6.0 N 5-9 Urine Urobilinogen Positive Abnormal Negative Urine Ketones 1+ Abnormal Negative Urine Protein 2+(100 mg/dL) Abnormal Negative Urine Leukocytes Negative Negative Urine Blood Negative Negative * * Abnormal Negative 10 Urine Nitrite Negative Negative Urine Bilirubin Negative Negative Urine Glucose Negative Negative Urine White Blood Cell Absent Absent Urine Red Blood Cell Absent Absent Urine Bacteria Absent Absent Urine Squamous Epithelial Cell Present Abnormal Absent Laboratory test finding 08/01/2018 [facility] Magnesium 2.0 mg/dL N 1.9-2.7 [phone] Amylase 44 U/L N 29-103 Lipase 15 U/L N 11.0-82.0 Creatine Kinase(CK) 79 U/L N 10-223 C Reactive Protein 39.16 mg/L High <8.01 HCG < 0.60 mIU/mL 11 Comp Metabolic Panel 08/01/2018 [facility] Sodium 142 mmol/L N 135- 145 [phone] Potassium 2.9 mmol/L Low 3.5-5.0 Chloride 108 mmol/L N 101-111 Co2 Carbon Dioxide 25 mmol/L N 22-32 Anion Gap 9 mmol/L N 2-11 Glucose 110 mg/dL High 70-100 Blood Urea Nitrogen 9 mg/dL N 6-24 Creatinine 0.70 mg/dL N 0.51-0.95 BUN/Creatinine Ratio 12.9 N 8-20 Calcium 9.0 mg/dL N 8.6-10.3 Total Protein 7.0 g/dL N 6.4-8.9 Albumin 4.1 g/dL N 3.2-5.2 Globulin 2.9 g/dL N 2-4 Albumin/Globulin Ratio 1.4 N 1-3 Total Bilirubin 0.30 mg/dL N 0.2-1.0 Alkaline Phosphatase 74 U/L N 34-104 Alt 18 U/L N 7-52 Ast 15 U/L N 13-39 Egfr Non- 97.6 >60 Egfr 118.1 >60 12 Laboratory test 08/01/2018 [facility] Partial 30.7 seconds N 26.0- 36.3 finding [phone] Thrombo Time PTT Lactic Acid 1.4 mmol/L N 0.5-2.0 13 Ammonia 54 mcmol/L High 16-53 B-Type Natriuretic Peptide BNP 86 pg/mL 14 Inr/Protime 08/01/2018 [facility] Inr 1.04 High 0.77-1.02 [phone] CBC Auto Diff 08/01/2018 [facility] White Blood 8.6 10^3/uL N 3.5- 10.8 [phone] Count Red Blood Count 4.04 10^6/uL N 4.00-5.40 Hemoglobin 12.9 g/dL N 12.0-16.0 Hematocrit 38 % N 35-47 Mean Corpuscular Volume 94 fL N 80-97 Mean Corpuscular Hemoglobin 32 pg High 27-31 Mean Corpuscular HGB Conc 34 g/dL N 31-36 Red Cell Distribution Width 14 % N 10.5-15 Platelet Count 276 10^3/uL N 150-450 Mean Platelet Volume 8.9 um3 N 7.4-10.4 Abs Neutrophils 7.2 10^3/uL N 1.5-7.7 Abs Lymphocytes 0.9 10^3/uL Low 1.0-4.8 Abs Monocytes 0.4 10^3/uL N 0-0.8 Abs Eosinophils 0 10^3/uL N 0-0.6 Abs Basophils 0.1 10^3/uL N 0-0.2 Abs Nucleated RBC 0 10^3/uL Granulocyte % 83.6 % High 38-83 Lymphocyte % 11.0 % Low 25-47 Monocyte % 4.6 % N 0-7 Eosinophil % 0.1 % N 0-6 Basophil % 0.7 % N 0-2 Nucleated Red Blood Cells % 0 Laboratory test finding 08/01/2018 [facility] Lactic Acid 0.7 mmol/L N 0.5-2.0 15 [phone] Comp Metabolic Panel 07/26/2018 [facility] Sodium 140 mmol/L N 135- 145 [phone] Potassium 3.4 mmol/L Low 3.5-5.0 Chloride 110 mmol/L N 101-111 Co2 Carbon Dioxide 22 mmol/L N 22-32 Anion Gap 8 mmol/L N 2-11 Glucose 98 mg/dL N 70-100 Blood Urea Nitrogen 10 mg/dL N 6-24 Creatinine 0.90 mg/dL N 0.51-0.95 BUN/Creatinine Ratio 11.1 N 8-20 Calcium 8.7 mg/dL N 8.6-10.3 Total Protein 6.3 g/dL Low 6.4-8.9 Albumin 3.8 g/dL N 3.2-5.2 Globulin 2.5 g/dL N 2-4 Albumin/Globulin Ratio 1.5 N 1-3 Total Bilirubin 0.30 mg/dL N 0.2-1.0 Alkaline Phosphatase 84 U/L N 34-104 Alt 16 U/L N 7-52 Ast 13 U/L N 13-39 Egfr Non- 73.0 >60 Egfr 88.4 >60 16 CBC Auto Diff 07/26/2018 [facility] White Blood 12.1 10^3/uL High 3.5 -10.8 [phone] Count Red Blood Count 4.06 10^6/uL N 4.00-5.40 Hemoglobin 13.0 g/dL N 12.0-16.0 Hematocrit 38 % N 35-47 Mean Corpuscular Volume 94 fL N 80-97 Mean Corpuscular Hemoglobin 32 pg High 27-31 Mean Corpuscular HGB Conc 34 g/dL N 31-36 Red Cell Distribution Width 14 % N 10.5-15 Platelet Count 240 10^3/uL N 150-450 Mean Platelet Volume 8.8 um3 N 7.4-10.4 Abs Neutrophils 10.0 10^3/uL High 1.5-7.7 Abs Lymphocytes 1.4 10^3/uL N 1.0-4.8 Abs Monocytes 0.5 10^3/uL N 0-0.8 Abs Eosinophils 0 10^3/uL N 0-0.6 Abs Basophils 0.1 10^3/uL N 0-0.2 Abs Nucleated RBC 0 10^3/uL Granulocyte % 83.1 % High 38-83 Lymphocyte % 11.7 % Low 25-47 Monocyte % 4.3 % N 0-7 Eosinophil % 0.3 % N 0-6 Basophil % 0.6 % N 0-2 Nucleated Red Blood Cells % 0 Laboratory test finding 07/26/2018 [facility] Lactic Acid 0.8 mmol/L N 0.5-2.0 17 [phone] Comp Metabolic Panel 07/24/2018 [facility] Sodium 140 mmol/L N 135- 145 [phone] Potassium 3.8 mmol/L N 3.5-5.0 Chloride 108 mmol/L N 101-111 Co2 Carbon Dioxide 21 mmol/L Low 22-32 Anion Gap 11 mmol/L N 2-11 Glucose 103 mg/dL High 70-100 Blood Urea Nitrogen 11 mg/dL N 6-24 Creatinine 0.90 mg/dL N 0.51-0.95 BUN/Creatinine Ratio 12.2 N 8-20 Calcium 9.4 mg/dL N 8.6-10.3 Total Protein 7.2 g/dL N 6.4-8.9 Albumin 4.3 g/dL N 3.2-5.2 Globulin 2.9 g/dL N 2-4 Albumin/Globulin Ratio 1.5 N 1-3 Total Bilirubin 0.30 mg/dL N 0.2-1.0 Alkaline Phosphatase 96 U/L N 34-104 Alt 18 U/L N 7-52 Ast 17 U/L N 13-39 Egfr Non- 73.0 >60 Egfr 88.4 >60 18 Laboratory test finding 07/24/2018 [facility] Magnesium 2.1 mg/dL N 1.9-2.7 [phone] Lipase 14 U/L N 11.0-82.0 C Reactive Protein 14.39 mg/L High <8.01 HCG < 0.60 mIU/mL 19 TSH (Thyroid Stim Horm) 1.20 mcIU/mL N 0.34-5.60 CBC Auto Diff 04/25/2018 [facility] White Blood Count 9.1 10^3/uL N 3.5-10.8 [phone] Red Blood Count 4.44 10^6/uL N 4.00-5.40 Hemoglobin 14.2 g/dL N 12.0-16.0 Hematocrit 41 % N 35-47 Mean Corpuscular Volume 93 fL N 80-97 Mean Corpuscular Hemoglobin 32 pg High 27-31 Mean Corpuscular HGB Conc 35 g/dL N 31-36 Red Cell Distribution Width 14 % N 10.5-15 Platelet Count 266 10^3/uL N 150-450 Mean Platelet Volume 8.5 um3 N 7.4-10.4 Abs Neutrophils 6.6 10^3/uL N 1.5-7.7 Abs Lymphocytes 1.9 10^3/uL N 1.0-4.8 Abs Monocytes 0.6 10^3/uL N 0-0.8 Abs Eosinophils 0 10^3/uL N 0-0.6 Abs Basophils 0.1 10^3/uL N 0-0.2 Abs Nucleated RBC 0 10^3/uL Granulocyte % 72.0 % N 38-83 Lymphocyte % 20.6 % Low 25-47 Monocyte % 6.2 % N 0-7 Eosinophil % 0.4 % N 0-6 Basophil % 0.8 % N 0-2 Nucleated Red Blood Cells % 0 Comp Metabolic Panel 04/25/2018 [facility] Sodium 141 mmol/L N 135- 145 [phone] Potassium 3.2 mmol/L Low 3.5-5.0 Chloride 107 mmol/L N 101-111 Co2 Carbon Dioxide 24 mmol/L N 22-32 Anion Gap 10 mmol/L N 2-11 Glucose 102 mg/dL High 70-100 Blood Urea Nitrogen 13 mg/dL N 6-24 Creatinine 1.00 mg/dL High 0.51-0.95 BUN/Creatinine Ratio 13.0 N 8-20 Calcium 9.2 mg/dL N 8.6-10.3 Total Protein 7.2 g/dL N 6.4-8.9 Albumin 4.3 g/dL N 3.2-5.2 Globulin 2.9 g/dL N 2-4 Albumin/Globulin Ratio 1.5 N 1-3 Total Bilirubin 0.50 mg/dL N 0.2-1.0 Alkaline Phosphatase 90 U/L N 34-104 Alt 21 U/L N 7-52 Ast 20 U/L N 13-39 Egfr Non- 64.7 >60 Egfr 78.2 >60 20 Laboratory test finding 04/25/2018 [facility] Magnesium 2.0 mg/dL N 1.9-2.7 [phone] Lipase 20 U/L N 11.0-82.0 C Reactive Protein 11.99 mg/L High <8.01 Laboratory test finding 04/24/2018 [facility] Lipase 23 U/L N 11.0- 82.0 [phone] C Reactive Protein 11.64 mg/L High <8.01 HCG < 0.60 mIU/mL 21 Comp Metabolic Panel 04/24/2018 [facility] Sodium 140 mmol/L N 135- 145 [phone] Potassium 3.1 mmol/L Low 3.5-5.0 Chloride 106 mmol/L N 101-111 Co2 Carbon Dioxide 21 mmol/L Low 22-32 Anion Gap 13 mmol/L High 2-11 Glucose 107 mg/dL High 70-100 Blood Urea Nitrogen 11 mg/dL N 6-24 Creatinine 1.00 mg/dL High 0.51-0.95 BUN/Creatinine Ratio 11.0 N 8-20 Calcium 9.6 mg/dL N 8.6-10.3 Total Protein 7.3 g/dL N 6.4-8.9 Albumin 4.4 g/dL N 3.2-5.2 Globulin 2.9 g/dL N 2-4 Albumin/Globulin Ratio 1.5 N 1-3 Total Bilirubin 0.50 mg/dL N 0.2-1.0 Alkaline Phosphatase 79 U/L N 34-104 Alt 18 U/L N 7-52 Ast 16 U/L N 13-39 Egfr Non- 64.7 >60 Egfr 78.2 >60 22 CBC Auto Diff 04/24/2018 [facility] White Blood 10.9 10^3/uL High 3.5 -10.8 [phone] Count Red Blood Count 4.55 10^6/uL N 4.00-5.40 Hemoglobin 14.5 g/dL N 12.0-16.0 Hematocrit 43 % N 35-47 Mean Corpuscular Volume 94 fL N 80-97 Mean Corpuscular Hemoglobin 32 pg High 27-31 Mean Corpuscular HGB Conc 34 g/dL N 31-36 Red Cell Distribution Width 14 % N 10.5-15 Platelet Count 278 10^3/uL N 150-450 Mean Platelet Volume 8.4 um3 N 7.4-10.4 Abs Neutrophils 8.6 10^3/uL High 1.5-7.7 Abs Lymphocytes 1.5 10^3/uL N 1.0-4.8 Abs Monocytes 0.7 10^3/uL N 0-0.8 Abs Eosinophils 0 10^3/uL N 0-0.6 Abs Basophils 0 10^3/uL N 0-0.2 Abs Nucleated RBC 0 10^3/uL Granulocyte % 79.2 % N 38-83 Lymphocyte % 13.5 % Low 25-47 Monocyte % 6.7 % N 0-7 Eosinophil % 0.2 % N 0-6 Basophil % 0.4 % N 0-2 Nucleated Red Blood Cells % 0 Laboratory test 04/22/2018 [facility] TSH (Thyroid 0.99 mcIU/mL N 0.34-5.60 finding [phone] Stim Horm) CBC Auto Diff 04/22/2018 [facility] White Blood 11.6 10^3/uL High 3.5 -10.8 [phone] Count Red Blood Count 4.64 10^6/uL N 4.00-5.40 Hemoglobin 14.7 g/dL N 12.0-16.0 Hematocrit 43 % N 35-47 Mean Corpuscular Volume 92 fL N 80-97 Mean Corpuscular Hemoglobin 32 pg High 27-31 Mean Corpuscular HGB Conc 34 g/dL N 31-36 Red Cell Distribution Width 14 % N 10.5-15 Platelet Count 285 10^3/uL N 150-450 Mean Platelet Volume 9.0 um3 N 7.4-10.4 Abs Neutrophils 9.1 10^3/uL High 1.5-7.7 Abs Lymphocytes 1.9 10^3/uL N 1.0-4.8 Abs Monocytes 0.5 10^3/uL N 0-0.8 Abs Eosinophils 0.1 10^3/uL N 0-0.6 Abs Basophils 0 10^3/uL N 0-0.2 Abs Nucleated RBC 0 10^3/uL Granulocyte % 78.3 % N 38-83 Lymphocyte % 16.4 % Low 25-47 Monocyte % 4.3 % N 0-7 Eosinophil % 0.6 % N 0-6 Basophil % 0.4 % N 0-2 Nucleated Red Blood Cells % 0 Inr/Protime 04/22/2018 [facility] Inr 0.89 N 0.77-1.02 [phone] Laboratory test 04/22/2018 [facility] Partial 30.9 seconds N 26.0- 36.3 finding [phone] Thrombo Time PTT Lactic Acid 1.7 mmol/L N 0.5-2.0 23 Comp Metabolic Panel 04/22/2018 [facility] Sodium 140 mmol/L N 135- 145 [phone] Potassium 3.8 mmol/L N 3.5-5.0 Chloride 107 mmol/L N 101-111 Co2 Carbon Dioxide 24 mmol/L N 22-32 Anion Gap 9 mmol/L N 2-11 Glucose 106 mg/dL High 70-100 Blood Urea Nitrogen 14 mg/dL N 6-24 Creatinine 0.83 mg/dL N 0.51-0.95 BUN/Creatinine Ratio 16.9 N 8-20 Calcium 9.6 mg/dL N 8.6-10.3 Total Protein 7.5 g/dL N 6.4-8.9 Albumin 4.3 g/dL N 3.2-5.2 Globulin 3.2 g/dL N 2-4 Albumin/Globulin Ratio 1.3 N 1-3 Total Bilirubin 0.40 mg/dL N 0.2-1.0 Alkaline Phosphatase 104 U/L N 34-104 Alt 14 U/L N 7-52 Ast 15 U/L N 13-39 Egfr Non- 80.2 >60 Egfr 97.0 >60 24 Laboratory test finding 04/22/2018 [facility] Amylase 66 U/L N 29- 103 [phone] Lipase 30 U/L N 11.0-82.0 Creatine Kinase(CK) 83 U/L N 10-223 C Reactive Protein 9.21 mg/L High <8.01 HCG < 0.60 mIU/mL 25 Magnesium 2.0 mg/dL N 1.9-2.7 CBC Auto Diff 03/18/2018 [facility] White Blood Count 9.7 10^3/uL N 3.5-10.8 [phone] Red Blood Count 4.22 10^6/uL N 4.00-5.40 Hemoglobin 13.5 g/dL N 12.0-16.0 Hematocrit 40 % N 35-47 Mean Corpuscular Volume 94 fL N 80-97 Mean Corpuscular Hemoglobin 32 pg High 27-31 Mean Corpuscular HGB Conc 34 g/dL N 31-36 Red Cell Distribution Width 14 % N 10.5-15 Platelet Count 239 10^3/uL N 150-450 Mean Platelet Volume 8.8 um3 N 7.4-10.4 Abs Neutrophils 7.8 10^3/uL High 1.5-7.7 Abs Lymphocytes 1.3 10^3/uL N 1.0-4.8 Abs Monocytes 0.5 10^3/uL N 0-0.8 Abs Eosinophils 0.1 10^3/uL N 0-0.6 Abs Basophils 0 10^3/uL N 0-0.2 Abs Nucleated RBC 0 10^3/uL Granulocyte % 80.1 % N 38-83 Lymphocyte % 13.4 % Low 25-47 Monocyte % 5.5 % N 0-7 Eosinophil % 0.6 % N 0-6 Basophil % 0.4 % N 0-2 Nucleated Red Blood Cells % 0 Laboratory test finding 03/18/2018 [facility] Lactic Acid 0.8 mmol/L N 0.5-2.0 26 [phone] Comp Metabolic Panel 03/18/2018 [facility] Sodium 140 mmol/L N 139- 145 [phone] Potassium 3.3 mmol/L Low 3.5-5.0 Chloride 109 mmol/L N 101-111 Co2 Carbon Dioxide 22 mmol/L N 22-32 Anion Gap 9 mmol/L N 2-11 Glucose 105 mg/dL High 70-100 Blood Urea Nitrogen 11 mg/dL N 6-24 Creatinine 0.85 mg/dL N 0.51-0.95 BUN/Creatinine Ratio 12.9 N 8-20 Calcium 8.9 mg/dL N 8.6-10.3 Total Protein 6.6 g/dL N 6.4-8.9 Albumin 3.9 g/dL N 3.2-5.2 Globulin 2.7 g/dL N 2-4 Albumin/Globulin Ratio 1.4 N 1-3 Total Bilirubin 0.30 mg/dL N 0.2-1.0 Alkaline Phosphatase 84 U/L N 34-104 Alt 15 U/L N 7-52 Ast 12 U/L Low 13-39 Egfr Non- 78.0 >60 Egfr 100.3 >60 27 Laboratory test finding 03/18/2018 [facility] Magnesium 1.9 mg/dL N 1.9-2.7 [phone] Amylase 49 U/L N 29-103 Lipase 23 U/L N 11.0-82.0 C Reactive Protein 22.15 mg/L High < 5.00 28 HCG < 0.60 mIU/mL 29 Urinalysis Profile 03/15/2018 [facility] Urine Color Yellow [phone] Urine Appearance Cloudy Urine Specific Keller 1.017 N 1.010-1.030 Urine pH 8.0 N 5-9 Urine Urobilinogen Negative Negative Urine Ketones Negative Negative Urine Protein Negative Negative Urine Leukocytes Negative Negative Urine Blood Negative Negative Urine Nitrite Negative Negative Urine Bilirubin Negative Negative Urine Glucose Negative Negative Laboratory test finding 03/15/2018 [facility] Lipase 35 U/L N 11.0- 82.0 [phone] C Reactive Protein 8.88 mg/L High < 5.00 30 HCG < 0.60 mIU/mL 31 Comp Metabolic Panel 03/15/2018 [facility] Sodium 139 mmol/L N 139- 145 [phone] Chloride 107 mmol/L N 101-111 Co2 Carbon Dioxide 23 mmol/L N 22-32 Glucose 115 mg/dL High 70-100 Blood Urea Nitrogen 9 mg/dL N 6-24 Creatinine 0.84 mg/dL N 0.51-0.95 BUN/Creatinine Ratio 10.7 N 8-20 Calcium 9.2 mg/dL N 8.6-10.3 Total Protein 7.0 g/dL N 6.4-8.9 Albumin 4.1 g/dL N 3.2-5.2 Globulin 2.9 g/dL N 2-4 Albumin/Globulin Ratio 1.4 N 1-3 Total Bilirubin 0.30 mg/dL N 0.2-1.0 Alkaline Phosphatase 80 U/L N 34-104 Alt 18 U/L N 7-52 Egfr Non- 79.1 >60 Egfr 101.7 >60 32 Potassium TNP mmol/L 3.5-5.0 33 Anion Gap 9 mmol/L N 2-11 Ast TNP U/L 13-39 34 CBC Auto Diff 03/15/2018 [facility] White Blood Count 10.6 10^3/uL N 3.5-10.8 [phone] Red Blood Count 4.25 10^6/uL N 4.0-5.4 Hemoglobin 13.6 g/dL N 12.0-16.0 Hematocrit 41 % N 35-47 Mean Corpuscular Volume 95 fL N 80-97 Mean Corpuscular Hemoglobin 32 pg High 27-31 Mean Corpuscular HGB Conc 34 g/dL N 31-36 Red Cell Distribution Width 14 % N 10.5-15 Platelet Count 238 10^3/uL N 150-450 Mean Platelet Volume 9.1 um3 N 7.4-10.4 Abs Neutrophils 8.4 10^3/uL High 1.5-7.7 Abs Lymphocytes 1.2 10^3/uL N 1.0-4.8 Abs Monocytes 0.9 10^3/uL High 0-0.8 Abs Eosinophils 0.1 10^3/uL N 0-0.6 Abs Basophils 0 10^3/uL N 0-0.2 Abs Nucleated RBC 0 10^3/uL Granulocyte % 79.3 % N 38-83 Lymphocyte % 11.5 % Low 25-47 Monocyte % 8.3 % High 0-7 Eosinophil % 0.6 % N 0-6 Basophil % 0.3 % N 0-2 Nucleated Red Blood Cells % 0.1 Laboratory test 03/15/2018 [facility] Potassium Redraw 3.2 mmol/L Low 3.5-5.0 finding [phone] Ast Redraw 15 U/L N 13-39 Rapid Influenza A 01/06/2018 [facility] Influenza A NEGATIVE Negative 35 & B Molecular [phone] Molecular Influenza B Molecular NEGATIVE Negative Laboratory test finding 01/06/2018 In House Culture Throat Rapid negative Screen Culture Throat negative Laboratory test 01/06/2018 [facility] Influenza A & B SEE RESULT 36 finding [phone] Request BELOW Laboratory test 11/18/2017 [facility] TSH (Thyroid 1.53 mcIU/mL N 0.34-5. finding [phone] Stim Horm) 60 Cortisol 9.93 g/dL 37 Comp Metabolic Panel 11/18/2017 [facility] Sodium 139 mmol/L N 133- 145 [phone] Potassium 3.7 mmol/L N 3.5-5.0 Chloride 106 mmol/L N 101-111 Co2 Carbon Dioxide 24 mmol/L N 22-32 Anion Gap 9 mmol/L N 2-11 Glucose 117 mg/dL High 70-100 Blood Urea Nitrogen 19 mg/dL N 6-24 Creatinine 1.04 mg/dL High 0.51-0.95 BUN/Creatinine Ratio 18.3 N 8-20 Calcium 9.2 mg/dL N 8.6-10.3 Total Protein 6.7 g/dL N 6.4-8.9 Albumin 4.2 g/dL N 3.2-5.2 Globulin 2.5 g/dL N 2-4 Albumin/Globulin Ratio 1.7 N 1-3 Total Bilirubin 0.30 mg/dL N 0.2-1.0 Alkaline Phosphatase 70 U/L N 34-104 Alt 9 U/L N 7-52 Ast 14 U/L N 13-39 Egfr Non- 62.2 >60 Egfr 80.0 >60 38 Laboratory test 11/18/2017 [facility] Hemoglobin A1c 5.2 % N 4.0-5.6 39 finding [phone] (Glyco HGB) CBC Auto Diff 11/18/2017 [facility] White Blood Count 9.1 N 3.5-10.8 [phone] 10^3/uL Red Blood Count 4.22 10^6/uL N 4.0-5.4 Hemoglobin 13.6 g/dL N 12.0-16.0 Hematocrit 40 % N 35-47 Mean Corpuscular Volume 94 fL N 80-97 Mean Corpuscular Hemoglobin 32 pg High 27-31 Mean Corpuscular HGB Conc 34 g/dL N 31-36 Red Cell Distribution Width 13 % N 10.5-15 Platelet Count 302 10^3/uL N 150-450 Mean Platelet Volume 9 um3 N 7.4-10.4 Abs Neutrophils 5.8 10^3/uL N 1.5-7.7 Abs Lymphocytes 2.6 10^3/uL N 1.0-4.8 Abs Monocytes 0.6 10^3/uL N 0-0.8 Abs Eosinophils 0.1 10^3/uL N 0-0.6 Abs Basophils 0.1 10^3/uL N 0-0.2 Abs Nucleated RBC 0 10^3/uL Granulocyte % 63.9 % N 38-83 Lymphocyte % 27.9 % N 25-47 Monocyte % 6.2 % N 1-9 Eosinophil % 1.3 % N 0-6 Basophil % 0.7 % N 0-2 Nucleated Red Blood Cells % 0 Iron & Iron Binding Capacity 11/18/2017 [facility] Iron 133 g/dL N 50-212 [phone] Unsaturated Iron Binding 312 g/dL Total Iron Binding Capacity 445 g/dL N 250-450 % Iron Saturation 30 % N 15-55 1 Because ethnic data is not always readily available, this report includes an eGFR for both -Americans and non- Americans. The National Kidney Disease Education Program (NKDEP) does not endorse the use of the MDRD equation for patients that are not between the ages of 18 and 70, are , have extremes of body size, muscle mass, or nutritional status, or are non- or non-. According to the National Kidney Foundation, irrespective of diagnosis, the stage of the disease is based on the level of kidney function: Stage Description GFR(mL/min/1.73 m(2)) 1 Kidney damage with normal or decreased GFR 90 2 Kidney damage with mild decrease in GFR 60-89 3 Moderate decrease in GFR 30-59 4 Severe decrease in GFR 15-29 5 Kidney failure <15 (or dialysis) 2 <5.0 Negative 5.0 - 25.0 Indeterminate (Repeat testing recommended after 72 hours) >25.0 Positive Perimenopausal women can display HCG levels of up to 20 mIU/mL 3 Critical Result LACT:3.0 Called to [id number] at: 11:40:25 by:[id number] Read back by:[id number] [facility] Severe Sepsis and Septic Shock Management Bundle Measure requires all lactic acids initially measuring >2.0 mmol/L be repeated. 4 [facility] Severe Sepsis and Septic Shock Management Bundle Measure requires all lactic acids initially measuring >2.0 mmol/L be repeated. 5 Because ethnic data is not always readily available, this report includes an eGFR for both -Americans and non- Americans. The National Kidney Disease Education Program (NKDEP) does not endorse the use of the MDRD equation for patients that are not between the ages of 18 and 70, are , have extremes of body size, muscle mass, or nutritional status, or are non- or non-. According to the National Kidney Foundation, irrespective of diagnosis, the stage of the disease is based on the level of kidney function: Stage Description GFR(mL/min/1.73 m(2)) 1 Kidney damage with normal or decreased GFR 90 2 Kidney damage with mild decrease in GFR 60-89 3 Moderate decrease in GFR 30-59 4 Severe decrease in GFR 15-29 5 Kidney failure <15 (or dialysis) 6 <5.0 Negative 5.0 - 25.0 Indeterminate (Repeat testing recommended after 72 hours) >25.0 Positive Perimenopausal women can display HCG levels of up to 20 mIU/mL 7 Because ethnic data is not always readily available, this report includes an eGFR for both -Americans and non- Americans. The National Kidney Disease Education Program (NKDEP) does not endorse the use of the MDRD equation for patients that are not between the ages of 18 and 70, are , have extremes of body size, muscle mass, or nutritional status, or are non- or non-. According to the National Kidney Foundation, irrespective of diagnosis, the stage of the disease is based on the level of kidney function: Stage Description GFR(mL/min/1.73 m(2)) 1 Kidney damage with normal or decreased GFR 90 2 Kidney damage with mild decrease in GFR 60-89 3 Moderate decrease in GFR 30-59 4 Severe decrease in GFR 15-29 5 Kidney failure <15 (or dialysis) 8 Because ethnic data is not always readily available, this report includes an eGFR for both -Americans and non- Americans. The National Kidney Disease Education Program (NKDEP) does not endorse the use of the MDRD equation for patients that are not between the ages of 18 and 70, are , have extremes of body size, muscle mass, or nutritional status, or are non- or non-. According to the National Kidney Foundation, irrespective of diagnosis, the stage of the disease is based on the level of kidney function: Stage Description GFR(mL/min/1.73 m(2)) 1 Kidney damage with normal or decreased GFR 90 2 Kidney damage with mild decrease in GFR 60-89 3 Moderate decrease in GFR 30-59 4 Severe decrease in GFR 15-29 5 Kidney failure <15 (or dialysis) 9 SEE RESULT BELOW Name: OCTAVIANO LEMON : [address]: Pura Melchor MD Acct: [id number] Unit: [id number] AGE: 32 Location: ED Re08/01/18 SEX: F Status: REG ER SPEC: [id number] TERRENCE: 08/01/[address]: Pura Melchor MD REQ: [id number] RECD: 08/01/18 STATUS: COMP SAMEER DR: [facility] _ SOURCE: STOOL SPDESC: ORDERED: Occult Bl, Diag Procedure Result Reported Site Stool Occult Blood (1) Final 08/01/18- 1240 ML Stool Occult Blood Negative * ML - Main Lab . END OF REPORT DEPARTMENT OF PATHOLOGY, [address] [place] [address] Jcarlos Alatorre M.D. Director [facility] # [id number] 10 *Ascorbic acid is present which may interfere with detection of blood. 11 <5.0 Negative 5.0 - 25.0 Indeterminate (Repeat testing recommended after 72 hours) >25.0 Positive Perimenopausal women can display HCG levels of up to 20 mIU/mL 12 Because ethnic data is not always readily available, this report includes an eGFR for both -Americans and non- Americans. The National Kidney Disease Education Program (NKDEP) does not endorse the use of the MDRD equation for patients that are not between the ages of 18 and 70, are , have extremes of body size, muscle mass, or nutritional status, or are non- or non-. According to the National Kidney Foundation, irrespective of diagnosis, the stage of the disease is based on the level of kidney function: Stage Description GFR(mL/min/1.73 m(2)) 1 Kidney damage with normal or decreased GFR 90 2 Kidney damage with mild decrease in GFR 60-89 3 Moderate decrease in GFR 30-59 4 Severe decrease in GFR 15-29 5 Kidney failure <15 (or dialysis) 13 [facility] Severe Sepsis and Septic Shock Management Bundle Measure requires all lactic acids initially measuring >2.0 mmol/L be repeated. 14 >100 to <200 pg/mL: likely compensated congestive heart failure (CHF) 200 to 400 pg/mL: likely moderate CHF >400 pg/mL: likely moderate to severe CHF 15 [facility] Severe Sepsis and Septic Shock Management Bundle Measure requires all lactic acids initially measuring >2.0 mmol/L be repeated. 16 Because ethnic data is not always readily available, this report includes an eGFR for both -Americans and non- Americans. The National Kidney Disease Education Program (NKDEP) does not endorse the use of the MDRD equation for patients that are not between the ages of 18 and 70, are , have extremes of body size, muscle mass, or nutritional status, or are non- or non-. According to the National Kidney Foundation, irrespective of diagnosis, the stage of the disease is based on the level of kidney function: Stage Description GFR(mL/min/1.73 m(2)) 1 Kidney damage with normal or decreased GFR 90 2 Kidney damage with mild decrease in GFR 60-89 3 Moderate decrease in GFR 30-59 4 Severe decrease in GFR 15-29 5 Kidney failure <15 (or dialysis) 17 [facility] Severe Sepsis and Septic Shock Management Bundle Measure requires all lactic acids initially measuring >2.0 mmol/L be repeated. 18 Because ethnic data is not always readily available, this report includes an eGFR for both -Americans and non- Americans. The National Kidney Disease Education Program (NKDEP) does not endorse the use of the MDRD equation for patients that are not between the ages of 18 and 70, are , have extremes of body size, muscle mass, or nutritional status, or are non- or non-. According to the National Kidney Foundation, irrespective of diagnosis, the stage of the disease is based on the level of kidney function: Stage Description GFR(mL/min/1.73 m(2)) 1 Kidney damage with normal or decreased GFR 90 2 Kidney damage with mild decrease in GFR 60-89 3 Moderate decrease in GFR 30-59 4 Severe decrease in GFR 15-29 5 Kidney failure <15 (or dialysis) 19 <5.0 Negative 5.0 - 25.0 Indeterminate (Repeat testing recommended after 72 hours) >25.0 Positive Perimenopausal women can display HCG levels of up to 20 mIU/mL 20 Because ethnic data is not always readily available, this report includes an eGFR for both -Americans and non- Americans. The National Kidney Disease Education Program (NKDEP) does not endorse the use of the MDRD equation for patients that are not between the ages of 18 and 70, are , have extremes of body size, muscle mass, or nutritional status, or are non- or non-. According to the National Kidney Foundation, irrespective of diagnosis, the stage of the disease is based on the level of kidney function: Stage Description GFR(mL/min/1.73 m(2)) 1 Kidney damage with normal or decreased GFR 90 2 Kidney damage with mild decrease in GFR 60-89 3 Moderate decrease in GFR 30-59 4 Severe decrease in GFR 15-29 5 Kidney failure <15 (or dialysis) 21 <5.0 Negative 5.0 - 25.0 Indeterminate (Repeat testing recommended after 72 hours) >25.0 Positive Perimenopausal women can display HCG levels of up to 20 mIU/mL 22 Because ethnic data is not always readily available, this report includes an eGFR for both -Americans and non- Americans. The National Kidney Disease Education Program (NKDEP) does not endorse the use of the MDRD equation for patients that are not between the ages of 18 and 70, are , have extremes of body size, muscle mass, or nutritional status, or are non- or non-. According to the National Kidney Foundation, irrespective of diagnosis, the stage of the disease is based on the level of kidney function: Stage Description GFR(mL/min/1.73 m(2)) 1 Kidney damage with normal or decreased GFR 90 2 Kidney damage with mild decrease in GFR 60-89 3 Moderate decrease in GFR 30-59 4 Severe decrease in GFR 15-29 5 Kidney failure <15 (or dialysis) 23 [facility] Severe Sepsis and Septic Shock Management Bundle Measure requires all lactic acids initially measuring >2.0 mmol/L be repeated. 24 Because ethnic data is not always readily available, this report includes an eGFR for both -Americans and non- Americans. The National Kidney Disease Education Program (NKDEP) does not endorse the use of the MDRD equation for patients that are not between the ages of 18 and 70, are , have extremes of body size, muscle mass, or nutritional status, or are non- or non-. According to the National Kidney Foundation, irrespective of diagnosis, the stage of the disease is based on the level of kidney function: Stage Description GFR(mL/min/1.73 m(2)) 1 Kidney damage with normal or decreased GFR 90 2 Kidney damage with mild decrease in GFR 60-89 3 Moderate decrease in GFR 30-59 4 Severe decrease in GFR 15-29 5 Kidney failure <15 (or dialysis) 25 <5.0 Negative 5.0 - 25.0 Indeterminate (Repeat testing recommended after 72 hours) >25.0 Positive Perimenopausal women can display HCG levels of up to 20 mIU/mL 26 [facility] Severe Sepsis and Septic Shock Management Bundle Measure requires all lactic acids initially measuring >2.0 mmol/L be repeated. 27 Because ethnic data is not always readily available, this report includes an eGFR for both -Americans and non- Americans. The National Kidney Disease Education Program (NKDEP) does not endorse the use of the MDRD equation for patients that are not between the ages of 18 and 70, are , have extremes of body size, muscle mass, or nutritional status, or are non- or non-. According to the National Kidney Foundation, irrespective of diagnosis, the stage of the disease is based on the level of kidney function: Stage Description GFR(mL/min/1.73 m(2)) 1 Kidney damage with normal or decreased GFR 90 2 Kidney damage with mild decrease in GFR 60-89 3 Moderate decrease in GFR 30-59 4 Severe decrease in GFR 15-29 5 Kidney failure <15 (or dialysis) 28 Acute inflammation: >10.00 29 <5.0 Negative 5.0 - 25.0 Indeterminate (Repeat testing recommended after 72 hours) >25.0 Positive Perimenopausal women can display HCG levels of up to 20 mIU/mL 30 Acute inflammation: >10.00 31 <5.0 Negative 5.0 - 25.0 Indeterminate (Repeat testing recommended after 72 hours) >25.0 Positive Perimenopausal women can display HCG levels of up to 20 mIU/mL 32 Because ethnic data is not always readily available, this report includes an eGFR for both -Americans and non- Americans. The National Kidney Disease Education Program (NKDEP) does not endorse the use of the MDRD equation for patients that are not between the ages of 18 and 70, are , have extremes of body size, muscle mass, or nutritional status, or are non- or non-. According to the National Kidney Foundation, irrespective of diagnosis, the stage of the disease is based on the level of kidney function: Stage Description GFR(mL/min/1.73 m(2)) 1 Kidney damage with normal or decreased GFR 90 2 Kidney damage with mild decrease in GFR 60-89 3 Moderate decrease in GFR 30-59 4 Severe decrease in GFR 15-29 5 Kidney failure <15 (or dialysis) 33 Specimen Hemolyzed. Result may not be valid. Unable to report test result due to hemolysis. 34 Unable to report test result due to hemolysis. 35 Junior Systems Administrator: [id number] 36 SEE RESULT BELOW Name: OCTAVIANO LEMON : [address]: Minal RODARTE Acct: [id number] Unit: [id number] AGE: 32 Location: [facility] Re01/06/18 SEX: F Status: REG REF SPEC: [id number] TERRENCE: 01/06/18-[address] [facility] [address]: Minal RODARTE REQ: [id number] RECD: 01/06/18 STATUS: COMP _ [facility] ORDERED: Simon Chavez Request COMMENTS: [id number] Procedure Result Reported Site Rapid Influenza A B Request Final 01/06/182020 ML Specimen received for Influenza A/B Molecular testing * ML - Main Lab . END OF REPORT DEPARTMENT OF PATHOLOGY, [address] [place] [address] Jcarlos lAatorre M.D. Director [facility] # [id number] 37 AM 8.7-22.4 PM <10 38 Because ethnic data is not always readily available, this report includes an eGFR for both -Americans and non- Americans. The National Kidney Disease Education Program (NKDEP) does not endorse the use of the MDRD equation for patients that are not between the ages of 18 and 70, are , have extremes of body size, muscle mass, or nutritional status, or are non- or non-. According to the National Kidney Foundation, irrespective of diagnosis, the stage of the disease is based on the level of kidney function: Stage Description GFR(mL/min/1.73 m(2)) 1 Kidney damage with normal or decreased GFR 90 2 Kidney damage with mild decrease in GFR 60-89 3 Moderate decrease in GFR 30-59 4 Severe decrease in GFR 15-29 5 Kidney failure <15 (or dialysis) 39 Therapeutic target for the treatment of diabetes mellitus patients is <7% HBA1C, and in selective patients <6.0%. Please refer to [place] [employer] diabetic care guidelines for further information. Procedures Date Code Description Status 11/05/2015 [id number] Colonoscopy Completed Encounters Type Date Location Provider Dx Diagnosis Office Visit 03/18/2018 Main Office Minal Drake PA G43.A0 Cyclical vomiting, 12:55p not intractable Office Visit 01/06/2018 Main Office Minal Drake PA J02.9 Acute pharyngitis, 3:00p unspecified J06.9 Acute upper respiratory infection, unspecified Office Visit 11/18/2017 9:00a Main Office Minal Drake, G43.A0 Cyclical vomiting, PA not intractable K52.831 Collagenous colitis F43.23 Adjustment disorder with mixed anxiety and depressed mood G47.00 Insomnia, unspecified F17.210 Nicotine dependence, cigarettes, uncomplicated 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 Duncan and Dr. Milligan. Was doing well after stopping marijuana use, but recent flare up after use this weekend. Continue w hydration , advancing diet as tolerated. Zofran as needed for nausea. Pt has pain meds if needed. Strongly encouraged pt to completely avoid marijuana use,she agreed. Monitor.
--- OUTSIDE RECORDS SUMMARY | 2018-12-20 06:12 | XMS REPORT | Continuity of Care Document ---
:1985 External Reference #:[id number] Author Name Herman Mayberry D.O. 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 Status Currently Working Abuse No history [...] sexually active Contraceptive Methods BCP Age 1st [place] 17 Years Old Additional Info Sexual preference [...] po F43.23 Lopez, 0000 daily MD Madelyn [place]-Linyah / Active Tablets 0.25-35mg- 1 tab po [...] CPT Code Status Date Vaccine Lot # [id number] Given 09/30/2018 Influenza Vaccine Quadrivalent Preser/Antibiotic [id number] Free Im Use Vital Signs Date Vital [...] H/L Range Note Comp Metabolic Panel 11/20/2018 [facility] Sodium 142 mmol/L N 135- 145 [phone] Potassium 3.7 mmol/L N 3.5-5.0 Chloride 107 [...] 72.4 >60 1 Laboratory test finding 11/20/2018 [facility] Magnesium 1.9 mg/dL N 1.9-2.7 [phone] Lipase 15 U/L N 11.0-82.0 C Reactive Protein 10.76 mg/L High <8.01 HCG < 0.60 mIU/mL 2 Lactic Acid 3.0 mmol/L High 0.5-2.0 3 CBC Auto Diff 11/20/2018 [facility] White Blood 19.3 10^3/uL High 3.5 -10.8 [phone] Count Red Blood Count 4.71 10^6/uL N [...] Cells % 0 CBC Auto Diff 10/04/2018 [facility] White Blood 11.3 10^3/uL High 3.5 -10.8 [phone] Count Red Blood Count 4.20 10^6/uL N [...] Cells % 0.1 Laboratory test finding 10/04/2018 [facility] Lactic Acid 0.8 mmol/L N 0.5-2.0 4 [phone] Comp Metabolic Panel 10/04/2018 [facility] Sodium 140 mmol/L N 135- 145 [phone] Potassium 3.2 mmol/L Low 3.5-5.0 Chloride 106 [...] 98.4 >60 5 Laboratory test finding 10/04/2018 [facility] Lipase 25 U/L N 11.0- 82.0 [phone] C Reactive Protein 8.21 mg/L High <8.01 HCG < 0.60 mIU/mL 6 Comp Metabolic Panel 10/03/2018 [facility] Sodium 140 mmol/L N 135- 145 [phone] Potassium 3.4 mmol/L Low 3.5-5.0 Chloride 108 [...] 95.7 >60 7 CBC Auto Diff 08/02/2018 [facility] White Blood Count 10.4 10^3/uL N 3.5-10.8 [phone] Red Blood Count 4.17 10^6/uL N 4.00-5.40 [...] Cells % 0 Comp Metabolic Panel 08/02/2018 [facility] Sodium 144 mmol/L N 135- 145 [phone] Potassium 3.1 mmol/L Low 3.5-5.0 Chloride 108 [...] 0.40 mg/dL N 0.2-1.0 Laboratory test 08/02/2018 [facility] Lipase 21 U/L N 11.0-82.0 finding [phone] Stool Occult Blood 08/01/2018 [facility] Stool Occult SEE RESULT 9 Diag [phone] Blood, Diag BELOW Urinalysis Profile 08/01/2018 [facility] Urine Color Alize [phone] Urine Appearance Cloudy Urine Specific Bouse 1.028 N 1.010-1.030 Urine pH 6.0 N [...] Present Abnormal Absent Laboratory test finding 08/01/2018 [facility] Magnesium 2.0 mg/dL N 1.9-2.7 [phone] Amylase 44 U/L N 29-103 Lipase 15 U/L N 11.0-82.0 Creatine Kinase(CK) 79 U/L N 10-223 C Reactive Protein 39.16 mg/L High <8.01 HCG < 0.60 mIU/mL 11 Comp Metabolic Panel 08/01/2018 [facility] Sodium 142 mmol/L N 135- 145 [phone] Potassium 2.9 mmol/L Low 3.5-5.0 Chloride 108 [...] Egfr 118.1 >60 12 Laboratory test 08/01/2018 [facility] Partial 30.7 seconds N 26.0- 36.3 finding [phone] Thrombo Time PTT Lactic Acid 1.4 mmol/L N 0.5-2.0 13 Ammonia 54 mcmol/L High 16-53 B-Type Natriuretic Peptide BNP 86 pg/mL 14 Inr/Protime 08/01/2018 [facility] Inr 1.04 High 0.77-1.02 [phone] CBC Auto Diff 08/01/2018 [facility] White Blood 8.6 10^3/uL N 3.5- 10.8 [phone] Count Red Blood Count 4.04 10^6/uL N [...] Cells % 0 Laboratory test finding 08/01/2018 [facility] Lactic Acid 0.7 mmol/L N 0.5-2.0 15 [phone] Comp Metabolic Panel 07/26/2018 [facility] Sodium 140 mmol/L N 135- 145 [phone] Potassium 3.4 mmol/L Low 3.5-5.0 Chloride 110 [...] 88.4 >60 16 CBC Auto Diff 07/26/2018 [facility] White Blood 12.1 10^3/uL High 3.5 -10.8 [phone] Count Red Blood Count 4.06 10^6/uL N [...] Cells % 0 Laboratory test finding 07/26/2018 [facility] Lactic Acid 0.8 mmol/L N 0.5-2.0 17 [phone] Comp Metabolic Panel 07/24/2018 [facility] Sodium 140 mmol/L N 135- 145 [phone] Potassium 3.8 mmol/L N 3.5-5.0 Chloride 108 [...] 88.4 >60 18 Laboratory test finding 07/24/2018 [facility] Magnesium 2.1 mg/dL N 1.9-2.7 [phone] Lipase 14 U/L N 11.0-82.0 C Reactive Protein 14.39 mg/L High <8.01 HCG < 0.60 mIU/mL 19 TSH (Thyroid Stim Horm) 1.20 mcIU/mL N 0.34-5.60 CBC Auto Diff 04/25/2018 [facility] White Blood Count 9.1 10^3/uL N 3.5-10.8 [phone] Red Blood Count 4.44 10^6/uL N 4.00-5.40 [...] Cells % 0 Comp Metabolic Panel 04/25/2018 [facility] Sodium 141 mmol/L N 135- 145 [phone] Potassium 3.2 mmol/L Low 3.5-5.0 Chloride 107 [...] 78.2 >60 20 Laboratory test finding 04/25/2018 [facility] Magnesium 2.0 mg/dL N 1.9-2.7 [phone] Lipase 20 U/L N 11.0-82.0 C Reactive Protein 11.99 mg/L High <8.01 Laboratory test finding 04/24/2018 [facility] Lipase 23 U/L N 11.0- 82.0 [phone] C Reactive Protein 11.64 mg/L High <8.01 HCG < 0.60 mIU/mL 21 Comp Metabolic Panel 04/24/2018 [facility] Sodium 140 mmol/L N 135- 145 [phone] Potassium 3.1 mmol/L Low 3.5-5.0 Chloride 106 [...] 78.2 >60 22 CBC Auto Diff 04/24/2018 [facility] White Blood 10.9 10^3/uL High 3.5 -10.8 [phone] Count Red Blood Count 4.55 10^6/uL N [...] Blood Cells % 0 Laboratory test 04/22/2018 [facility] TSH (Thyroid 0.99 mcIU/mL N 0.34-5.60 finding [phone] Stim Horm) CBC Auto Diff 04/22/2018 [facility] White Blood 11.6 10^3/uL High 3.5 -10.8 [phone] Count Red Blood Count 4.64 10^6/uL N [...] Red Blood Cells % 0 Inr/Protime 04/22/2018 [facility] Inr 0.89 N 0.77-1.02 [phone] Laboratory test 04/22/2018 [facility] Partial 30.9 seconds N 26.0- 36.3 finding [phone] Thrombo Time PTT Lactic Acid 1.7 mmol/L N 0.5-2.0 23 Comp Metabolic Panel 04/22/2018 [facility] Sodium 140 mmol/L N 135- 145 [phone] Potassium 3.8 mmol/L N 3.5-5.0 Chloride 107 [...] 97.0 >60 24 Laboratory test finding 04/22/2018 [facility] Amylase 66 U/L N 29- 103 [phone] Lipase 30 U/L N 11.0-82.0 Creatine Kinase(CK) 83 U/L N 10-223 C Reactive Protein 9.21 mg/L High <8.01 HCG < 0.60 mIU/mL 25 Magnesium 2.0 mg/dL N 1.9-2.7 CBC Auto Diff 03/18/2018 [facility] White Blood Count 9.7 10^3/uL N 3.5-10.8 [phone] Red Blood Count 4.22 10^6/uL N 4.00-5.40 [...] Cells % 0 Laboratory test finding 03/18/2018 [facility] Lactic Acid 0.8 mmol/L N 0.5-2.0 26 [phone] Comp Metabolic Panel 03/18/2018 [facility] Sodium 140 mmol/L N 139- 145 [phone] Potassium 3.3 mmol/L Low 3.5-5.0 Chloride 109 [...] 100.3 >60 27 Laboratory test finding 03/18/2018 [facility] Magnesium 1.9 mg/dL N 1.9-2.7 [phone] Amylase 49 U/L N 29-103 Lipase 23 U/L N 11.0-82.0 C Reactive Protein 22.15 mg/L High < 5.00 28 HCG < 0.60 mIU/mL 29 Urinalysis Profile 03/15/2018 [facility] Urine Color Yellow [phone] Urine Appearance Cloudy Urine Specific Bouse 1.017 N 1.010-1.030 Urine pH 8.0 N 5-9 Urine Urobilinogen Negative Negative Urine Ketones Negative Negative Urine Protein Negative Negative Urine Leukocytes Negative Negative Urine Blood Negative Negative Urine Nitrite Negative Negative Urine Bilirubin Negative Negative Urine Glucose Negative Negative Laboratory test finding 03/15/2018 [facility] Lipase 35 U/L N 11.0- 82.0 [phone] C Reactive Protein 8.88 mg/L High < 5.00 30 HCG < 0.60 mIU/mL 31 Comp Metabolic Panel 03/15/2018 [facility] Sodium 139 mmol/L N 139- 145 [phone] Chloride 107 mmol/L N 101-111 Co2 Carbon [...] U/L 13-39 34 CBC Auto Diff 03/15/2018 [facility] White Blood Count 10.6 10^3/uL N 3.5-10.8 [phone] Red Blood Count 4.25 10^6/uL N 4.0-5.4 [...] Blood Cells % 0.1 Laboratory test 03/15/2018 [facility] Potassium Redraw 3.2 mmol/L Low 3.5-5.0 finding [phone] Ast Redraw 15 U/L N 13-39 Rapid Influenza A 01/06/2018 [facility] Influenza A NEGATIVE Negative 35 & B Molecular [phone] Molecular Influenza B Molecular NEGATIVE Negative Laboratory test finding 01/06/2018 In House Culture Throat Rapid negative Screen Culture Throat negative Laboratory test 01/06/2018 [facility] Influenza A & B SEE RESULT 36 finding [phone] Request BELOW Laboratory test 11/18/2017 [facility] TSH (Thyroid 1.53 mcIU/mL N 0.34-5. finding [phone] Stim Horm) 60 Cortisol 9.93 g/dL 37 Comp Metabolic Panel 11/18/2017 [facility] Sodium 139 mmol/L N 133- 145 [phone] Potassium 3.7 mmol/L N 3.5-5.0 Chloride 106 [...] Egfr 80.0 >60 38 Laboratory test 11/18/2017 [facility] Hemoglobin A1c 5.2 % N 4.0-5.6 39 finding [phone] (Glyco HGB) CBC Auto Diff 11/18/2017 [facility] White Blood Count 9.1 N 3.5-10.8 [phone] 10^3/uL Red Blood Count 4.22 10^6/uL N [...] 0 Iron & Iron Binding Capacity 11/18/2017 [facility] Iron 133 g/dL N 50-212 [phone] Unsaturated Iron Binding 312 g/dL Total Iron [...] mIU/mL 3 Critical Result LACT:3.0 Called to [id number] at: 11:40:25 by:[id number] Read back by:[email or web address] [facility] Severe Sepsis and Septic Shock Management Bundle Measure requires all lactic acids initially measuring >2.0 mmol/L be repeated. 4 [facility] Severe Sepsis and Septic Shock Management Bundle [...] [address]: Pura Melchor MD Acct: [id number] Unit: [id number] AGE: 32 Location: ED Re08/01/18 SEX: F Status: REG ER SPEC: [id number] TERRENCE: 08/01/[address]: Pura Melchor MD REQ: [id number] RECD: 08/01/18 STATUS: COMP SAMEER DR: Minal Drake [facility] _ SOURCE: STOOL SPDESC: ORDERED: Occult Bl, Diag Procedure Result Reported Site Stool Occult Blood (1) Final 08/01/18- 1240 ML Stool Occult Blood Negative * ML - Main Lab . END OF REPORT DEPARTMENT OF PATHOLOGY, [address] [place] [address] Jcarlos Alatorre M.D. Director [facility] # [id number] 10 *Ascorbic acid is present which may [...] 5 Kidney failure <15 (or dialysis) 13 [facility] Severe Sepsis and Septic Shock Management Bundle Measure requires all lactic acids initially measuring >2.0 mmol/L be repeated. 14 >100 to <200 pg/mL: likely compensated congestive heart failure (CHF) 200 to 400 pg/mL: likely moderate CHF >400 pg/mL: likely moderate to severe CHF 15 [facility] Severe Sepsis and Septic Shock Management Bundle [...] 5 Kidney failure <15 (or dialysis) 17 [facility] Severe Sepsis and Septic Shock Management Bundle [...] 5 Kidney failure <15 (or dialysis) 23 [facility] Severe Sepsis and Septic Shock Management Bundle [...] levels of up to 20 mIU/mL 26 [facility] Severe Sepsis and Septic Shock Management Bundle [...] report test result due to hemolysis. 35 [employer]: [id number] SEE RESULT BELOW Name: OCTAVIANO LEMON : [address]: Minal RODARTE Acct: [id number] Unit: [id number] AGE: 32 Location: [facility] Re01/06/18 SEX: F Status: REG REF SPEC: [id number] TERRENCE: 01/06/18-[address] [facility] [address]: Minal RODARTE REQ: [id number] RECD: 01/06/18 STATUS: COMP _ [facility]: ORDERED: Simon Chavez Request COMMENTS: [id number] Procedure Result Reported Site Rapid Influenza A B Request Final 01/06/182020 ML Specimen received for Influenza A/B Molecular testing * ML - Main Lab . END OF REPORT DEPARTMENT OF PATHOLOGY, [address] [place] [address] Jcarlos Alatorre M.D. Director [facility] # [id number] 37 AM 8.7-22.4 PM <10 38 Because [...] in selective patients <6.0%. Please refer to [place] [employer] diabetic care guidelines for further information. Procedures Date Code Description Status 11/05/2015 [id number] Colonoscopy Completed Encounters Type Date Location Provider [...]
[2018-12-20] MEDS ORDERED: Ondansetron INJ* 2 MG/ML VIAL IV ONE (06:20)
[2018-12-20] MEDS ORDERED: Ketorolac INJ* 30 MG/ML 1 ML VIAL IV PUSH ONE (06:20)
[2018-12-20] MEDS ORDERED: NS 0.9% 1000 ML** 1,000 ML IV ONE (06:20)
[2018-12-20 07:12] LABS: Urine Appearance Cloudy; Urine Bacteria 2+ (Absent); Urine Bilirubin Negative (Negative); Urine Blood 2+ (Negative); Urine Color Amber; Urine Glucose Negative (Negative); Urine Ketones Trace (Negative); Urine Nitrite Positive (Negative); Urine Protein 2+(100 mg/dL) (Negative); Urine Red Blood Cell 3+(>10/hpf) (Absent); Urine Specific Gravity 1.026 (1.010-1.030); Urine Squamous Epithelial Cell Present (Absent); Urine Urobilinogen Negative (Negative); Urine White Blood Cell 3+(>20/hpf) (Absent)
[2018-12-20] MEDS ORDERED: Metoclopramide IV* 5 MG/ML 2 ML VIAL IV ONE (08:11)
[2018-12-20] MEDS ORDERED: Morphine 4 MG/ML VIAL (1 ml) 4 MG/ML VIAL IV ONE (08:11)
[2018-12-20] MEDS ORDERED: Levofloxacin TAB* 250 MG PO ONE (08:24)
--- NOTE | 2018-12-20 09:06 | ED ---
Nausea/Vomiting/Diarrhea HPI - HPI Summary HPI Summary: Patient is a 33-year-old female with a history of cyclic vomiting syndrome presenting to the ED with vomiting 2-3 days. She's been taking her home nausea medications without relief. She is also endorsing left-sided flank pain without urinary frequency, urgency, burning or signs of obstruction. Denies any hematuria. She endorses one episode of bloody stools with BRB, however has a hx of hemorrhoids. Hx of UTI's but not for several years. - History of Current Complaint Chief Complaint: EDNauseaVomitDiarrh Stated Complaint: BEEN THROWING UP FOR A COUPLE OF DAYS PER PT Time Seen by Provider: 12/20/18 06:01 Hx Obtained From: Patient Hx Last Menstrual Period: 07/26/18 ?: No Onset/Duration: Sudden Onset Timing: Constant Severity Initially: Moderate Severity Currently: Moderate Pain Intensity: 8 Pain Scale Used: 0-10 Numeric Location: Other - L flank pain Aggravating Factor(s): Nothing Alleviating Factor(s): Nothing Nausea/Vomiting Duration: 0-12 hours Vomiting Characteristics: Retching Diarrhea Presence: Yes Diarrhea Frequency: Other - one episode - Risk Factors Surgical Obstruction Risk Factor(s): Negative - Allergies/Home Medications Allergies/Adverse Reactions: Allergies Allergy/AdvReac Type Severity Reaction Status Date / Time nitrofurantoin AdvReac Vomiting Verified 12/20/18 06:04 [From Macrobid] Penicillins AdvReac Vomiting Verified 12/20/18 06:04 Sulfa (Sulfonamide AdvReac Rash And Verified 12/20/18 06:04 Antibiotics) Itching sulfamethoxazole AdvReac Nausea And Verified 12/20/18 06:04 [From Bactrim] Vomiting trimethoprim [From Bactrim] AdvReac Nausea And Verified 12/20/18 06:04 Vomiting Home Medications: Home Medications Ondansetron ODT TAB* [Zofran 4 MG Odt TAB*] 4 mg PO Q6H PRN 12/20/18 [History Confirmed 12/20/18] Prochlorperazine TAB* [Compazine Tab*] 5 mg PO Q6H PRN 12/20/18 [History Confirmed 12/20/18] Promethazine TAB* [Phenergan TAB*] 25 mg PO Q6H PRN 12/20/18 [History Confirmed 12/20/18] PMH/Surg Hx/FS Hx/Imm Hx Previously Healthy: Yes Endocrine/Hematology History: Denies: Hx Anticoagulant Therapy, Hx Blood Disorders, Hx Diabetes, Hx Thyroid Disease Cardiovascular History: Denies: Hx Congestive Heart Failure, Hx Hypertension Respiratory History: Denies: Hx Asthma, Hx Chronic Obstructive Pulmonary Disease (COPD) GI History: Reports: Hx Ulcer, Other GI Disorders - Collagenous colitis, cyclic vomiting syndrome History: Reports: Other Problems/Disorders - Frequent UTIs Denies: Hx Dialysis, Hx Renal Disease Sensory History: Reports: Hx Contacts or Glasses Denies: Hx Hearing Aid Opthamlomology History: Reports: Hx Contacts or Glasses Psychiatric History: Reports: Hx Anxiety, Hx Depression, Hx Substance Abuse - 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; 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) - Surgical History Surgery Procedure, Year, and Place: 2014 left ovarian cyst REMOVAL Hx Anesthesia Reactions: No - Immunization History Date of Tetanus Vaccine: utd Date of Influenza Vaccine: fall 2017 Hx Pertussis Vaccination: No Immunizations Up to Date: Yes Infectious Disease History: No Infectious Disease History: Reports: Hx Clostridium Difficile, Hx Hepatitis - TESTS + FOR HEP C ANTIBODIES Denies: Hx Human Immunodeficiency Virus (HIV), Hx of Known/Suspected MRSA, Hx Shingles, Hx Tuberculosis, Hx Known/Suspected VRE, Hx Known/Suspected VRSA, History Other Infectious Disease, Traveled Outside the [place] in Last 30 Days - Family History Known Family History: Positive: Hypertension - mother, Other - Negative bowel CA - Social History Occupation: Employed Full-time Lives: With Family Alcohol Use: Weekly Alcohol Amount: 1/week Hx Substance Use: Yes Substance Use Type: Reports: Marijuana Substance Use Comment - Amount & Last Used: no heroin use since 2012 per pt Hx Tobacco Use: Yes Smoking Status (MU): Current Every Day Smoker Type: Cigarettes Amount Used/How Often: pack per day Length of Time of Smoking/Using Tobacco: 8 years Have You Smoked in the Last Year: Yes Review of Systems Negative: Fever, Chills, Fatigue, Skin Diaphoresis Negative: Palpitations, Chest Pain Negative: Shortness Of Breath, Cough Positive: Vomiting, Nausea Positive: see HPI, flank pain. Negative: burning, dysuria, discharge, hematuria , incontinence, urgency Negative: Arthralgia, Myalgia Negative: Rash, Bruising Neurological: Negative All Other Systems Reviewed And Are Negative: Yes Physical Exam Triage Information Reviewed: Yes Vital Signs On Initial Exam: Initial Vitals Temp Pulse Resp BP Pulse Ox 98.0 F 123 16 139/83 98 12/20/18 06:01 12/20/18 06:01 12/20/18 06:01 12/20/18 06:01 12/20/18 06:01 Vital Signs Reviewed: Yes Appearance: Positive: Well-Appearing, Well-Nourished Skin: Positive: Warm, Skin Color Reflects Adequate Perfusion Head/Face: Positive: Normal Head/Face Inspection Neck: Positive: Supple, Nontender, No Lymphadenopathy Respiratory/Lung Sounds: Positive: Clear to Auscultation, Breath Sounds Present Cardiovascular: Positive: RRR, Pulses are Symmetrical in both Upper and Lower Extremities Abdomen Description: Positive: Nontender, Soft. Negative: CVA Tenderness (R), CVA Tenderness (L), McBurney's Point Tenderness Musculoskeletal: Positive: Normal, Strength/ROM Intact Neurological: Positive: Speech Normal Psychiatric: Positive: Affect/Mood Appropriate AVPU Assessment: Alert Diagnostics - Vital Signs Vital Signs Temp Pulse Resp BP Pulse Ox 12/20/18 08:37 89 18 114/67 96 12/20/18 08:33 17 12/20/18 06:01 98.0 F 123 16 139/83 98 - Laboratory Lab Results: Lab Results 12/20/18 Range/Units 06:51 Urine Color Alize Urine Appearance Cloudy Urine pH 6.0 (5-9) Ur Specific [place] 1.026 (1.010-1.030) Urine Protein 2+(100 mg/dl) A (Negative) Urine Ketones Trace A (Negative) Urine Blood 2+ A (Negative) Urine Nitrate Positive A (Negative) Urine Bilirubin Negative (Negative) Urine Urobilinogen Negative (Negative) Ur Leukocyte Esterase 2+ A (Negative) Urine WBC (Auto) 3+(>20/hpf) A (Absent) Urine RBC (Auto) 3+(>10/hpf) A (Absent) Ur Squamous Epith Cells Present A (Absent) Urine Bacteria 2+ A (Absent) Urine Glucose Negative (Negative) Lab Statement: Any lab studies that have been ordered have been reviewed, and results considered in the medical decision making process. Naus/Vom/Diarrhea Course/Dx - Course Course Of Treatment: On arrival into the ED, patient appears dehydrated. She is given 1 L normal saline, Zofran and morphine for her pain. She is feeling improved after medication is given. She is requesting discharge. She is noted to have WBC +3 and RBC +3 and leuks. She will be treated for UTI. She has medications at home for her cyclic vomiting syndrome. She is given a note for work. She is given strict return precautions. Patient is afebrile and otherwise feeling well she states. I do not believe this is a pyelonephritis or kidney stone, however she understands if she develops significant worsening symptoms despite antibiotic, she'll return to the ED. She is okay with this plan and discharged. She is deferring a CT scan at this time. - Differential Dx/Diagnosis Provider Diagnosis: Cyclical vomiting, UTI (urinary tract infection) Condition At Discharge: Stable Discharge - Sign-Out/Discharge Documenting (check all that apply): Patient Departure Patient Received Moderate/Deep Sedation with Procedure: No - Discharge Plan Condition: Stable Disposition: HOME Prescriptions: Levofloxacin TAB* [Levaquin TAB*] 500 mg PO DAILY #4 tab Patient Education Materials: Urinary Tract Infection in Women (ED) Forms: *Work Release Referrals: Noelle RODARTE,Minal Chavez [Primary Care Provider] - Additional Instructions: Levaquin once daily x 5 days (your first dose was given here in the ED) Drink plenty of fluids Continue your medications at home for any vomiting Return to the ED for any worsening symptoms - Billing Disposition and Condition Condition: STABLE Disposition: Home
[2018-12-20 09:09] VITALS: BP 121/72
== END 2018-12-20 09:08 | disposition home or self-care (01) ==
LOC: ED 06:00
DX: G43.A0 Cyclical vomiting, in migraine, not intractable (principal); N39.0 Urinary tract infection, site not specified; Z87.440 Personal history of urinary (tract) infections; Z88.1 Allergy status to other antibiotic agents; Z88.0 Allergy status to penicillin; Z88.2 Allergy status to sulfonamides; F17.210 Nicotine dependence, cigarettes, uncomplicated
CPT/HCPCS: 81003; 81015; 87077; 87086; 87186; 96361; 96374; 96375; 99282; A9270-GY; J1885; J2270; J2405; J2765

== ENCOUNTER 2019-01-07 06:48 | Emergency (ER) | payer BC ==
[2019-01-07] MEDS ORDERED: NS 0.9% 1000 ML** 1,000 ML IV ONE (07:11)
[2019-01-07] MEDS ORDERED: Ondansetron INJ* 2 MG/ML VIAL IV ONE (07:11)
[2019-01-07] MEDS ORDERED: Pantoprazole TAB * 40 MG TAB PO ONE (07:32)
[2019-01-07] MEDS ORDERED: Ketorolac INJ* 30 MG/ML 1 ML VIAL IV PUSH ONE (07:32)
[2019-01-07] MEDS ORDERED: LORazepam INJ* 2 MG/ML 1 ML VIAL IV PUSH ONE (07:32)
--- NOTE | 2019-01-07 07:32 | ED ---
GI/ HPI - HPI Summary HPI Summary: This pt is a 33 y/o female presenting to [facility] c/o nausea and vomiting for the past 2 days. She notes she has hx of cyclic vomiting and today is day 3 of vomiting. Pt reports chills and abd pain. Denies fever, SOB, chest pain, lightheadedness. Pt notes what usually works for her is Zofran, Ativa, and Protonix. Pt did receive a flu shot this year, per nurse's note. - History of Current Complaint Chief Complaint: EDNauseaVomitDiarrh Time Seen by Provider: 01/07/19 07:11 Stated Complaint: "VOMITING, ABD PAIN" PER PT Hx Obtained From: Patient Hx Last Menstrual Period: 07/26/18 Onset/Duration: Started Days Ago, Still Present Timing: Lasting Days Current Severity: Moderate Pain Intensity: 8 Location of Pain: Diffuse Associated Signs and Symptoms: Positive: Nausea, Vomiting, Chills. Negative: Fever, Lightheadedness, Chest Pain Aggravating Factor(s): Nothing Alleviating Factor(s): Nothing - Additional Pertinent History Primary Care Physician: GEORGES - Allergy/Home Medications Allergies/Adverse Reactions: Allergies Allergy/AdvReac Type Severity Reaction Status Date / Time nitrofurantoin AdvReac Vomiting Verified 01/07/19 06:59 [From Macrobid] Penicillins AdvReac Vomiting Verified 01/07/19 06:59 Sulfa (Sulfonamide AdvReac Rash And Verified 01/07/19 06:59 Antibiotics) Itching sulfamethoxazole AdvReac Nausea And Verified 01/07/19 06:59 [From Bactrim] Vomiting trimethoprim [From Bactrim] AdvReac Nausea And Verified 01/07/19 06:59 Vomiting Home Medications: Home Medications BuPROPion XL* [Bupropion XL*] 300 mg PO DAILY 01/07/19 [History Confirmed ] cloNIDine TAB* [Catapres 0.1 MG TAB*] 0.1 mg PO BID 01/07/19 [History Confirmed 01/07/19] PMH/Surg Hx/FS Hx/Imm Hx Endocrine/Hematology History: Denies: Hx Anticoagulant Therapy, Hx Blood Disorders, Hx Diabetes, Hx Thyroid Disease Cardiovascular History: Denies: Hx Congestive Heart Failure, Hx Hypertension Respiratory History: Denies: Hx Asthma, Hx Chronic Obstructive Pulmonary Disease (COPD) GI History: Reports: Hx Ulcer, Other GI Disorders - Collagenous colitis, cyclic vomiting syndrome History: Reports: Other Problems/Disorders - Frequent UTIs Denies: Hx Dialysis, Hx Renal Disease Sensory History: Reports: Hx Contacts or Glasses Denies: Hx Hearing Aid Opthamlomology History: Reports: Hx Contacts or Glasses Psychiatric History: Reports: Hx Anxiety, Hx Depression, Hx Substance Abuse - 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; 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) - Surgical History Surgery Procedure, Year, and Place: 2014 left ovarian cyst REMOVAL Hx Anesthesia Reactions: No - Immunization History Date of Tetanus Vaccine: utd Date of Influenza Vaccine: fall 2017 Infectious Disease History: No Infectious Disease History: Reports: Hx Clostridium Difficile, Hx Hepatitis - TESTS + FOR HEP C ANTIBODIES Denies: Hx Human Immunodeficiency Virus (HIV), Hx of Known/Suspected MRSA, Hx Shingles, Hx Tuberculosis, Hx Known/Suspected VRE, Hx Known/Suspected VRSA, History Other Infectious Disease, Traveled Outside the [place] in Last 30 Days - Family History Known Family History: Positive: Hypertension - mother, Other - Negative bowel CA - Social History Alcohol Use: Weekly Alcohol Amount: 1/week Hx Substance Use: Yes Substance Use Type: Reports: Marijuana Substance Use Comment - Amount & Last Used: no heroin use since 2012 per pt Hx Tobacco Use: Yes Smoking Status (MU): Heavy Every Day Tobacco Smoker Type: Cigarettes Amount Used/How Often: pack per day Length of Time of Smoking/Using Tobacco: 8 years Have You Smoked in the Last Year: Yes Review of Systems Positive: Chills. Negative: Fever Negative: Chest Pain Negative: Shortness Of Breath Positive: Abdominal Pain, Vomiting, Nausea Neurological: Other - NEG: lightheadedness All Other Systems Reviewed And Are Negative: Yes Physical Exam - Summary Physical Exam Summary: VITAL SIGNS: Reviewed. GENERAL: Patient is a well-developed and nourished female who is lying comfortable in the stretcher. Patient is not in any acute respiratory distress. HEAD AND FACE: No signs of trauma. No ecchymosis, hematomas or skull depressions. No sinus tenderness. EYES: PERRLA, EOMI x 2, No injected conjunctiva, no nystagmus. EARS: Hearing grossly intact. Ear canals and tympanic membranes are within normal limits. MOUTH: Oropharynx within normal limits. NECK: Supple, trachea is midline, no adenopathy, no JVD, no carotid bruit, no c- spine tenderness, neck with full ROM. CHEST: Symmetric, no tenderness at palpation LUNGS: Wheezing. CVS: Regular rate and rhythm, S1 and S2 present, no murmurs or gallops appreciated. ABDOMEN: Soft, non-tender. No signs of distention. No rebound no guarding, and no masses palpated. Bowel sounds are normal. EXTREMITIES: FROM in all major joints, no edema, no cyanosis or clubbing. NEURO: Alert and oriented x 3. No acute neurological deficits. Speech is normal and follows commands. SKIN: Dry and warm Triage Information Reviewed: Yes Vital Signs On Initial Exam: Initial Vitals Temp Pulse Resp BP Pulse Ox 98.2 F 92 16 136/92 99 01/07/19 06:57 01/07/19 06:57 01/07/19 06:57 01/07/19 06:57 01/07/19 06:57 Vital Signs Reviewed: Yes Diagnostics - Vital Signs Vital Signs Temp Pulse Resp BP Pulse Ox 01/07/19 06:57 98.2 F 92 16 136/92 99 - Laboratory Result Diagrams: 01/07/19 07:36 01/07/19 07:36 Lab Statement: Any lab studies that have been ordered have been reviewed, and results considered in the medical decision making process. Re-Evaluation - Re-Evaluation First Eval Re-Evaluation Time: 10:05 Change: Improved Comment: Pt is feeling better after medications. She will be discharged home. GIGU Course/Dx - Course Assessment/Plan: This patient is a 33-year-old female who presents to the emergency department with a chief complaint of vomiting and epigastric pain. Patient has history of cyclic vomiting syndrome. Test results without any significant abnormality except for potassium level of 3.4 for which the patient was given potassium chloride. In the ED course the patient was hydrated with IV fluids, she was given Toradol, Ativan, morphine, Protonix and Zofran. After these medications were given the patient's symptoms have significantly improved. Patient is hemodynamically stable, alert and oriented 3. I discussed all the findings and test results with the patient. Patient was instructed to return to the emergency room immediately if any of the symptoms return worsens. Plan of care was discussed with the patient and understands and agrees. All questions were answered at patient satisfaction. There were no further complaints or concerns. Lung exam before discharge: CTA B/L. Good air exchange. No wheezing or crackles heard. CVS: S1 and S2 present. No murmurs appreciated. Patient is alert and oriented x 3. Patient is hemodynamically stable. Patient will be discharged home with follow up from PCP in the next 2-3 days. - Diagnoses Provider Diagnoses: Cyclic vomiting syndrome Discharge - Sign-Out/Discharge Documenting (check all that apply): Patient Departure - Discharge home Patient Received Moderate/Deep Sedation with Procedure: No - Discharge Plan Condition: Stable Disposition: HOME Patient Education Materials: Cyclic Vomiting Syndrome (ED) Forms: *Work Release Referrals: Noelle RODARTE,Minal Chavez [Primary Care Provider] - Additional Instructions: FOLLOW UP WITH YOUR PRIMARY CARE PROVIDER IN 2-3 DAYS. RETURN TO THE EMERGENCY DEPARTMENT FOR ANY WORSENING OR NEW SYMPTOMS. - Billing Disposition and Condition Condition: STABLE Disposition: Home - Attestation Statements Document Initiated by Flower[employer]: Yes Documenting Scribe: Sada Raphael Provider For Whom Everardo is Documenting (Include Credential): Rashad Funk MD Scribe Attestation: Sada Patterson, scribed for Rashad Funk MD on 01/07/19 at 1843. Scribe Documentation Reviewed: Yes Provider Attestation: The documentation as recorded by the Sada reich accurately reflects the service I personally performed and the decisions made by , Rashad Funk MD Status of Scribe Document: Viewed
[2019-01-07 07:49] LABS: ABS Basophils 0.1 10^3/ul (0-0.2); ABS Eosinophils 0.1 10^3/ul (0-0.6); ABS Lymphocytes 1.9 10^3/ul (1.0-4.8); ABS Monocytes 0.6 10^3/ul (0-0.8); ABS Neutrophils 7.1 10^3/ul (1.5-7.7); ABS Nucleated RBC 0 10^3/ul; Eosinophil % 0.7 %; Hematocrit 42 % (33-41); Hemoglobin 14.1 g/dL (12.0-16.0); Lymphocyte % 19.9 %; Mean Corpuscular HGB Conc 34 g/dL (31-36); Mean Corpuscular Hemoglobin 32 pg (27-31); Mean Corpuscular Volume 94 fL (80-97); Mean Platelet Volume 8.8 fL (7.4-10.4); Nucleated Red Blood Cells % 0.1; Platelet Count 272 10^3/uL (150-450); Red Blood Count 4.48 10^6 /uL (3.70-4.87); Red Cell Distribution Width 14 % (10.5-15); White Blood Count 9.7 10^3/uL (3.5-10.8)
[2019-01-07 08:00] LABS: ALT 19 U/L (7-52); AST 17 U/L (13-39); Albumin 4.2 g/dL (3.2-5.2); Albumin/Globulin Ratio 1.6 (1-3); Alkaline Phosphatase 81 U/L (34-104); Anion Gap 8 mmol/L (2-11); BUN/Creatinine Ratio 14.1 (8-20); Blood Urea Nitrogen 11 mg/dL (6-24); C Reactive Protein 11.52 mg/L (<8.01); CO2 Carbon Dioxide 24 mmol/L (22-32); Calcium 9.2 mg/dL (8.6-10.3); Chloride 107 mmol/L (101-111); EGFR African American 103.6 (>60); EGFR Non-African American 85.6 (>60); Globulin 2.7 g/dL (2-4); Glucose 107 mg/dL (70-100); Potassium 3.4 mmol/L (3.5-5.0); Sodium 139 mmol/L (135-145); Total Protein 6.9 g/dL (6.4-8.9)
[2019-01-07 08:07] LABS: HCG Pregnancy < 0.60 mIU/mL
[2019-01-07] MEDS ORDERED: Potassium Chlor TAB* 20 MEQ TAB.ER PO ONE (08:07)
[2019-01-07] MEDS ORDERED: Albuterol/Ipratropium NEB.SOL* Albuterol 2.5 MG/Ipratropium 0.5 MG 3 ML INH ONE (08:07)
[2019-01-07] MEDS ORDERED: Acetaminophen TAB* 325 MG PO ONE (09:32)
[2019-01-07] MEDS ORDERED: Morphine INJ* 10 MG/ML 1 ML CARPUJECT IV ONE (10:05)
[2019-01-07] MEDS ORDERED: Morphine 4 MG/ML VIAL (1 ml) 4 MG/ML VIAL IV ONE (10:15)
[2019-01-07 10:16] LABS: Urine Appearance Turbid; Urine Bacteria Absent (Absent); Urine Bilirubin Negative (Negative); Urine Blood 3+ (Negative); Urine Color Yellow; Urine Glucose Negative (Negative); Urine Ketones Negative (Negative); Urine Nitrite Negative (Negative); Urine Protein Negative (Negative); Urine Red Blood Cell 1+(3-5/hpf) (Absent); Urine Squamous Epithelial Cell Present (Absent); Urine Urobilinogen Negative (Negative); Urine White Blood Cell 1+(6-10/hpf) (Absent)
[2019-01-07 10:32] VITALS: BP 111/80
== END 2019-01-07 10:30 | disposition home or self-care (01) ==
LOC: ED 06:48
DX: G43.A0 Cyclical vomiting, in migraine, not intractable (principal); F17.210 Nicotine dependence, cigarettes, uncomplicated; F32.9 Major depressive disorder, single episode, unspecified; F41.9 Anxiety disorder, unspecified
CPT/HCPCS: 36415; 80053; 81003; 81015; 83605; 83690; 84702; 85025; 86140; 87086; 96361; 96374; 96375; 99283; A9270-GY; J1885; J2060; J2270; J2405

== ENCOUNTER 2019-03-24 07:15 | Emergency (ER) | payer BC ==
--- OUTSIDE RECORDS SUMMARY | 2019-03-24 07:25 | XMS REPORT | Continuity of Care Document ---
:1985 External Reference #:[id number] Author Name Serg Kumar M.D. Address [address] [facility] [address] [place] [address] Care Team Providers Name Role Phone HCP given Primary Care Physician Unavailable Payers Date Identification Numbers Payment Provider Subscriber Effective: Policy Number: [id number] Lethaus Octaviano Lemon 2016 Ind/Ppo/Hmo/Pos PayID: [id number] [address] [address] [place] [address] Problems Active Problems Provider Date Cyclical vomiting syndrome Minal Drake PA Onset: 10/07/2017 Collagenous colitis Minal Drake PA Onset: 10/07/2017 Adjustment disorder with mixed emotional features Minal Drake PA Onset: Tobacco user Minal Drake PA Onset: 10/07/2017 Family History Date Family Member(s) Observation Comments Mother Hypertension Mother Hypercholesterolemia Children None Siblings 1 Social History Type Date Description Comments Sex Unknown Education Highest Level Completed Some College Education Highest Level Completed Trade School Marital Status Single 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 Dispers day as needed nausea Quetiapine Fumarate 1-2 tabs by 60tabs G47.00 Serg Kumar, 11/18/2017 25mg mouth at bedtime M.D. Tablets for sleep Bupropion HCL ER (XL) 1 tab po daily F43.23 Unknown 300mg Tablets ER 24HR Aripiprazole 1 tab po daily F43.23 Madelyn Lopez MD 5mg Tablets [place] 1 tab po daily Ramakrishna Redd, 0.25-35mg-mcg Tablets Omeprazole take 1 capsule 60caps G43.A0 Serg Kumar, 40mg Capsules by mouth twice a M.D. DR day History Medications Oxycodone HCL 1/2 tabs every 4 4tabs Herman Mayberry, 04/30/2018 - 5mg hours as needed D.O. 05/04/2018 Tablets withdrawl symptoms Oxycodone HCL 2 tabs in the am, Unknown 12/30/2017 - 5mg 1 in the afernoon 04/30/2018 Tablets and 1 ab in the evening. Co Q-10 1 cap po daily G43.A0 Serg Kumar, 10/07/2017 - 100mg M.D. 11/17/2017 Capsules Mirtazapine 1 tab po daily F43.23 Unknown - 15mg 11/17/2017 Tablets Oxycodone-Acetaminop take 2 tablets by 60tabs G43.A0 Serg Kumar, - hen mouth daily if M.D. 01/05/2018 7.5-325mg Tablets needed for pain K52.831 Lorazepam 1 tab po 3 times a F43.23 Unknown - 11/17/2017 0.5mg Tablets day as needed Medications Administered in Office Medication SIG Qnty Indications Ordering Provider Date TB Intradermal Test Nurse's Schedule 03/07/2019 Injection Immunizations CPT Code Status Date Vaccine Lot # [id number] Given 09/30/2018 Influenza Vaccine Quadrivalent Preser/Antibiotic [id number] Free Im Use Vital Signs Date Vital Result Comment 03/21/2019 4:48pm BP Systolic 130 mmHg BP Diastolic 90 mmHg Body Temperature 98.3 F Weight 223.00 lb 03/18/2018 12:57pm BP Systolic 134 mmHg BP [...] Date Facility Test Result H/L Range Note Laboratory test finding 03/21/2019 In House Culture Throat <pending> Culture Throat Rapid Screen negative Urine Culture And 01/07/2019 [facility] Urine Culture SEE RESULT BELOW 1 Sensitivities [phone] Urinalysis Profile 01/07/2019 [facility] Urine Color Yellow [phone] Urine Appearance Turbid Urine Specific [place] 1.020 N 1.010-1.030 Urine pH 7.0 N 5-9 Urine Urobilinogen Negative Negative Urine Ketones Negative Negative Urine Protein Negative Negative Urine Leukocytes Negative Negative Urine Blood 3+ Abnormal Negative Urine Nitrite Negative Negative Urine Bilirubin Negative Negative Urine Glucose Negative Negative Urine White Blood Cell 1+(6-10/hpf) Abnormal Absent Urine Red Blood Cell 1+(3-5/hpf) Abnormal Absent Urine Bacteria Absent Absent Urine Squamous Epithelial Cell Present Abnormal Absent Comp Metabolic Panel 01/07/2019 [facility] Sodium 139 mmol/L N 135- 145 [phone] Potassium 3.4 mmol/L Low 3.5-5.0 Chloride 107 mmol/L N 101-111 Co2 Carbon Dioxide 24 mmol/L N 22-32 Anion Gap 8 mmol/L N 2-11 Glucose 107 mg/dL High 70-100 Blood Urea Nitrogen 11 mg/dL N 6-24 Creatinine 0.78 mg/dL N 0.51-0.95 BUN/Creatinine Ratio 14.1 N 8-20 Calcium 9.2 mg/dL N 8.6-10.3 Total Protein 6.9 g/dL N 6.4-8.9 Albumin 4.2 g/dL N 3.2-5.2 Globulin 2.7 g/dL N 2-4 Albumin/Globulin Ratio 1.6 N 1-3 Total Bilirubin 0.40 mg/dL N 0.2-1.0 Alkaline Phosphatase 81 U/L N 34-104 Alt 19 U/L N 7-52 Ast 17 U/L N 13-39 Egfr Non- 85.6 >60 Egfr 103.6 >60 2 Laboratory test finding 01/07/2019 [facility] Lipase 15 U/L N 11.0- 82.0 [phone] C Reactive Protein 11.52 mg/L High <8.01 HCG < 0.60 mIU/mL 3 Laboratory test 01/07/2019 [facility] Lactic Acid 1.0 mmol/L N 0.5- 2.0 4 finding [phone] CBC Auto Diff 01/07/2019 [facility] White Blood 9.7 10^3/uL N 3.5- 10.8 [phone] Count Red Blood Count 4.48 10^6/uL N 3.70-4.87 Hemoglobin 14.1 g/dL N 12.0-16.0 Hematocrit 42 % High 33-41 Mean Corpuscular Volume 94 fL N 80-97 Mean Corpuscular Hemoglobin 32 pg High 27-31 Mean Corpuscular HGB Conc 34 g/dL N 31-36 Red Cell Distribution Width 14 % N 10.5-15 Platelet Count 272 10^3/uL N 150-450 Mean Platelet Volume 8.8 fL N 7.4-10.4 Abs Neutrophils 7.1 10^3/uL N 1.5-7.7 Abs Lymphocytes 1.9 10^3/uL N 1.0-4.8 Abs Monocytes 0.6 10^3/uL N 0-0.8 Abs Eosinophils 0.1 10^3/uL N 0-0.6 Abs Basophils 0.1 10^3/uL N 0-0.2 Abs Nucleated RBC 0 10^3/uL Granulocyte % 73.0 % Lymphocyte % 19.9 % Monocyte % 5.8 % Eosinophil % 0.7 % Basophil % 0.6 % Nucleated Red Blood Cells % 0.1 Urinalysis Profile 12/20/2018 [facility] Urine Color Alize [phone] Urine Appearance Cloudy Urine Specific [place] 1.026 N 1.010-1.030 Urine pH 6.0 N 5-9 Urine Urobilinogen Negative Negative Urine Ketones Trace Abnormal Negative Urine Protein 2+(100 mg/dL) Abnormal Negative Urine Leukocytes 2+ Abnormal Negative Urine Blood 2+ Abnormal Negative Urine Nitrite Positive Abnormal Negative Urine Bilirubin Negative Negative Urine Glucose Negative Negative Urine White Blood Cell 3+(>20/hpf) Abnormal Absent Urine Red Blood Cell 3+(>10/hpf) Abnormal Absent Urine Bacteria 2+ Abnormal Absent Urine Squamous Epithelial Cell Present Abnormal Absent Urine Culture And 12/20/2018 [facility] Urine Culture SEE RESULT 5 Sensitivities [phone] BELOW CBC Auto Diff 11/23/2018 [facility] White Blood 11.4 10^3/uL High 3.5 -10 [phone] Count .8 Red Blood Count 4.76 10^6/uL N 4.00-5.40 Hemoglobin 15.1 g/dL N 12.0-16.0 Hematocrit 45 % N 35-47 Mean Corpuscular Volume 94 fL N 80-97 Mean Corpuscular Hemoglobin 32 pg High 27-31 Mean Corpuscular HGB Conc 34 g/dL N 31-36 Red Cell Distribution Width 14 % N 10.5-15 Platelet Count 328 10^3/uL N 150-450 Mean Platelet Volume 9.2 fL N 7.4-10.4 Abs Neutrophils 5.9 10^3/uL N 1.5-7.7 Abs Lymphocytes 4.4 10^3/uL N 1.0-4.8 Abs Monocytes 0.9 10^3/uL High 0-0.8 Abs Eosinophils 0.1 10^3/uL N 0-0.6 Abs Basophils 0.1 10^3/uL N 0-0.2 Abs Nucleated RBC 0 10^3/uL Granulocyte % 51.6 % Lymphocyte % 38.3 % Monocyte % 8.0 % Eosinophil % 1.3 % Basophil % 0.8 % Nucleated Red Blood Cells % 0 Laboratory test finding 11/23/2018 [facility] Lactic Acid 1.5 mmol/L N 0.5-2.0 6 [phone] Comp Metabolic Panel 11/20/2018 [facility] Sodium 142 mmol/L N 135- 145 [phone] Potassium 3.7 mmol/L N 3.5-5.0 Chloride 107 [...] Egfr Non- 59.8 >60 Egfr 72.4 >60 7 Laboratory test finding 11/20/2018 [facility] Magnesium 1.9 mg/dL N 1.9-2.7 [phone] Lipase 15 U/L N 11.0-82.0 C Reactive Protein 10.76 mg/L High <8.01 HCG < 0.60 mIU/mL 8 Lactic Acid 3.0 mmol/L High 0.5-2.0 9 CBC Auto Diff 11/20/2018 [facility] White Blood 19.3 10^3/uL High 3.5 -10.8 [phone] Count Red Blood Count 4.71 10^6/uL N [...] Cells % 0 CBC Auto Diff 10/04/2018 [facility] White Blood 11.3 10^3/uL High 3.5 -10.8 [phone] Count Red Blood Count 4.20 10^6/uL N [...] Cells % 0.1 Laboratory test finding 10/04/2018 [facility] Lactic Acid 0.8 mmol/L N 0.5-2.0 10 [phone] Comp Metabolic Panel 10/04/2018 [facility] Sodium 140 mmol/L N 135- 145 [phone] Potassium 3.2 mmol/L Low 3.5-5.0 Chloride 106 [...] Egfr Non- 81.3 >60 Egfr 98.4 >60 11 Laboratory test finding 10/04/2018 [facility] Lipase 25 U/L N 11.0- 82.0 [phone] C Reactive Protein 8.21 mg/L High <8.01 HCG < 0.60 mIU/mL 12 Comp Metabolic Panel 10/03/2018 [facility] Sodium 140 mmol/L N 135- 145 [phone] Potassium 3.4 mmol/L Low 3.5-5.0 Chloride 108 [...] Egfr Non- 79.1 >60 Egfr 95.7 >60 13 CBC Auto Diff 08/02/2018 [facility] White Blood Count 10.4 10^3/uL N 3.5-10.8 [phone] Red Blood Count 4.17 10^6/uL N 4.00-5.40 [...] Cells % 0 Comp Metabolic Panel 08/02/2018 [facility] Sodium 144 mmol/L N 135- 145 [phone] Potassium 3.1 mmol/L Low 3.5-5.0 Chloride 108 [...] Egfr Non- 80.2 >60 Egfr 97.0 >60 14 Total Bilirubin 0.40 mg/dL N 0.2-1.0 Laboratory test 08/02/2018 [facility] Lipase 21 U/L N 11.0-82.0 finding [phone] Laboratory test 08/01/2018 [facility] Lactic Acid 0.7 mmol/L N 0.5- 2.0 15 finding [phone] CBC Auto Diff 08/01/2018 [facility] White Blood 8.6 10^3/uL N 3.5- 10.8 [phone] Count Red Blood Count 4.04 10^6/uL N [...] Nucleated Red Blood Cells % 0 Inr/Protime 08/01/2018 [facility] Inr 1.04 High 0.77-1.02 [phone] Laboratory test 08/01/2018 [facility] Partial 30.7 seconds N 26.0- 36.3 finding [phone] Thrombo Time PTT Lactic Acid 1.4 mmol/L N 0.5-2.0 16 Ammonia 54 mcmol/L High 16-53 B-Type Natriuretic Peptide BNP 86 pg/mL 17 Comp Metabolic Panel 08/01/2018 [facility] Sodium 142 mmol/L N 135- 145 [phone] Potassium 2.9 mmol/L Low 3.5-5.0 Chloride 108 [...] Egfr Non- 97.6 >60 Egfr 118.1 >60 18 Laboratory test finding 08/01/2018 [facility] Magnesium 2.0 mg/dL N 1.9-2.7 [phone] Amylase 44 U/L N 29-103 Lipase 15 U/L N 11.0-82.0 Creatine Kinase(CK) 79 U/L N 10-223 C Reactive Protein 39.16 mg/L High <8.01 HCG < 0.60 mIU/mL 19 Urinalysis Profile 08/01/2018 [facility] Urine Color Alize [phone] Urine Appearance Cloudy Urine Specific [place] 1.028 N 1.010-1.030 Urine pH 6.0 N 5-9 Urine Urobilinogen Positive Abnormal Negative Urine Ketones 1+ Abnormal Negative Urine Protein 2+(100 mg/dL) Abnormal Negative Urine Leukocytes Negative Negative Urine Blood Negative Negative * * Abnormal Negative 20 Urine Nitrite Negative Negative Urine Bilirubin Negative Negative Urine Glucose Negative Negative Urine White Blood Cell Absent Absent Urine Red Blood Cell Absent Absent Urine Bacteria Absent Absent Urine Squamous Epithelial Cell Present Abnormal Absent Stool Occult Blood 08/01/2018 [facility] Stool Occult SEE RESULT 21 Diag [phone] Blood, Diag BELOW Comp Metabolic 07/26/2018 [facility] Sodium 140 mmol/L N 135-145 Panel [phone] Potassium 3.4 mmol/L Low 3.5-5.0 Chloride 110 [...] Egfr Non- 73.0 >60 Egfr 88.4 >60 22 CBC Auto Diff 07/26/2018 [facility] White Blood 12.1 10^3/uL High 3.5 -10.8 [phone] Count Red Blood Count 4.06 10^6/uL N [...] Cells % 0 Laboratory test finding 07/26/2018 [facility] Lactic Acid 0.8 mmol/L N 0.5-2.0 23 [phone] Laboratory test finding 07/24/2018 [facility] Magnesium 2.1 mg/dL N 1.9-2.7 [phone] Lipase 14 U/L N 11.0-82.0 C Reactive Protein 14.39 mg/L High <8.01 HCG < 0.60 mIU/mL 24 TSH (Thyroid Stim Horm) 1.20 mcIU/mL N 0.34-5.60 Comp Metabolic Panel 07/24/2018 [facility] Sodium 140 mmol/L N 135- 145 [phone] Potassium 3.8 mmol/L N 3.5-5.0 Chloride 108 [...] Egfr Non- 73.0 >60 Egfr 88.4 >60 25 CBC Auto Diff 04/25/2018 [facility] White Blood Count 9.1 10^3/uL N 3.5-10.8 [phone] Red Blood Count 4.44 10^6/uL N 4.00-5.40 [...] Cells % 0 Comp Metabolic Panel 04/25/2018 [facility] Sodium 141 mmol/L N 135- 145 [phone] Potassium 3.2 mmol/L Low 3.5-5.0 Chloride 107 [...] Egfr Non- 64.7 >60 Egfr 78.2 >60 26 Laboratory test finding 04/25/2018 [facility] Magnesium 2.0 mg/dL N 1.9-2.7 [phone] Lipase 20 U/L N 11.0-82.0 C Reactive Protein 11.99 mg/L High <8.01 CBC Auto Diff 04/24/2018 [facility] White Blood 10.9 10^3/uL High 3.5 -10.8 [phone] Count Red Blood Count 4.55 10^6/uL N [...] Blood Cells % 0 Comp Metabolic Panel 04/24/2018 [facility] Sodium 140 mmol/L N 135- 145 [phone] Potassium 3.1 mmol/L Low 3.5-5.0 Chloride 106 [...] Egfr Non- 64.7 >60 Egfr 78.2 >60 27 Laboratory test finding 04/24/2018 [facility] Lipase 23 U/L N 11.0- 82.0 [phone] C Reactive Protein 11.64 mg/L High <8.01 HCG < 0.60 mIU/mL 28 Laboratory test finding 04/22/2018 [facility] Amylase 66 U/L N 29- 103 [phone] Lipase 30 U/L N 11.0-82.0 Creatine Kinase(CK) 83 U/L N 10-223 C Reactive Protein 9.21 mg/L High <8.01 HCG < 0.60 mIU/mL 29 Magnesium 2.0 mg/dL N 1.9-2.7 Comp Metabolic Panel 04/22/2018 [facility] Sodium 140 mmol/L N 135- 145 [phone] Potassium 3.8 mmol/L N 3.5-5.0 Chloride 107 [...] Egfr Non- 80.2 >60 Egfr 97.0 >60 30 Laboratory test 04/22/2018 [facility] Partial 30.9 seconds N 26.0- 36.3 finding [phone] Thrombo Time PTT Lactic Acid 1.7 mmol/L N 0.5-2.0 31 Inr/Protime 04/22/2018 [facility] Inr 0.89 N 0.77-1.02 [phone] CBC Auto Diff 04/22/2018 [facility] White Blood 11.6 10^3/uL High 3.5 -10.8 [phone] Count Red Blood Count 4.64 10^6/uL N [...] Blood Cells % 0 Laboratory test 04/22/2018 [facility] TSH (Thyroid 0.99 mcIU/mL N 0.34-5.60 finding [phone] Stim Horm) CBC Auto Diff 03/18/2018 [facility] White Blood 9.7 10^3/uL N 3.5- 10.8 [phone] Count Red Blood Count 4.22 10^6/uL N 4.00-5.40 [...] Cells % 0 Laboratory test finding 03/18/2018 [facility] Lactic Acid 0.8 mmol/L N 0.5-2.0 32 [phone] Comp Metabolic Panel 03/18/2018 [facility] Sodium 140 mmol/L N 139- 145 [phone] Potassium 3.3 mmol/L Low 3.5-5.0 Chloride 109 [...] Egfr Non- 78.0 >60 Egfr 100.3 >60 33 Laboratory test finding 03/18/2018 [facility] Magnesium 1.9 mg/dL N 1.9-2.7 [phone] Amylase 49 U/L N 29-103 Lipase 23 U/L N 11.0-82.0 C Reactive Protein 22.15 mg/L High < 5.00 34 HCG < 0.60 mIU/mL 35 Urinalysis Profile 03/15/2018 [facility] Urine Color Yellow [phone] Urine Appearance Cloudy Urine Specific [place] 1.017 N 1.010-1.030 Urine pH 8.0 N 5-9 Urine Urobilinogen Negative Negative Urine Ketones Negative Negative Urine Protein Negative Negative Urine Leukocytes Negative Negative Urine Blood Negative Negative Urine Nitrite Negative Negative Urine Bilirubin Negative Negative Urine Glucose Negative Negative Laboratory test finding 03/15/2018 [facility] Lipase 35 U/L N 11.0- 82.0 [phone] C Reactive Protein 8.88 mg/L High < 5.00 36 HCG < 0.60 mIU/mL 37 Comp Metabolic Panel 03/15/2018 [facility] Sodium 139 mmol/L N 139- 145 [phone] Chloride 107 mmol/L N 101-111 Co2 Carbon [...] Egfr Non- 79.1 >60 Egfr 101.7 >60 38 Potassium TNP mmol/L 3.5-5.0 39 Anion Gap 9 mmol/L N 2-11 Ast TNP U/L 13-39 40 CBC Auto Diff 03/15/2018 [facility] White Blood Count 10.6 10^3/uL N 3.5-10.8 [phone] Red Blood Count 4.25 10^6/uL N 4.0-5.4 [...] Blood Cells % 0.1 Laboratory test 03/15/2018 [facility] Potassium Redraw 3.2 mmol/L Low 3.5-5.0 finding [phone] Ast Redraw 15 U/L N 13-39 Rapid Influenza A 01/06/2018 [facility] Influenza A NEGATIVE Negative 41 & B Molecular [phone] Molecular Influenza B Molecular NEGATIVE Negative Laboratory test finding 01/06/2018 In House Culture Throat Rapid negative Screen Culture Throat negative Laboratory test 01/06/2018 [facility] Influenza A & B SEE RESULT 42 finding [phone] Request BELOW Laboratory test 11/18/2017 [facility] TSH (Thyroid 1.53 mcIU/mL N 0.34-5. finding [phone] Stim Horm) 60 Cortisol 9.93 g/dL 43 Comp Metabolic Panel 11/18/2017 [facility] Sodium 139 mmol/L N 133- 145 [phone] Potassium 3.7 mmol/L N 3.5-5.0 Chloride 106 [...] Egfr Non- 62.2 >60 Egfr 80.0 >60 44 Laboratory test 11/18/2017 [facility] Hemoglobin A1c 5.2 % N 4.0-5.6 45 finding [phone] (Glyco HGB) CBC Auto Diff 11/18/2017 [facility] White Blood Count 9.1 N 3.5-10.8 [phone] 10^3/uL Red Blood Count 4.22 10^6/uL N [...] 0 Iron & Iron Binding Capacity 11/18/2017 [facility] Iron 133 g/dL N 50-212 [phone] Unsaturated Iron Binding 312 g/dL Total Iron Binding Capacity 445 g/dL N 250-450 % Iron Saturation 30 % N 15-55 1 SEE RESULT BELOW Name: OCTAVIANO LEMON : [address]: Rashad Funk MD Acct: [id number] Unit: [id number] AGE: 33 Location: ED Re01/07/19 SEX: F Status: DEP ER SPEC: [id number] TERRENCE: 01/07/[address]: Rashad Funk MD REQ: [id number] RECD: 01/07/19 STATUS: KRISTIAN ESTRELLA DR: Minal Drake RPA-C _ SOURCE: URINE SPDESC: ORDERED: Urine Culture Procedure Result Reported Site Urine Culture Final 01/08/19- 1315 ML No Growth (<1,000 CFU/mL) * ML - Main Lab . END OF REPORT DEPARTMENT OF PATHOLOGY, [address] [place] [id number] Jcarlos Alaotrre M.D. Director [facility] # [id number] 2 Because ethnic data is not always readily [...] 15-29 5 Kidney failure <15 (or dialysis) 3 <5.0 Negative 5.0 - 25.0 Indeterminate (Repeat testing recommended after 72 hours) >25.0 Positive Perimenopausal women can display HCG levels of up to 20 mIU/mL 4 INS Severe Sepsis and Septic Shock Management Bundle Measure requires all lactic acids initially measuring >2.0 mmol/L be repeated. 5 SEE RESULT BELOW Name: XOCHILTOCTAVIANO : [address]: Robert Giron MD Acct: [id number] Unit: [id number] AGE: 33 Location: ED Re12/20/18 SEX: F Status: DEP ER SPEC: [id number] TERRENCE: 12/20/[address]: Nancy CLARK REQ: [id number] RECD: 12/20/18 STATUS: KRISTIAN ESTRELLA DR: Aaliyah Drake [facility] _ SOURCE: URINE SPDESC: ORDERED: Urine Culture Procedure Result Reported Site Urine Culture Final 12/22/18817 ML Organism 1 ESCHERICHIA COLI [place] Count >100,000 (Many) CFU/ML 1. ESCHERICHIA COLI M.I.C. RX --------- ------ Ampicillin 8 S Cefazolin <=4 S Cefepime <=1 S Ceftriaxone <=1 S Ciprofloxacin <=0.25 S Gentamicin <=1 S Levofloxacin <=0.12 S Meropenem <=0.25 S Nitrofurantoin <=16 S Tetracycline <=1 S Pipercillin/Tazobactam <=4 S Trimethoprim/Sulfamethoxazole <=20 S Amoxicillin/Clavulanic Acid <=2 S Aztreonam <=1 S Contact the Microbiology Department for any additional antibiotic reporting. * ML - Main Lab . END OF REPORT DEPARTMENT OF PATHOLOGY, [address] [place] [address] Jcarlos Alatorre M.D. Director [facility] # [id number] 6 [facility] Severe Sepsis and Septic Shock Management Bundle Measure requires all lactic acids initially measuring >2.0 mmol/L be repeated. 7 Because ethnic data is not always [...] 5 Kidney failure <15 (or dialysis) 8 <5.0 Negative 5.0 - 25.0 Indeterminate (Repeat testing recommended after 72 hours) >25.0 Positive Perimenopausal women can display HCG levels of up to 20 mIU/mL 9 Critical Result LACT:3.0 Called to [id number] at: 11:40:25 by:[id number] Read back by:[id number] [facility] Severe Sepsis and Septic Shock Management Bundle Measure requires all lactic acids initially measuring >2.0 mmol/L be repeated. 10 [facility] Severe Sepsis and Septic Shock Management Bundle Measure requires all lactic acids initially measuring >2.0 mmol/L be repeated. 11 Because ethnic data is not always readily [...] 15-29 5 Kidney failure <15 (or dialysis) 12 <5.0 Negative 5.0 - 25.0 Indeterminate (Repeat testing recommended after 72 hours) >25.0 Positive Perimenopausal women can display HCG levels of up to 20 mIU/mL 13 Because ethnic data is not always readily [...] 15-29 5 Kidney failure <15 (or dialysis) 14 Because ethnic data is not always readily [...] 15-29 5 Kidney failure <15 (or dialysis) 15 [facility] Severe Sepsis and Septic Shock Management Bundle Measure requires all lactic acids initially measuring >2.0 mmol/L be repeated. 16 [facility] Severe Sepsis and Septic Shock Management Bundle Measure requires all lactic acids initially measuring >2.0 mmol/L be repeated. 17 >100 to <200 pg/mL: likely compensated congestive heart failure (CHF) 200 to 400 pg/mL: likely moderate CHF >400 pg/mL: likely moderate to severe CHF 18 Because ethnic data is not always [...] levels of up to 20 mIU/mL 20 *Ascorbic acid is present which may interfere with detection of blood. 21 SEE RESULT BELOW Name: OCTAVIANO LEMON: [address]: Pura Melchor MD Acct: [id number] Unit: [id number] AGE: 32 Location: ED Re08/01/18 SEX: F Status: REG ER SPEC: [id number] TERRENCE: 08/01/[address]: Pura Melchor MD REQ: [id number] RECD: 08/01/18 STATUS: COMP SAMEER DR: [facility] _ SOURCE: STOOL SPDESC: ORDERED: Occult Bl, Diag Procedure Result Reported Site Stool Occult Blood (1) Final 08/01/18- 1240 ML Stool Occult Blood Negative * ML - Main Lab . END OF REPORT DEPARTMENT OF PATHOLOGY, [address] [place] [address] Jcarlos Alatorre M.D. Director [facility] # [id number] 22 Because ethnic data is not always [...] 5 Kidney failure <15 (or dialysis) 23 [facility] Severe Sepsis and Septic Shock Management Bundle Measure requires all lactic acids initially measuring >2.0 mmol/L be repeated. 24 <5.0 Negative 5.0 - 25.0 Indeterminate (Repeat testing recommended after 72 hours) >25.0 Positive Perimenopausal women can display HCG levels of up to 20 mIU/mL 25 Because ethnic data is not always readily [...] 15-29 5 Kidney failure <15 (or dialysis) 26 Because ethnic data is not always readily [...] 15-29 5 Kidney failure <15 (or dialysis) 27 Because ethnic data is not always [...] 5 Kidney failure <15 (or dialysis) 28 <5.0 Negative 5.0 - 25.0 Indeterminate (Repeat testing recommended after 72 hours) >25.0 Positive Perimenopausal women can display HCG levels of up to 20 mIU/mL 29 <5.0 Negative 5.0 - 25.0 Indeterminate (Repeat testing recommended after 72 hours) >25.0 Positive Perimenopausal women can display HCG levels of up to 20 mIU/mL 30 Because ethnic data is not always readily [...] 15-29 5 Kidney failure <15 (or dialysis) 31 [facility] Severe Sepsis and Septic Shock Management Bundle Measure requires all lactic acids initially measuring >2.0 mmol/L be repeated. 32 [facility] Severe Sepsis and Septic Shock Management Bundle Measure requires all lactic acids initially measuring >2.0 mmol/L be repeated. 33 Because ethnic data is not always readily [...] 15-29 5 Kidney failure <15 (or dialysis) 34 Acute inflammation: >10.00 35 <5.0 Negative 5.0 - 25.0 Indeterminate (Repeat testing recommended after 72 hours) >25.0 Positive Perimenopausal women can display HCG levels of up to 20 mIU/mL 36 Acute inflammation: >10.00 37 <5.0 Negative 5.0 - 25.0 Indeterminate (Repeat testing recommended after 72 hours) >25.0 Positive Perimenopausal women can display HCG levels of up to 20 mIU/mL 38 Because ethnic data is not always [...] 5 Kidney failure <15 (or dialysis) 39 Specimen Hemolyzed. Result may not be valid. Unable to report test result due to hemolysis. 40 Unable to report test result due to hemolysis. 41 Logistical Engineer: [id number] SEE RESULT BELOW Name: OCTAVIANO LEMON : [address]: Minal Drake [facility] Acct: [id number] Unit: [id number] AGE: 32 Location: [facility] Re01/06/18 SEX: F Status: REG REF SPEC: [id number] TERRENCE: 01/06/18-1604 DAT MOSER: Minal Chavez Noelle [facility] REQ: [id number] RECD: 01/06/18 STATUS: COMP _ SOURCE: [facility]: ORDERED: Flu A B Request COMMENTS: [id number] Procedure Result Reported Site Rapid Influenza A B Request Final 01/06/182020 ML Specimen received for Influenza A/B Molecular testing * ML - Main Lab . END OF REPORT DEPARTMENT OF PATHOLOGY, [address] [place] [address] Jcarlos Alatorre M.D. Director [facility] # [id number] 43 AM 8.7-22.4 PM <10 44 Because ethnic data is not always readily [...] 15-29 5 Kidney failure <15 (or dialysis) 45 Therapeutic target for the treatment of diabetes mellitus patients is <7% HBA1C, and in selective patients <6.0%. Please refer to [place] [employer] diabetic care guidelines for further information. Procedures Date Code Description Status 11/05/2015 [id number] Colonoscopy Completed Encounters Type Date Location Provider Dx Diagnosis Office Visit 03/21/2019 Main Office Viry Castro J02.9 Acute pharyngitis , 4:00p P.A. 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, unspecified Office Visit 10/07/2017 8:00a Main Office Minal Drake G43.A0 Cyclical vomiting, PA not intractable K52.831 Collagenous colitis F43.23 Adjustment disorder with mixed anxiety and depressed mood F17.210 Nicotine dependence, cigarettes, uncomplicated Plan of Treatment 03/21/2019 - Jennifer BarrazaJ02.9 Acute pharyngitis, unspecifiedComments: likely viral.Follow up:do not share hygienic supplies with other or eating utensils Cepacol or chloraseptic (spray or lozenges) or honey with lemon report any worsening or failure to improve use a vaporizer in your bedroom and use a warm shower a couple times a day
[2019-03-24] MEDS ORDERED: Ondansetron INJ* 2 MG/ML VIAL IV ONE ×2 (07:36→11:52)
[2019-03-24] MEDS ORDERED: LORazepam INJ* 2 MG/ML 1 ML VIAL IV PUSH ONE (07:36)
[2019-03-24] MEDS ORDERED: NS 0.9% 1000 ML** 1,000 ML IV ONE ×2 (07:36→09:51)
[2019-03-24] MEDS ORDERED: Lorazepam PYXIS KEY PRN (07:36)
[2019-03-24] MEDS ORDERED: Lorazepam PYXIS KEY ONE (07:53)
--- NOTE | 2019-03-24 09:11 | ED ---
Nausea/Vomiting/Diarrhea HPI - HPI Summary HPI Summary: Patient is a 33-year-old frequent visitor to the ED for cyclic vomiting syndrome. She presents today for same. She states for the past 2 days, she has been nauseous with vomiting and diffuse abdominal pain. She states this is typical for her when she has her cyclic vomiting syndrome. She has these symptoms approximately once every few months, sometimes she states she will stay home and try to control it with her at home medications, which she tried this time but was unable to do so. She denies eating anything abnormal. She denies any allergies. Has been taking Zofran at home without relief. Has not taken any other medication for her abdominal pain. - History of Current Complaint Chief Complaint: EDNauseaVomitDiarrh Stated Complaint: "VOMITING" PER PT Time Seen by Provider: 03/24/19 07:20 Hx Obtained From: Patient Hx Last Menstrual Period: 07/26/18 ?: No Onset/Duration: Sudden Onset Timing: Constant Severity Initially: Moderate Severity Currently: Moderate Pain Intensity: 8 Pain Scale Used: 0-10 Numeric Location: Diffuse Character: Cramping Aggravating Factor(s): Nothing Alleviating Factor(s): Nothing Vomiting Frequency: Every 15-60 minutes Nausea/Vomiting Duration: 24-36 hours Vomiting Characteristics: Retching Diarrhea Presence: No - Risk Factors Influenza Risk Factors: Negative - Allergies/Home Medications Allergies/Adverse Reactions: Allergies Allergy/AdvReac Type Severity Reaction Status Date / Time nitrofurantoin AdvReac Vomiting Verified 03/24/19 07:20 [From Macrobid] Penicillins AdvReac Vomiting Verified 03/24/19 07:20 Sulfa (Sulfonamide AdvReac Rash And Verified 03/24/19 07:20 Antibiotics) Itching sulfamethoxazole AdvReac Nausea And Verified 03/24/19 07:20 [From Bactrim] Vomiting trimethoprim [From Bactrim] AdvReac Nausea And Verified 03/24/19 07:20 Vomiting Home Medications: Home Medications ARIPiprazole [Aripiprazole] 5 mg PO DAILY 03/24/19 [History Confirmed 03/24/19] busPIRone TAB* [Buspar TAB *] 1.5 tab PO BID 03/24/19 [History Confirmed ] clonazePAM [Clonazepam] 0.5 mg PO BID PRN 03/24/19 [History Confirmed 03/24/19] PMH/Surg Hx/FS Hx/Imm Hx Previously Healthy: Yes Endocrine/Hematology History: Denies: Hx Anticoagulant Therapy, Hx Blood Disorders, Hx Diabetes, Hx Thyroid Disease Cardiovascular History: Denies: Hx Congestive Heart Failure, Hx Hypertension Respiratory History: Denies: Hx Asthma, Hx Chronic Obstructive Pulmonary Disease (COPD) GI History: Reports: Hx Ulcer, Other GI Disorders - Collagenous colitis, cyclic vomiting syndrome History: Reports: Other Problems/Disorders - Frequent UTIs Denies: Hx Dialysis, Hx Renal Disease Sensory History: Reports: Hx Contacts or Glasses Denies: Hx Hearing Aid Opthamlomology History: Reports: Hx Contacts or Glasses Psychiatric History: Reports: Hx Anxiety, Hx Depression, Hx Substance Abuse - 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; 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) - Surgical History Surgery Procedure, Year, and Place: 2014 left ovarian cyst REMOVAL Hx Anesthesia Reactions: No - Immunization History Date of Tetanus Vaccine: utd Date of Influenza Vaccine: fall 2017 Hx Pertussis Vaccination: No Immunizations Up to Date: Yes Infectious Disease History: No Infectious Disease History: Reports: Hx Clostridium Difficile, Hx Hepatitis - TESTS + FOR HEP C ANTIBODIES Denies: Hx Human Immunodeficiency Virus (HIV), Hx of Known/Suspected MRSA, Hx Shingles, Hx Tuberculosis, Hx Known/Suspected VRE, Hx Known/Suspected VRSA, History Other Infectious Disease, Traveled Outside the [place] in Last 30 Days - Family History Known Family History: Positive: Hypertension - mother, Other - Negative bowel CA - Social History Occupation: Employed Full-time Lives: Alone Alcohol Use: Weekly Alcohol Amount: 1/week Hx Substance Use: Yes Substance Use Type: Reports: Marijuana Substance Use Comment - Amount & Last Used: no heroin use since 2012 per pt Hx Tobacco Use: Yes Smoking Status (MU): Heavy Every Day Tobacco Smoker Type: Cigarettes Amount Used/How Often: pack per day Length of Time of Smoking/Using Tobacco: 8 years Have You Smoked in the Last Year: Yes Review of Systems Constitutional: Negative Negative: Fever, Chills, Skin Diaphoresis Negative: Palpitations, Chest Pain Negative: Shortness Of Breath, Cough Positive: Abdominal Pain - diffuse, Vomiting, Nausea. Negative: Diarrhea Genitourinary: Negative Positive: no symptoms reported, see HPI Positive: Arthralgia. Negative: Myalgia Negative: Rash, Bruising All Other Systems Reviewed And Are Negative: Yes Physical Exam Triage Information Reviewed: Yes Vital Signs On Initial Exam: Initial Vitals Temp Pulse Resp BP Pulse Ox 97.0 F 100 16 139/94 99 03/24/19 07:17 03/24/19 07:17 03/24/19 07:17 03/24/19 07:17 03/24/19 07:17 Vital Signs Reviewed: Yes Appearance: Positive: Ill-Appearing, Pain Distress Skin: Positive: Diaphoretic Head/Face: Positive: Normal Head/Face Inspection Eyes: Positive: ARACELY, Conjunctiva Clear Neck: Positive: Supple Respiratory/Lung Sounds: Positive: Clear to Auscultation, Breath Sounds Present Cardiovascular: Positive: Normal, Pulses are Symmetrical in both Upper and Lower Extremities Abdomen Description: Positive: Other: - Tenderness diffusely throughout Musculoskeletal: Positive: Strength/ROM Intact Neurological: Positive: Speech Normal Psychiatric: Positive: Normal, Affect/Mood Appropriate Diagnostics - Vital Signs Vital Signs Temp Pulse Resp BP Pulse Ox 03/24/19 08:40 82 96 03/24/19 08:37 18 03/24/19 07:17 97.0 F 100 16 139/94 99 - Laboratory Lab Statement: Any lab studies that have been ordered have been reviewed, and results considered in the medical decision making process. Re-Evaluation - Re-Evaluation First Eval Change: Unchanged - given toradol and famotidine d/t continuing symptoms Second Eval Change: Improved - Continues to be in pain and has nausea, but this is all improved. Patient is given morphine and Zofran. Naus/Vom/Diarrhea Course/Dx - Course Course Of Treatment: Patient presents with cyclical vomiting syndrome. She has been diagnosed with this for several years and presents to the ED for same today. She is given Zofran, fluids and Ativan. This is little effect. She was subsequently given Reglan, Toradol and famotidine. She states she feels improved however continues to have symptoms. She has been given Zofran and morphine with good relief. She states she is okay for discharge at this time. She will be discharged home with cyclic vomiting syndrome. She states she has several medications at home and does not require any antiemetics at this time. - Differential Dx/Diagnosis Provider Diagnosis: Cyclic vomiting syndrome Condition At Discharge: Stable Discharge - Sign-Out/Discharge Documenting (check all that apply): Patient Departure Patient Received Moderate/Deep Sedation with Procedure: No - Discharge Plan Condition: Stable Disposition: HOME Forms: *Work Release Referrals: Minal Drake PA [Primary Care Provider] - Additional Instructions: Keep on top of your nausea with consistent medications over the next few days - Billing Disposition and Condition Condition: STABLE Disposition: Home
[2019-03-24] MEDS ORDERED: Metoclopramide IV* 5 MG/ML 2 ML VIAL IV SLOW PU ONE (09:50)
[2019-03-24] MEDS ORDERED: Ketorolac INJ* 30 MG/ML 1 ML VIAL IV PUSH ONE (09:51)
[2019-03-24] MEDS ORDERED: Famotidine IV* 10 MG/ML 2 ML (20 mg) IV SLOW PU ONE (09:51)
[2019-03-24] MEDS ORDERED: Morphine 4 MG/ML VIAL (1 ml) 4 MG/ML VIAL IV ONE (11:52)
[2019-03-24 12:58] VITALS: BP 122/89
== END 2019-03-24 12:57 | disposition home or self-care (01) ==
LOC: ED 07:15
DX: G43.A0 Cyclical vomiting, in migraine, not intractable (principal); F41.9 Anxiety disorder, unspecified; F32.9 Major depressive disorder, single episode, unspecified; Z88.1 Allergy status to other antibiotic agents; Z88.0 Allergy status to penicillin; Z88.2 Allergy status to sulfonamides; F17.210 Nicotine dependence, cigarettes, uncomplicated
CPT/HCPCS: 96361; 96374; 96375; 96376; 99284; J1885; J2060; J2270; J2405; J2765

== ENCOUNTER 2019-03-29 22:13 | Emergency (ER) | payer BC ==
[2019-03-30] MEDS ORDERED: Haloperidol INJ IV/IM* 5 MG/ML AMP IV SLOW PU ONE (00:50)
[2019-03-30] MEDS ORDERED: NS 0.9% 1000 ML** 1,000 ML IV ONE (00:52)
--- NOTE | 2019-03-30 01:25 | ED ---
Abdominal Pain/Female - HPI Summary HPI Summary: A 33 y/o F with pert PMHx: cyclic vomiting presents to ED c/o diffuse abd pain and vomiting ongoing for a week. Associated sx: chills, diarrhea. Denies urinary sx, vaginal discharge, SOB, CP. She was seen at [facility] on 03/24/19 for same sx. [facility]: approx. one month ago. - History of Current Complaint Chief Complaint: EDAbdPain Stated Complaint: ABD PAIN, DIARRHEA, VOMITING X 1 WEEK PER PT Time Seen by Provider: 03/30/19 00:49 Hx Obtained From: Patient Hx Last Menstrual Period: 07/26/18 Onset/Duration: Lasting Weeks - 1 week, Still Present Severity Initially: Severe Severity Currently: Severe Pain Intensity: 8 Pain Scale Used: 0-10 Numeric Location: Diffuse Associated Signs and Symptoms: Positive: Vomiting, Diarrhea, Other: - pos: chills. neg: SOB. Negative: Chest Pain, Urinary Symptoms, Vaginal Discharge Allergies/Adverse Reactions: Allergies Allergy/AdvReac Type Severity Reaction Status Date / Time nitrofurantoin AdvReac Vomiting Verified 03/30/19 00:00 [From Macrobid] Penicillins AdvReac Vomiting Verified 03/30/19 00:00 Sulfa (Sulfonamide AdvReac Rash And Verified 03/30/19 00:00 Antibiotics) Itching sulfamethoxazole AdvReac Nausea And Verified 03/30/19 00:00 [From Bactrim] Vomiting trimethoprim [From Bactrim] AdvReac Nausea And Verified 03/30/19 00:00 Vomiting PMH/Surg Hx/FS Hx/Imm Hx Previously Healthy: No Endocrine/Hematology History: Denies: Hx Anticoagulant Therapy, Hx Blood Disorders, Hx Diabetes, Hx Thyroid Disease Cardiovascular History: Denies: Hx Congestive Heart Failure, Hx Hypertension Respiratory History: Denies: Hx Asthma, Hx Chronic Obstructive Pulmonary Disease (COPD) GI History: Reports: Hx Ulcer, Other GI Disorders - Collagenous colitis, cyclic vomiting syndrome History: Reports: Other Problems/Disorders - Frequent UTIs Denies: Hx Dialysis, Hx Renal Disease Sensory History: Reports: Hx Contacts or Glasses Denies: Hx Hearing Aid Opthamlomology History: Reports: Hx Contacts or Glasses Psychiatric History: Reports: Hx Anxiety, Hx Depression, Hx Substance Abuse - 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; 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) - Surgical History Surgery Procedure, Year, and Place: 2014 left ovarian cyst REMOVAL Hx Anesthesia Reactions: No - Immunization History Date of Tetanus Vaccine: utd Date of Influenza Vaccine: fall 2017 Infectious Disease History: Yes Infectious Disease History: Reports: Hx Clostridium Difficile, Hx Hepatitis - TESTS + FOR HEP C ANTIBODIES Denies: Hx Human Immunodeficiency Virus (HIV), Hx of Known/Suspected MRSA, Hx Shingles, Hx Tuberculosis, Hx Known/Suspected VRE, Hx Known/Suspected VRSA, History Other Infectious Disease, Traveled Outside the [place] in Last 30 Days - Family History Known Family History: Positive: Hypertension - mother, Other - Negative bowel [place] - Social History Occupation: Employed Full-time Lives: With Family Alcohol Use: Weekly Alcohol Amount: 1/week Hx Substance Use: Yes Substance Use Type: Reports: Marijuana Substance Use Comment - Amount & Last Used: no heroin use since 2012 per pt Hx Tobacco Use: Yes Smoking Status (MU): Heavy Every Day Tobacco Smoker Type: Cigarettes Amount Used/How Often: pack per day Length of Time of Smoking/Using Tobacco: 8 years Have You Smoked in the Last Year: Yes Review of Systems Positive: Chills Negative: Chest Pain Negative: Shortness Of Breath Positive: Abdominal Pain, Vomiting, Diarrhea Negative: dysuria, discharge, hematuria All Other Systems Reviewed And Are Negative: Yes Physical Exam - Summary Physical Exam Summary: Constitutional: Well-developed, Well-nourished, Alert. (-) Distressed Skin: Warm, Dry HENT: Normocephalic; Atraumatic Eyes: Conjunctiva normal Neck: Musculoskeletal ROM normal neck. (-) JVD, (-) Stridor, (-) Tracheal deviation Cardio: Rhythm regular, rate normal, Heart sounds normal; Intact distal pulses; The pedal pulses are 2+ and symmetric. Radial pulses are 2+ and symmetric. (-) Murmur Pulmonary/Chest wall: Effort normal. (-) Respiratory distress, (-) Wheezes, (-) Rales Abd: Soft, epigastric, LUQ, LLQ, and RUQ tenderness, (-) Distension, (-) Guarding, (-) Rebound Musculoskeletal: (-) Edema Lymph: (-) Cervical adenopathy Neuro: Alert, Oriented x3 Psych: Mood and affect Normal Triage Information Reviewed: Yes Vital Signs On Initial Exam: Initial Vitals Temp Pulse Resp BP Pulse Ox 97.7 F 106 20 144/97 95 03/29/19 22:15 03/29/19 22:15 03/29/19 22:15 03/29/19 22:15 03/29/19 22:15 Vital Signs Reviewed: Yes Diagnostics - Vital Signs Vital Signs Temp Pulse Resp BP Pulse Ox 03/30/19 00:24 88 115/82 97 03/30/19 00:00 85 98 03/29/19 23:55 89 113/89 98 03/29/19 23:54 87 97 03/29/19 22:15 97.7 F 106 20 144/97 95 - Laboratory Result Diagrams: 03/30/19 01:41 03/30/19 01:41 Lab Statement: Any lab studies that have been ordered have been reviewed, and results considered in the medical decision making process. Abdominal Pain Fem Course/Dx - Course Course Of Treatment: A 33 y/o F with pert PMHx: cyclic vomiting presents to ED with diffuse abd pain, v/d, chills ongoing for a week. Denies urinary sx, vaginal discharge, SOB, CP. She was seen at [facility] on 03/24/19 for same sx. PE finds epigastric, LUQ, LLQ, and RUQ tenderness. Lab work finds: WBC: 12.0, abs neutrophils: 8.6, potassium: 2.8. Patient was unable to provide a urine sample. Will discharge home with Potassium Chloride and Phenergan, and to follow up with PCP. - Diagnoses Provider Diagnoses: Cyclical vomiting Discharge - Sign-Out/Discharge Documenting (check all that apply): Patient Departure - D/C Patient Received Moderate/Deep Sedation with Procedure: No - Discharge Plan Condition: Stable Disposition: HOME Prescriptions: Potassium Chlor TAB* [Klor Con ER TAB*] 20 meq PO DAILY 5 Days #5 tab.er Promethazine TAB* [Phenergan TAB*] 25 mg PO Q8H PRN #10 tab PRN Reason: Nausea Patient Education Materials: Cyclic Vomiting Syndrome (ED) Print Language: YORUBA Forms: *Work Release Referrals: Mnial Drake PA [Primary Care Provider] - - Attestation Statements Document Initiated by Scribe: Yes Documenting Scribe: SooYoung VanDeMark Provider For Whom Scribe is Documenting (Include Credential): Dr. Tabitha Freeman MD Scribe Attestation: Edd Patterson, scribed for Dr. Tabitha Freeman MD on at 0519. Status of Scribe Document: Ready
[2019-03-30] MEDS ORDERED: Dicyclomine CAP* 10 MG PO ONE (01:29)
[2019-03-30] MEDS ORDERED: Al Hydrox/Mg Hydrox/Simet LIQ* 30 ML UDC PO ONE (01:29)
[2019-03-30] MEDS ORDERED: diPHENhydraMINE IV* 50 MG/ML 1 ml VIAL (BENADRYL) IV ONE (01:29)
[2019-03-30] MEDS ORDERED: Ketorolac INJ* 30 MG/ML 1 ML VIAL IV PUSH ONE (01:29)
[2019-03-30 01:48] LABS: ABS Basophils 0.1 10^3/ul (0-0.2); ABS Lymphocytes 2.4 10^3/ul (1.0-4.8); ABS Monocytes 0.8 10^3/ul (0-0.8); ABS Neutrophils 8.6 10^3/ul (1.5-7.7); Eosinophil % 0.2 %; Hematocrit 35 % (35-47); Hemoglobin 12.1 g/dL (12.0-16.0); Lymphocyte % 20.3 %; Mean Corpuscular HGB Conc 35 g/dL (31-36); Mean Corpuscular Hemoglobin 32 pg (27-31); Mean Corpuscular Volume 92 fL (80-97); Mean Platelet Volume 8.8 fL (7.4-10.4); Nucleated Red Blood Cells % 0.1; Platelet Count 246 10^3/uL (150-450); Red Blood Count 3.79 10^6 /uL (3.70-4.87); Red Cell Distribution Width 14 % (10-15)
[2019-03-30 02:10] LABS: ALT 18 U/L (7-52); AST 14 U/L (13-39); Albumin 3.9 g/dL (3.2-5.2); Albumin/Globulin Ratio 1.6 (1-3); Alkaline Phosphatase 70 U/L (34-104); Anion Gap 9 mmol/L (2-11); BUN/Creatinine Ratio 17.3 (8-20); Blood Urea Nitrogen 13 mg/dL (6-24); C Reactive Protein 8.83 mg/L (<8.01); CO2 Carbon Dioxide 23 mmol/L (22-32); Calcium 8.4 mg/dL (8.6-10.3); Chloride 109 mmol/L (101-111); EGFR African American 108.4 (>60); EGFR Non-African American 89.6 (>60); Globulin 2.4 g/dL (2-4); Glucose 112 mg/dL (70-100); Potassium 2.8 mmol/L (3.5-5.0); Sodium 141 mmol/L (135-145); Total Protein 6.3 g/dL (6.4-8.9)
[2019-03-30 02:17] LABS: HCG Pregnancy < 0.60 mIU/mL
[2019-03-30] MEDS ORDERED: Potassium Chlor TAB* 20 MEQ TAB.ER PO ONE (03:30)
[2019-03-30 05:06] VITALS: BP 138/85
== END 2019-03-30 05:05 | disposition home or self-care (01) ==
LOC: ED 22:13
DX: G43.A0 Cyclical vomiting, in migraine, not intractable (principal); R10.9 Unspecified abdominal pain; R19.7 Diarrhea, unspecified; Z88.0 Allergy status to penicillin; Z88.2 Allergy status to sulfonamides; F17.210 Nicotine dependence, cigarettes, uncomplicated
CPT/HCPCS: 36415; 80053; 83605; 83690; 84702; 85025; 86140; 96374; 96375; 99284; A9270-GY; J1200; J1630; J1885

== ENCOUNTER 2019-05-06 04:14 | Emergency (ER) | payer BC ==
[2019-05-06] MEDS ORDERED: Ondansetron INJ* 2 MG/ML VIAL IV ONE (04:29)
--- NOTE | 2019-05-06 04:32 | ED ---
GI/ HPI - HPI Summary HPI Summary: This pt is a 33 y/o female presenting to [facility] c/o nausea and vomiting since . Pt states she has hx of cyclic vomiting syndrome. Pt states for the last couple of days her vomiting would stop after noon. Yesterday she notes her vomiting did not stop. She reports associated symptoms of abd pain. Denies any other symptoms. Pt has taken Zofran without relief. She has also used suppositories of Compazine and phenergan without relief. The last time she was seen in the ED for the same symptoms was in March 2019. Pt states she had been doing well for the most part. Pt admits to smoking cigarettes and marijuana. - History of Current Complaint Chief Complaint: EDNauseaVomitDiarrh Time Seen by Provider: 05/06/19 04:21 Stated Complaint: NAUSEA/ABD PAIN PER PT Hx Obtained From: Patient Hx Last Menstrual Period: [id number] Onset/Duration: Started Days Ago, Still Present, Worse Since - yesterday Timing: Lasting Days Current Severity: Moderate Pain Intensity: 8 Location of Pain: Diffuse Associated Signs and Symptoms: Positive: Nausea, Vomiting, Abdominal Pain. Negative: Fever Aggravating Factor(s): Nothing Alleviating Factor(s): Nothing - Additional Pertinent History Primary Care Physician: GEORGES - Allergy/Home Medications Allergies/Adverse Reactions: Allergies Allergy/AdvReac Type Severity Reaction Status Date / Time nitrofurantoin AdvReac Vomiting Verified 05/06/19 04:20 [From Macrobid] Penicillins AdvReac Vomiting Verified 05/06/19 04:20 Sulfa (Sulfonamide AdvReac Rash And Verified 05/06/19 04:20 Antibiotics) Itching sulfamethoxazole AdvReac Nausea And Verified 05/06/19 04:20 [From Bactrim] Vomiting trimethoprim [From Bactrim] AdvReac Nausea And Verified 05/06/19 04:20 Vomiting PMH/Surg Hx/FS Hx/Imm Hx Endocrine/Hematology History: Denies: Hx Anticoagulant Therapy, Hx Blood Disorders, Hx Diabetes, Hx Thyroid Disease Cardiovascular History: Denies: Hx Congestive Heart Failure, Hx Hypertension Respiratory History: Denies: Hx Asthma, Hx Chronic Obstructive Pulmonary Disease (COPD) GI History: Reports: Hx Ulcer, Other GI Disorders - Collagenous colitis, cyclic vomiting syndrome History: Reports: Other Problems/Disorders - Frequent UTIs Denies: Hx Dialysis, Hx Renal Disease Sensory History: Reports: Hx Contacts or Glasses Denies: Hx Hearing Aid Opthamlomology History: Reports: Hx Contacts or Glasses Psychiatric History: Reports: Hx Anxiety, Hx Depression, Hx Substance Abuse - 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; 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) - Surgical History Surgery Procedure, Year, and Place: 2014 left ovarian cyst REMOVAL Hx Anesthesia Reactions: No - Immunization History Date of Tetanus Vaccine: utd Date of Influenza Vaccine: fall 2017 Infectious Disease History: No Infectious Disease History: Reports: Hx Clostridium Difficile, Hx Hepatitis - TESTS + FOR HEP C ANTIBODIES Denies: Hx Human Immunodeficiency Virus (HIV), Hx of Known/Suspected MRSA, Hx Shingles, Hx Tuberculosis, Hx Known/Suspected VRE, Hx Known/Suspected VRSA, History Other Infectious Disease, Traveled Outside the in Last 30 Days - Family History Known Family History: Positive: Hypertension - mother, Other - Negative bowel [place] - Social History Alcohol Use: Weekly Alcohol Amount: 1/week Hx Substance Use: Yes Substance Use Type: Reports: Marijuana Substance Use Comment - Amount & Last Used: no heroin use since 2012 per pt Hx Tobacco Use: Yes Smoking Status (MU): Heavy Every Day Tobacco Smoker Type: Cigarettes Amount Used/How Often: pack per day Length of Time of Smoking/Using Tobacco: 8 years Have You Smoked in the Last Year: Yes Review of Systems Negative: Fever Cardiovascular: Negative Respiratory: Negative Positive: Abdominal Pain, Vomiting, Nausea All Other Systems Reviewed And Are Negative: Yes Physical Exam - Summary Physical Exam Summary: Appearance: Well-appearing, Well-nourished, lying in bed comfortable Skin: Warm, dry, no obvious rash Eyes: sclera anicteric, no conjunctival pallor ENT: mucous membranes moist Neck: deferred Respiratory: No signs of respiratory distress Cardiovascular: Appears well perfused, pulses are nml Abdomen: deferred Musculoskeletal: Moving all 4 extremities without obvious discomfort Neurological: Awake and alert, mentation is normal, speech is fluent and appropriate Psychiatric: affect is normal, does not appear anxious or depressed Triage Information Reviewed: Yes Vital Signs On Initial Exam: Initial Vitals Temp Pulse Resp BP Pulse Ox 98.0 F 103 16 119/92 98 05/06/19 04:15 05/06/19 04:15 05/06/19 04:15 05/06/19 04:15 05/06/19 04:15 Vital Signs Reviewed: Yes Diagnostics - Vital Signs Vital Signs Temp Pulse Resp BP Pulse Ox 05/06/19 04:15 98.0 F 103 16 119/92 98 - Laboratory Result Diagrams: 05/06/19 04:35 05/06/19 04:35 Lab Statement: Any lab studies that have been ordered have been reviewed, and results considered in the medical decision making process. GIGU Course/Dx - Course Assessment/Plan: Pt is a 33 y/o female, with hx of cyclic vomiting syndrome, presenting to [facility] c/o nausea and vomiting since 05/04/19. Blood work within normal limits. In the ED course the pt received zofran, morphine, Haldol. Pt is feeling better after these medications. Patient was counseled to refrain from smoking marijuana. She will be discharged home with follow up from PCP. Pt was given a prescription for Haldol. - Diagnoses Provider Diagnoses: Cannabinoid hyperemesis syndrome Discharge - Sign-Out/Discharge Documenting (check all that apply): Patient Departure - Discharge home Patient Received Moderate/Deep Sedation with Procedure: No - Discharge Plan Condition: Good Disposition: HOME Prescriptions: Haloperidol TAB* [Haldol TAB*] 2 mg PO Q6H PRN #12 tab PRN Reason: Nausea Patient Education Materials: Acute Nausea and Vomiting (ED) Referrals: Minal Drake PA [Primary Care Provider] - Additional Instructions: Marijuana use can cause a syndrome of repetitive vomiting similar to cyclic vomiting. I would recommend stopping marijuana use for at least a few weeks and seeing if that helps things. - Billing Disposition and Condition Condition: GOOD Disposition: Home - Attestation Statements Document Initiated by Everardo: Yes Documenting Scribe: Sada Raphael Provider For Whom Everardo is Documenting (Include Credential): Ranjit Toussaint MD Scribe Attestation: Leonardo, Sada Raphael, carolyned for Ranjit Toussaint MD on 05/07/19 at 0616. Scribe Documentation Reviewed: Yes Provider Attestation: The documentation as recorded by the Sada reich accurately reflects the service I personally performed and the decisions made by me, Ranjit Toussaint MD Status of Scribe Document: Viewed
[2019-05-06 04:41] LABS: ABS Basophils 0.1 10^3/ul (0-0.2); ABS Eosinophils 0.1 10^3/ul (0-0.6); ABS Lymphocytes 2.2 10^3/ul (1.0-4.8); ABS Monocytes 0.9 10^3/ul (0-0.8); ABS Neutrophils 7.8 10^3/ul (1.5-7.7); Eosinophil % 0.7 %; Hematocrit 41 % (35-47); Hemoglobin 14.3 g/dL (12.0-16.0); Lymphocyte % 19.9 %; Mean Corpuscular HGB Conc 35 g/dL (31-36); Mean Corpuscular Hemoglobin 33 pg (27-31); Mean Corpuscular Volume 93 fL (80-97); Mean Platelet Volume 8.8 fL (7.4-10.4); Platelet Count 315 10^3/uL (150-450); Red Cell Distribution Width 14 % (10-15)
[2019-05-06 04:58] LABS: ALT 20 U/L (7-52); AST 20 U/L (13-39); Albumin 4.6 g/dL (3.2-5.2); Albumin/Globulin Ratio 1.6 (1-3); Alkaline Phosphatase 88 U/L (34-104); Anion Gap 9 mmol/L (2-11); BUN/Creatinine Ratio 15.1 (8-20); Blood Urea Nitrogen 14 mg/dL (6-24); CO2 Carbon Dioxide 24 mmol/L (22-32); Calcium 9.6 mg/dL (8.6-10.3); Chloride 105 mmol/L (101-111); EGFR African American 84.5 (>60); EGFR Non-African American 69.9 (>60); Globulin 2.9 g/dL (2-4); Glucose 109 mg/dL (70-100); Potassium 3.5 mmol/L (3.5-5.0); Sodium 138 mmol/L (135-145); Total Protein 7.5 g/dL (6.4-8.9)
[2019-05-06 05:06] LABS: HCG Pregnancy < 0.60 mIU/mL
[2019-05-06] MEDS ORDERED: Haloperidol INJ IV/IM* 5 MG/ML AMP IV SLOW PU ONE (05:25)
[2019-05-06] MEDS ORDERED: Morphine 4 MG/ML VIAL (1 ml) 4 MG/ML VIAL IV PRN (05:25)
[2019-05-06 07:23] VITALS: BP 120/75
== END 2019-05-06 07:21 | disposition home or self-care (01) ==
LOC: ED 04:14
DX: F12.188 Cannabis abuse with other cannabis-induced disorder (principal); F17.210 Nicotine dependence, cigarettes, uncomplicated; Z88.1 Allergy status to other antibiotic agents; Z88.0 Allergy status to penicillin; Z88.2 Allergy status to sulfonamides; Z79.899 Other long term (current) drug therapy
CPT/HCPCS: 36415; 80053; 84702; 85025; 96374; 96375; 99282; J1630; J2270; J2405

== ENCOUNTER 2019-05-09 15:49 | Emergency (ER) | payer BC ==
[2019-05-09 17:26] LABS: ABS Basophils 0.1 10^3/ul (0-0.2); ABS Lymphocytes 1.5 10^3/ul (1.0-4.8); ABS Monocytes 0.5 10^3/ul (0-0.8); Eosinophil % 0.1 %; Hematocrit 42 % (35-47); Hemoglobin 14.1 g/dL (12.0-16.0); Lymphocyte % 12.7 %; Mean Corpuscular HGB Conc 34 g/dL (31-36); Mean Corpuscular Hemoglobin 32 pg (27-31); Mean Corpuscular Volume 93 fL (80-97); Platelet Count 312 10^3/uL (150-450); Red Blood Count 4.49 10^6 /uL (3.70-4.87); Red Cell Distribution Width 14 % (10-15); White Blood Count 12.2 10^3/uL (3.5-10.8)
[2019-05-09 17:43] LABS: Albumin 4.7 g/dL (3.2-5.2); Albumin/Globulin Ratio 1.6 (1-3); BUN/Creatinine Ratio 14.5 (8-20); C Reactive Protein 8.58 mg/L (<8.01); Calcium 9.8 mg/dL (8.6-10.3); EGFR African American 96.4 (>60); EGFR Non-African American 79.7 (>60); Potassium 3.6 mmol/L (3.5-5.0); Total Bilirubin 0.4 mg/dL (0.2-1.0); Total Protein 7.7 g/dL (6.4-8.9)
--- NOTE | 2019-05-09 17:50 | ED ---
Abdominal Pain/Female - HPI Summary HPI Summary: The patient is a 33 y/o F presenting to [facility] with a chief complaint of burning epigastric and LLQ pain associated with nausea and vomiting today. She reports that she had been here three days ago with similar symptoms and was feeling better after being discharged, but her symptoms have returned with intermittent episodes of vomiting up to every 10 minutes. She notes that she has been unable to keep her anti-emetic medications down, which she took Phenergan PO at 0900 today. She additionally c/o diarrhea for about a week as well. She denies any fever, chills, erythema of eyes, sore throat, CP, SOB, dysuria, hematuria, myalgia, edema, rash, or dizziness. The pain is currently rated 9/10 in severity. PMHx: collagenous colitis, cyclic vomiting syndrome, anxiety, depression. Heavy every day cigarette smoker, weekly EtOH, marijuana use. - History of Current Complaint Chief Complaint: EDNauseaVomitDiarrh Stated Complaint: VOMITING,ABDOMINAL PAIN PER PT Time Seen by Provider: 05/09/19 17:40 Hx Obtained From: Patient Hx Last Menstrual Period: [id number] Onset/Duration: Lasting Days, Still Present, Worse Since - today Timing: Days Severity Initially: Moderate Severity Currently: Severe Pain Intensity: 9 Pain Scale Used: 0-10 Numeric Location: Discrete At: LLQ, Epigastric Radiates: No Character: Burning Associated Signs and Symptoms: Positive: Nausea, Vomiting, Diarrhea, Other: - NEGATIVE: chills, erythema of eyes, sore throat, SOB, myalgia, edema, rash. Negative: Fever, Chest Pain, Dizzy, Urinary Symptoms - hematuria, dysuria Allergies/Adverse Reactions: Allergies Allergy/AdvReac Type Severity Reaction Status Date / Time nitrofurantoin AdvReac Vomiting Verified 05/12/19 15:47 [From Macrobid] Penicillins AdvReac Vomiting Verified 05/12/19 15:47 Sulfa (Sulfonamide AdvReac Rash And Verified 05/12/19 15:47 Antibiotics) Itching PMH/Surg Hx/FS Hx/Imm Hx Endocrine/Hematology History: Denies: Hx Anticoagulant Therapy, Hx Blood Disorders, Hx Diabetes, Hx Thyroid Disease Cardiovascular History: Denies: Hx Congestive Heart Failure, Hx Hypertension Respiratory History: Denies: Hx Asthma, Hx Chronic Obstructive Pulmonary Disease (COPD) GI History: Reports: Hx Ulcer, Other GI Disorders - Collagenous colitis, cyclic vomiting syndrome History: Reports: Other Problems/Disorders - Frequent UTIs Denies: Hx Dialysis, Hx Renal Disease Sensory History: Reports: Hx Contacts or Glasses Denies: Hx Hearing Aid Opthamlomology History: Reports: Hx Contacts or Glasses Psychiatric History: Reports: Hx Anxiety, Hx Depression, Hx Substance Abuse - 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; 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) - Surgical History Surgery Procedure, Year, and Place: 2014 left ovarian cyst REMOVAL Hx Anesthesia Reactions: No - Immunization History Date of Tetanus Vaccine: utd Date of Influenza Vaccine: fall 2017 Infectious Disease History: No Infectious Disease History: Reports: Hx Clostridium Difficile, Hx Hepatitis - TESTS + FOR HEP C ANTIBODIES Denies: Hx Human Immunodeficiency Virus (HIV), Hx of Known/Suspected MRSA, Hx Shingles, Hx Tuberculosis, Hx Known/Suspected VRE, Hx Known/Suspected VRSA, History Other Infectious Disease, Traveled Outside the [place] in Last 30 Days - Family History Known Family History: Positive: Hypertension - mother, Other - Negative bowel CA - Social History Alcohol Use: Weekly Alcohol Amount: 1/week Hx Substance Use: Yes Substance Use Type: Reports: Marijuana Substance Use Comment - Amount & Last Used: no heroin use since 2012 per pt Hx Tobacco Use: Yes Smoking Status (MU): Heavy Every Day Tobacco Smoker Type: Cigarettes Amount Used/How Often: pack per day Length of Time of Smoking/Using Tobacco: 8 years Have You Smoked in the Last Year: Yes Review of Systems Negative: Fever, Chills Negative: Erythema Negative: Sore Throat Negative: Chest Pain Negative: Shortness Of Breath, Cough Positive: Abdominal Pain - epigastric, LLQ, Vomiting, Nausea Negative: dysuria, hematuria Negative: Myalgia, Edema Negative: Rash Neurological: Other - NEGATIVE: dizziness All Other Systems Reviewed And Are Negative: Yes Physical Exam - Summary Physical Exam Summary: Constitutional: Well-developed, Well-nourished, Alert. (+) Distressed, tearful Skin: Warm, Dry HENT: Normocephalic; Atraumatic Eyes: Conjunctiva normal Neck: Musculoskeletal ROM normal neck. (-) JVD, (-) Stridor, (-) Tracheal deviation Cardio: Rhythm regular, rate normal, Heart sounds normal; Intact distal pulses; The pedal pulses are 2+ and symmetric. Radial pulses are 2+ and symmetric. (-) Murmur Pulmonary/Chest wall: Effort normal. (-) Respiratory distress, (-) Wheezes, (-) Rales Abd: Soft, (-) tenderness, (-) Distension, (-) Guarding, (-) Rebound Musculoskeletal: (-) Edema Lymph: (-) Cervical adenopathy Neuro: Alert, Oriented x3 Psych: Mood and affect Normal Triage Information Reviewed: Yes Vital Signs On Initial Exam: Initial Vitals Temp Pulse Resp BP Pulse Ox 97.7 F 94 22 135/111 99 05/09/19 15:50 05/09/19 15:50 05/09/19 15:50 05/09/19 15:50 05/09/19 15:50 Vital Signs Reviewed: Yes Diagnostics - Vital Signs Vital Signs Temp Pulse Resp BP Pulse Ox 05/09/19 15:50 97.7 F 94 22 135/111 99 - Laboratory Lab Results: Lab Results 05/09/19 Range/Units 17:19 WBC 12.2 H (3.5-10.8) 10^3/uL RBC 4.49 (3.70-4.87) 10^6 /uL Hgb 14.1 (12.0-16.0) g/dL Hct 42 (35-47) % MCV 93 (80-97) fL MCH 32 H (27-31) pg MCHC 34 (31-36) g/dL RDW 14 (10-15) % Plt Count 312 (150-450) 10^3/uL MPV 9.0 (7.4-10.4) fL Neut % (Auto) 82.0 % Lymph % (Auto) 12.7 % [place] % (Auto) 4.4 % Eos % (Auto) 0.1 % Baso % (Auto) 0.8 % Absolute Neuts (auto) 10.0 H (1.5-7.7) 10^3/ul Absolute Lymphs (auto) 1.5 (1.0-4.8) 10^3/ul Absolute Monos (auto) 0.5 (0-0.8) 10^3/ul Absolute Eos (auto) 0.0 (0-0.6) 10^3/ul Absolute Basos (auto) 0.1 (0-0.2) 10^3/ul Absolute Nucleated RBC 0.0 10^3/ul Nucleated RBC % 0.0 Result Diagrams: 05/09/19 17:19 05/09/19 17:19 Lab Statement: Any lab studies that have been ordered have been reviewed, and results considered in the medical decision making process. Re-Evaluation - Re-Evaluation First Eval Re-Evaluation Time: 19:00 Comment: Patient is unconscious secondary to medications for nausea. Abdominal Pain Fem Course/Dx - Course Course Of Treatment: Patient is a 33 y/o F with hx of collagenous colitis and cyclic vomiting syndrome with cc of epigastric and LLQ pain with continued N/V after being treated three days ago with similar symptoms; has used Phenergan PO at 0900 today to no relief. States she is still using marijuana after being cessation was advised because it keeps her calm despite recent prescription for anxiety. Upon physical exam, the patient appears to be tearful and distressed without any abdominal tenderness. In the ED course, the patient was administered Zofran, Ativan, Haldol, and GI cocktail with Lidocaine and Maalox. All medications given for the control of nausea. Blood work reveals WBCs of 12.2 , MCH of 32, abs neuts of 10.0, glucose of 107, and CRP of 8.58. She is advised to stop using marijuana or else we will be unable to treat her. She is diagnosed with marijuana use disroder, cannabis hyperemesis syndrome. The patient is a sign-out to Dr. Tabitha Freeman MD, from Dr. Luis Conner MD, at change of shift at 1900 on 05/09/2019, pending UA, consciousness , and disposition. - Diagnoses Provider Diagnoses: Cannabis hyperemesis syndrome concurrent with and due to cannabis abuse Discharge ED - Sign-Out/Discharge Documenting (check all that apply): Sign-Out Patient Signing out patient TO: Tabitha Freeman - Patient is a sign-out to Dr. Tabitha Freeman MD, at change of shift pending 1900 on 05/09/2019 , pending UA, consciousness, and disposition Patient Received Moderate/Deep Sedation with Procedure: No - Discharge Plan Condition: Stable Disposition: HOME Prescriptions: LORazepam TAB(*) [Ativan 1 MG TAB (*)] 2 mg PO Q6H PRN #15 tab MDD 8 PRN Reason: Nausea/Vomiting Patient Education Materials: Cannabis Abuse (ED), Cyclic Vomiting Syndrome (ED) Print Language: WOLOF Forms: *Work Release Referrals: Minal Drake PA [Primary Care Provider] - 3 Days Additional Instructions: You need to stop using marijuana or we will be unable to treat vomiting further unless you stop. Follow up with your primary care provider in 2-3 days. RETURN TO THE EMERGENCY DEPARTMENT FOR ANY NEW OR WORSENING SYMPTOMS. - Billing Disposition and Condition Condition: STABLE Disposition: Home - Attestation Statements Document Initiated by Everardo: Yes Documenting Scribe: Yasemin Ahn Provider For Whom Everardo is Documenting (Include Credential): Dr. Luis Conner MD Scribe Attestation: Yasemin Patterson scribed for Dr. Luis Conner MD on 05/24/19 at 1423. Scribe Documentation Reviewed: Yes Provider Attestation: The documentation as recorded by the Yasemin reich accurately reflects the service I personally performed and the decisions made by me, Dr. Luis Conner MD Status of Scribe Document: Viewed
[2019-05-09] MEDS ORDERED: LORazepam INJ* 2 MG/ML 1 ML VIAL IV PUSH ONE (17:58)
[2019-05-09] MEDS ORDERED: Haloperidol INJ IV/IM* 5 MG/ML AMP IV SLOW PU ONE (17:58)
[2019-05-09] MEDS ORDERED: Al Hydrox/Mg Hydrox/Simet LIQ* 30 ML UDC PO ONE (17:58)
[2019-05-09] MEDS ORDERED: Lorazepam PYXIS KEY PRN (17:58)
[2019-05-09] MEDS ORDERED: Lidocaine 2% VISCOUS* 15 ML UDC PO ONE (17:58)
[2019-05-09] MEDS ORDERED: Ondansetron INJ* 2 MG/ML VIAL IV ONE (17:58)
[2019-05-09] MEDS ORDERED: Lorazepam PYXIS KEY ONE (18:03)
[2019-05-09] MEDS ORDERED: Iohexol 300* (CONTRAST) 10 ML SDV IV ONE (18:09)
[2019-05-09] MEDS ORDERED: NS 0.9% 1000 ML** 1,000 ML IV ONE (18:44)
--- NOTE | 2019-05-09 20:32 | ED ---
Progress - Progress Note Progress Note: Pt is a signout from Dr. Conner at 1900 on 05/09/19, pending waking up, UA, and disposition. The pt is stable and sleeping at shift change. Re-Evaluation - Re-Evaluation First Eval Re-Evaluation Time: 23:00 Comment: Pt is awake and stable for discharge. Course/Dx - Course Course Of Treatment: Pt is a signout from Dr. Conner at 1900 on 05/09/19, pending waking up, UA, and disposition. The pt is stable and sleeping at shift change. Pt is awake as of 2300 and stable for discharge. - Diagnoses Provider Diagnoses: Cannabis hyperemesis syndrome concurrent with and due to cannabis abuse Discharge - Sign-Out/Discharge Documenting (check all that apply): Patient Departure, Receiving Sign-Out Receiving patient FROM: Luis Conner Patient Received Moderate/Deep Sedation with Procedure: No - Discharge Plan Condition: Stable Disposition: HOME Prescriptions: LORazepam TAB(*) [Ativan 1 MG TAB (*)] 2 mg PO Q6H PRN #15 tab MDD 8 PRN Reason: Nausea/Vomiting Patient Education Materials: Cannabis Abuse (ED), Cyclic Vomiting Syndrome (ED) Print Language: TAIWANESE Forms: *Work Release Referrals: Minal Drake PA [Primary Care Provider] - 3 Days Additional Instructions: You need to stop using marijuana or we will be unable to treat vomiting further unless you stop. Follow up with your primary care provider in 2-3 days. RETURN TO THE EMERGENCY DEPARTMENT FOR ANY NEW OR WORSENING SYMPTOMS. - Billing Disposition and Condition Condition: STABLE Disposition: Home - Attestation Statements Document Initiated by Scribe: Yes Documenting Scribe: Gilma Davidson Provider For Whom Everardo is Documenting (Include Credential): Tabitha Merritt MD. Scribe Attestation: Gilma Patterson, carolyned for Tabitha Freeman MD. on 05/10/19 at 0507. Scribe Documentation Reviewed: Yes Provider Attestation: The documentation as recorded by the scribe, Gilma Davidson accurately reflects the service I personally performed and the decisions made by me, Tabitha Freeman MD. Status of Scribe Document: Viewed
[2019-05-09 23:07] VITALS: BP 122/58
== END 2019-05-09 23:06 | disposition home or self-care (01) ==
LOC: ED 15:49
DX: T40.7X1A Poisoning by cannabis (derivatives), accidental (unintentional), initial encounter (principal); R11.2 Nausea with vomiting, unspecified; F12.10 Cannabis abuse, uncomplicated; F17.210 Nicotine dependence, cigarettes, uncomplicated; Z88.1 Allergy status to other antibiotic agents; Z88.0 Allergy status to penicillin; Z88.2 Allergy status to sulfonamides; Z79.899 Other long term (current) drug therapy
CPT/HCPCS: 36415; 80053; 83605; 83690; 85025; 86140; 96374; 96375; 99285; A9270-GY; J1630; J2060; J2405

== ENCOUNTER 2019-05-12 15:43 | Emergency (ER) | payer BC ==
[2019-05-12 17:06] LABS: ABS Basophils 0.1 10^3/ul (0-0.2); ABS Lymphocytes 1.6 10^3/ul (1.0-4.8); ABS Monocytes 0.5 10^3/ul (0-0.8); ABS Neutrophils 8.8 10^3/ul (1.5-7.7); Eosinophil % 0.2 %; Hematocrit 41 % (35-47); Hemoglobin 13.8 g/dL (12.0-16.0); Lymphocyte % 14.7 %; Mean Corpuscular HGB Conc 34 g/dL (31-36); Mean Corpuscular Hemoglobin 32 pg (27-31); Mean Corpuscular Volume 93 fL (80-97); Platelet Count 285 10^3/uL (150-450); Red Blood Count 4.38 10^6 /uL (3.70-4.87); Red Cell Distribution Width 14 % (10-15); White Blood Count 11.1 10^3/uL (3.5-10.8)
[2019-05-12 17:27] LABS: Albumin 4.6 g/dL (3.2-5.2); Albumin/Globulin Ratio 1.6 (1-3); BUN/Creatinine Ratio 13.2 (8-20); Calcium 9.5 mg/dL (8.6-10.3); EGFR African American 106.7 (>60); EGFR Non-African American 88.2 (>60); Globulin 2.8 g/dL (2-4); Potassium 3.5 mmol/L (3.5-5.0); Total Bilirubin 0.4 mg/dL (0.2-1.0); Total Protein 7.4 g/dL (6.4-8.9)
[2019-05-12] MEDS ORDERED: NS 0.9% 1000 ML** 2,000 ML IV ONE (21:24)
[2019-05-12] MEDS ORDERED: Ondansetron INJ* 2 MG/ML VIAL IV ONE (21:26)
[2019-05-12] MEDS ORDERED: LORazepam INJ* 2 MG/ML 1 ML VIAL IV PUSH ONE (21:41)
[2019-05-12] MEDS ORDERED: Lorazepam PYXIS KEY PRN (21:41)
[2019-05-12] MEDS ORDERED: Pantoprazole IV* 40 MG IV ONE (21:42)
[2019-05-12] MEDS ORDERED: Ketorolac INJ* 30 MG/ML 1 ML VIAL IV PUSH ONE (21:43)
[2019-05-12] MEDS ORDERED: Iohexol 300* (CONTRAST) 10 ML SDV IV ONE (21:49)
[2019-05-12] MEDS ORDERED: diPHENhydraMINE IV* 50 MG/ML 1 ml VIAL (BENADRYL) SLOW PUSH ONE (22:43)
[2019-05-12] MEDS ORDERED: Metoclopramide IV* 5 MG/ML 2 ML VIAL IV SLOW PU ONE (22:43)
--- NOTE | 2019-05-12 23:02 | ED ---
GI/ HPI - HPI Summary HPI Summary: 33-year-old female male presents with cyclic vomiting syndrome. She states this is no different than her normal cyclic vomiting syndrome. She has been seen 3 times in the past week. States that her nausea vomiting have continued. She admits to diarrhea. has history of collangeous colitis. She tried her at -home nausea medication without relief. She denies any cough. No chest pain or shortness of breath. No urinary symptoms. Has a history of ovarian cysts. - History of Current Complaint Chief Complaint: EDNauseaVomitDiarrh Time Seen by Provider: 05/12/19 21:22 Stated Complaint: VOMITING Hx Last Menstrual Period: [id number] Pain Intensity: 0 - Additional Pertinent History Primary Care Physician: GEORGES - Allergy/Home Medications Allergies/Adverse Reactions: Allergies Allergy/AdvReac Type Severity Reaction Status Date / Time nitrofurantoin AdvReac Vomiting Verified 05/12/19 15:47 [From Macrobid] Penicillins AdvReac Vomiting Verified 05/12/19 15:47 Sulfa (Sulfonamide AdvReac Rash And Verified 05/12/19 15:47 Antibiotics) Itching Home Medications: Home Medications ARIPiprazole [Aripiprazole] 5 mg PO DAILY 05/12/19 [History Confirmed 05/12/19] Gabapentin 400 mg PO BID 05/12/19 [History Confirmed 05/12/19] clonazePAM [Clonazepam] 0.5 mg PO BID PRN 05/12/19 [History Confirmed 05/12/19] PMH/Surg Hx/FS Hx/Imm Hx Endocrine/Hematology History: Denies: Hx Anticoagulant Therapy, Hx Blood Disorders, Hx Diabetes, Hx Thyroid Disease Cardiovascular History: Denies: Hx Congestive Heart Failure, Hx Hypertension Respiratory History: Denies: Hx Asthma, Hx Chronic Obstructive Pulmonary Disease (COPD) GI History: Reports: Hx Ulcer, Other GI Disorders - Collagenous colitis, cyclic vomiting syndrome History: Reports: Other Problems/Disorders - Frequent UTIs Denies: Hx Dialysis, Hx Renal Disease Sensory History: Reports: Hx Contacts or Glasses Denies: Hx Hearing Aid Opthamlomology History: Reports: Hx Contacts or Glasses Psychiatric History: Reports: Hx Anxiety, Hx Depression, Hx Substance Abuse - 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; 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) - Surgical History Surgery Procedure, Year, and Place: 2014 left ovarian cyst REMOVAL Hx Anesthesia Reactions: No - Immunization History Date of Tetanus Vaccine: utd Date of Influenza Vaccine: fall 2017 Infectious Disease History: No Infectious Disease History: Reports: Hx Clostridium Difficile, Hx Hepatitis - TESTS + FOR HEP C ANTIBODIES Denies: Hx Human Immunodeficiency Virus (HIV), Hx of Known/Suspected MRSA, Hx Shingles, Hx Tuberculosis, Hx Known/Suspected VRE, Hx Known/Suspected VRSA, History Other Infectious Disease, Traveled Outside the [place] in Last 30 Days - Family History Known Family History: Positive: Hypertension - mother, Other - Negative bowel CA - Social History Alcohol Use: Weekly Alcohol Amount: 1/week Hx Substance Use: Yes Substance Use Type: Reports: Marijuana Substance Use Comment - Amount & Last Used: no heroin use since 2012 per pt Hx Tobacco Use: Yes Smoking Status (MU): Heavy Every Day Tobacco Smoker Type: Cigarettes Amount Used/How Often: pack per day Length of Time of Smoking/Using Tobacco: 8 years Have You Smoked in the Last Year: Yes Review of Systems Negative: Fever Negative: Chest Pain Negative: Shortness Of Breath Positive: Abdominal Pain, Vomiting, Diarrhea, Nausea All Other Systems Reviewed And Are Negative: Yes Physical Exam Triage Information Reviewed: Yes Vital Signs On Initial Exam: Initial Vitals Temp Pulse Resp BP Pulse Ox 97.2 F 99 16 146/113 98 05/12/19 15:45 05/12/19 15:45 05/12/19 15:45 05/12/19 15:45 05/12/19 15:45 Vital Signs Reviewed: Yes Appearance: Positive: Well-Appearing Skin: Positive: Warm, Dry Head/Face: Positive: Normal Head/Face Inspection Eyes: Positive: Normal, EOMI, ARACELY, Conjunctiva Clear ENT: Positive: Normal ENT inspection, Pharynx normal, TMs normal Respiratory/Lung Sounds: Positive: Clear to Auscultation, Breath Sounds Present Cardiovascular: Positive: Normal, RRR Abdomen Description: Positive: Soft, Other: - tenderness in epigastric Bowel Sounds: Positive: Present Musculoskeletal: Positive: Normal Neurological: Positive: Normal Psychiatric: Positive: Normal Diagnostics - Vital Signs Vital Signs Temp Pulse Resp BP Pulse Ox 05/12/19 22:15 87 113/78 93 05/12/19 22:14 82 94 05/12/19 22:09 18 05/12/19 20:05 98.9 F 97 16 145/77 96 05/12/19 17:47 97.8 F 79 18 146/98 97 05/12/19 15:45 97.2 F 99 16 146/113 98 - Laboratory Lab Results: Lab Results 05/12/19 05/12/19 05/12/19 Range/Units 16:55 16:55 16:55 WBC 11.1 H (3.5-10.8) 10^3/uL RBC 4.38 (3.70-4.87) 10^6 /uL Hgb 13.8 (12.0-16.0) g/dL Hct 41 (35-47) % MCV 93 (80-97) fL MCH 32 H (27-31) pg MCHC 34 (31-36) g/dL RDW 14 (10-15) % Plt Count 285 (150-450) 10^3/uL MPV 9.0 (7.4-10.4) fL Neut % (Auto) 80.1 % Lymph % (Auto) 14.7 % [place] % (Auto) 4.2 % Eos % (Auto) 0.2 % Baso % (Auto) 0.8 % Absolute Neuts (auto) 8.8 H (1.5-7.7) 10^3/ul Absolute Lymphs (auto) 1.6 (1.0-4.8) 10^3/ul Absolute Monos (auto) 0.5 (0-0.8) 10^3/ul Absolute Eos (auto) 0.0 (0-0.6) 10^3/ul Absolute Basos (auto) 0.1 (0-0.2) 10^3/ul Absolute Nucleated RBC 0.0 10^3/ul Nucleated RBC % 0.0 Sodium 140 (135-145) mmol/L Potassium 3.5 (3.5-5.0) mmol/L Chloride 107 (101-111) mmol/L Carbon Dioxide 23 (22-32) mmol/L Anion Gap 10 (2-11) mmol/L BUN 10 (6-24) mg/dL Creatinine 0.76 (0.51-0.95) mg/dL Est GFR ( Amer) 106.7 (>60) Est GFR (Non-Af Amer) 88.2 (>60) BUN/Creatinine Ratio 13.2 (8-20) Glucose 103 H (70-100) mg/dL Lactic Acid 0.8 (0.5-2.0) mmol/L Calcium 9.5 (8.6-10.3) mg/dL Total Bilirubin 0.40 (0.2-1.0) mg/dL AST 22 (13-39) U/L ALT 23 (7-52) U/L Alkaline Phosphatase 75 (34-104) U/L Total Protein 7.4 (6.4-8.9) g/dL Albumin 4.6 (3.2-5.2) g/dL Globulin 2.8 (2-4) g/dL Albumin/Globulin Ratio 1.6 (1-3) Lipase 32 (11.0-82.0) U/L Result Diagrams: 05/12/19 16:55 05/12/19 16:55 Lab Statement: Any lab studies that have been ordered have been reviewed, and results considered in the medical decision making process. - CT abd CT Interpretation Completed By: Radiologist Summary of CT Findings: IMPRESSION: No CT findings to correlate with patient's symptomatology. Re-Evaluation - Re-Evaluation First Eval Change: Unchanged Comment: still nausous Second Eval Re-Evaluation Time: 00:40 Change: Improved Comment: feels ready to go home GIGU Course/Dx - Course Course Of Treatment: 33-year-old female male presents with cyclic vomiting syndrome. She states this is no different than her normal cyclic vomiting syndrome. She has been seen 3 times in the past week. States that her nausea vomiting have continued. She admits to diarrhea. has history of collangeous colitis. She tried her at-home nausea medication without relief. She denies any cough. No chest pain or shortness of breath. No urinary symptoms. Has a history of ovarian cysts. On exam tenderness epigastric region. wbc 11. Gave Ativan Zofran without any relief. Gave Toradol and Reglan with no relief. gave morphine feeling better. CT normal. told to stop smoking pot. patient understand and agrees with plan. - Diagnoses Differential Diagnoses - Female: Gastroenteritis (Viral), Gastroenteritis ( Bacterial), Vomiting Provider Diagnoses: Cyclical vomiting Discharge - Sign-Out/Discharge Documenting (check all that apply): Patient Departure Patient Received Moderate/Deep Sedation with Procedure: No - Discharge Plan Condition: Good Disposition: HOME Patient Education Materials: Cyclic Vomiting Syndrome (ED) Referrals: Minal Drake PA [Primary Care Provider] - Additional Instructions: Can take Zofran every 6 hours as needed for nausea Drink small amounts of fluid as tolerated When able to eat follow BRAT diet: Bananas, rice, applesauce, toast Take ibuprofen or Tylenol for pain as needed every 6 hours Follow up with primary within 5 days Return to ED if develop any new or worsening symptoms - Billing Disposition and Condition Condition: GOOD Disposition: Home
[2019-05-12 23:38] LABS: Urine Appearance Cloudy; Urine Bilirubin Negative (Negative); Urine Blood Negative (Negative); Urine Color Yellow; Urine Glucose Negative (Negative); Urine Ketones Negative (Negative); Urine Nitrite Negative (Negative); Urine Protein Negative (Negative); Urine Specific Gravity 1.039 (1.010-1.030); Urine Urobilinogen Negative (Negative)
[2019-05-12] MEDS ORDERED: Morphine 4 MG/ML VIAL (1 ml) 4 MG/ML VIAL IV ONE (23:59)
[2019-05-13 00:41] VITALS: BP 140/90
== END 2019-05-13 00:39 | disposition home or self-care (01) ==
LOC: ED 15:43
DX: G43.A0 Cyclical vomiting, in migraine, not intractable (principal); R19.7 Diarrhea, unspecified; Z88.1 Allergy status to other antibiotic agents; Z88.0 Allergy status to penicillin; Z88.2 Allergy status to sulfonamides; F17.210 Nicotine dependence, cigarettes, uncomplicated
CPT/HCPCS: 36415; 74177; 80053; 81003; 83605; 83690; 85025; 96361; 96374; 96375; 99284; J1200; J1885; J2060; J2270; J2405; J2765; Q9967

== ENCOUNTER 2019-06-15 04:26 | Emergency (ER) | payer BC ==
--- NOTE | 2019-06-15 06:12 | ED ---
Nausea/Vomiting/Diarrhea HPI - History of Current Complaint Chief Complaint: EDNauseaVomitDiarrh Stated Complaint: NAUSEA/VOMITING PER PT Time Seen by Provider: 06/15/19 05:57 Hx Obtained From: Patient Hx Last Menstrual Period: [id number] ?: No Onset/Duration: Sudden Onset, Lasting Days - 2 days Severity Initially: Severe Severity Currently: Severe Pain Intensity: 8 Pain Scale Used: 0-10 Numeric Location: Epigastric Character: Cramping Aggravating Factor(s): Nothing Alleviating Factor(s): Other: - hot showers Vomiting Frequency: Every 3-4 hours Nausea/Vomiting Duration: 2-3 days Vomiting Characteristics: Retching, Bilious Diarrhea Presence: Yes - since this morning Diarrhea Duration: 0-12 hours - Allergies/Home Medications Allergies/Adverse Reactions: Allergies Allergy/AdvReac Type Severity Reaction Status Date / Time nitrofurantoin AdvReac Vomiting Verified 06/10/19 14:51 [From Macrobid] Penicillins AdvReac Vomiting Verified 06/10/19 14:51 Sulfa (Sulfonamide AdvReac Rash And Verified 06/10/19 14:51 Antibiotics) Itching PMH/Surg Hx/FS Hx/Imm Hx Previously Healthy: Yes Endocrine/Hematology History: Denies: Hx Anticoagulant Therapy, Hx Blood Disorders, Hx Diabetes, Hx Thyroid Disease Cardiovascular History: Denies: Hx Congestive Heart Failure, Hx Hypertension Respiratory History: Denies: Hx Asthma, Hx Chronic Obstructive Pulmonary Disease (COPD) GI History: Reports: Hx Ulcer, Other GI Disorders - Collagenous colitis, cyclic vomiting syndrome History: Reports: Other Problems/Disorders - Frequent UTIs Denies: Hx Dialysis, Hx Renal Disease Sensory History: Reports: Hx Contacts or Glasses Denies: Hx Hearing Aid Opthamlomology History: Reports: Hx Contacts or Glasses Psychiatric History: Reports: Hx Anxiety, Hx Depression, Hx Substance Abuse - 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; 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) - Surgical History Surgery Procedure, Year, and Place: 2014 left ovarian cyst REMOVAL Hx Anesthesia Reactions: No - Immunization History Date of Tetanus Vaccine: utd Date of Influenza Vaccine: fall 2017 Infectious Disease History: No Infectious Disease History: Reports: Hx Clostridium Difficile, Hx Hepatitis - TESTS + FOR HEP C ANTIBODIES Denies: Hx Human Immunodeficiency Virus (HIV), Hx of Known/Suspected MRSA, Hx Shingles, Hx Tuberculosis, Hx Known/Suspected VRE, Hx Known/Suspected VRSA, History Other Infectious Disease, Traveled Outside the [place] in Last 30 Days - Family History Known Family History: Positive: Hypertension - mother, Other - Negative bowel CA - Social History Alcohol Use: Weekly Alcohol Amount: 1/week Hx Substance Use: Yes Substance Use Type: Reports: Marijuana Substance Use Comment - Amount & Last Used: no heroin use since 2013 per pt Hx Tobacco Use: Yes Smoking Status (MU): Heavy Every Day Tobacco Smoker Type: Cigarettes Amount Used/How Often: pack per day Length of Time of Smoking/Using Tobacco: 8 years Have You Smoked in the Last Year: Yes Review of Systems Positive: Chills, Fatigue. Negative: Fever Eyes: Negative ENT: Negative Cardiovascular: Negative Negative: Palpitations, Chest Pain Negative: Shortness Of Breath, Cough Positive: Abdominal Pain - epigastric pain and diffuse abdominal pain , Vomiting - for 2 days , Diarrhea - loose stools since this morning , Nausea All Other Systems Reviewed And Are Negative: Yes Physical Exam Triage Information Reviewed: Yes Vital Signs On Initial Exam: Initial Vitals Temp Pulse Resp BP Pulse Ox 97.6 F 97 16 141/95 97 06/15/19 04:34 06/15/19 04:34 06/15/19 04:34 06/15/19 04:34 06/15/19 04:34 Vital Signs Reviewed: Yes Appearance: Positive: Pain Distress Skin: Positive: Warm, Skin Color Reflects Adequate Perfusion, Dry Head/Face: Positive: Normal Head/Face Inspection Eyes: Positive: Normal, EOMI, ARACELY ENT: Positive: Normal ENT inspection, Pharynx normal Neck: Positive: Supple, Nontender, No Lymphadenopathy Respiratory/Lung Sounds: Positive: Breath Sounds Present, Wheezes - diffuse throughout all lung farris Cardiovascular: Positive: Normal, RRR, Pulses are Symmetrical in both Upper and Lower Extremities Abdomen Description: Positive: Soft, Other: - tenderness to epigastrum and LLQ Bowel Sounds: Positive: Present Musculoskeletal: Positive: Normal Neurological: Positive: Normal, Sensory/Motor Intact, Alert, Oriented to Person Place, Time, CN Intact II-III, Reflexes Intact Psychiatric: Positive: Anxious Diagnostics - Vital Signs Vital Signs Temp Pulse Resp BP Pulse Ox 06/15/19 05:00 89 97 06/15/19 04:42 95 124/100 97 06/15/19 04:41 95 97 06/15/19 04:34 97.6 F 97 16 141/95 97 - Laboratory Result Diagrams: 06/15/19 06:40 06/15/19 06:40 Lab Statement: Any lab studies that have been ordered have been reviewed, and results considered in the medical decision making process. Re-Evaluation - Re-Evaluation First Eval Re-Evaluation Time: 07:42 Comment: Patient has been administered Morphine. IVF on pump. Pt without need Second Eval Re-Evaluation Time: 08:03 Change: Improved Comment: She states that she is feeling better and would like to be discharged home, per nurse Jorgito. We will discuss all results and plan for discharge home. spoke to pt - has RX for zofran odt, reglan, phenergan at home - some are rectal. will call PCP today. work note. clears to bland. close follow-up. Pt comfortable and in agreement with plan. 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 Diffuse wheezes throughout lung farris. RRR. Patient is tearful during abdominal exam. Tenderness to epigastrum and diffuse tenderness throughout the LLQ and RLQ. Patient continues to use marijuana despite being advised to stop during her last admission. She last smoked yesterday. Labs obtained; WBC 11.3, K3.3. Patient given IV fluids, zofran, reglan, haldol and ketorolac. Continue to monitor for pain and managment of symptoms - Differential Dx/Diagnosis Differential Diagnoses - Female: Diverticulitis, , Gastroenteritis ( Viral), Vomiting Provider Diagnosis: Cyclical vomiting, Nausea & vomiting Is Visit Related: No Condition At Discharge: Stable Discharge ED - Sign-Out/Discharge Documenting (check all that apply): Sign-Out Patient Signing out patient TO: Johanny Heredia Patient Received Moderate/Deep Sedation with Procedure: No - Discharge Plan Condition: Stable Disposition: HOME Patient Education Materials: Hypokalemia (ED), Cyclic Vomiting Syndrome (ED) Forms: *Work Release Referrals: Minal Drake PA [Primary Care Provider] - (call today for an appointment ) Additional Instructions: -For the first 6 hours, eat and drink clears (water, latanya radha, soup broth, jello, popsicles, Gatorade). If you tolerate this okay, add bland foods such as dry toast, scrambled eggs, crackers. Wait until you are feeling better for 24 hours before eating spicy food, acidic food, tomato based food, fried food. - Take medication as previously prescribed for your nausea - consider taking an acid site technician (pepcid, protonix) daily - contact your primary doctor TODAY - to schedule a follow-up appointment THIS WEEK Contact your doctor or your gastrointestinal specialist with questions or concerns youre potassium level was a little low today - you were given potassium here - it is recommended you eat a banana today to continue to balance your potassium level - Billing Disposition and Condition Condition: STABLE Disposition: Home - Attestation Statements Document Initiated by Everardo: Yes Documenting Scribe: annie martinez Provider For Whom Everardo is Documenting (Include Credential): dr alma Reich Attestation: Iannie, scribed for dr marquez on 06/18/19 at 2012. Scribe Documentation Reviewed: Yes Provider Attestation: The documentation as recorded by the annie reich accurately reflects the service I personally performed and the decisions made by me, dr marquez Status of Scribadelina Document: Viewed
[2019-06-15] MEDS: NS 0.9% 1000 ML** 1,000 ML IV ONE (06:41)
[2019-06-15] MEDS: Ondansetron INJ* 2 MG/ML VIAL IV ONE (06:41)
[2019-06-15] MEDS: Pantoprazole IV* 40 MG IV ONE (06:41)
[2019-06-15] MEDS: Haloperidol INJ IV/IM* 5 MG/ML AMP IM ONE (06:44)
[2019-06-15 06:49] LABS: ABS Basophils 0.1 10^3/ul (0-0.2); ABS Lymphocytes 2.3 10^3/ul (1.0-4.8); ABS Neutrophils 8.2 10^3/ul (1.5-7.7); Eosinophil % 0.1 %; Hematocrit 39 % (35-47); Hemoglobin 13.6 g/dL (12.0-16.0); Lymphocyte % 20.1 %; Mean Corpuscular HGB Conc 35 g/dL (31-36); Mean Corpuscular Hemoglobin 32 pg (27-31); Mean Corpuscular Volume 93 fL (80-97); Mean Platelet Volume 9.1 fL (7.4-10.4); Nucleated Red Blood Cells % 0.1; Platelet Count 281 10^3/uL (150-450); Red Blood Count 4.22 10^6 /uL (3.70-4.87); Red Cell Distribution Width 13 % (10-15); White Blood Count 11.6 10^3/uL (3.5-10.8)
[2019-06-15] MEDS: Ketorolac INJ* 30 MG/ML 1 ML VIAL IV ONE (07:05)
[2019-06-15 07:06] LABS: ALT 22 U/L (7-52); AST 21 U/L (13-39); Albumin 4.5 g/dL (3.2-5.2); Albumin/Globulin Ratio 1.7 (1-3); Alkaline Phosphatase 75 U/L (34-104); Amylase 46 U/L (29-103); Anion Gap 10 mmol/L (2-11); BUN/Creatinine Ratio 21.6 (8-20); Blood Urea Nitrogen 16 mg/dL (6-24); CO2 Carbon Dioxide 23 mmol/L (22-32); Calcium 9.6 mg/dL (8.6-10.3); Chloride 106 mmol/L (101-111); EGFR African American 110.1 (>60); Globulin 2.7 g/dL (2-4); Glucose 116 mg/dL (70-100); Potassium 3.3 mmol/L (3.5-5.0); Sodium 139 mmol/L (135-145); Total Protein 7.2 g/dL (6.4-8.9)
[2019-06-15 07:12] LABS: HCG Pregnancy < 0.60 mIU/mL
--- NOTE | 2019-06-15 07:14 | ED ---
Progress - Progress Note Progress Note: The patient is a sign-out from Dr. Coni Serna MD, to Dr. Johanny Heredia MD, at change of shift at 0700 on 06/15/19, pending lab results, medications, re- evaluation, and disposition. 7:24am Reviewed pt's past visits. Pt states had an endoscopy last week - Dr. Duncan- had biopsies - results pending - does not have follow-up scheduled with GI or PCP Pt was given Zofran, Toradol, protonix prior to my eval Pt has only received 200cc of NS Pt labs reviewed - potassium 3.3 Reviewed with pt - elected plls Will give 1 dose of Morphine complete 1 liter Pt comfortable and in agreement with plan Re-Evaluation - Re-Evaluation First Eval Re-Evaluation Time: 07:42 Comment: Patient has been administered Morphine. IVF on pump. Pt without need Second Eval Re-Evaluation Time: 08:03 Change: Improved Comment: She states that she is feeling better and would like to be discharged home, per nurse Jorgito. We will discuss all results and plan for discharge home. spoke to pt - has RX for zofran odt, reglan, phenergan at home - some are rectal. will call PCP today. work note. clears to bland. close follow-up. Pt comfortable and in agreement with plan. Mother will scrap picker Course/Dx - Course Course Of Treatment: The patient is a sign-out from Dr. Coni Serna MD, to Dr. Johanny Heredia MD, at change of shift at 0700 on 06/15/19, pending lab results, medications, re-evaluation, and disposition. Past visits and todays course of treatment from previous provider reviewed. Labs reveal potassium 3.3. Morphine administered with improvement of pain. Fluids continued. Pts pain has resolved; we discussed all results and plan for discharge home. - Diagnoses Provider Diagnoses: Cyclical vomiting, Nausea & vomiting Is Visit Related: No Discharge ED - Sign-Out/Discharge Documenting (check all that apply): Patient Departure - Patient will be discharged home., Receiving Sign-Out Receiving patient FROM: Coni Serna - Patient is a sign-out from Dr. Coni Serna MD, at change of shift at 0700 on 06/15/19, pending lab results, medications, re-evaluation, and disposition. Patient Received Moderate/Deep Sedation with Procedure: No - Discharge Plan Condition: Stable Disposition: HOME Patient Education Materials: Hypokalemia (ED), Cyclic Vomiting Syndrome (ED) Forms: *Work Release Referrals: Minal Drake PA [Primary Care Provider] - (call today for an appointment ) Additional Instructions: -For the first 6 hours, eat and drink clears (water, latanya radha, soup broth, jello, popsicles, Gatorade). If you tolerate this okay, add bland foods such as dry toast, scrambled eggs, crackers. Wait until you are feeling better for 24 hours before eating spicy food, acidic food, tomato based food, fried food. - Take medication as previously prescribed for your nausea - consider taking an acid casting inspector (pepcid, protonix) daily - contact your primary doctor TODAY - to schedule a follow-up appointment THIS WEEK Contact your doctor or your gastrointestinal specialist with questions or concerns youre potassium level was a little low today - you were given potassium here - it is recommended you eat a banana today to continue to balance your potassium level - Billing Disposition and Condition Condition: STABLE Disposition: Home - Attestation Statements Document Initiated by Everardo: Yes Documenting Scribe: Yasemin Ahn Provider For Whom Everardo is Documenting (Include Credential): Dr. Johanny Heredia MD Scribe Attestation: Yasemin Patterson scribed for Dr. Johanny Heredia MD on 06/15/19 at 0819. Scribe Documentation Reviewed: Yes Provider Attestation: The documentation as recorded by the Yasemin reich accurately reflects the service I personally performed and the decisions made by me, Dr. Johanny Heredia MD Status of Scribadelina Document: Viewed
[2019-06-15] MEDS: Potassium Chlor TAB* 20 MEQ TAB.ER PO ONE (07:25)
[2019-06-15] MEDS: Morphine 4 MG/ML VIAL (1 ml) 4 MG/ML VIAL IV ONE (07:25)
[2019-06-15 08:09] VITALS: BP 107/68
== END 2019-06-15 08:14 | disposition home or self-care (01) ==
LOC: ED 04:26
DX: G43.A0 Cyclical vomiting, in migraine, not intractable (principal); F41.9 Anxiety disorder, unspecified; F32.9 Major depressive disorder, single episode, unspecified; F17.210 Nicotine dependence, cigarettes, uncomplicated; Z79.899 Other long term (current) drug therapy; Z88.1 Allergy status to other antibiotic agents; Z88.0 Allergy status to penicillin; Z88.2 Allergy status to sulfonamides
CPT/HCPCS: 36415; 80053; 82150; 83690; 84702; 85025; 96361; 96372; 96374; 96375; 99283; A9270-GY; J1630; J1885; J2270; J2405

== ENCOUNTER 2019-07-25 05:45 | Emergency (ER) | payer BC ==
[2019-07-25] MEDS ORDERED: Lorazepam PYXIS KEY PRN (05:55)
[2019-07-25] MEDS ORDERED: Metoclopramide IV* 5 MG/ML 2 ML VIAL IV ONE (05:55)
[2019-07-25] MEDS ORDERED: LORazepam INJ* 2 MG/ML 1 ML VIAL IV PUSH ONE (05:55)
[2019-07-25] MEDS ORDERED: NS 0.9% 1000 ML** 1,000 ML IV ONE (05:55)
[2019-07-25] MEDS ORDERED: Pantoprazole IV* 40 MG IV ONE (06:07)
[2019-07-25] MEDS ORDERED: Ketorolac INJ* 30 MG/ML 1 ML VIAL IV ONE (06:07)
[2019-07-25] MEDS ORDERED: Lorazepam PYXIS KEY ONE (06:11)
[2019-07-25] MEDS ORDERED: Morphine 4 MG/ML VIAL (1 ml) 4 MG/ML VIAL IV ONE (07:28)
[2019-07-25] MEDS ORDERED: Ondansetron ODT TAB* 4 MG SL ONE (07:28)
[2019-07-25] MEDS ORDERED: Ondansetron INJ* 2 MG/ML VIAL IV ONE (07:28)
--- NOTE | 2019-07-25 07:28 | ED ---
Abdominal Pain/Female - HPI Summary HPI Summary: This patient is a 33-year-old female with a history of cyclic vomiting syndrome presenting to the ED with nausea and vomiting profusely 10+ times per day 2 days. She states she had some relief yesterday and was able to keep some food and drink down, however awoke again this morning and has been profusely vomiting since early a.m. Patient appears pale and diaphoretic on arrival. [place] [facility] [place] and as needed multiple medications given IV for relief. She denies any constipation or diarrhea. She denies any urinary symptoms or back pain. She endorses diffuse abdominal pain which is typical for her cyclic vomiting syndrome. - History of Current Complaint Chief Complaint: EDNauseaVomitDiarrh Stated Complaint: NAUSEA/VOMITING PER PT Time Seen by Provider: 07/25/19 05:55 Hx Obtained From: Patient Hx Last Menstrual Period: [id number] ?: No Onset/Duration: Sudden Onset Timing: Constant Severity Initially: Severe Severity Currently: Severe Pain Intensity: 8 Pain Scale Used: 0-10 Numeric Location: Diffuse Radiates: Yes Character: Burning, Cramping Aggravating Factor(s): Nothing Alleviating Factor(s): Nothing Associated Signs and Symptoms: Positive: Negative - Risk Factors Ectopic Risk Factor: Negative Ovarian Torsion Risk Factor: Negative Allergies/Adverse Reactions: Allergies Allergy/AdvReac Type Severity Reaction Status Date / Time nitrofurantoin AdvReac Vomiting Verified 07/25/19 05:53 [From Macrobid] Penicillins AdvReac Vomiting Verified 07/25/19 05:53 Sulfa (Sulfonamide AdvReac Rash And Verified 07/25/19 05:53 Antibiotics) Itching PMH/Surg Hx/FS Hx/Imm Hx Previously Healthy: Yes Endocrine/Hematology History: Denies: Hx Anticoagulant Therapy, Hx Blood Disorders, Hx Diabetes, Hx Thyroid Disease Cardiovascular History: Denies: Hx Congestive Heart Failure, Hx Hypertension Respiratory History: Denies: Hx Asthma, Hx Chronic Obstructive Pulmonary Disease (COPD) GI History: Reports: Hx Ulcer, Other GI Disorders - Collagenous colitis, cyclic vomiting syndrome History: Reports: Other Problems/Disorders - Frequent UTIs Denies: Hx Dialysis, Hx Renal Disease Sensory History: Reports: Hx Contacts or Glasses Denies: Hx Hearing Aid Opthamlomology History: Reports: Hx Contacts or Glasses Psychiatric History: Reports: Hx Anxiety, Hx Depression, Hx Substance Abuse - 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; 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) - Surgical History Surgery Procedure, Year, and Place: 2014 left ovarian cyst REMOVAL Hx Anesthesia Reactions: No - Immunization History Date of Tetanus Vaccine: utd Date of Influenza Vaccine: fall 2017 Hx Pertussis Vaccination: No Immunizations Up to Date: Yes Infectious Disease History: No Infectious Disease History: Reports: Hx Clostridium Difficile, Hx Hepatitis - TESTS + FOR HEP C ANTIBODIES Denies: Hx Human Immunodeficiency Virus (HIV), Hx of Known/Suspected MRSA, Hx Shingles, Hx Tuberculosis, Hx Known/Suspected VRE, Hx Known/Suspected VRSA, History Other Infectious Disease, Traveled Outside the [place] in Last 30 Days - Family History Known Family History: Positive: Hypertension - mother, Other - Negative bowel CA - Social History Occupation: Employed Full-time Lives: With Family Alcohol Use: Weekly Alcohol Amount: 1/week Hx Substance Use: Yes Substance Use Type: Reports: Marijuana Substance Use Comment - Amount & Last Used: no heroin use since 2012 per pt Hx Tobacco Use: Yes Smoking Status (MU): Heavy Every Day Tobacco Smoker Type: Cigarettes Amount Used/How Often: pack per day Length of Time of Smoking/Using Tobacco: 8 years Have You Smoked in the Last Year: Yes Review of Systems Constitutional: Negative Negative: Fever, Chills, Fatigue, Skin Diaphoresis Negative: Palpitations, Chest Pain Negative: Shortness Of Breath, Cough Positive: Abdominal Pain, Vomiting, Nausea. Negative: Diarrhea Genitourinary: Negative Positive: no symptoms reported, see HPI Positive: Arthralgia. Negative: Myalgia Skin: Negative All Other Systems Reviewed And Are Negative: Yes Physical Exam Triage Information Reviewed: Yes Vital Signs On Initial Exam: Initial Vitals Temp Pulse Resp BP Pulse Ox 97.3 F 107 18 161/95 97 07/25/19 05:46 07/25/19 05:46 07/25/19 05:46 07/25/19 05:46 07/25/19 05:46 Vital Signs Reviewed: Yes Appearance: Positive: Well-Appearing, Well-Nourished Skin: Positive: Skin Color Reflects Adequate Perfusion Head/Face: Positive: Normal Head/Face Inspection Eyes: Positive: EOMI, Conjunctiva Clear Neck: Positive: Nontender, No Lymphadenopathy Respiratory/Lung Sounds: Positive: Clear to Auscultation, Breath Sounds Present Cardiovascular: Positive: RRR, Pulses are Symmetrical in both Upper and Lower Extremities Abdomen Description: Positive: Nontender Bowel Sounds: Positive: Present Musculoskeletal: Positive: Normal, Strength/ROM Intact Neurological: Positive: Sensory/Motor Intact, Alert, Oriented to Person Place, Time Psychiatric: Positive: Normal, Affect/Mood Appropriate Procedures - Sedation Patient Received Moderate/Deep Sedation with Procedure: No Diagnostics - Vital Signs Vital Signs Temp Pulse Resp BP Pulse Ox 07/25/19 06:19 16 07/25/19 05:56 104 97 07/25/19 05:46 97.3 F 107 18 161/95 97 - Laboratory Lab Statement: Any lab studies that have been ordered have been reviewed, and results considered in the medical decision making process. Abdominal Pain Fem Course/Dx - Course Course Of Treatment: This patient is evaluated for acute cyclic vomiting syndrome. He has been nauseous and vomiting 3 days. On arrival, patient is given normal saline, Protonix, Reglan and Ativan without much relief. She was subsequently given morphine and Zofran with good relief. She is currently asympatomatic. No given for work. She is diagnosed with cyclic vomiting syndrome. - Diagnoses Differential Diagnosis: Positive: Other - nausea and vomiting, dehydration Provider Diagnoses: Cyclic vomiting syndrome Discharge ED - Sign-Out/Discharge Documenting (check all that apply): Patient Departure - Discharge Plan Condition: Stable Disposition: HOME Forms: *Work Release Referrals: Minal Drake PA [Primary Care Provider] - Additional Instructions: Continue taking your medications at home as needed including your anti-nausea medications Introduce fluids and food very slowly into your diet and eat a bland diet or a BRAT diet. If any symptoms become worse, please return to the ED - Billing Disposition and Condition Condition: STABLE Disposition: Home
[2019-07-25 08:58] VITALS: BP 124/77
== END 2019-07-25 08:55 | disposition home or self-care (01) ==
LOC: ED 05:45
DX: R11.15 Cyclical vomiting syndrome unrelated to migraine (principal); F17.210 Nicotine dependence, cigarettes, uncomplicated; Z88.0 Allergy status to penicillin
CPT/HCPCS: 99284; J1885; J2060; J2270; J2405; J2765

== ENCOUNTER 2019-07-27 13:44 | Emergency (ER) | payer BC ==
[2019-07-27] MEDS ORDERED: Lorazepam PYXIS KEY PRN (16:07)
[2019-07-27] MEDS ORDERED: Lorazepam PYXIS KEY ONE (16:16)
[2019-07-27] MEDS: NS 0.9% 1000 ML** 1,000 ML IV ONE (16:19)
[2019-07-27] MEDS: Metoclopramide IV* 5 MG/ML 2 ML VIAL IV ONE (16:19)
[2019-07-27] MEDS: LORazepam INJ* 2 MG/ML 1 ML VIAL IV PUSH ONE (16:20)
[2019-07-27] MEDS: Morphine 4 MG/ML VIAL (1 ml) 4 MG/ML VIAL IV ONE (16:20)
[2019-07-27 17:39] VITALS: BP 144/85
--- NOTE | 2019-07-29 06:28 | ED ---
Nausea/Vomiting/Diarrhea HPI - HPI Summary HPI Summary: Patient is a 33-year-old female who is well-known to [facility] with a history of cyclic vomiting syndrome. She presents with 4 days nausea and vomiting and has been seen here twice for same in the past week. She states she does have Zofran , Reglan and Compazine at home however these have not been improving her symptoms. She does endorse diffuse abdominal pain. She states her symptoms are typical to her cyclic vomiting syndrome. She is a marijuana user. Previous opioid user, but denies recent drug use otherwise. - History of Current Complaint Chief Complaint: EDNauseaVomitDiarrh Stated Complaint: N/V Time Seen by Provider: 07/27/19 16:07 Hx Obtained From: Patient Hx Last Menstrual Period: [id number] ?: No Onset/Duration: Sudden Onset Timing: Constant Severity Initially: Moderate Severity Currently: Moderate Pain Intensity: 0 Pain Scale Used: 0-10 Numeric Location: Diffuse Aggravating Factor(s): Nothing Alleviating Factor(s): Nothing Vomiting Frequency: Every 15-60 minutes Nausea/Vomiting Duration: 24-36 hours Vomiting Characteristics: Retching Diarrhea Presence: No - Risk Factors Influenza Risk Factors: Negative Surgical Obstruction Risk Factor(s): Negative - Allergies/Home Medications Allergies/Adverse Reactions: Allergies Allergy/AdvReac Type Severity Reaction Status Date / Time nitrofurantoin AdvReac Vomiting Verified 07/27/19 17:03 [From Macrobid] Penicillins AdvReac Vomiting Verified 07/27/19 17:03 Sulfa (Sulfonamide AdvReac Rash And Verified 07/27/19 17:03 Antibiotics) Itching PMH/Surg Hx/FS Hx/Imm Hx Previously Healthy: Yes Endocrine/Hematology History: Denies: Hx Anticoagulant Therapy, Hx Blood Disorders, Hx Diabetes, Hx Thyroid Disease Cardiovascular History: Denies: Hx Congestive Heart Failure, Hx Hypertension Respiratory History: Denies: Hx Asthma, Hx Chronic Obstructive Pulmonary Disease (COPD) GI History: Reports: Hx Ulcer, Other GI Disorders - Collagenous colitis, cyclic vomiting syndrome History: Reports: Other Problems/Disorders - Frequent UTIs Denies: Hx Dialysis, Hx Renal Disease Sensory History: Reports: Hx Contacts or Glasses Denies: Hx Hearing Aid Opthamlomology History: Reports: Hx Contacts or Glasses Psychiatric History: Reports: Hx Anxiety, Hx Depression, Hx Substance Abuse - 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; 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) - Surgical History Surgery Procedure, Year, and Place: 2014 left ovarian cyst REMOVAL Hx Anesthesia Reactions: No - Immunization History Date of Tetanus Vaccine: utd Date of Influenza Vaccine: fall 2017 Hx Pertussis Vaccination: No Immunizations Up to Date: Yes Infectious Disease History: No Infectious Disease History: Reports: Hx Clostridium Difficile, Hx Hepatitis - TESTS + FOR HEP C ANTIBODIES Denies: Hx Human Immunodeficiency Virus (HIV), Hx of Known/Suspected MRSA, Hx Shingles, Hx Tuberculosis, Hx Known/Suspected VRE, Hx Known/Suspected VRSA, History Other Infectious Disease, Traveled Outside the [place] in Last 30 Days - Family History Known Family History: Positive: Hypertension - mother, Other - Negative bowel CA - Social History Occupation: Employed Full-time Lives: Alone Alcohol Use: Occasionally Alcohol Amount: 1/week Hx Substance Use: Yes Substance Use Type: Reports: Marijuana Substance Use Comment - Amount & Last Used: no heroin use since 2012 per pt Hx Tobacco Use: Yes Smoking Status (MU): Light Every Day Tobacco Smoker Type: Cigarettes Amount Used/How Often: pack per day Length of Time of Smoking/Using Tobacco: 8 years Have You Smoked in the Last Year: Yes Review of Systems Negative: Fever, Chills, Fatigue, Skin Diaphoresis Negative: Palpitations, Chest Pain Negative: Shortness Of Breath, Cough Positive: Abdominal Pain, Vomiting, Nausea Genitourinary: Negative Positive: no symptoms reported, see HPI Negative: Arthralgia, Myalgia All Other Systems Reviewed And Are Negative: Yes Physical Exam Triage Information Reviewed: Yes Vital Signs On Initial Exam: Initial Vitals Temp Pulse Resp BP Pulse Ox 98.2 F 90 16 100/62 98 07/27/19 13:48 07/27/19 13:48 07/27/19 13:48 07/27/19 13:48 07/27/19 13:48 Vital Signs Reviewed: Yes Appearance: Positive: Ill-Appearing, Pain Distress Skin: Positive: Warm, Skin Color Reflects Adequate Perfusion Head/Face: Positive: Normal Head/Face Inspection Eyes: Positive: EOMI, ARACELY, Conjunctiva Clear Respiratory/Lung Sounds: Positive: Clear to Auscultation, Breath Sounds Present Cardiovascular: Positive: RRR, Pulses are Symmetrical in both Upper and Lower Extremities Abdomen Description: Positive: Soft Musculoskeletal: Positive: Strength/ROM Intact Neurological: Positive: Speech Normal Psychiatric: Positive: Affect/Mood Appropriate Procedures - Sedation Patient Received Moderate/Deep Sedation with Procedure: No Diagnostics - Vital Signs Vital Signs Temp Pulse Resp BP Pulse Ox 07/27/19 17:38 98.2 F 88 15 144/85 99 07/27/19 17:27 85 99 07/27/19 17:19 94 07/27/19 17:00 86 07/27/19 16:57 86 126/69 07/27/19 16:27 89 114/69 07/27/19 16:20 18 07/27/19 13:48 98.2 F 90 16 100/62 98 - Laboratory Lab Statement: Any lab studies that have been ordered have been reviewed, and results considered in the medical decision making process. Naus/Vom/Diarrhea Course/Dx - Course Course Of Treatment: This patient routinely presents to the ED for same, labs were not obtained on this visit. She is given Reglan, morphine, Ativan and 1 L fluids. This all with good relief. Patient states she is a symptomatically at this time it is okay for discharge home. Dx with cyclic vomiting syndrome. VS stable. As pt is a repeat visitor, discussed with Dr. Parker. - Differential Dx/Diagnosis Provider Diagnosis: Cyclical vomiting Condition At Discharge: Stable Discharge ED - Sign-Out/Discharge Documenting (check all that apply): Patient Departure - Discharge Plan Condition: Stable Disposition: HOME Patient Education Materials: Cyclic Vomiting Syndrome (ED) Forms: *Work Release Referrals: Minal Drake PA [Primary Care Provider] - Additional Instructions: Continue your at home medications as needed Drink plenty of fluids Rest Note given for work - Billing Disposition and Condition Condition: STABLE Disposition: Home - Attestation Statements Provider Attestation: I agree with the plan and documentation by GARLAND. Diann Parker MD
== END 2019-07-27 17:33 | disposition home or self-care (01) ==
LOC: ED 13:44
DX: R11.15 Cyclical vomiting syndrome unrelated to migraine (principal); F41.9 Anxiety disorder, unspecified; F32.9 Major depressive disorder, single episode, unspecified; F17.210 Nicotine dependence, cigarettes, uncomplicated; Z79.899 Other long term (current) drug therapy; Z88.1 Allergy status to other antibiotic agents; Z88.0 Allergy status to penicillin; Z88.2 Allergy status to sulfonamides
CPT/HCPCS: 96361; 96374; 96375; 99282; J2060; J2270; J2765

== ENCOUNTER 2019-07-29 08:05 | Emergency (ER) | payer BC ==
[2019-07-29] MEDS ORDERED: NS 0.9% 1000 ML** 1,000 ML IV ONE (08:31)
[2019-07-29] MEDS ORDERED: Ketorolac INJ* 30 MG/ML 1 ML VIAL IV ONE (08:31)
[2019-07-29] MEDS ORDERED: Metoclopramide IV* 5 MG/ML 2 ML VIAL IV ONE (08:31)
[2019-07-29] MEDS ORDERED: Pantoprazole IV* 40 MG IV ONE (08:31)
--- NOTE | 2019-07-29 08:47 | ED ---
Abdominal Pain/Female - HPI Summary HPI Summary: The patient is a 33 y/o F presenting to [facility] with a chief complaint of hyperemesis and diffuse abdominal pain continued for the last few days. The episode is related to the cyclic vomiting she typically suffers from secondary to marijuana abuse, and she has been unable to relieve her symptoms during the current experience. She reports that she had been able to eat yesterday, although she only had a bagel. Currently, her symptoms are rated 8/10 in severity. She denies fever and chills. She notes that following the multiple previous visits, including those over the last three days, to the ED for the same symptoms, she has followed up with Dr. Duncan from gastroenterology who performed an endoscopy approximately a month ago with findings of a small hiatal hernia but was otherwise benign. PMHx: collagenous colitis, cyclic vomiting syndrome, Clostridium difficile, frequent UTIs, left ovarian cyst removal, anxiety, depression, heroin and marijuana substance abuse, hepatitis C. Light every day cigarette smoker, occasional EtOH, current marjiuana use. Medications reviewed. Allergies noted. - History of Current Complaint Chief Complaint: EDAbdPain Stated Complaint: VOMITING/ABD PAIN PER PT Time Seen by Provider: 07/29/19 08:30 Hx Obtained From: Patient Hx Last Menstrual Period: [id number] Onset/Duration: Gradual Onset, Lasting Days, Still Present Timing: Days Severity Initially: Moderate Severity Currently: Severe Pain Intensity: 8 Pain Scale Used: 0-10 Numeric Location: Diffuse Radiates: No Aggravating Factor(s): Other: - marijuana use Alleviating Factor(s): Nothing Associated Signs and Symptoms: Positive: Nausea, Vomiting. Negative: Fever, Other: - chills Simlar Episode/Dx as:: multiple episodes of cyclic vomiting syndrome secondary to marijuana use Allergies/Adverse Reactions: Allergies Allergy/AdvReac Type Severity Reaction Status Date / Time nitrofurantoin AdvReac Vomiting Verified 07/29/19 09:56 [From Macrobid] Penicillins AdvReac Vomiting Verified 07/29/19 09:56 Sulfa (Sulfonamide AdvReac Rash And Verified 07/29/19 09:56 Antibiotics) Itching PMH/Surg Hx/FS Hx/Imm Hx Endocrine/Hematology History: Denies: Hx Anticoagulant Therapy, Hx Blood Disorders, Hx Diabetes, Hx Thyroid Disease Cardiovascular History: Denies: Hx Congestive Heart Failure, Hx Hypercholesterolemia, Hx Hypertension Respiratory History: Denies: Hx Asthma, Hx Chronic Obstructive Pulmonary Disease (COPD) GI History: Reports: Hx Ulcer, Other GI Disorders - Collagenous colitis, cyclic vomiting syndrome History: Reports: Other Problems/Disorders - Frequent UTIs Denies: Hx Dialysis, Hx Renal Disease Sensory History: Reports: Hx Contacts or Glasses Denies: Hx Hearing Aid Opthamlomology History: Reports: Hx Contacts or Glasses Psychiatric History: Reports: Hx Anxiety, Hx Depression, Hx Substance Abuse - 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; 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) - Surgical History Surgical History: Yes Surgery Procedure, Year, and Place: 2014 left ovarian cyst REMOVAL Hx Anesthesia Reactions: No - Immunization History Date of Tetanus Vaccine: utd Date of Influenza Vaccine: fall 2017 Infectious Disease History: No Infectious Disease History: Reports: Hx Clostridium Difficile, Hx Hepatitis - TESTS + FOR HEP C ANTIBODIES Denies: Hx Human Immunodeficiency Virus (HIV), Hx of Known/Suspected MRSA, Hx Shingles, Hx Tuberculosis, Hx Known/Suspected VRE, Hx Known/Suspected VRSA, History Other Infectious Disease, Traveled Outside the [place] in Last 30 Days - Family History Known Family History: Positive: Hypertension - mother, Other - Negative bowel CA - Social History Alcohol Use: Occasionally Alcohol Amount: 1/week Hx Substance Use: Yes Substance Use Type: Reports: Marijuana Substance Use Comment - Amount & Last Used: no heroin use since 2012 per pt Hx Tobacco Use: Yes Smoking Status (MU): Light Every Day Tobacco Smoker Type: Cigarettes Amount Used/How Often: pack per day Length of Time of Smoking/Using Tobacco: 8 years Have You Smoked in the Last Year: Yes Review of Systems Negative: Fever, Chills Positive: Abdominal Pain - diffuse, Vomiting, Nausea All Other Systems Reviewed And Are Negative: Yes Physical Exam - Summary Physical Exam Summary: VITAL SIGNS: Reviewed. GENERAL: Patient is a well-developed and nourished female who is lying comfortable in the stretcher. Patient is not in any acute respiratory distress. HEAD AND FACE: Normocephalic and atraumatic. EYES: PERRLA, EOMI x 2, No injected conjunctiva. EARS: Hearing grossly intact. Ear canals and tympanic membranes are WNL. MOUTH: Oropharynx within normal limits. NECK: Supple, trachea is midline, no adenopathy, no JVD. CHEST: Symmetric, no tenderness at palpation. LUNGS: Clear to auscultation bilaterally. No wheezing or crackles. CVS: RRR, S1 and S2 present, no murmurs or gallops appreciated. ABDOMEN: Soft, non-tender. No signs of distention. Positive bowel sounds. No rebound, no guarding, and no masses palpated. No abdominal bruit or pulsations. EXTREMITIES: FROM in all major joints, no edema, no cyanosis or clubbing. NEURO: Alert and oriented x 3. No acute neurological deficits. Speech is normal. SKIN: Dry and warm. Triage Information Reviewed: Yes Vital Signs On Initial Exam: Initial Vitals Temp Pulse Resp BP Pulse Ox 97.1 F 99 20 155/98 98 07/29/19 08:07 07/29/19 08:07 07/29/19 08:07 07/29/19 08:07 07/29/19 08:07 Vital Signs Reviewed: Yes Procedures - Sedation Patient Received Moderate/Deep Sedation with Procedure: No Diagnostics - Vital Signs Vital Signs Temp Pulse Resp BP Pulse Ox 07/29/19 08:07 97.1 F 99 20 155/98 98 - Laboratory Result Diagrams: 07/29/19 08:55 07/29/19 08:55 Lab Statement: Any lab studies that have been ordered have been reviewed, and results considered in the medical decision making process. Re-Evaluation - Re-Evaluation First Eval Re-Evaluation Time: 09:30 Change: Unchanged Comment: Patient is still experiencing nausea and abdominal pain; we will administer medications. Second Eval Re-Evaluation Time: 12:05 Change: Unchanged Comment: I discussed the risks and benefits of leaving AGAINST MEDICAL ADVICE with the patient, and she would still like to leave without further treatment or admission. Abdominal Pain Fem Course/Dx - Course Course Of Treatment: Patient is a 33-year-old female who presents to the emergency department with a chief complaint of nausea, vomiting, and epigastric pain. She has been seen in the emergency department multiple times for the same reason this week. Blood test results without any significant abnormality except for glucose of 107 and total protein of 6.2. Patient has a significant history of opioid and cannabinoid abuse. Therefore, the patient was given Reglan, IV fluids, Toradol and Protonix. Half an hour later, the patient continues to have nausea and vomiting; therefore, she was given Zofran, and she was also given a GI cocktail. She has continued to have nausea and vomiting; therefore, she was given Compazine. After this, I discussed my physical exam and findings with and Dr. Talley from GI and he would consult for this patient. I also discussed the case with Dr. Mccoy from the hospitalist services, and he accepted the patient for admission. After speaking with the patient, he requested a Urine toxicology test that she refused. Therefore, he cannot agree to give her any narcotics. Then, the patient requested to be discharged AGAINST MEDICAL ADVICE. I extensively discussed with the patient the benefits and risks of leaving AMA. I also discussed the alternatives to leaving AMA, however, the patient still insist to leave the hospital AMA. The patient is clinically sober, free from distracting injury, appears to have intact insight and judgment and reason and in my opinion has the capacity to make decisions. Patient has full capacity and is cognitively intact. The patient presents with Nausea, vomiting and abdominal pain, I have explained that I am concerned with her symptoms and may represent acute intra-abdominal pathology and . The patient verbalizes understanding of my concerns. I have also explained the results of the labs and even though they are normal. The primary nurse and the charge nurse also strongly recommended that the patient should not leave AMA. Patient understands the risk of leaving AMA, which includes but is not restricted to . Patient signed the AMA form. Patient was also advised to return to ED if he changes his mind or if the symptoms worsen or other symptoms appear. Patient understands and agrees. Again, I discussed all the findings and test results with the patient. Patient was instructed to return to the emergency room immediately if any of the symptoms return or worsens. Plan of care was discussed with the patient and understands and agrees. All questions were answered at patient satisfaction. There were no further complaints or concerns. Patient signed AMA and he was discharged AMA. - Diagnoses Provider Diagnoses: Abdominal pain, Cyclical vomiting - Provider Notifications Discussed Care Of Patient With: Jose Mccoy - hospitalist Time Discussed With Above Provider: 11:00 Instructed by Provider To: Other - I discussed the patient's case with Dr. Mccoy, who recommends consulting GI. Dr. Talley is currently in a procedure, so we attempted to call Dr. Duncan since he has seen the patient before, but he is also unavailable. I spoke with Dr. Mccoy again at 1145, and he will speak with the patient in the ED. After speaking with the patient, Dr. Mccoy reports that the patient would like to leave AGAINST MEDICAL ADIVCE because she would not like to provide a urine sample. Discharge ED - Sign-Out/Discharge Documenting (check all that apply): Patient Departure - Patient will leave AGAINST MEDICAL ADVICE. - Discharge Plan Condition: Stable Disposition: AGAINST MEDICAL ADVICE Referrals: Minal Drake PA [Primary Care Provider] - - Billing Disposition and Condition Condition: STABLE Disposition: Against Medical Advice - Attestation Statements Document Initiated by Everardo: Yes Documenting Scribe: Yasemin Ahn Provider For Whom Everardo is Documenting (Include Credential): Dr. Rashad Funk MD Scribe Attestation: IYasemin, scribed for Dr. Rashad Funk MD on 07/29/19 at 1856. Scribe Documentation Reviewed: Yes Provider Attestation: The documentation as recorded by the Yasemin reich accurately reflects the service I personally performed and the decisions made by me, Dr. Rashad Funk MD Status of Scribe Document: Viewed
[2019-07-29 09:10] LABS: ABS Lymphocytes 1.3 10^3/ul (1.0-4.8); ABS Monocytes 0.5 10^3/ul (0-0.8); ABS Neutrophils 8.5 10^3/ul (1.5-7.7); Eosinophil % 0.3 %; Hematocrit 39 % (35-47); Hemoglobin 12.9 g/dL (12.0-16.0); Lymphocyte % 12.6 %; Mean Corpuscular HGB Conc 33 g/dL (31-36); Mean Corpuscular Hemoglobin 32 pg (27-31); Mean Corpuscular Volume 95 fL (80-97); Mean Platelet Volume 8.7 fL (7.4-10.4); Nucleated Red Blood Cells % 0.1; Platelet Count 239 10^3/uL (150-450); Red Blood Count 4.08 10^6 /uL (3.70-4.87); Red Cell Distribution Width 14 % (10-15); White Blood Count 10.4 10^3/uL (3.5-10.8)
[2019-07-29] MEDS ORDERED: Ondansetron INJ* 2 MG/ML VIAL IV ONE (09:29)
[2019-07-29] MEDS ORDERED: Al Hydrox/Mg Hydrox/Simet LIQ* 30 ML UDC PO ONE (09:30)
[2019-07-29] MEDS ORDERED: Lidocaine 2% VISCOUS* 15 ML UDC PO ONE (09:30)
[2019-07-29 09:49] LABS: Albumin 4.1 g/dL (3.2-5.2); Potassium 3.6 mmol/L (3.5-5.0); Total Bilirubin 0.3 mg/dL (0.2-1.0)
[2019-07-29 09:55] LABS: BUN/Creatinine Ratio 14.9 (8-20); C Reactive Protein 7.85 mg/L (<8.01); EGFR African American 91.3 (>60); EGFR Non-African American 75.5 (>60); Globulin 2.1 g/dL (2-4); Total Protein 6.2 g/dL (6.4-8.9)
[2019-07-29] MEDS ORDERED: PROCHLORPERAZINE INJ 5 MG/ML 2 ML VIAL IV PRN (11:07)
[2019-07-29 12:52] VITALS: BP 126/91
--- NOTE | 2019-07-29 17:50 | CONS ---
CONSULTATION REPORT: DATE OF CONSULT: 07/29/19 CONSULTING PHYSICIAN: Dr. Mccoy. REQUESTING PHYSICIAN: Dr. Funk, emergency room. HISTORY OF PRESENT ILLNESS: This is a 33-year-old female comes into the emergency room complaining o f abdominal pain and intractable vomiting with a known history documented to be cyclical vomiting. S he was in the emergency room at least twice if not 3 times this past week, each time she got medicate d and discharged home with antiemetic. This time, emergency room physician called me to evaluate and admit the patient to the medicine service for intractable vomiting and 1 vomiting episode in the ER. By the time I went to assess the patient in the emergency room, she was raging in pain, shaking for no and backward in the stretcher with both legs crossed and elbows on her knees, facing down, tearf ul, crying, distressed and upset, stating she wants something done and she wants something for the pa in. I was barely got a chance to introduce myself and she was repeatedly asking if "no one is going to do something for me, I want to go home." I explained to her that I just walked in and I did not h ave a chance yet to assess and examine her, reluctantly she agreed. I was able to go and have the Estela alonso chaperoning during the exam for documentation, reason and for being witnessed i n the room as I did see that the patient was already quite upset and agitated prior to my arrival. T he patient was assessed physically and at the time of my assessment, I recommended to have urine test to check for urine tox prior to medicating her and I was about to go and do an I-STOP check as the p atient declined urine, she said she is unable to provide any urine specimen and demanded to see the e mergency room to release her home and declined staying; therefore, the care was passed back to the em ergency room physician who I believe went to the room to reassess her and I will be available to read kieran the patient if she changes her mind and if she allows me and comply with my assessment and recomm endation. PHYSICAL EXAM: Very limited to reviewing her vitals: Temperature 97.1, pulse 93, satting 100%, bloo d pressure 121/91. General: She is sitting in the stretcher, very emotionally distressed, crying, a t once yelling, rocking back and forth with her legs crossed, elbows on her knees, head leaning forwa rd, requesting something for pain and if no pain medication or if no one is going to do anything, she was asking to be discharged. Abdomen is tender to superficial palpation even laying the stethoscope on her stomach. Her lungs are clear to auscultation. DIAGNOSTIC STUDIES/LAB DATA: Her diagnostic studies reviewed. White count 10, hemoglobin 12, hemato crit 39, platelets 239. Chemistry: Sodium 139, potassium 3.6, BUN 13, creatinine 0.8, lactic acid 0 .7, magnesium 2. AST 16, ALT 21, lipase 20. IMPRESSION AND PLAN: This is a 33-year-old female with prior known history of cyclical vomiting and opioid dependency, presents for intractable nausea and vomiting. Etiology unclear at this time. She decided to go home and asked the emergency room to discharge her and declined to provide a urine spe cimen as she has no time to wait and she has just voided. At this time, I did refrain from recommending any opioid therapy until we have a urine drug screen to rule out any other substance abuse. I will be more than happy to evaluate the patient if she changes her mind and I will continue my asse ssment regarding recommendation for either potential admission versus followup as an outpatient. Gus adelina was signed back to the emergency room physician for final disposition. [id number]/[facility] #: [id number]
== END 2019-07-29 12:18 | disposition left against medical advice (07) ==
LOC: ED 08:05
DX: R11.15 Cyclical vomiting syndrome unrelated to migraine (principal); R10.9 Unspecified abdominal pain; F11.20 Opioid dependence, uncomplicated; F17.210 Nicotine dependence, cigarettes, uncomplicated; Z88.1 Allergy status to other antibiotic agents; Z88.0 Allergy status to penicillin; Z88.2 Allergy status to sulfonamides; Z79.899 Other long term (current) drug therapy
CPT/HCPCS: 36415; 80053; 83605; 83690; 83735; 85025; 86140; 96361; 96374; 96375; 99284; A9270-GY; J1885; J2405; J2765

== ENCOUNTER 2019-09-08 06:10 | Emergency (ER) | payer BC ==
--- NOTE | 2019-09-08 06:36 | ED ---
Abdominal Pain/Female - HPI Summary HPI Summary: Pt. is a 33 y.o female who presents to the ER for abdominal pain, vomiting, and diarrhea x 3 days. Pt. has a hx of cyclic vomiting and states symptoms are the same today. Pt. has been seen in our ER numerous times for vomiting. Pt. notes she has numerous antiemetics at home she states are not working. Hx of marijuana use. Sxs are moderate in severity. No current modifying factors. - History of Current Complaint Chief Complaint: EDNauseaVomitDiarrh Stated Complaint: NAUSEA PER PT Time Seen by Provider: 09/08/19 06:17 Hx Obtained From: Patient Hx Last Menstrual Period: [id number] Pain Intensity: 8 Allergies/Adverse Reactions: Allergies Allergy/AdvReac Type Severity Reaction Status Date / Time nitrofurantoin AdvReac Vomiting Verified 09/11/19 06:46 [From Macrobid] Penicillins AdvReac Vomiting Verified 09/11/19 06:46 Sulfa (Sulfonamide AdvReac Rash And Verified 09/11/19 06:46 Antibiotics) Itching PMH/Surg Hx/FS Hx/Imm Hx Previously Healthy: Yes Endocrine/Hematology History: Denies: Hx Anticoagulant Therapy, Hx Blood Disorders, Hx Diabetes, Hx Thyroid Disease Cardiovascular History: Denies: Hx Congestive Heart Failure, Hx Hypercholesterolemia, Hx Hypertension Respiratory History: Denies: Hx Asthma, Hx Chronic Obstructive Pulmonary Disease (COPD) GI History: Reports: Hx Ulcer, Other GI Disorders - Collagenous colitis, cyclic vomiting syndrome History: Reports: Other Problems/Disorders - Frequent UTIs Denies: Hx Dialysis, Hx Renal Disease Sensory History: Reports: Hx Contacts or Glasses Denies: Hx Hearing Aid Opthamlomology History: Reports: Hx Contacts or Glasses Psychiatric History: Reports: Hx Anxiety, Hx Depression, Hx Substance Abuse - 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; 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) - Surgical History Surgery Procedure, Year, and Place: 2014 left ovarian cyst REMOVAL Hx Anesthesia Reactions: No - Immunization History Date of Tetanus Vaccine: utd Date of Influenza Vaccine: fall 2017 Infectious Disease History: Yes Infectious Disease History: Reports: Hx Clostridium Difficile, Hx Hepatitis - TESTS + FOR HEP C ANTIBODIES Denies: Hx Human Immunodeficiency Virus (HIV), Hx of Known/Suspected MRSA, Hx Shingles, Hx Tuberculosis, Hx Known/Suspected VRE, Hx Known/Suspected VRSA, History Other Infectious Disease, Traveled Outside the [place] in Last 30 Days - Family History Known Family History: Positive: Hypertension - mother, Other - Negative bowel CA - Social History Occupation: Employed Full-time Lives: With Family Alcohol Use: Occasionally Alcohol Amount: 1/week Hx Substance Use: Yes Substance Use Type: Reports: Marijuana Substance Use Comment - Amount & Last Used: no heroin use since 2013 per pt Hx Tobacco Use: Yes Smoking Status (MU): Light Every Day Tobacco Smoker Type: Cigarettes Amount Used/How Often: pack per day Length of Time of Smoking/Using Tobacco: 8 years Have You Smoked in the Last Year: Yes Review of Systems Constitutional: Negative Negative: Fever ENT: Negative Cardiovascular: Negative Respiratory: Negative Positive: Abdominal Pain, Vomiting, Diarrhea Genitourinary: Negative Neurological: Negative All Other Systems Reviewed And Are Negative: Yes Physical Exam Triage Information Reviewed: Yes Vital Signs On Initial Exam: Initial Vitals Temp Pulse Resp BP Pulse Ox 95.2 F 100 18 128/94 100 09/08/19 06:12 09/08/19 06:12 09/08/19 06:12 09/08/19 06:12 09/08/19 06:12 Vital Signs Reviewed: Yes Appearance: Positive: Well-Nourished - Pt. sitting up in bed holding abdominal. Appears uncomfortable but nontoxic. Skin: Positive: Warm, Cold Head/Face: Positive: Normal Head/Face Inspection Eyes: Positive: Normal, EOMI, ARACELY Neck: Positive: Supple Respiratory/Lung Sounds: Positive: Clear to Auscultation, Breath Sounds Present Cardiovascular: Positive: Normal, RRR Abdomen Description: Positive: Other: - Obese. Abd is soft with minimal tenderness throughout. No rebound or guarding. Neurological: Positive: Normal, CN Intact II-III Psychiatric: Positive: Affect/Mood Appropriate Procedures - Sedation Patient Received Moderate/Deep Sedation with Procedure: No Diagnostics - Vital Signs Vital Signs Temp Pulse Resp BP Pulse Ox 09/08/19 06:12 95.2 F 100 18 128/94 100 - Laboratory Result Diagrams: 09/08/19 07:13 09/08/19 07:13 Lab Statement: Any lab studies that have been ordered have been reviewed, and results considered in the medical decision making process. Abdominal Pain Fem Course/Dx - Course Course Of Treatment: Pt. with N/V and abd pain. Pt. notes sxs are same as previous episodes. Afebrile with benign exam. Pt. states unable to take PO medications at this time. Pt. given IV fluids, compazine and ativan with mild improvement. Labs show mildly low k of 3.3, 40meq given, and minimally elevated CRP. Pt. still c/o pain and requesting pain medication. Pt. given a dose of pain meds and is feeling better. Tolerating PO fluids. Advises to stop marijuana use. To call pcp today for close f.u. Pt. will return to er if sxs change or worsen. - Diagnoses Differential Diagnosis: Positive: Appendicitis, Constipation, Diverticulitis, Ectopic , Gall Bladder Disease, Hepatitis Provider Diagnoses: Nausea & vomiting Discharge ED - Sign-Out/Discharge Documenting (check all that apply): Patient Departure - Discharge Plan Condition: Improved Disposition: HOME Patient Education Materials: Acute Nausea and Vomiting (ED) Referrals: Minal Drake PA [Primary Care Provider] - Additional Instructions: Call PCP today for a close follow up appointment Continue home medications as directed Avoid marijuana use Return to ER if symptoms change or worsen - Billing Disposition and Condition Condition: IMPROVED Disposition: Home - Attestation Statements Provider Attestation: pt seen by midlevel provider independently, based on their assessment, it was not necessary to present the case to me but I was available for consultation. I did not form a physician-patient relationship with the patient. The chart however, has been reviewed. am signing this note strictly in an administrative capacity.
[2019-09-08] MEDS ORDERED: PROCHLORPERAZINE INJ 5 MG/ML 2 ML VIAL IV ONE (06:37)
[2019-09-08] MEDS ORDERED: LORazepam INJ* 2 MG/ML 1 ML VIAL IV PUSH ONE (06:37)
[2019-09-08] MEDS ORDERED: Lorazepam PYXIS KEY PRN (06:37)
[2019-09-08] MEDS ORDERED: Lorazepam PYXIS KEY ONE (06:46)
[2019-09-08] MEDS ORDERED: NS 0.9% 1000 ML** 1,000 ML IV ONE (07:12)
[2019-09-08 07:29] LABS: ABS Basophils 0.1 10^3/ul (0-0.2); ABS Lymphocytes 1.2 10^3/ul (1.0-4.8); ABS Monocytes 0.4 10^3/ul (0-0.8); ABS Neutrophils 7.3 10^3/ul (1.5-7.7); Eosinophil % 0.4 %; Hematocrit 39 % (35-47); Hemoglobin 13.8 g/dL (12.0-16.0); Lymphocyte % 13.5 %; Mean Corpuscular HGB Conc 35 g/dL (31-36); Mean Corpuscular Hemoglobin 33 pg (27-31); Mean Corpuscular Volume 93 fL (80-97); Mean Platelet Volume 8.8 fL (7.4-10.4); Nucleated Red Blood Cells % 0.1; Platelet Count 258 10^3/uL (150-450); Red Blood Count 4.21 10^6 /uL (3.70-4.87); Red Cell Distribution Width 13 % (10-15)
[2019-09-08] MEDS ORDERED: Morphine 4 MG/ML VIAL (1 ml) 4 MG/ML VIAL IV ONE (07:40)
[2019-09-08 07:49] LABS: Albumin 4.2 g/dL (3.2-5.2); Albumin/Globulin Ratio 1.7 (1-3); BUN/Creatinine Ratio 16.9 (8-20); C Reactive Protein 9.2 mg/L (<8.01); Calcium 9.1 mg/dL (8.6-10.3); EGFR African American 96.4 (>60); EGFR Non-African American 79.7 (>60); Globulin 2.5 g/dL (2-4); Potassium 3.3 mmol/L (3.5-5.0); Total Bilirubin 0.5 mg/dL (0.2-1.0); Total Protein 6.7 g/dL (6.4-8.9)
[2019-09-08 08:01] LABS: HCG Pregnancy 0.6 mIU/mL
[2019-09-08] MEDS ORDERED: Potassium Chlor TAB* 20 MEQ TAB.ER PO ONE (08:09)
[2019-09-08 08:38] VITALS: BP 125/85
== END 2019-09-08 08:46 | disposition home or self-care (01) ==
LOC: ED 06:10
DX: R11.2 Nausea with vomiting, unspecified (principal); F41.9 Anxiety disorder, unspecified; F32.9 Major depressive disorder, single episode, unspecified; F17.210 Nicotine dependence, cigarettes, uncomplicated; Z88.0 Allergy status to penicillin; Z88.1 Allergy status to other antibiotic agents; Z88.2 Allergy status to sulfonamides
CPT/HCPCS: 36415; 80053; 83690; 84702; 85025; 86140; 96361; 96374; 96375; 99282; A9270-GY; J0780; J2060; J2270

== ENCOUNTER 2019-09-11 06:39 | Emergency (ER) | payer BC ==
--- NOTE | 2019-09-11 07:54 | ED ---
Abdominal Pain/Female - HPI Summary HPI Summary: The pt is a 33 yr old female presenting to [facility] c/o abd pain beginning 5 days [employer]. She notes that the abd pain is diffuse and that she has anti-nausea medicine at home that she has not taken today. She rates her current pain severity to the abd pain an 8/10. No aggravating or alleviating factors noted. She also reports nausea, vomiting, and chills. She states that she has Hx of cyclic vomiting. - History of Current Complaint Chief Complaint: EDAbdPain Stated Complaint: VOMITING , CHILLS Time Seen by Provider: 09/11/19 07:46 Hx Obtained From: Patient Hx Last Menstrual Period: [id number] Onset/Duration: Sudden Onset, Lasting Days, Still Present Timing: Days Severity Initially: Severe Severity Currently: Severe Pain Intensity: 8 Pain Scale Used: 0-10 Numeric Location: Diffuse Aggravating Factor(s): Nothing Alleviating Factor(s): Nothing Associated Signs and Symptoms: Positive: Nausea, Vomiting, Other: - pos - chills Allergies/Adverse Reactions: Allergies Allergy/AdvReac Type Severity Reaction Status Date / Time nitrofurantoin AdvReac Vomiting Verified 09/11/19 06:46 [From Macrobid] Penicillins AdvReac Vomiting Verified 09/11/19 06:46 Sulfa (Sulfonamide AdvReac Rash And Verified 09/11/19 06:46 Antibiotics) Itching PMH/Surg Hx/FS Hx/Imm Hx Endocrine/Hematology History: Denies: Hx Anticoagulant Therapy, Hx Blood Disorders, Hx Diabetes, Hx Thyroid Disease Cardiovascular History: Denies: Hx Congestive Heart Failure, Hx Hypercholesterolemia, Hx Hypertension Respiratory History: Denies: Hx Asthma, Hx Chronic Obstructive Pulmonary Disease (COPD) GI History: Reports: Hx Ulcer, Other GI Disorders - Collagenous colitis, cyclic vomiting syndrome History: Reports: Other Problems/Disorders - Frequent UTIs Denies: Hx Dialysis, Hx Renal Disease Sensory History: Reports: Hx Contacts or Glasses Denies: Hx Hearing Aid Opthamlomology History: Reports: Hx Contacts or Glasses Psychiatric History: Reports: Hx Anxiety, Hx Depression, Hx Substance Abuse - 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; 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) - Surgical History Surgery Procedure, Year, and Place: 2014 left ovarian cyst REMOVAL Hx Anesthesia Reactions: No - Immunization History Date of Tetanus Vaccine: utd Date of Influenza Vaccine: 2019 Immunizations Up to Date: Yes Infectious Disease History: No Infectious Disease History: Reports: Hx Clostridium Difficile, Hx Hepatitis - TESTS + FOR HEP C ANTIBODIES Denies: Hx Human Immunodeficiency Virus (HIV), Hx of Known/Suspected MRSA, Hx Shingles, Hx Tuberculosis, Hx Known/Suspected VRE, Hx Known/Suspected VRSA, History Other Infectious Disease, Traveled Outside the [place] in Last 30 Days - Family History Known Family History: Positive: Hypertension - mother, Other - Negative bowel [place] - Social History Alcohol Use: Occasionally Alcohol Amount: 1/week Hx Substance Use: Yes Substance Use Type: Reports: Marijuana Substance Use Comment - Amount & Last Used: no heroin use since 2013 per pt Hx Tobacco Use: Yes Smoking Status (MU): Light Every Day Tobacco Smoker Type: Cigarettes Amount Used/How Often: pack per day Length of Time of Smoking/Using Tobacco: 8 years Have You Smoked in the Last Year: Yes Review of Systems Positive: Chills Positive: Abdominal Pain, Vomiting, Nausea All Other Systems Reviewed And Are Negative: Yes Physical Exam - Summary Physical Exam Summary: VITAL SIGNS: Reviewed. GENERAL: Patient is a well-developed and nourished female who is lying comfortable in the stretcher. Patient is not in any acute respiratory distress. In obvious discomfort. HEAD AND FACE: Normocephalic and atraumatic. EYES: PERRLA, EOMI x 2, No injected conjunctiva. EARS: Hearing grossly intact. Ear canals and tympanic membranes are WNL. MOUTH: Oropharynx within normal limits. NECK: Supple, trachea is midline, no adenopathy, no JVD. CHEST: Symmetric, no tenderness at palpation. LUNGS: Clear to auscultation bilaterally. No wheezing or crackles. CVS: RRR, S1 and S2 present, no murmurs or gallops appreciated. ABDOMEN: Abd tenderness. No signs of distention. Positive bowel sounds. No rebound, no guarding, and no masses palpated. No abdominal bruit or pulsations. EXTREMITIES: FROM in all major joints, no edema, no cyanosis or clubbing. NEURO: Alert and oriented x 3. No acute neurological deficits. Speech is normal. SKIN: Dry and warm. Triage Information Reviewed: Yes Vital Signs On Initial Exam: Initial Vitals Temp Pulse Resp BP Pulse Ox 97.0 F 101 20 134/89 98 09/11/19 06:43 09/11/19 06:43 09/11/19 06:43 09/11/19 06:43 09/11/19 06:43 Vital Signs Reviewed: Yes Procedures - Sedation Patient Received Moderate/Deep Sedation with Procedure: No Diagnostics - Vital Signs Vital Signs Temp Pulse Resp BP Pulse Ox 09/11/19 06:43 97.0 F 101 20 134/89 98 - Laboratory Result Diagrams: 09/11/19 08:20 09/11/19 08:20 Lab Statement: Any lab studies that have been ordered have been reviewed, and results considered in the medical decision making process. 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 She notes that the abd pain is diffuse and that she has anti-nausea medicine at home that she has not taken today. She rates her current pain severity to the abd pain an 8/10. No aggravating or alleviating factors noted. She also reports nausea, vomiting, and chills. She states that she has Hx of cyclic vomiting. Blood test results without any significant abnormality. Except for glucose of 109 and CRP of 11.01. In the ED course the patient was placed in a phototypesetting equipment monitor, IV access was obtained, IV fluids started. She was given Benadryl, Toradol, morphine, Zofran, and Protonix. After these medications the patients symptoms have improved. The patient has tolerated fluids without any nausea vomiting. Pain have subsided. I discussed all the findings and test results with the patient. Patient was instructed to return to the emergency room immediately if any of the symptoms return worsens. Plan of care was discussed with the patient and understands and agrees. All questions were answered at patient satisfaction. There were no further complaints or concerns. Lung exam before discharge: CTA B/L. Good air exchange. No wheezing or crackles heard. CVS: S1 and S2 present. No murmurs appreciated. Patient is alert and oriented x 3. Patient is hemodynamically stable. Patient will be discharged home with follow up PCP in the next 2-3 days - Diagnoses Provider Diagnoses: Cyclical vomiting, Epigastric abdominal pain Discharge ED - Sign-Out/Discharge Documenting (check all that apply): Patient Departure - discharge - Discharge Plan Condition: Stable Disposition: HOME Patient Education Materials: Abdominal Pain (ED) Referrals: Minal Drake PA [Primary Care Provider] - 3 Days Additional Instructions: Please return to the ED for any new or worsening symptoms. Please follow up with your primary care provider within 3 days. - Billing Disposition and Condition Condition: STABLE Disposition: Home - Attestation Statements Document Initiated by Everardo: Yes Documenting Scribe: Barak Younger Provider For Whom Floweribadelina is Documenting (Include Credential): Rashad Funk MD Scribe Attestation: I, Barak Younger, scribed for Rashad Funk MD on 09/12/19 at 1536. Scribe Documentation Reviewed: Yes Provider Attestation: The documentation as recorded by the Barak reich accurately reflects the service I personally performed and the decisions made by me, Rashad Funk MD Status of Scribe Document: Viewed
[2019-09-11] MEDS ORDERED: NS 0.9% 1000 ML** 1,000 ML IV ONE (07:56)
[2019-09-11] MEDS ORDERED: Pantoprazole IV* 40 MG IV ONE (07:56)
[2019-09-11] MEDS ORDERED: diPHENhydraMINE IV* 50 MG/ML 1 ml VIAL (BENADRYL) IV ONE (08:00)
[2019-09-11] MEDS ORDERED: Ondansetron INJ* 2 MG/ML VIAL IV ONE (08:00)
[2019-09-11 08:36] LABS: ABS Basophils 0.1 10^3/ul (0-0.2); ABS Lymphocytes 1.9 10^3/ul (1.0-4.8); ABS Monocytes 0.5 10^3/ul (0-0.8); ABS Neutrophils 5.7 10^3/ul (1.5-7.7); Eosinophil % 0.6 %; Hematocrit 39 % (35-47); Hemoglobin 13.4 g/dL (12.0-16.0); Lymphocyte % 23.6 %; Mean Corpuscular HGB Conc 35 g/dL (31-36); Mean Corpuscular Hemoglobin 32 pg (27-31); Mean Corpuscular Volume 93 fL (80-97); Mean Platelet Volume 8.8 fL (7.4-10.4); Platelet Count 285 10^3/uL (150-450); Red Blood Count 4.13 10^6 /uL (3.70-4.87); Red Cell Distribution Width 14 % (10-15); White Blood Count 8.2 10^3/uL (3.5-10.8)
[2019-09-11] MEDS ORDERED: Ketorolac INJ* 30 MG/ML 1 ML VIAL IV PUSH ONE (08:48)
[2019-09-11 08:53] LABS: ALT 24 U/L (7-52); Albumin 4.3 g/dL (3.2-5.2); Albumin/Globulin Ratio 1.7 (1-3); Alkaline Phosphatase 78 U/L (34-104); Blood Urea Nitrogen 12 mg/dL (6-24); C Reactive Protein 11.01 mg/L (<8.01); CO2 Carbon Dioxide 24 mmol/L (22-32); Calcium 9.2 mg/dL (8.6-10.3); Chloride 106 mmol/L (101-111); EGFR African American 108.4 (>60); EGFR Non-African American 89.6 (>60); Globulin 2.6 g/dL (2-4); Glucose 109 mg/dL (70-100); Sodium 138 mmol/L (135-145); Total Protein 6.9 g/dL (6.4-8.9)
[2019-09-11 09:31] LABS: Anion Gap 8 mmol/L (2-11)
[2019-09-11] MEDS ORDERED: Morphine 4 MG/ML VIAL (1 ml) 4 MG/ML VIAL IV ONE (09:39)
[2019-09-11 10:41] VITALS: BP 122/61
== END 2019-09-11 10:40 | disposition home or self-care (01) ==
LOC: ED 06:39
DX: R10.13 Epigastric pain (principal); R11.15 Cyclical vomiting syndrome unrelated to migraine; Z88.1 Allergy status to other antibiotic agents; Z88.0 Allergy status to penicillin; Z88.2 Allergy status to sulfonamides; F17.210 Nicotine dependence, cigarettes, uncomplicated
CPT/HCPCS: 36415; 80053; 83605; 83690; 84702; 85025; 86140; 96374; 96375; 99283; J1200; J1885; J2270; J2405

== ENCOUNTER 2020-12-27 05:15 | Observation (INO) ==
[2020-12-27] MEDS ORDERED: NS 0.9% 1000 ml BAG 1,000 ML IV ONE ×2 (05:57→05:58)
[2020-12-27] MEDS ORDERED: Ondansetron 4 mg VIAL 2 MG/ML 2 ml VIAL IV ONE (05:58)
[2020-12-27] MEDS ORDERED: Morphine 4 MG/ML VIAL (1 ml) IV ONE (05:58)
[2020-12-27] MEDS ORDERED: Famotidine IV 10 MG/ML 2 ml VIAL (20 mg) IV SLOW PU ONE (05:58)
[2020-12-27 07:12] LABS: ABS Basophils 0.1 10^3/ul (0-0.2); ABS Lymphocytes 1.7 10^3/ul (1.0-4.8); ABS Monocytes 0.6 10^3/ul (0-0.8); Eosinophil % 0.3 %; Hematocrit 39 % (35-47); Hemoglobin 13.4 g/dL (12.0-16.0); Lymphocyte % 16.4 %; Mean Corpuscular HGB Conc 34 g/dL (31-36); Mean Corpuscular Hemoglobin 31 pg (27-31); Mean Corpuscular Volume 92 fL (80-97); Mean Platelet Volume 8.8 fL (7.4-10.4); Platelet Count 353 10^3/uL (150-450); Red Blood Count 4.28 10^6 /uL (3.70-4.87); Red Cell Distribution Width 15 % (10-15); White Blood Count 10.4 10^3/uL (3.5-10.8)
[2020-12-27 07:23] LABS: ALT 19 U/L (7-52); AST 17 U/L (13-39); Albumin 4.6 g/dL (3.2-5.2); Albumin/Globulin Ratio 1.7 (1-3); Alkaline Phosphatase 101 U/L (34-104); Anion Gap 11 mmol/L (2-11); BUN/Creatinine Ratio 17.3 (8-20); Blood Urea Nitrogen 14 mg/dL (6-24); CO2 Carbon Dioxide 23 mmol/L (22-32); Calcium 9.4 mg/dL (8.6-10.3); Chloride 107 mmol/L (101-111); EGFR African American 97.9 (>60); EGFR Non-African American 80.9 (>60); Globulin 2.7 g/dL (2-4); Glucose 129 mg/dL (70-100); Lipase 17 U/L (11.0-82.0); Magnesium 2.1 mg/dL (1.9-2.7); Potassium 3.2 mmol/L (3.5-5.0); Sodium 141 mmol/L (135-145); Total Protein 7.3 g/dL (6.4-8.9)
[2020-12-27 07:30] LABS: HCG Pregnancy < 0.60 mIU/mL
[2020-12-27] MEDS ORDERED: Famotidine IV 10 MG/ML 2 ml VIAL (20 mg) ONE (09:13)
[2020-12-27] MEDS ORDERED: Metoclopramide 5 MG/ML VIAL (10 mg) IV ONE (09:33)
[2020-12-27 10:16] LABS: Urine Appearance Cloudy; Urine Bilirubin Negative (Negative); Urine Blood Negative (Negative); Urine Color Amber; Urine Glucose Negative (Negative); Urine Ketones 2+ (Negative); Urine Nitrite Negative (Negative); Urine Protein 1+(30 mg/dL) (Negative); Urine Specific Gravity 1.028 (1.010-1.030); Urine Urobilinogen Negative (Negative)
[2020-12-27] MEDS ORDERED: KCL 10 MEQ/50 ML IVPREMIX 10 MEQ/50 ML BAG IV ONE (10:29)
[2020-12-27] MEDS ORDERED: Morphine 2 MG/ML SYRINGE IV PRN (10:30)
[2020-12-27 10:35] LABS: Urine Benzodiazepine Screen None Detected (None Detect); Urine Cannabinoids Screen Presumptive Positive (None Detect); Urine Opiates Screen Presumptive Positive (None Detect)
[2020-12-27 10:41] LABS: Urine Bacteria Absent (Absent); Urine Red Blood Cell 2+(6-10/hpf) (Absent); Urine Squamous Epithelial Cell Present (Absent); Urine White Blood Cell Absent (Absent)
[2020-12-27] MEDS ORDERED: Albuterol HFA INHALER 8 gm MDI INH PRN (11:39)
[2020-12-27] MEDS: NS 0.9% 1000 ml BAG 1,000 ML IV SCH (13:45)
[2020-12-27] MEDS: Ondansetron 4 mg VIAL 2 MG/ML 2 ml VIAL IV PRN ×2 (13:45→20:32)
[2020-12-27] MEDS: Morphine 2 MG/ML SYRINGE IV PRN ×2 (14:10→17:54)
[2020-12-27] MEDS: Nicotine PATCH 21 MG/24 HR PATCH TRANSDERM SCH (14:10)
[2020-12-27] MEDS: Famotidine IV 10 MG/ML 2 ml VIAL (20 mg) IV SLOW PU SCH (20:32)
[2020-12-28] MEDS: NS 0.9% 1000 ml BAG 1,000 ML IV SCH ×2 (00:19→11:37)
[2020-12-28] MEDS: Morphine 2 MG/ML SYRINGE IV PRN ×3 (02:39→11:34)
[2020-12-28] MEDS: Ondansetron 4 mg VIAL 2 MG/ML 2 ml VIAL IV PRN ×2 (02:39→09:18)
[2020-12-28] MEDS: Prochlorperazine 5 mg/ml 2 ml VIAL (10 mg) IV PRN ×2 (04:24→10:48)
[2020-12-28 06:37] LABS: ABS Lymphocytes 1.5 10^3/ul (1.0-4.8); ABS Monocytes 0.6 10^3/ul (0-0.8); ABS Neutrophils 9.3 10^3/ul (1.5-7.7); Eosinophil % 0.3 %; Hematocrit 37 % (35-47); Hemoglobin 12.7 g/dL (12.0-16.0); Lymphocyte % 13.1 %; Mean Corpuscular HGB Conc 34 g/dL (31-36); Mean Corpuscular Hemoglobin 31 pg (27-31); Mean Corpuscular Volume 91 fL (80-97); Mean Platelet Volume 8.4 fL (7.4-10.4); Platelet Count 309 10^3/uL (150-450); Red Blood Count 4.05 10^6 /uL (3.70-4.87); Red Cell Distribution Width 15 % (10-15); White Blood Count 11.5 10^3/uL (3.5-10.8)
[2020-12-28 06:58] LABS: Calcium 8.8 mg/dL (8.6-10.3); EGFR African American 96.6 (>60); EGFR Non-African American 79.8 (>60); Potassium 3.1 mmol/L (3.5-5.0)
[2020-12-28] MEDS: Famotidine IV 10 MG/ML 2 ml VIAL (20 mg) IV SLOW PU SCH ×2 (09:18→19:44)
[2020-12-28] MEDS: Nicotine PATCH 21 MG/24 HR PATCH TRANSDERM SCH (09:18)
[2020-12-28] MEDS: Potassium Chlor 20 meq TAB.ER PO SCH ×2 (09:22→11:36)
[2020-12-28] MEDS: Pantoprazole VIAL 40 MG VIAL IV SCH ×2 (10:48→22:27)
[2020-12-28] MEDS ORDERED: Midazolam 10 mg/10 ml VIAL 1 mg/ml 10 ml VIAL (10 mg) ONE (13:19)
[2020-12-28] MEDS ORDERED: fentaNYL 100 mcg/2 ml 50 MCG/ML VIAL ONE (13:19)
[2020-12-28] MEDS ORDERED: diPHENhydraMINE IV 50 MG/ML 1 ml VIAL (BENADRYL) ONE (14:31)
[2020-12-29] MEDS: Morphine 2 MG/ML SYRINGE IV PRN ×2 (01:57→08:36)
[2020-12-29] MEDS: Ondansetron 4 mg VIAL 2 MG/ML 2 ml VIAL IV PRN ×2 (01:57→07:40)
[2020-12-29] MEDS: Prochlorperazine 5 mg/ml 2 ml VIAL (10 mg) IV PRN ×2 (03:10→10:59)
[2020-12-29 05:48] LABS: Calcium 8.9 mg/dL (8.6-10.3); Potassium 3.4 mmol/L (3.5-5.0)
[2020-12-29 05:54] LABS: BUN/Creatinine Ratio 10.5 (8-20); EGFR African American 91.4 (>60); EGFR Non-African American 75.5 (>60)
[2020-12-29 05:55] LABS: ABS Basophils 0.1 10^3/ul (0-0.2); ABS Lymphocytes 1.3 10^3/ul (1.0-4.8); ABS Monocytes 0.5 10^3/ul (0-0.8); ABS Neutrophils 9.5 10^3/ul (1.5-7.7); Eosinophil % 0.2 %; Hematocrit 38 % (35-47); Hemoglobin 12.7 g/dL (12.0-16.0); Lymphocyte % 11.1 %; Mean Corpuscular HGB Conc 33 g/dL (31-36); Mean Corpuscular Hemoglobin 31 pg (27-31); Mean Corpuscular Volume 94 fL (80-97); Mean Platelet Volume 8.8 fL (7.4-10.4); Platelet Count 304 10^3/uL (150-450); Red Blood Count 4.09 10^6 /uL (3.70-4.87); Red Cell Distribution Width 15 % (10-15); White Blood Count 11.3 10^3/uL (3.5-10.8)
[2020-12-29] MEDS ORDERED: Potassium Chlor 20 meq TAB.ER PO ONE (07:20)
[2020-12-29] MEDS: Famotidine IV 10 MG/ML 2 ml VIAL (20 mg) IV SLOW PU SCH (07:39)
[2020-12-29] MEDS: Nicotine PATCH 21 MG/24 HR PATCH TRANSDERM SCH (07:40)
[2020-12-29] MEDS ORDERED: Potassium Chlor 20 meq TAB.ER PO SCH (09:00)
[2020-12-29] MEDS: Pantoprazole VIAL 40 MG VIAL IV SCH (11:00)
[2020-12-29 11:36] VITALS: BP 130/72
== END 2020-12-29 11:23 | disposition home or self-care (01) ==
LOC: MED 05:15 → ED 05:15 → MED 12:31
PROVIDERS: ADMIT Internal Medicine; ATTEND Internal Medicine